=== PATIENT | male | born 1950 | race Caucasian/White ===

== ENCOUNTER → 2017-09-23 | Outpatient (CLI) | payer MEDICARE, SELFPAY | PROVIDERS: Family Provider Family Medicine; Visit Provider Internal Medicine | DX: I25.10 Atherosclerotic heart disease of native coronary artery without angina pectoris (principal); I10 Essential (primary) hypertension; I42.9 Cardiomyopathy, unspecified; E78.5 Hyperlipidemia, unspecified; Z95.5 Presence of coronary angioplasty implant and graft; G47.33 Obstructive sleep apnea (adult) (pediatric) | CPT/HCPCS: 93306 ==

== ENCOUNTER 2017-11-19 07:48 | Day surgery (SDC) | payer MEDICARE, SELFPAY ==
[2017-11-19] VITALS (15 sets, daily range): BP systolic 114–171; BP diastolic 55–104; PULSE 65–76; RESP 16–20; TEMP 36.7; O2SAT 89–98; BMI 36.1
--- NOTE | 2017-11-19 | IR_ITS ---
CARDIAC CATHETERIZATION DATE OF CATHETERIZATION:11/19/2017 1:29 PM PROCEDURES: 1. Right heart catheterization 2. Left heart catheterization 3. Left ventriculogram 4. Selective coronary angiogram INDICATION FOR TEST: 1. Abnormal Myoview 2. Known coronary artery disease 3. Congestive heart failure 4. Pulmonary hypertension Informed consent was obtained prior to the procedure. COMPLICATIONS: None ESTIMATED BLOOD LOSS: Less than 10 ml. TECHNIQUE: 1% lidocaine used to anesthetize the right anterior aspect of the right neck the right internal jugular vein was accessed via the Seldinger technique and a 7 [place] sheath was placed in the right internal jugular vein. A [place]-Padmini catheter was used to perform right heart catheterization. One percent lidocaine used to anesthetize the right anterior aspect of the wrist. The right radial artery was accessed via the Seldinger technique. A 6 [place] sheath was placed in the right radial artery. 2.5 mg of verapamil, 800 mcg of nitroglycerin and 5000 U Heparin were given through the arterial sheath. The trap catheter was also used to perform left heart catheterization and left ventriculography. At the end of the procedure the patient was transferred to the post-op holding area in stable condition for arterial sheath removal. ANGIOGRAPHIC RESULTS: 1. The left main artery normal 2. The left anterior descending artery has a stent in the proximal segment which is widely patent with mild 10% in-stent restenosis. The mid LAD has a 30-40% eccentric stenosis. The first diagonal artery has an ostial proximal 60-70% stenosis 3. The circumflex artery is a nondominant vessel and gives rise to a large ramus intermedius which has proximal 30 mid vessel 40% stenosis. The circumflex artery itself has 30 and 40% mid vessel stenoses 4. The right coronary artery is a large dominant vessel has proximal 30% stenoses with mid vessel long 40% stenosis and distal 40% stenosis all representing appears to be in-stent restenosis. Distally there are 30 and 40% stenoses in the PDA and PLVB 5. The REYES ventriculogram reveals moderate to severe left ventricular dilatation the inferior wall is severely hypokinetic with an estimated ejection fraction of 40-45% 6. The left ventricular end-diastolic pressure 15 mmHg 7. Right atrial pressure 10 mmHg 8. Pulmonary artery pressure is 35/18 mmHg 9. Pulmonary artery occlusion pressure is 15 10. Right atrial saturation 70% 11. Pulmonary saturation 69% IMPRESSION: 1. Coronary artery disease as described above 2. Moderate to severe left ventricular dilatation with large regional wall motion abnormality 3. Mild to moderately reduced LV function 4. Mild pulmonary hypertension PLAN: 1. Medical management 2. Risk factor modification 3. LDL less than 55 4. Cardiac rehabilitation 5. Avoidance of tobacco products
[2017-11-19 12:35] LABS: White Blood Count 9.4 K/mm3 (4.8-10.8)
[2017-11-19 12:36] LABS: Anion Gap 11.3 mEq/L (5-15); Basophils % 0.5 % (0.1-2.0); Blood Urea Nitrogen 13 mg/dL (7-18); Carbon Dioxide 31 mmol/L (21.0-32.0); Chloride 103 mmol/L (98-107); Creatinine Clearance Estimated 96 mL/min (0-300); Creatinine,Serum 1.16 mg/dL (0.70-1.30); Eosinophils % 2.7 % (0.1-12.0); Estimated Glomerular Filt Rate 63 ml/min (>60); GFR (African American) 76 ML/MIN (>60); Glucose 161 mg/dL (74-106); Hematocrit 44.7 % (42.0-52.0); Hemoglobin 15.4 g/dL (14.1-18.0); Mean Corpuscular HGB Conc 34.4 g/dL (31.8-35.4); Mean Corpuscular Hemoglobin 29.4 pg (27.0-31.2); Mean Corpuscular Volume 85.5 fl (80-94); Mean Platelet Volume 8.5 fl (7.4-10.4); Monocytes % 5.4 % (1.7-9.3); Neutrophils % 70.4 % (37.0-80.0); Platelet Count 227 K/mm3 (142-424); Potassium 3.3 mmoL/L (3.5-5.1); Red Blood Count 5.22 M/mm3 (4.60-6.20); Red Cell Distribution Width 14.3 % (11.5-17.5); Sodium 142 mmol/L (136-145)
[2017-11-19 12:37] LABS: Monocytes # 0.5 K/mm3 (0.1-1.0); Neutrophils # 6.6 K/mm3 (1.8-7.8)
[2017-11-19 12:38] LABS: Basophils # 0.1 K/mm3 (0-0.2); Eosinophils # 0.3 K/mm3 (0.0-0.4)
[2017-11-19 13:25] LABS: CATHL Arterial O2 SAT 69.5 % (90-100); CATHL Venous O2 SAT 71.8 % (75-80)
== END 2017-11-19 16:17 | disposition home or self-care (01) ==
LOC: CATHLAB 07:50
PROVIDERS: Family Provider Family Medicine; PCP Family Medicine; Visit Provider Internal Medicine
DX: I25.10 Atherosclerotic heart disease of native coronary artery without angina pectoris (principal); I50.9 Heart failure, unspecified; I11.9 Hypertensive heart disease without heart failure; I25.5 Ischemic cardiomyopathy; R53.82 Chronic fatigue, unspecified; R06.09 Other forms of dyspnea
CPT/HCPCS: 80048; 82810; 85025; 93460; 99152; A9502; C1725; C1769; C1894; J1644

== ENCOUNTER → 2017-12-08 12:59 | Outpatient (CLI) | payer MEDICARE, SELFPAY ==
--- NOTE | 2017-12-08 13:07 | NM_ITS ---
Cardiac MUGA scan: Indication for the test: Cardiomyopathy, shortness of breath, evaluate left ventricular systolic function. Procedure :Patient received intravenous 25.7 mCi of technetium 99 sodium pretchnitate, resting blood gas can was performed in the standard view. Results: Resting MIBI scan showed an ejection fraction of 39.8% with left ventricle global hypokinesis.
--- NOTE | 2017-12-08 13:54 | HMH.ITSHM ---
ROPINIROLE PRASUGREL POTASSIUM NITRO METFORMIN VITAMIN B 12 FUROSEMIDE BISOPROLOL ASA ALLOPURINOL ALBUTEROL
== END ==
PROVIDERS: Family Provider Family Medicine; PCP Family Medicine; Visit Provider Internal Medicine Cardiovascular Disease
DX: I25.10 Atherosclerotic heart disease of native coronary artery without angina pectoris (principal); I42.0 Dilated cardiomyopathy; G47.33 Obstructive sleep apnea (adult) (pediatric); E11.9 Type 2 diabetes mellitus without complications; E78.5 Hyperlipidemia, unspecified
CPT/HCPCS: 78473; A9512; A9560

== ENCOUNTER → 2017-12-11 12:23 | Outpatient (CLI) | payer MEDICARE, SELFPAY ==
[2017-12-11 13:07] LABS: Anion Gap 10.3 mEq/L (5-15); Blood Urea Nitrogen 12 mg/dL (7-18); Carbon Dioxide 27 mmol/L (21.0-32.0); Chloride 103 mmol/L (98-107); Creatinine,Serum 1.13 mg/dL (0.70-1.30); Estimated Glomerular Filt Rate 65 ml/min (>60); GFR (African American) 79 ML/MIN (>60); Glucose 156 mg/dL (74-106); Magnesium 1.5 mg/dL (1.4-2.2); Potassium 4.3 mmoL/L (3.5-5.1); Sodium 136 mmol/L (136-145)
== END ==
PROVIDERS: Physician Assistant; Visit Provider Internal Medicine
DX: Z51.81 Encounter for therapeutic drug level monitoring (principal); Z79.899 Other long term (current) drug therapy; R25.2 Cramp and spasm; I25.10 Atherosclerotic heart disease of native coronary artery without angina pectoris
CPT/HCPCS: 36415; 80048; 83735

== ENCOUNTER → 2018-01-01 08:13 | Outpatient (CLI) | payer MEDICARE, SELFPAY ==
[2018-01-01 08:56] LABS: Anion Gap 13.8 mEq/L (5-15); Blood Urea Nitrogen 16 mg/dL (7-18); Carbon Dioxide 26 mmol/L (21.0-32.0); Chloride 103 mmol/L (98-107); Estimated Glomerular Filt Rate 75 ml/min (>60); GFR (African American) 90 ML/MIN (>60); Glucose 249 mg/dL (74-106); Magnesium 1.6 mg/dL (1.4-2.2); Potassium 4.8 mmoL/L (3.5-5.1); Sodium 138 mmol/L (136-145)
== END ==
PROVIDERS: Physician Assistant; Visit Provider Internal Medicine
DX: I25.10 Atherosclerotic heart disease of native coronary artery without angina pectoris (principal); I11.9 Hypertensive heart disease without heart failure; Z95.5 Presence of coronary angioplasty implant and graft; E78.5 Hyperlipidemia, unspecified; I42.9 Cardiomyopathy, unspecified
CPT/HCPCS: 36415; 80048; 83735; 83880

== ENCOUNTER 2018-02-20 17:31 | Observation (INO) ==
--- NOTE | 2018-02-20 18:11 | Emergency Department Note ---
ED Disposition Clinical Impression: Acute febrile illness, Stented coronary artery Disposition: Admitted as Observation Condition on Discharge: Good - Critical Care Critical Care Time: No Attestation: On 02/20/18, the high probability of a clinically significant, sudden or life threatening deterioration of the following system(s) required my full and direct attention, intervention and personal management. The time I documented below is in addition to time spent performing reported procedures but includes the following listed in this critical care notation. Medical Decision Making - Medical Records Medical records reviewed: Yes: I reviewed the patient's medical records. - Manjit Inquiry Pt receiving controlled substance: No Vital Signs: 02/20/18 17:46 02/20/18 19:20 Temperature 101.1 F H 98.4 F Temperature Source Oral Oral Pulse Rate [Left Radial] 117 H 93 H Respiratory Rate 20 14 Blood Pressure [Right Arm] 139/84 108/64 Blood Pressure Mean [Right Arm] 102 78 Blood Pressure Source [Right Arm] Automatic Cuff Blood Pressure Position [Right Arm] Sitting 02 Sat by Pulse Oximetry 93 L 94 L Oxygen Delivery Method Room Air - Lab Data Lab results reviewed: Yes: I reviewed the patient's lab results. Lab Results 02/20/18 18:30: Lactic Acid 1.7 02/20/18 18:30: WBC 11.6 H, RBC 5.07, Hgb 14.1, Hct 42.7, MCV 84.3, MCH 27.9, MCHC 33.1, RDW 13.9, Plt Count 263, MPV 7.3 L, Neut % (Auto) 82.2 H, Lymph % ( Auto) 10.4, [place] % (Auto) 5.5, Eos % (Auto) 1.5, Baso % (Auto) 0.5, Neut # (Auto ) 9.5 H, Lymph # (Auto) 1.2, [place] # (Auto) 0.6, Eos # (Auto) 0.2, Baso # (Auto) 0.1 02/20/18 18:30: Sodium 136, Potassium 3.4 L, Chloride 102, Carbon Dioxide 24, Anion Gap 13.4, BUN 9, Creatinine 1.06, Estimated Creat Clear 110, Estimated GFR 70, Est GFR ( Amer) 85, Glucose 147 H, Calcium 9.4, Total Bilirubin 0.6, AST 15, ALT 24, Alkaline Phosphatase 70, Troponin I < 0.02, Total Protein 7.2, Albumin 3.6, Globulin 3.6 H, Albumin/Globulin Ratio 1.0 L 02/20/18 18:34: POC Glucose 134 H 02/20/18 18:43: Urine Color Yellow, Urine Appearance Clear, Urine pH 5.5, Ur Specific [place] 1.020, Urine Protein Negative, Urine Glucose (UA) Negative, Urine Ketones Negative, Urine Blood Negative, Urine Nitrate Negative, Urine Bilirubin Negative, Urine Urobilinogen 0.2, Ur Leukocyte Esterase Negative, Urine WBC 3-5 02/20/18 19:15: Stool Occult Blood Negative Result diagrams: 02/20/18 18:30 02/20/18 18:30 Orders (Tests/Meds): ED MEDICATIONS Generic Name Dose Route Start Last Admin Trade Name Freq PRN Reason Stop Dose Admin Levofloxacin/Dextrose 750 mg in 150 mls @ 100 mls/hr 02/20/18 19:45 Levofloxacin 750mg/150ml Premix IV 03/06/18 19:44 Q24H FLORENCIO Protocol Discontinued Medications Generic Name Dose Route Start Last Admin Trade Name Freq PRN Reason Stop Dose Admin Acetaminophen 650 mg 02/20/18 18:08 02/20/18 18:12 Acetaminophen 325mg Tab PO 02/20/18 18:09 650 mg ONCE ONE Administration Sodium Chloride 1,000 mls @ 999 mls/hr 02/20/18 18:30 02/20/18 18:20 Sod Chlor 0.9% 1000ml Bag IV 02/20/18 19:30 999 mls/hr .Q1H1M FLORENCIO Administration ORDERS Category Date Time Status Chest XR 2 view (NOT portable) [XR chest 2V] Stat Exams 02/20/18 18:14 Taken Blood Culture Stat Micro 02/20/18 18:30 Received - Radiology Data #1 Image(s): Chest Image Reviewed: Yes I reviewed the patient's radiology image Preliminary Findings: Normal/NAD - ECG Data Tracing #1 I reviewed this ECG and interpreted as documented below: Normal Sinus Rhythm: Yes Ischemic changes: non-specific ST-T wave changes (old mi ) - Physician Consults Physician Consulted: salomon Reason -: Admission Fever HPI - General Chief Complaint: Weakness Stated Complaint: weakness,pain in left side Time Seen by Provider: 02/20/18 17:55 Mode of Arrival: Wheelchair Source of Information: Patient, Spouse, Medical Record Limitations: No Limitations Description of Symptoms (Recalled from ER Triage Doc. by RN): Pt states for the last week he has been feeling weak. Due to the weakness he is having incontience. States last night he was having left jaw pain into his neck. He took at nitro and states this relieved his pain in the jaw and neck - History of Present Illness HPI Narrative: pt with fever and assoc weakness with no cough but does report urinary incont - urge type - has a fever and also reports episode of chest pain relieved by nitro last night MD complaint: fever, weakness Onset (ago): day(s) Treatments prior to arrival fever: ibuprofen - Related Data Home Medications Medication Instructions Recorded Confirmed albuterol sulfate HFA 90 1 puff INHALATION DAILY 30 Days 11/02/17 02/20/18 mcg/actuation aerosol inhaler metformin 850 mg tablet 850 mg PO DAILY 90 Days 11/02/17 02/20/18 prasugrel 10 mg tablet 10 mg PO DAILY 30 Days 11/02/17 02/20/18 aspirin 81 mg tablet,delayed 81 mg PO ONCE 11/11/17 02/20/18 release nitroglycerin 0.4 mg sublingual 0.4 mg SUBLINGUAL Q5M PRN 11/11/17 02/20/18 tablet mecobalamin (vitamin B12) 1,000 1,000 mcg SUBLINGUAL QHS 11/12/17 02/20/18 mcg disintegrating tablet,sublingual allopurinol 300 mg tablet 300 mg PO DAILY tab 12/11/17 02/20/18 furosemide 40 mg tablet 40 mg PO .MWF tab 01/01/18 02/20/18 losartan 100 mg tablet 100 mg PO DAILY 90 Days 02/09/18 02/20/18 Magnesium Oxide [Magnesium] 400 mg PO BID 02/20/18 02/20/18 Potassium Chloride [Micro-K 10mEq 10 meq PO ONCE 02/20/18 02/20/18 cap] Spironolactone [Spironolactone 50 mg PO .mwf 02/20/18 02/20/18 25mg Tab] Allergies Allergy/AdvReac Type Severity Reaction Status Date / Time No Known Allergies Allergy Verified 02/20/18 18:05 [facility] History I have reviewed the patient's past medical history: Yes Medical History: Reports:: Cancer, Coronary Artery Disease, Diabetes Mellitus Type 2, Gastroesophageal Reflux Disease(GERD), Hypertension, Myocardial Infarction Denies:: Diabetes Mellitus Type 1, Internal Pacemaker, Seizures Other Medical History: Reports: Arthritis Comment: Non hodgkins lymphoma Other Surgeries: Yes: Angioplasty, CABG (8 stents in the Heart), Cardiac Catheterization, Coronary Stent, Sinus Surgery. No: Pacemaker Amputation: No Fractures: No Comment: Removal of [place] - 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 Smoking Status: Former smoker Tobacco Type: cigarettes Smoking End Date: 1999 Alcohol Intake: never Alcohol Intake Frequency:: other Substance Use Type: denies use Occupational Status: retired Housing: house Household Members: spouse - Psychiatric History Expresses thoughts of harming self/others: None Suicide Plan Description: No Plan Family Hx:: Heart Attack, Cancer, Hypertension ROS Obtained: Yes All systems reviewed & no additional complaints - Constitutional Constitutional: Reports fever(s), Reports weakness - Eyes Eyes: Denies change in vision - ENT Ears, Nose, Mouth, and Throat: Denies sore throat - Cardiovascular Cardiovascular: Reports chest pain, Reports radiating jaw, neck or arm pain - Respiratory Respiratory: No cough - Gastrointestinal Gastrointestingal: Denies: abdominal pain - Genitourinary Male Genitourinary: Denies hematuria, Reports urinary incontinence - Musculoskeletal Musculoskeletal: Denies joint pain, Denies joint swelling - Integumentary/Breasts Skin/Breast: Denies rash - Neurologic Neurologic: Denies seizure-like activity Physical Exam - General General appearance: in no apparent distress - Head Head exam: normocephalic - Eye Eye exam: Present: PERRL, EOMI. Absent: scleral icterus - ENT ENT exam: Present: mucous membranes dry - Neck Neck exam: Present: trachea midline - Respiratory Respiratory exam: Present: other (bs bilat dec ). Absent: respiratory distress - Cardiovascular Cardiovascular exam: Present: regular rate, systolic murmur - Abdominal Exam Abdominal exam: Present: soft. Absent: tenderness - Rectal Exam Rectal exam: Present: normal rectal tone, heme (-) stool, prostate tenderness - Extremities Exam Extremities exam: Present: pedal edema - Back Exam Back exam: Present: normal inspection. Absent: CVA tenderness (R), CVA tenderness (L) - Neurological Exam Neurological exam: Present: alert, oriented X3, CN II-XII intact - Psychiatric Psychiatric exam: Present: normal affect - Skin Skin exam: Absent: rash
[2018-02-20 18:46] LABS: Basophils # 0.1 K/mm3 (0-0.2); Basophils % 0.5 % (0.1-2.0); Eosinophils # 0.2 K/mm3 (0.0-0.4); Eosinophils % 1.5 % (0.1-12.0); Hematocrit 42.7 % (42.0-52.0); Hemoglobin 14.1 g/dL (14.1-18.0); Lymphocytes # 1.2 K/mm3 (0.7-4.5); Lymphocytes % 10.4 K/mm3 (10-50); Mean Corpuscular HGB Conc 33.1 g/dL (31.8-35.4); Mean Corpuscular Hemoglobin 27.9 pg (27.0-31.2); Mean Corpuscular Volume 84.3 fl (80-94); Mean Platelet Volume 7.3 fl (7.4-10.4); Monocytes # 0.6 K/mm3 (0.1-1.0); Monocytes % 5.5 % (1.7-9.3); Neutrophils # 9.5 K/mm3 (1.8-7.8); Neutrophils % 82.2 % (37.0-80.0); Platelet Count 263 K/mm3 (142-424); Red Blood Count 5.07 M/mm3 (4.60-6.20); Red Cell Distribution Width 13.9 % (11.5-17.5); White Blood Count 11.6 K/mm3 (4.8-10.8)
[2018-02-20 18:47] LABS: Microscopic, Urine URINE MICROSCOPIC (MICROSCOPIC)
[2018-02-20 18:53] LABS: Appearance,Urine CLEAR (Clear); Bilirubin,Urine Negative (Negative); Blood, Urine Negative (Negative); Color,Urine YELLOW (Yellow); Glucose,Urine (UA) Negative (Negative); Ketones,Urine Negative (Negative); Leukocyte Esterase,Urine Negative (Negative); PH,Urine 5.5 (5.0-8.5); Protein,Urine Negative (Negative); Urobilinogen,Urine 0.2 EU/dl (0.2)
[2018-02-20 19:01] LABS: Alanine Aminotransferase 24 U/L (12-78); Albumin Level 3.6 gm/dL (3.4-5.0); Alkaline Phosphatase 70 U/L (46-116); Anion Gap 13.4 mEq/L (5-15); Aspartate Amino Transferase 15 U/L (15-37); Bilirubin,Total 0.6 mg/dL (0.2-1.0); Blood Urea Nitrogen 9 mg/dL (7-18); Calcium 9.4 mg/dL (8.5-10.1); Carbon Dioxide 24 mmol/L (21.0-32.0); Chloride 102 mmol/L (98-107); Globulin 3.6 gm/dl (1.3-3.2); Glucose 147 mg/dL (74-106); Potassium 3.4 mmoL/L (3.5-5.1); Sodium 136 mmol/L (136-145); Total Protein,Serum 7.2 gm/dL (6.4-8.2)
[2018-02-21 02:38] LABS: Basophils % 0.4 % (0.1-2.0); Eosinophils # 0.2 K/mm3 (0.0-0.4); Eosinophils % 2.1 % (0.1-12.0); Hematocrit 40.9 % (42.0-52.0); Hemoglobin 13.6 g/dL (14.1-18.0); Lymphocytes # 1.1 K/mm3 (0.7-4.5); Lymphocytes % 14.2 K/mm3 (10-50); Mean Corpuscular HGB Conc 33.4 g/dL (31.8-35.4); Mean Corpuscular Hemoglobin 28.3 pg (27.0-31.2); Mean Corpuscular Volume 84.8 fl (80-94); Mean Platelet Volume 7.3 fl (7.4-10.4); Monocytes # 0.6 K/mm3 (0.1-1.0); Monocytes % 7.6 % (1.7-9.3); Neutrophils # 5.6 K/mm3 (1.8-7.8); Neutrophils % 75.8 % (37.0-80.0); Platelet Count 225 K/mm3 (142-424); Red Blood Count 4.82 M/mm3 (4.60-6.20); White Blood Count 7.4 K/mm3 (4.8-10.8)
[2018-02-21 02:51] LABS: Anion Gap 14.5 mEq/L (5-15); Potassium 3.5 mmoL/L (3.5-5.1)
[2018-02-21 07:29] VITALS: BP 154/76
--- NOTE | 2018-02-21 08:32 | Pharmacy Consult Notes ---
[facility] VTE Monitoring - Patient Demographics Admission date: 02/20/18 Report Date: 02/21/18 Time: 08:32 Allergies/Adverse Reactions: Patient Allergies No Known Allergies Allergy (Verified 02/20/18 18:05) Height: 1.73 m Weight: 108.465 kg Patient Problems: Current Active Problems Acute febrile illness (Acute) Stented coronary artery (Chronic) - VTE Risk Labs: VTE Related Lab Results Hgb 13.6 g/dL (14.1-18.0) L 02/21/18 02:10 Hct 40.9 % (42.0-52.0) L 02/21/18 02:10 Plt Count 225 K/mm3 (142-424) 02/21/18 02:10 BUN 10 mg/dL (7-18) 02/21/18 02:10 Creatinine 0.98 mg/dL (0.70-1.30) 02/21/18 02:10 Estimated Creat Clear 111 mL/min (0-300) 02/21/18 02:10 Was VTE Risk Assessment Performed: Yes VTE Score: 10 VTE Risk Level: Moderate Risk - Prophylaxis VTE Prophylaxis Ordered?: Yes Types of VTE Prophylaxis: TEDS Knee High Location of Applied Device: Bilateral Lower Extremeties
--- NOTE | 2018-02-21 09:09 | H&P/Discharge Summary ---
General - General Admission date:: 02/20/18 Discharge date: 02/21/18 *Admission Date: 02/20/18 *Chief complaint: Fever and confusion *History of present illness: 67 year old male patient of [facility] presented to [facility] ER yesterday with a 3 or 4 day history of subjective low grade fever, weak urinary stream and some confusion with fatigue. He had no sick contacts or recent travel. His had noted he had been sleeping more and took several naps the day prior to admission. [facility] History I have reviewed the patient's past medical history: Yes Medical History: Reports:: Cancer (lung and neck), Congestive Heart Failure, Coronary Artery Disease, Diabetes Mellitus Type 2, Gastroesophageal Reflux Disease(GERD), Hypertension, Myocardial Infarction Denies:: Diabetes Mellitus Type 1, Internal Pacemaker, MRSA, Seizures Other Medical History: Reports: Arthritis, Chemotherapy (cancer of neck and lung ), Sinus Problems Other Surgeries: Yes: Angioplasty, CABG (8 stents in the Heart), Cancer Surgery , Cardiac Catheterization, Coronary Stent, Sinus Surgery. No: Pacemaker Amputation: No Fractures: No - *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 Educational Level: Attended High School Smoking Status: Former smoker Tobacco Type: cigarettes Smoking End Date: 1999 Alcohol Intake: never Alcohol Intake Frequency:: other Substance Use Type: denies use Occupational Status: employed, retired Housing: house Household Members: spouse - Psychiatric History Expresses thoughts of harming self/others: None Suicide Plan Description: No Plan *Family Hx:: Heart Attack, Cancer, Hypertension Review of Systems - Constitutional Reports chills, Reports fatigue, Reports fever(s), Denies anorexia - Eyes Denies change in vision - ENT Denies change in voice - *Cardiovascular Denies chest pain - *Respiratory Denies cough - *Gastrointestinal Denies abdominal pain - *Genitourinary Reports difficulty urinating - *Musculoskeletal Denies joint pain - Integumentary/Breasts Denies rash - *Neurologic Reports weakness, Denies seizure-like activity - Psychiatric Reports confusion (past few days) - Hematologic/Lymphatic Denies easy bleeding, Denies easy bruising Exam Vital signs and Labs for Last 24 Hours: Temp Pulse Resp BP Pulse Ox 98.5 F 85 18 154/76 95 02/21/18 07:28 02/21/18 07:28 02/21/18 07:28 02/21/18 07:28 02/21/18 07:38 Laboratory Results - last 24 hr 02/20/18 18:30: Lactic Acid 1.7 02/20/18 18:30: WBC 11.6 H, RBC 5.07, Hgb 14.1, Hct 42.7, MCV 84.3, MCH 27.9, MCHC 33.1, RDW 13.9, Plt Count 263, MPV 7.3 L, Neut % (Auto) 82.2 H, Lymph % ( Auto) 10.4, [place] % (Auto) 5.5, Eos % (Auto) 1.5, Baso % (Auto) 0.5, Neut # (Auto ) 9.5 H, Lymph # (Auto) 1.2, [place] # (Auto) 0.6, Eos # (Auto) 0.2, Baso # (Auto) 0.1 02/20/18 18:30: Sodium 136, Potassium 3.4 L, Chloride 102, Carbon Dioxide 24, Anion Gap 13.4, BUN 9, Creatinine 1.06, Estimated Creat Clear 110, Estimated GFR 70, Est GFR ( Amer) 85, Glucose 147 H, Calcium 9.4, Total Bilirubin 0.6, AST 15, ALT 24, Alkaline Phosphatase 70, Troponin I < 0.02, Total Protein 7.2, Albumin 3.6, Globulin 3.6 H, Albumin/Globulin Ratio 1.0 L 02/20/18 18:34: POC Glucose 134 H 02/20/18 18:43: Urine Color Yellow, Urine Appearance Clear, Urine pH 5.5, Ur Specific [place] 1.020, Urine Protein Negative, Urine Glucose (UA) Negative, Urine Ketones Negative, Urine Blood Negative, Urine Nitrate Negative, Urine Bilirubin Negative, Urine Urobilinogen 0.2, Ur Leukocyte Esterase Negative, Urine WBC 3-5 02/20/18 19:15: Stool Occult Blood Negative 02/20/18 20:30: Troponin I < 0.02 02/20/18 20:30: POC Glucose 104 02/20/18 23:20: Troponin I < 0.02 02/21/18 02:10: Troponin I < 0.02 02/21/18 02:10: WBC 7.4 D, RBC 4.82, Hgb 13.6 L, Hct 40.9 L, MCV 84.8, MCH 28.3 , MCHC 33.4, RDW 14.0, Plt Count 225, MPV 7.3 L, Neut % (Auto) 75.8, Lymph % ( Auto) 14.2, [place] % (Auto) 7.6, Eos % (Auto) 2.1, Baso % (Auto) 0.4, Neut # (Auto ) 5.6, Lymph # (Auto) 1.1, [place] # (Auto) 0.6, Eos # (Auto) 0.2, Baso # (Auto) 0.0 02/21/18 02:10: Sodium 140, Potassium 3.5, Chloride 105, Carbon Dioxide 24, Anion Gap 14.5, BUN 10, Creatinine 0.98, Estimated Creat Clear 111, Estimated GFR 77, Est GFR ( Amer) 93, Glucose 174 H, Magnesium 1.7 02/21/18 06:26: POC Glucose 125 H I & O for Last 24 hours: Intake & Output 02/18/18 02/19/18 02/20/18 02/21/18 11:59 11:59 11:59 11:59 Intake Total 360 / 360 Balance 360 / 360 Weight 239 lb 2 oz - Constitutional no acute distress (conversant, laughs) - *Routine HEENT Exam ENT: Present: mucous membranes moist - *Routine Neck Exam Present: supple, full ROM - *Routine Respiratory Exam Present: CTA bilaterally - *Routine Cardiovascular Exam Present: RRR - *Routine Abdominal Exam Present: soft, normoactive bowel sounds. Absent: tenderness - *Routine Rectal Exam Patient deferred: prostate exam (deferred today, but done in ER, prostate noted to be tender) - *Routine Extremities Exam Absent: cyanosis, clubbing, edema - *Routine Skin Exam Absent: rash - *Routine Neurological Exam Present: alert, oriented X3. Absent: sensory deficit, motor deficit Hospital Course Hospital Course: Patient was admitted to [facility] due to an acute febrile illness with the working diagnosis of prostatitis. He was given IV Levaquin. Patient improved with the first dose of medication. He was thinking clearly and did not feel as tired. His WBC normalized and his fever resolved. Plans will be made to discharge today and continue outpatient treatment with Levaquin by mouth, with close office follow up. Results Labs on day of discharge: Labs from last 24 hours 02/21/18 02/21/18 02/21/18 06:26 02:10 02:10 WBC 7.4 D RBC 4.82 Hgb 13.6 L Hct 40.9 L MCV 84.8 MCH 28.3 MCHC 33.4 RDW 14.0 Plt Count 225 MPV 7.3 L Neut % (Auto) 75.8 Lymph % (Auto) 14.2 [place] % (Auto) 7.6 Eos % (Auto) 2.1 Baso % (Auto) 0.4 Neut # (Auto) 5.6 Lymph # (Auto) 1.1 [place] # (Auto) 0.6 Eos # (Auto) 0.2 Baso # (Auto) 0.0 Sodium 140 Potassium 3.5 Chloride 105 Carbon Dioxide 24 Anion Gap 14.5 BUN 10 Creatinine 0.98 Estimated Creat Clear 111 Estimated GFR 77 Est GFR ( Amer) 93 Glucose 174 H POC Glucose 125 H Lactic Acid Calcium Magnesium 1.7 Total Bilirubin AST ALT Alkaline Phosphatase Troponin I Total Protein Albumin Globulin Albumin/Globulin Ratio Urine Color Urine Appearance Urine pH Ur Specific [place] Urine Protein Urine Glucose (UA) Urine Ketones Urine Blood Urine Nitrate Urine Bilirubin Urine Urobilinogen Ur Leukocyte Esterase Urine WBC Stool Occult Blood 02/21/18 02/20/18 02/20/18 02:10 23:20 20:30 WBC RBC Hgb Hct MCV MCH MCHC RDW Plt Count MPV Neut % (Auto) Lymph % (Auto) [place] % (Auto) Eos % (Auto) Baso % (Auto) Neut # (Auto) Lymph # (Auto) [place] # (Auto) Eos # (Auto) Baso # (Auto) Sodium Potassium Chloride Carbon Dioxide Anion Gap BUN Creatinine Estimated Creat Clear Estimated GFR Est GFR ( Amer) Glucose POC Glucose 104 Lactic Acid Calcium Magnesium Total Bilirubin AST ALT Alkaline Phosphatase Troponin I < 0.02 < 0.02 Total Protein Albumin Globulin Albumin/Globulin Ratio Urine Color Urine Appearance Urine pH Ur Specific [place] Urine Protein Urine Glucose (UA) Urine Ketones Urine Blood Urine Nitrate Urine Bilirubin Urine Urobilinogen Ur Leukocyte Esterase Urine WBC Stool Occult Blood DS: Diagnosis - Discharge Diagnosis (1) Prostatitis Status: Acute (2) Hypokalemia Status: Acute (3) Acute febrile illness Status: Acute Discharge Medications Discharge Medications: Home Medications Medication Instructions Recorded Confirmed Type albuterol sulfate HFA 90 1 puff INHALATION DAILY 30 Days 11/02/17 02/20/18 History mcg/actuation aerosol inhaler metformin 850 mg tablet 850 mg PO DAILY 90 Days 11/02/17 02/20/18 History prasugrel 10 mg tablet 10 mg PO DAILY 30 Days 11/02/17 02/20/18 History aspirin 81 mg tablet,delayed 81 mg PO DAILY 11/11/17 02/21/18 History release nitroglycerin 0.4 mg sublingual 0.4 mg SUBLINGUAL Q5M PRN 11/11/17 02/20/18 History tablet mecobalamin (vitamin B12) 1,000 1,000 mcg SUBLINGUAL HS 11/12/17 02/21/18 History mcg disintegrating tablet,sublingual allopurinol 300 mg tablet 300 mg PO DAILY tab 12/11/17 02/20/18 History furosemide 40 mg tablet 40 mg PO MOWEFR tab 01/01/18 02/21/18 History losartan 100 mg tablet 100 mg PO DAILY 90 Days 02/09/18 02/20/18 History Magnesium Oxide [Magnesium] 400 mg PO BID 02/20/18 02/20/18 History Potassium Chloride [Micro-K 10mEq 10 meq PO DAILY 02/20/18 02/21/18 History cap] Spironolactone [Spironolactone 25 mg PO DAILY 02/20/18 02/21/18 History 25mg Tab] Disposition Disposition: Home, Self-Care
== END 2018-02-21 09:56 | disposition home or self-care (01) ==
LOC: 2ND 17:31 → ER 17:31 → 2ND 20:08
PROVIDERS: ADMIT Internal Medicine Adolescent Medicine; ATTEND Family Medicine

== ENCOUNTER → 2018-07-26 13:48 | Outpatient (CLI) | payer MEDICARE, SELFPAY ==
--- NOTE | 2018-07-26 13:55 | CA_ITS ---
PROCEDURE: 2-D M-mode and color Doppler study INDICATIONS FOR THE TEST: Chest pain COPD Heart Murmur Tobacco Smoking Palpitations Fatigue Syncope Edema Hypertension+Diabetes Mellitus+ Rheumatic Fever SOB ALLEN Obesity+Hyperlipidemia+ Family History HD Additional History CAD, CM, STENTS PATIENT INFORMATION HEIGHT: 68 WEIGHT:244 GENDER: Male B/P:154/76 2-D/M-MODE INTERPRETATION: 2-D MEASUREMENTS OBSERVED VALUES IN CMS Right Ventricular Dimension (RVDd) 2.8 Interventricular Septum (Thickness)(IVsd) 1.6 Left Ventricular Internal Dimensions(LVIDd) 5.5 Left Ventricular Posterior Wall (Thickness)(LVPWd) 1.0 Aortic Root 3.2 Aortic Cusp Separation 2.0 Left Atrial Dimensions (LAD) 3.6 2D 1. Technically poor study because of the patient's factor and poor acoustic windows, endocardial surfaces are very poorly visualized. 2. The left atrium appears to be mildly enlarged, left ventricle is mildly dilated, there is moderately reduced left ventricular systolic function, visually estimated ejection fraction approximately 35-40%, left ventricle is globally hypokinetic. 3. The right atrium and right ventricle are relatively normal size and function. 4. The aortic valve is minimally thickened and fibrosed. 5. The mitral and tricuspid valve leaflets are minimally thickened. 6. The pulmonic valve is poorly visualized. 7. No significant pericardial effusion noted. DOPPLER INTERROGATION: Doppler interrogation of the aortic, mitral and tricuspid valvular presence of mild mitral and tricuspid regurgitation, tricuspid regurgitation jet velocity is inadequate for calculation of the right ventricular systolic pressure, grade 1 diastolic dysfunction seen with tissue Doppler evidence of raised left atrial pressure CONCLUSION: 1. Technically very difficult study because of the patient's factor and poor acoustic windows, repeat study with Definity contrast is recommended. 2. Mildly enlarged left atrium, mildly dilated left ventricle, reduced left ventricular systolic function, visually estimated ejection fraction 35-40%, left ventricle is globally hypokinetic. Grade 1 diastolic dysfunction seen with tissue Doppler evidence of raised left atrial pressure. 3. Mild mitral and tricuspid regurgitation 4. No significant pericardial effusion noted.
== END ==
PROVIDERS: Family Provider Family Medicine; PCP Family Medicine; Visit Provider Family Medicine
DX: I25.5 Ischemic cardiomyopathy (principal)
CPT/HCPCS: 93306

== ENCOUNTER → 2018-08-17 07:50 | Outpatient (CLI) | payer MEDICARE, SELFPAY ==
--- NOTE | 2018-08-17 07:54 | CA_ITS ---
PROCEDURE: 2-D M-mode and color Doppler study INDICATIONS FOR THE TEST: Chest pain COPD Heart Murmur Tobacco Smoking Palpitations Fatigue Syncope Edema Hypertension+Diabetes Mellitus+ Rheumatic Fever SOB ALLEN Obesity+Hyperlipidemia+ Family History HD Additional History CAD,CM, STENTS DEFINITY STUDY PATIENT INFORMATION HEIGHT: 68 WEIGHT:244 GENDER: Male B/P:154/76 2-D/M-MODE INTERPRETATION: 2-D MEASUREMENTS OBSERVED VALUES IN CMS Right Ventricular Dimension (RVDd) Interventricular Septum (Thickness)(IVsd) Left Ventricular Internal Dimensions(LVIDd) Left Ventricular Posterior Wall (Thickness)(LVPWd) Aortic Root Aortic Cusp Separation Left Atrial Dimensions (LAD) 2D 1. The left atrium is mildly enlarged, left ventricle is normal size, definitely contrast was utilized to delineate endocardial surfaces, visually estimated ejection fraction of 25-30%, there is marked hypokinesis involving the inferior, inferobasal, posterobasal and intraventricular septum. 2. The right atrium and right ventricle are normal size and contractility. 3. The valvular structures are not well visualized this study. DOPPLER INTERROGATION: CONCLUSION: 1. Mildly enlarged left atrium, normal left ventricular size, visually estimated ejection fraction 25-30% with multiple segmental wall motion abnormality described above. There is no left ventricular thrombus seen. 2. No significant pericardial effusion noted.
== END ==
PROVIDERS: PCP Family Medicine; Visit Provider Family Medicine
DX: I50.22 Chronic systolic (congestive) heart failure; I25.10 Atherosclerotic heart disease of native coronary artery without angina pectoris
CPT/HCPCS: 93308; Q9957

== ENCOUNTER → 2018-08-20 15:02 | Outpatient (CLI) | payer MEDICARE, SELFPAY ==
[2018-08-20 15:36] LABS: Basophils # 0.1 K/mm3 (0-0.2); Basophils % 0.8 % (0.1-2.0); Eosinophils # 0.2 K/mm3 (0.0-0.4); Eosinophils % 2.8 % (0.1-12.0); Hematocrit 48.8 % (42.0-52.0); Hemoglobin 15.6 g/dL (14.1-18.0); Lymphocytes # 2.2 K/mm3 (0.7-4.5); Lymphocytes % 29.3 % (10-50); Mean Corpuscular Hemoglobin 27.2 pg (27.0-31.2); Mean Platelet Volume 7.4 fl (7.4-10.4); Monocytes # 0.5 K/mm3 (0.1-1.0); Monocytes % 6.1 % (1.7-9.3); Neutrophils # 4.6 K/mm3 (1.8-7.8); Neutrophils % 61.1 % (37.0-80.0); Platelet Count 226 K/mm3 (142-424); Red Blood Count 5.74 M/mm3 (4.60-6.20); Red Cell Distribution Width 14.4 % (11.5-17.5); White Blood Count 7.5 K/mm3 (4.8-10.8)
[2018-08-20 17:19] LABS: Anion Gap 15.2 mEq/L (5-15); Blood Urea Nitrogen 12 mg/dL (7-18); Calcium 9.4 mg/dL (8.5-10.1); Carbon Dioxide 27 mmol/L (21.0-32.0); Chloride 105 mmol/L (98-107); Creatinine,Serum 1.01 mg/dL (0.70-1.30); Estimated Glomerular Filt Rate 74 ml/min (>60); GFR (African American) 89 ML/MIN (>60); Glucose 95 mg/dL (74-106); Potassium 4.2 mmoL/L (3.5-5.1); Sodium 143 mmol/L (136-145)
== END ==
PROVIDERS: Visit Provider Internal Medicine
DX: Z79.891 Long term (current) use of opiate analgesic (principal)
CPT/HCPCS: 36415; 80048; 85025

== ENCOUNTER → 2018-09-20 10:41 | Outpatient (CLI) | payer MEDICARE, SELFPAY ==
--- NOTE | 2018-09-20 10:42 | XR_ITS ---
XR chest 2V HISTORY: Pacemaker placement one month ago. Tingling and chest ITS.REASON: buzzing in chest ORDERING PHYSICIAN: Maddie Avendano PATIENT AGE: 68 years Technique: PA and lateral chest COMPARISON: AP portable chest 08/23/1980 FINDINGS: Pacer device overlies the left chest. The right atrial and ventricular leads intact and stable. Additional third lead is identified and appear stable. But Requires clinical correlation The heart is normal in size. The hilar regions upper normal on left but I believe stable. Since March CXR. Right chest unchanged. Mediastinum unchanged. Mild marginal osteophytes and hyperostosis throughout T-spine stable. No acute findings T-spine. IMPRESSION No acute findings in chest. No significant new findings or change since prior chest film evident. Pacemaker device again noted as above
== END ==
PROVIDERS: PCP Family Medicine; Visit Provider Nurse Practitioner Family
DX: I11.9 Hypertensive heart disease without heart failure; E78.2 Mixed hyperlipidemia; G47.33 Obstructive sleep apnea (adult) (pediatric); I25.10 Atherosclerotic heart disease of native coronary artery without angina pectoris; I25.5 Ischemic cardiomyopathy; I50.9 Heart failure, unspecified; J43.9 Emphysema, unspecified; R53.82 Chronic fatigue, unspecified; Z95.5 Presence of coronary angioplasty implant and graft
CPT/HCPCS: 71046

== ENCOUNTER → 2018-10-11 10:10 | Outpatient (CLI) | payer MEDICARE, SELFPAY ==
[2018-10-11 11:20] LABS: Alanine Aminotransferase 38 U/L (12-78); Albumin Level 3.6 gm/dL (3.4-5.0); Alkaline Phosphatase 97 U/L (46-116); Anion Gap 15.7 mEq/L (5-15); Aspartate Amino Transferase 24 U/L (15-37); Bilirubin,Direct 0.1 mg/dL (0.0-0.2); Bilirubin,Indirect 0.2 mg/dL (0.0-0.9); Bilirubin,Total 0.3 mg/dL (0.2-1.0); Blood Urea Nitrogen 17 mg/dL (7-18); Calcium 9.1 mg/dL (8.5-10.1); Carbon Dioxide 25 mmol/L (21.0-32.0); Chloride 105 mmol/L (98-107); Chol/HDL Ratio 4.8 (1-3.5); Cholesterol 191 mg/dL (140-200); Creatinine,Serum 1.08 mg/dL (0.70-1.30); Estimated Glomerular Filt Rate 68 ml/min (>60); GFR (African American) 83 ML/MIN (>60); Glucose 167 mg/dL (74-106); HDL Cholesterol 40 mg/dL (27-67); LDL Cholesterol 106 mg/dL (0-130); Potassium 4.7 mmoL/L (3.5-5.1); Sodium 141 mmol/L (136-145); Total Protein,Serum 6.8 gm/dL (6.4-8.2); Triglycerides 227 mg/dL (30-200); VLDL Cholesterol 45 mg/dL (0-40)
== END ==
PROVIDERS: Visit Provider Nurse Practitioner Family
DX: E78.2 Mixed hyperlipidemia (principal); I50.9 Heart failure, unspecified; I25.10 Atherosclerotic heart disease of native coronary artery without angina pectoris
CPT/HCPCS: 36415; 80048; 80061; 80076

== ENCOUNTER → 2018-12-10 16:51 | Outpatient (CLI) | payer MEDICARE, SELFPAY ==
--- NOTE | 2018-12-10 17:26 | XR_ITS ---
XR abdomen min 2V HISTORY: ITS.REASON: LUQ PAIN ORDERING PHYSICIAN: Roberto Sweeney MD PATIENT AGE: 68 years COMPARISON: None FINDINGS: Upright and supine views of the abdomen show nonspecific nonobstructive bowel gas pattern. There are few air-fluid levels within the colon. There is a 5 mm calcific density along the left aspect of L3 and L4 vertebral body. This is between to marginal osteophytes and could be related to part of that osteophyte complex or could be related to a mid ureteral stone. Biventricular pacemaker is present. Prostate calcifications are noted on the left. There is mild sclerosis of the SI joints inferiorly on both sides. IMPRESSION: Possible left mid ureteral stone versus paravertebral calcification from adjacent osteophytes otherwise negative
== END ==
PROVIDERS: PCP Family Medicine; Visit Provider Family Medicine
DX: R10.12 Left upper quadrant pain (principal)
CPT/HCPCS: 74019

== ENCOUNTER → 2018-12-16 14:17 | Outpatient (CLI) | payer MEDICARE, SELFPAY ==
--- NOTE | 2018-12-16 14:35 | CT_ITS ---
CT abdomen pelvis wo con CLINICAL INDICATION: Left upper quadrant pain ITS.REASON: LEFT UPPER QUAD PAIN ORDERING PHYSICIAN: Roberto Sweeney MD PATIENT AGE: 68 years COMPARISON: None TECHNIQUE: Axial images obtained with sagittal and coronal reformats. All CT scans at the facility use one or more dose reduction, viz: automated exposure control, ma/kV adjustment per patient size (including exams where dose is matched to indication, i.e. head), or iterative reconstruction technique. PROCEDURE: Oral Contrast: None IV Contrast: None . FINDINGS: There is a noncalcified 9 mm nodule in the left lower lobe. Artifact is present from cardiac pacemaker. There has been a prior CABG. There is diffuse fatty liver. The spleen, adrenal glands, pancreas, gallbladder, and kidneys have an unremarkable unenhanced CT appearance. No intestinal obstruction or free air. No evidence of appendicitis. There are a few colonic diverticula but no evidence of diverticulitis. There is mild dilatation of the mid abdominal aorta at 2.7 cm. No evidence of retroperitoneal hemorrhage. No pelvic mass or abnormal fluid collection is evident. There is a small left inguinal hernia. No acute bony findings. IMPRESSION: 1. No acute abdominal or pelvic findings. 2. Mild dilatation of the infrarenal abdominal aorta at 2.7 cm. 3. Indeterminate noncalcified 9 mm nodule in the left lower lobe. Dedicated CT chest with contrast suggested for further evaluation
== END ==
PROVIDERS: PCP Family Medicine; Visit Provider Family Medicine
DX: R10.12 Left upper quadrant pain (principal)
CPT/HCPCS: 74176

== ENCOUNTER → 2018-12-30 13:23 | Outpatient (CLI) | payer MEDICARE, SELFPAY ==
--- NOTE | 2018-12-30 13:58 | CT_ITS ---
CT chest w con HISTORY: ITS.REASON: PULMONARY NODULES ORDERING PHYSICIAN: Roberto Sweeney MD PATIENT AGE: 68 years COMPARISON: 12/06/2016, 12/16/2018 TECHNIQUE: Axial images obtained following the administration of 75 mL of Optiray 350 . Sagittal, and coronal reformatted images are also generated and reviewed. All CT scans at the facility use one or more dose reduction, viz: automated exposure control, ma/kV adjustment per patient size (including targeted exams where dose is matched to indication, i.e. head), or iterative reconstruction technique. FINDINGS: No mediastinal or hilar mass or adenopathy is evident. Coronary artery calcifications are present and there is artifact from cardiac pacemaker wires. There are centrilobular emphysematous changes. There is a 10 mm noncalcified nodule in the left lower lobe unchanged from 12/06/2016. No new nodules are evident. No effusions or infiltrates. Degenerative changes are present in the thoracic spine with ankylosis of the thoracic spine. IMPRESSION: No change 1 cm left lower lobe nodule. Recommend yearly follow-up
== END ==
PROVIDERS: PCP Family Medicine; Visit Provider Family Medicine
DX: R91.1 Solitary pulmonary nodule (principal)
CPT/HCPCS: 71260; Q9967

== ENCOUNTER → 2019-01-31 13:00 | Outpatient (CLI) | payer MEDICARE, SELFPAY ==
--- NOTE | 2019-01-31 13:02 | CA_ITS ---
PROCEDURE: 2-D M-mode and color Doppler study INDICATIONS FOR THE TEST: Chest pain+ COPD Heart Murmur Tobacco Smokingex Palpitations Fatigue Syncope Edema Hypertension+Diabetes Mellitus Rheumatic Fever SOB+ALLEN Obesity+Hyperlipidemia+ Family History HD Additional History CAD,AICD,CM,CHF,MARIE,STENTS DEFINITY USED PATIENT INFORMATION HEIGHT:69 WEIGHT:244 GENDER: Male B/P:154/76 2-D/M-MODE INTERPRETATION: 2-D MEASUREMENTS OBSERVED VALUES IN CMS Right Ventricular Dimension (RVDd) 3.1 Interventricular Septum (Thickness)(IVsd) 0.4 Left Ventricular Internal Dimensions(LVIDd) 7.2 Left Ventricular Posterior Wall (Thickness)(LVPWd) 1.0 Aortic Root 2.7 Aortic Cusp Separation 1.9 Left Atrial Dimensions (LAD) 3.2 2D 1. Technically difficult study because of the patient's factor and poor acoustic windows, Definity contrast was utilized to delineate endocardial surfaces. 2. Left atrium is mildly enlarged, left ventricle is mildly dilated, visually estimated ejection fraction of 40%, there is moderate hypokinesis of the inferior and posterobasal wall. 3. The right atrium and right ventricle are mildly enlarged with normal contractility. There is an ICD lead seen in the right ventricle. 4. The aortic valve is thickened and calcified leaflet continue to display mobility. 5. The mitral and tricuspid valve leaflets are minimally thickened and 6. The pulmonic valve is poorly visualized. 7. No significant pericardial effusion noted. DOPPLER INTERROGATION: Doppler interrogation of the aortic, mitral and tricuspid valvular presence of mild mitral and tricuspid regurgitation, tricuspid regurgitation jet velocity is inadequate for calculation of the right ventricular systolic pressure, grade 1 diastolic dysfunction seen with tissue Doppler evidence of raised left atrial pressure. CONCLUSION: 1. Technically difficult study because of the patient's factors and poor acoustic windows 2. Mildly dilated left ventricle, visually estimated ejection fraction approximately 40% with segmental wall motion abnormality described above, Definity contrast was utilized to delineate endocardial surfaces. There is no left ventricular thrombus seen. 3. Mildly enlarged right ventricle with normal contractility. 4. Thickened and calcified aortic valve without aortic stenosis aortic insufficiency 5. Mild mitral and tricuspid regurgitation 6. No significant pericardial effusion noted.
== END ==
PROVIDERS: PCP Family Medicine; Visit Provider Internal Medicine
DX: E78.2 Mixed hyperlipidemia (principal); G47.33 Obstructive sleep apnea (adult) (pediatric); I25.10 Atherosclerotic heart disease of native coronary artery without angina pectoris; I25.5 Ischemic cardiomyopathy; I50.9 Heart failure, unspecified; J43.9 Emphysema, unspecified; R06.02 Shortness of breath; R07.89 Other chest pain; R53.82 Chronic fatigue, unspecified; Z95.5 Presence of coronary angioplasty implant and graft; Z95.810 Presence of automatic (implantable) cardiac defibrillator
CPT/HCPCS: 93306

== ENCOUNTER 2019-01-31 13:50 | Outpatient (RCR) | payer MEDICARE, SELFPAY | END 2019-04-15 13:15 | disposition home or self-care (01) | LOC: PT 13:50 | PROVIDERS: Visit Provider Physician Assistant | DX: Z95.5 Presence of coronary angioplasty implant and graft (principal) | CPT/HCPCS: 93798 ==

== ENCOUNTER → 2019-03-01 09:41 | Outpatient (CLI) | payer MEDICARE, SELFPAY ==
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
== END ==
PROVIDERS: PCP Family Medicine; Visit Provider Internal Medicine
DX: R06.00 Dyspnea, unspecified (principal); R07.9 Chest pain, unspecified; V89.2XXA Person injured in unspecified motor-vehicle accident, traffic, initial encounter
CPT/HCPCS: 71046

== ENCOUNTER → 2019-05-24 09:54 | Outpatient (POV) | payer MEDICARE, SELFPAY | PROVIDERS: Visit Provider Internal Medicine | DX: Z00.00 Encounter for general adult medical examination without abnormal findings (principal) ==

== ENCOUNTER → 2019-08-30 13:46 | Outpatient (CLI) | payer MEDICARE, SELFPAY ==
--- NOTE | 2019-08-30 13:49 | CT_ITS ---
PROCEDURE: CT LUMBAR SPINE WO CON CLINICAL HISTORY: ACUTE LT LOW BACK PAIN, DDD, LUMBAR FCET ARTHROPATHY Low back pain with left-sided sciatica, degenerative disc disease COMPARISON: [id number] CT abdomen pelvis wo con from 12/16/2018 TECHNIQUE: Axial images obtained with sagittal and coronal reformats. All CT scans at the facility use one or more dose reduction, viz: automated exposure control, ma/kV adjustment per patient size (including targeted exams where dose is matched to indication, i.e. head), or iterative reconstruction technique. FINDINGS: There is normal alignment. There is multilevel degenerative disc disease with endplate hypertrophic change. No acute fracture or dislocation. No lytic or blastic change T11-T12: Degenerate disc disease. T12-L1: Degenerate disc disease with small central/right paracentral disc osteophyte complex. L1-L2: Degenerate disc disease with prominent anterior osteophytes L2-L3: Degenerate disc disease with Schmorl's node at the inferior endplate of L2 with prominent anterior osteophytes. Facet ligamentum hypertrophy with bilateral lateral recess and foraminal narrowing. Vacuum disc is present at this level. L3-L4: Mild bulging disc with facet ligamentum hypertrophy with mild bilateral foraminal narrowing L4-5: Degenerate disc disease with bulging disc slightly eccentric to the left with lateral recess and bilateral foraminal narrowing. There is mild anterolisthesis of L4 of 2 mm. Facet arthritic changes are present at this level. There is borderline canal stenosis at L4-5 L5-S1 mild bulging disc with facet arthritic change and mild bilateral foraminal narrowing. IMPRESSION: Multilevel lumbar spondylosis with degenerative disc disease, bulging disc, lateral recess and foraminal narrowing with facet arthritic change. Please see above for detail. Dictated by: Emiliano Caceres MD 08/30/2019 21:12 Electronically signed by Emiliano Caceres MD in [place] 08/30/2019 21:12
== END ==
PROVIDERS: Visit Provider Family Medicine
DX: M54.42 Lumbago with sciatica, left side (principal); M51.36 Other intervertebral disc degeneration, lumbar region; M47.816 Spondylosis without myelopathy or radiculopathy, lumbar region
CPT/HCPCS: 72131

== ENCOUNTER → 2019-09-12 11:23 | Outpatient (POV) | payer MEDICARE, SELFPAY ==
[2019-09-12 11:39] VITALS: BP 166/87; PULSE 57; RESP 18; O2SAT 98; BMI 35.1
--- NOTE | 2019-09-13 08:54 | [facility].PMCON ---
Assessment and Plan (1) Degenerative disc disease Current visit: Yes Status: Chronic Qualifiers: Spinal region: lumbar Qualified Code(s): M51.36 - Other intervertebral disc degeneration, lumbar region Category: Medical (2) Lumbar radiculopathy Current visit: Yes Status: Chronic Category: Medical Code(s): M54.16 - Radiculopathy, lumbar region - Assessment and plan all Dx Assessment and Plan for all problems:: Patient is on Effient I discussed with Dr. Clarke will [facility] if the patient could be off of this prior to the injection and got approval. Patient has to be off of the medication for 8 days. I will schedule him for an L4-L5 lumbar epidural steroid injection. I will follow-up with him after this reassess his symptoms at that time is been instructed to call the office if he has any issues prior to the next appointment. Dr. Park has reviewed this note and agrees with this plan of care. This note was dictated using voice recognition software and may contain errors or omissions HPI - Data of Consult Consult date: 09/12/19 Requesting Physician: Betty Smith APRN Primary Care Provider: Roberto Sweeney MD - Consult Narrative Reason for consult: Back pain, left leg pain History of present illness: Mr. Guadalupe is a 69 year old male who presents today for consultation in regards to his low back and left leg pain rates his pain a 6 out of 10. Patient states the pain started 3 weeks ago when he was unloading his truck he has an MRI showing degenerative changes along with disc bulge. Patient was started on Flexeril, gabapentin and [place] by his primary care physician. Patient and I discussed epidural injections. I do believe it would be beneficial for him. Patient has tried and failed oral steroids, gabapentin, Flexeril. Patient has numbness and tingling down his left leg into his left foot. Patient needing to utilize a cane at this time for walking which is abnormal for him. CC: Betty Smith APRN [facility] History I have reviewed the patient's past medical history: Yes Medical History: Reports:: Cancer, Congestive Heart Failure, Coronary Artery Disease, Diabetes Mellitus Type 1, Gastroesophageal Reflux Disease(GERD), Hypertension, Internal Pacemaker, Myocardial Infarction, Ulcer Denies:: Diabetes Mellitus Type 2, MRSA, Seizures *Have you ever received a pneumonia vaccine?: Yes *Have you received a flu vaccine this season?: Yes Other Medical History: Reports: Arthritis, Chemotherapy, Sinus Problems. Denies: Blood Transfusion Reaction Other Surgeries: Yes: Angioplasty, CABG (8 stents in the Heart), Cancer Surgery, Cardiac Catheterization, Coronary Stent, Pacemaker, Sinus Surgery Amputation: No Fractures: No - *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 Smoking Status: Never smoker Tobacco Type: cigarettes # Packs/Day (cigarettes): 3 #Yrs smoked (if former smoker): 35 Alcohol Intake: never Alcohol Intake Frequency:: other Substance Use Type: denies use *Occupational Status:: other Housing: house Household Members: spouse *Travel in the last 8 weeks: None Family Hx:: Heart Attack, Cancer, Hypertension Review of Systems - Review of Systems ROS General: no recent weight change, no fever, no sleep disturbances Respiratory: no cough, no shortness of air, no recurring pulmonary infections Cardiovascular/Peripheral Vascular: No chest pain, No palpitations, no edema, no shortness of breath. Gastrointestinal: no new onset incontinence, normal bowel movements reported Genitourinary: no new onset incontinence Musculoskeletal: Back pain, left leg pain Psychiatric: normal mood/ affect Neurological: [denies new onset weakness in extremities], [denies new onset balance issues] Meds Home Medications Medication Instructions Recorded Confirmed Type albuterol sulfate HFA 90 1 puff INHALATION DAILY 30 Days 11/02/17 03/15/19 History mcg/actuation aerosol inhaler metformin 850 mg tablet 850 mg PO
--- NOTE | 2019-09-13 08:57 | P.CONS_ITS ---
Assessment and Plan (1) Degenerative disc disease Current visit: Yes Status: Chronic Qualifiers: Spinal region: lumbar Qualified Code(s): M51.36 - Other intervertebral disc degeneration, lumbar region Category: Medical (2) Lumbar radiculopathy Current visit: Yes Status: Chronic Category: Medical Code(s): M54.16 - Radiculopathy, lumbar region - Assessment and plan all Dx Assessment and Plan for all problems:: Patient is on Effient I discussed with Dr. Clarke will [facility] if the patient could be off of this prior to the injection and got approval. Patient has to be off of the medication for 8 days. I will schedule him for an L4-L5 lumbar epidural steroid injection. I will follow-up with him after this reassess his symptoms at that time is been instructed to call the office if he has any issues prior to the next appointment. Dr. Park has reviewed this note and agrees with this plan of care. This note was dictated using voice recognition software and may contain errors or omissions HPI - Data of Consult Consult date: 09/12/19 Requesting Physician: Betty Smith APRN Primary Care Provider: Roberto Sweeney MD - Consult Narrative Reason for consult: Back pain, left leg pain History of present illness: Mr. Guadalupe is a 69 year old male who presents today for consultation in regards to his low back and left leg pain rates his pain a 6 out of 10. Patient states the pain started 3 weeks ago when he was unloading his truck he has an MRI showing degenerative changes along with disc bulge. Patient was started on Flexeril, gabapentin and [place] by his primary care physician. Patient and I discussed epidural injections. I do believe it would be beneficial for him. Patient has tried and failed oral steroids, gabapentin, Flexeril. Patient has numbness and tingling down his left leg into his left foot. Patient needing to utilize a cane at this time for walking which is abnormal for him. CC: Betty Smith APRN [facility] History I have reviewed the patient's past medical history: Yes Medical History: Reports:: Cancer, Congestive Heart Failure, Coronary Artery Disease, Diabetes Mellitus Type 1, Gastroesophageal Reflux Disease(GERD), Hypertension, Internal Pacemaker, Myocardial Infarction, Ulcer Denies:: Diabetes Mellitus Type 2, MRSA, Seizures *Have you ever received a pneumonia vaccine?: Yes *Have you received a flu vaccine this season?: Yes Other Medical History: Reports: Arthritis, Chemotherapy, Sinus Problems. Denies: Blood Transfusion Reaction Other Surgeries: Yes: Angioplasty, CABG (8 stents in the Heart), Cancer Surgery, Cardiac Catheterization, Coronary Stent, Pacemaker, Sinus Surgery Amputation: No Fractures: No - *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 Smoking Status: Never smoker Tobacco Type: cigarettes # Packs/Day (cigarettes): 3 #Yrs smoked (if former smoker): 35 Alcohol Intake: never Alcohol Intake Frequency:: other Substance Use Type: denies use *Occupational Status:: other Housing: house Household Members: spouse *Travel in the last 8 weeks: None Family Hx:: Heart Attack, Cancer, Hypertension Review of Systems - Review of Systems ROS General: no recent weight change, no fever, no sleep disturbances Respiratory: no cough, no shortness of air, no recurring pulmonary infections Cardiovascular/Peripheral Vascular: No chest pain, No palpitations, no edema, no shortness of breath. Gastrointestinal: no new onset incontinence, normal bowel movements reported Genitourinary: no new onset incontinence Musculoskeletal: Back pain
== END ==
PROVIDERS: PCP Family Medicine; Visit Provider Clinical Nurse Specialist Family Health
DX: M51.16 Intervertebral disc disorders with radiculopathy, lumbar region (principal)
CPT/HCPCS: 99202

== ENCOUNTER → 2019-10-24 11:02 | Outpatient (CLI) | payer MEDICARE, SELFPAY ==
[2019-10-24 11:59] LABS: Basophils % 0.6 % (0.1-2.0); Eosinophils # 0.2 K/mm3 (0.0-0.4); Eosinophils % 2.4 % (0.1-12.0); Hemoglobin 16.4 g/dL (14.1-18.0); Lymphocytes # 1.7 K/mm3 (0.7-4.5); Lymphocytes % 23.2 % (10-50); Mean Corpuscular HGB Conc 32.2 g/dL (31.8-35.4); Mean Corpuscular Hemoglobin 29.4 pg (27.0-31.2); Mean Corpuscular Volume 91.4 fl (80-94); Mean Platelet Volume 8.2 fl (7.4-10.4); Monocytes # 0.4 K/mm3 (0.1-1.0); Monocytes % 4.8 % (1.7-9.3); Neutrophils # 4.9 K/mm3 (1.8-7.8); Neutrophils % 68.9 % (37.0-80.0); Platelet Count 201 K/mm3 (142-424); Red Blood Count 5.58 M/mm3 (4.60-6.20); Red Cell Distribution Width 14.3 % (11.5-17.5); White Blood Count 7.2 K/mm3 (4.8-10.8)
[2019-10-24 12:26] LABS: Anion Gap 12.2 mEq/L (5-15); Blood Urea Nitrogen 10 mg/dL (7-18); Carbon Dioxide 27 mmol/L (21.0-32.0); Chloride 104 mmol/L (98-107); Creatinine,Serum 1.15 mg/dL (0.70-1.30); Estimated Glomerular Filt Rate 63 ml/min (>60); GFR (African American) 77 ML/MIN (>60); Glucose 161 mg/dL (74-106); Potassium 4.2 mmoL/L (3.5-5.1); Sodium 139 mmol/L (136-145)
== END ==
PROVIDERS: Visit Provider Internal Medicine
DX: Z95.5 Presence of coronary angioplasty implant and graft (principal); Z51.81 Encounter for therapeutic drug level monitoring; Z79.01 Long term (current) use of anticoagulants
CPT/HCPCS: 36415; 80048; 85025

== ENCOUNTER 2019-11-01 09:11 | Outpatient (RCR) | payer MEDICARE, SELFPAY | END 2020-01-04 10:10 | disposition home or self-care (01) | LOC: PT 09:11 | PROVIDERS: Visit Provider Internal Medicine | DX: Z95.5 Presence of coronary angioplasty implant and graft (principal) ==

== ENCOUNTER → 2020-02-24 13:53 | Outpatient (CLI) | payer MEDICARE, SELFPAY ==
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
--- NOTE | 2020-02-24 15:04 | CT_ITS ---
PROCEDURE: CT CHEST W CON CLINCAL INDICATION: dyspnea Shortness of air, follow-up pulmonary nodules COMPARISON: CHESTW CT chest w con from 12/30/2018 TECHNIQUE: IV Contrast: 75ml Optiray 350 Axial images obtained with sagittal and coronal reformats. All CT scans at the facility use one or more dose reduction, viz: automated exposure control, ma/kV adjustment per patient size (including targeted exams where dose is matched to indication, i.e. head), or iterative reconstruction technique. FINDINGS: HEART AND MEDIASTINAL STRUCTURES: There is heterogeneous density along the lower pole of the left lobe of the thyroid gland suspicious for a thyroid nodule at 2 cm. Ultrasound may provide further evaluation. There are a few small mediastinal lymph nodes. There is a right paratracheal lymph node at 1.4 by 0.7 cm. Small right hilar lymph node is also present at 1 point 6 by 1 cm. These are slightly larger compared to the previous exam. Artifact is present from cardiac pacemaker. LUNGS AND PLEURAL SPACES: Centrilobular emphysema with mild coarsening of the interstitial markings. No lobar consolidation or collapse. There is some patchy ground-glass density in the lingula nonspecific. Previously noted 10 mm nodule in the left lower lobe is unchanged. 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 ADDITIONAL FINDINGS: No other significant abnormalities. IMPRESSION: Overall no change with no acute finding compared to 12/30/2018. Stable left lower lobe nodule with centrilobular emphysema. Mildly prominent mediastinal and right hilar lymph nodes nonspecific. Dictated by: Emiliano Caceres MD 02/25/2020 07:39 Electronically signed by Emiliano Caceres MD in [place] 02/25/2020 07:39
[2020-02-24 15:37] LABS: Blood Urea Nitrogen 11 mg/dl (9-20); Estimated Glomerular Filt Rate 84 ml/min (>60); GFR (African American) 102 ML/MIN (>60)
== END ==
PROVIDERS: PCP Family Medicine; Visit Provider Urology
DX: E11.9 Type 2 diabetes mellitus without complications (principal); E78.2 Mixed hyperlipidemia; G47.33 Obstructive sleep apnea (adult) (pediatric); I11.0 Hypertensive heart disease with heart failure; I20.9 Angina pectoris, unspecified; I25.5 Ischemic cardiomyopathy; I27.20 Pulmonary hypertension, unspecified; I50.22 Chronic systolic (congestive) heart failure; J43.9 Emphysema, unspecified; R06.09 Other forms of dyspnea; R53.82 Chronic fatigue, unspecified; Z95.5 Presence of coronary angioplasty implant and graft; Z95.810 Presence of automatic (implantable) cardiac defibrillator
CPT/HCPCS: 71260; 82565; 84520; 93306; Q9957; Q9967

== ENCOUNTER 2020-02-24 14:17 | Emergency (ER) | payer MEDICARE, SELFPAY ==
[2020-02-24 14:23] VITALS: BP 136/91; PULSE 79; RESP 18; TEMP 36.8; O2SAT 98; BMI 36.9
--- NOTE | 2020-02-24 14:29 | XR_ITS ---
PROCEDURE: XR SHOULDER LT MIN 2V CLINICAL INDICATION: FALL Posttraumatic pain COMPARISON: No exams were available for comparison FINDINGS: Osteoarthritic changes are present at the glenohumeral joint and acromioclavicular joint. Well-circumscribed calcific density is present along the superior aspect of the AC joint could be due to an old injury. No acute fracture or dislocation. Cardiac pacemaker device is present from left subclavian approach. IMPRESSION: Osteoarthritic changes, no acute finding Dictated by: Emiliano Caceres MD 02/24/2020 15:18 Electronically signed by Emiliano Caceres MD in [place] 02/24/2020 15:18
--- NOTE | 2020-02-24 14:29 | XR_ITS ---
PROCEDURE: XR KNEE LT 3V CLINICAL INDICATION: FALL Posttraumatic pain COMPARISON: No exams were available for comparison FINDINGS: No fracture or dislocation. No lytic or blastic change. There is normal mineralization. The joint spaces are well-preserved. No significant degenerative/arthritic changes. No erosive changes evident. Other findings:There are faint opacities along the lower thigh anteriorly and distally projecting overlying the soft tissues and could be due to artifact calcification within the soft tissues. IMPRESSION: No acute bony finding Faint soft tissue calcifications nonspecific Dictated by: Emiliano Caceres MD 02/24/2020 15:17 Electronically signed by Emiliano Caceres MD in [place] 02/24/2020 15:17
--- NOTE | 2020-02-24 14:45 | HMH.EDFALL ---
ED Disposition Clinical Impression: Clavicle fracture Disposition: Home, Self-Care Condition on Discharge: Good Instructions: How to Prevent Falls Referrals: Roberto Sweeney MD [Primary Care Provider] - - Critical Care Critical Care Time: No Attestation: On 02/24/20, the high probability of a clinically significant, sudden or life threatening deterioration of the following system(s) required my full and direct attention, intervention and personal management. The time I documented below is in addition to time spent performing reported procedures but includes the following listed in this critical care notation. Medical Decision Making - Medical Records Medical records reviewed: Yes: I reviewed the patient's medical records. - Manjit Inquiry Pt receiving controlled substance: No Vital Signs: 02/24/20 14:23 Temperature 98.3 F Temperature Source Oral Pulse Rate [Right Radial] 79 Respiratory Rate 18 Blood Pressure [Right Arm] 136/91 H Blood Pressure Mean [Right Arm] 106 Blood Pressure Source [Right Arm] Automatic Cuff Blood Pressure Position [Right Arm] Sitting 02 Sat by Pulse Oximetry 98 Oxygen Delivery Method Room Air - Lab Data Lab results reviewed: Yes: I reviewed the patient's lab results. Orders (Tests/Meds): ORDERS Category Date Time Status XR knee LT 3V Stat Exams 02/24/20 14:29 Taken XR shoulder LT min 2V Stat Exams 02/24/20 14:29 Taken - Radiology Data #1 Image(s): Shoulder Preliminary Findings: Abnormal (Patient has a small fracture at the distal end of his clavicle almost at the AC joint.) Fall HPI - General Chief Complaint: Fall Stated Complaint: ao fall in parking lot Time Seen by Provider: 02/24/20 14:30 Mode of Arrival: Ambulatory Source of Information: Patient Limitations: No Limitations Description of Symptoms (Recalled from ER Triage Doc. by RN): PT STATES THAT HE FELL WHILE COMING INTO THE HOSPITAL FOR AN APPT WITH ECHO. PT WAS TRANSPORTED VIA W/C TO ED BY [facility]. PT C/O LT SHOULDER PAIN. PT HAS ABRASION TO LT FOREARM AND LT KNEE. - History of Present Illness HPI Narrative: 61-year-old male presents the ED complaining of left shoulder pain and left knee pain secondary to a fall prior to arrival here in the ED. Apparently he was walking into the emergency room entrance to get an outpatient tests completed and he tripped over the curb and landed on his left shoulder and left knee. He states the pain is 4 out of 10 classifies it as sharp. He states alleviating factors include rest and exacerbating factors include movement patient has no other symptoms or no other issues or no other trauma. - Related Data Home Medications Medication Instructions Recorded Confirmed albuterol sulfate 90 mcg/actuation 1 puff INHALATION DAILY 30 Days 11/02/17 12/05/19 aerosol inhaler metformin 850 mg tablet 850 mg PO DAILY 90 Days 11/02/17 12/05/19 allopurinol 300 mg tablet 300 mg PO DAILY tab 12/11/17 12/05/19 colchicine 0.6 mg tablet 0.6 mg PO DAILY 30 Days #30 tab 08/03/18 12/05/19 diclofenac sodium 75 mg 75 mg PO ONCE PRN tab 10/12/19 12/05/19 tablet,delayed release gabapentin 300 mg capsule 600 mg PO BID cap 10/12/19 12/05/19 hydrocodone 5 mg-acetaminophen 300 1 tab PO QHS PRN 10/12/19 12/05/19 mg tablet aspirin 81 mg tablet,delayed 81 mg PO DAILY 10/24/19 12/05/19 release Previous Rx's Medication Instructions Recorded nitroglycerin 0.4 mg sublingual 0.4 mg SUBLINGUAL Q5M PRN #25 tab 09/22/19 tablet prasugrel 10 mg tablet 10 mg PO DAILY #30 tab 10/24/19 furosemide 20 mg tablet 20 mg PO Q OTHER DAY #15 tab 12/05/19 sacubitril 97 mg-valsartan 103 mg 1 tab PO BID #180 tab 12/05/19 tablet carvedilol 25 mg tablet 25 mg PO BID #180 tab 12/16/19 azithromycin 500 mg tablet See Rx Instructions PO .COMPLEX #3 01/08/20 tab Allergies Allergy/AdvReac Type Severity Reaction Status Date / Time [id number] Reductase AdvReac Mild
[2020-02-24 14:57] VITALS: BP 136/91; PULSE 79; RESP 18; TEMP 36.8; O2SAT 98
== END 2020-02-24 15:03 | disposition home or self-care (01) ==
PROVIDERS: Emergency Provider Family Medicine; PCP Family Medicine
DX: S42.035A Nondisplaced fracture of lateral end of left clavicle, initial encounter for closed fracture (principal); W01.0XXA Fall on same level from slipping, tripping and stumbling without subsequent striking against object, initial encounter; Y92.89 Other specified places as the place of occurrence of the external cause; S80.212A Abrasion, left knee, initial encounter; S50.812A Abrasion of left forearm, initial encounter; I25.10 Atherosclerotic heart disease of native coronary artery without angina pectoris; I10 Essential (primary) hypertension; E78.5 Hyperlipidemia, unspecified; Z95.0 Presence of cardiac pacemaker; I25.2 Old myocardial infarction; Z95.1 Presence of aortocoronary bypass graft; K21.9 Gastro-esophageal reflux disease without esophagitis; Z88.8 Allergy status to other drugs, medicaments and biological substances; Z87.891 Personal history of nicotine dependence; Z79.899 Other long term (current) drug therapy
CPT/HCPCS: 71260; 73030; 73562; 82565; 84520; 93306; 99282; Q9957; Q9967

== ENCOUNTER → 2020-03-08 13:41 | Outpatient (CLI) | payer MEDICARE, SELFPAY ==
--- NOTE | 2020-03-08 13:41 | US_ITS ---
PROCEDURE: US THYROID CLINICAL INDICATION: thyroid nodule Thyroid nodule noted on recent CT scan. History of throat cancer COMPARISON: CT CHEST W CON from 02/24/2020 FINDINGS: Right lobe: 4.4 x 1.8 x 2 cm. 5 mm cyst mid polar region. Ill-defined 2 x 1 cm isoechoic nodule mid polar region which is a T rads level 3 nodule less than 2.5 cm, recommend six-month follow-up Left lobe: 4.3 x 2.3 x 1.9 cm. There is an 8 mm isoechoic nodule in the mid polar region, 4 mm hyperechoic nodule lower pole, 9 mm slightly hypoechoic nodule lower pole, 9 mm isoechoic nodule lower pole Isthmus: Unremarkable Additional findings: IMPRESSION: Bilateral thyroid nodules the largest on the right representing AT rads level 3 nodule less than 2.5 cm. Recommend six-month follow-up Dictated by: Emiliano Caceres MD 03/08/2020 23:08 Electronically signed by Emiliano Caceres MD in [place] 03/08/2020 23:08
== END ==
PROVIDERS: PCP Family Medicine; Visit Provider Urology
DX: E04.1 Nontoxic single thyroid nodule (principal)
CPT/HCPCS: 76536

== ENCOUNTER → 2020-04-16 10:22 | Outpatient (CLI) | payer MEDICARE, SELFPAY ==
[2020-04-16 11:30] LABS: Chloride 108 mmol/L (98-107); Sodium 141 mmol/L (136-145)
[2020-04-16 11:33] LABS: Blood Urea Nitrogen 9 mg/dl (9-20); Calcium 9.5 mg/dl (8.4-10.2); Carbon Dioxide 24 mmol/L (22.0-30.0); Estimated Glomerular Filt Rate 74 ml/min (>60); GFR (African American) 90 ML/MIN (>60); Glucose 176 mg/dl (74-100)
[2020-04-16 11:39] LABS: NT Pro Brain Natriuretic Pep. 305 pg/mL (0-125)
== END ==
PROVIDERS: Visit Provider Physician Assistant
DX: E04.1 Nontoxic single thyroid nodule (principal); E11.9 Type 2 diabetes mellitus without complications; E78.5 Hyperlipidemia, unspecified; G47.33 Obstructive sleep apnea (adult) (pediatric); I11.9 Hypertensive heart disease without heart failure; I25.10 Atherosclerotic heart disease of native coronary artery without angina pectoris; I27.20 Pulmonary hypertension, unspecified; I42.9 Cardiomyopathy, unspecified; I50.22 Chronic systolic (congestive) heart failure; J44.9 Chronic obstructive pulmonary disease, unspecified; R06.00 Dyspnea, unspecified; R53.83 Other fatigue; Z95.5 Presence of coronary angioplasty implant and graft; Z95.810 Presence of automatic (implantable) cardiac defibrillator
CPT/HCPCS: 36415; 80048; 83880

== ENCOUNTER 2020-05-29 21:39 | Observation (INO) | payer MEDICARE, SELFPAY ==
[2020-05-29 21:39] VITALS: BP 144/66; PULSE 90; RESP 22; TEMP 36.9; O2SAT 92; BMI 35.4
--- NOTE | 2020-05-29 21:55 | XR_ITS ---
PROCEDURE: XR CHEST PORTABLE CLINICAL HISTORY: weakness Chest pain and weakness COMPARISON: CR CXR2V XR chest 2V from 02/20/2018 CR CXR1VP XR chest portable from 08/23/2018 DX CXR2V XR chest 2V from 09/20/[address] CHEST W CON from 02/24/2020 FINDINGS: Cardiac pacemaker device is present from left subclavian approach. Biventricular pacemaker with atrial lead is present. There is mild cardiomegaly. Increased density is present in the left lower lobe consistent with atelectasis and/or infiltrate. Upper lobes are clear. There are degenerative changes in the left AC joint with periarticular calcification IMPRESSION: Left lower lobe atelectasis or infiltrate. Dictated by: Emiliano Caceres MD 05/30/2020 05:48 Emiliano Caceres MD in [place] 05/30/2020 05:48
[2020-05-29 21:59] VITALS: BP 158/81; PULSE 88; RESP 18; O2SAT 91
[2020-05-29 22:06] LABS: Basophils # 0.1 K/mm3 (0-0.2); Basophils % 0.3 % (0.1-2.0); Eosinophils # 0.2 K/mm3 (0.0-0.4); Hematocrit 50.3 % (42.0-52.0); Hemoglobin 16.8 g/dL (14.1-18.0); Lymphocytes # 1.3 K/mm3 (0.7-4.5); Lymphocytes % 7.4 % (10-50); Mean Corpuscular HGB Conc 33.5 g/dL (31.8-35.4); Mean Corpuscular Hemoglobin 29.9 pg (27.0-31.2); Mean Corpuscular Volume 89.3 fl (80-94); Mean Platelet Volume 7.5 fl (7.4-10.4); Monocytes # 0.7 K/mm3 (0.1-1.0); Monocytes % 3.7 % (1.7-9.3); Neutrophils # 15.6 K/mm3 (1.8-7.8); Neutrophils % 87.6 % (37.0-80.0); Platelet Count 138 K/mm3 (142-424); Red Blood Count 5.63 M/mm3 (4.60-6.20); Red Cell Distribution Width 14.8 % (11.5-17.5); White Blood Count 17.8 K/mm3 (4.8-10.8)
[2020-05-29 22:08] LABS: Chloride 102 mmol/L (98-107); Potassium 3.9 mmoL/L (3.5-5.1); Sodium 138 mmol/L (136-145)
[2020-05-29 22:09] LABS: MANUAL DIFFERENTIAL MANUAL DIFFERENTIAL (MANUAL DIFF)
[2020-05-29 22:11] LABS: Alanine Aminotransferase 28 U/L (12-78); Albumin Level 4.1 g/dl (3.5-5.0); Albumin/Globulin Ratio 1.3 (1.1-1.8); Alkaline Phosphatase 80 U/L (38-126); Anion Gap 13.9 mEq/L (5-15); Aspartate Amino Transferase 25 U/L (17-59); Bilirubin,Total 0.6 mg/dl (0.2-1.3); Blood Urea Nitrogen 12 mg/dl (9-20); Carbon Dioxide 26 mmol/L (22.0-30.0); Creatinine Clearance Estimated 109 mL/min (50-200); Estimated Glomerular Filt Rate 74 ml/min (>60); GFR (African American) 90 ML/MIN (>60); Globulin 3.1 g/dL (1.3-3.2); Total Protein,Serum 7.2 g/dl (6.3-8.2)
[2020-05-29 22:12] LABS: Calcium 9.4 mg/dl (8.4-10.2); Glucose 198 mg/dl (74-100)
--- NOTE | 2020-05-29 22:13 | ECG_ITS ---
APPROVED REPORT Exam: Resting ECG HR:90 bpm ECG Measurements Heart Rate 90 AXES TN 144 P 64 QRSd 162 QRS 10 QT 398 T 204 QTc 486 <Conclusion> Demand pacemaker, PVC'S Abnormal ECG Electronically signed by : David Chavez, 05/30/2020 08:59:11
[2020-05-29 22:16] LABS: Lactic Acid 1.6 mmol/L (0.7-2.1)
[2020-05-29 22:20] LABS: ABG Base Excess -2.7 mmol/L (-2.4-2.3); ABG HCO3 21.4 mmhg (22.0-26.0); ABG Oxygen Saturation 98 % (90-100); ABG PCO2 32.3 mmhg (35.0-45.0); ABG PH 7.44 mmol/L (7.35-7.45); ABG PO2 109.7 mmhg (80-100); ABG TCO2 22.4 mmhg (23-27)
[2020-05-29 22:21] LABS: Allen's Test Y; Source R/R
[2020-05-29 22:27] LABS: Microscopic, Urine URINE MICROSCOPIC (MICROSCOPIC)
[2020-05-29 22:29] VITALS: BP 158/83; PULSE 92; RESP 18; O2SAT 91
[2020-05-29 22:29] LABS: Appearance,Urine CLEAR (Clear); Bilirubin,Urine Negative (Negative); Blood, Urine Negative (Negative); Color,Urine YELLOW (Yellow); Glucose,Urine (UA) Negative (Negative); Ketones,Urine Negative (Negative); Leukocyte Esterase,Urine TRACE (Negative); Nitrate,Urine Negative (Negative); PH,Urine 6.5 (5.0-8.5); Protein,Urine Negative (Negative); Urobilinogen,Urine 0.2 EU/dl (0.2)
[2020-05-29 22:37] LABS: Lymphocytes % 12 % (10-50); Monocytes % 2 % (2-9); Neutrophils % 86 % (42-76); Total Cells Counted 100
[2020-05-29 22:38] LABS: Platelet Estimate Normal; RBC Morphology Normal
[2020-05-29 22:40] LABS: Bacteria,Urine Trace /lpf; RBC,Urine Occasional #/hpf (0-3)
[2020-05-29 22:53] LABS: Troponin I < 0.01 ng/ml (0.00-0.034)
[2020-05-29 22:56] VITALS: BP 134/72; PULSE 91; RESP 18; O2SAT 91
--- NOTE | 2020-05-29 23:26 | HMH.EDWEAK ---
ED Disposition Clinical Impression: SIRS (systemic inflammatory response syndrome), AICD (automatic cardioverter/defibrillator) present UTI (urinary tract infection) Qualifiers: Urinary tract infection type: site unspecified Hematuria presence: without hematuria Qualified Code(s): N39.0 - Urinary tract infection, site not specified Disposition: Admitted as Observation Condition on Discharge: Good Referrals: Roberto Sweeney MD [Primary Care Provider] - - Critical Care Critical Care Time: No Attestation: On 05/29/20, the high probability of a clinically significant, sudden or life threatening deterioration of the following system(s) required my full and direct attention, intervention and personal management. The time I documented below is in addition to time spent performing reported procedures but includes the following listed in this critical care notation. Medical Decision Making - Medical Records Medical records reviewed: Yes: I reviewed the patient's medical records. - Manjit Inquiry Pt receiving controlled substance: No Vital Signs: 05/29/20 21:39 05/29/20 21:59 05/29/20 22:29 Temperature 98.4 F Temperature Source Oral Pulse Rate [Left Radial] 90 88 92 H Respiratory Rate 22 18 18 Blood Pressure [Right Arm] 144/66 H 158/81 H 158/83 H Blood Pressure Mean [Right Arm] 92 106 108 Blood Pressure Source [Right Arm] Automatic Cuff Blood Pressure Position [Right Arm] Sitting 02 Sat by Pulse Oximetry 92 L 91 L 91 L Oxygen Delivery Method Room Air Room Air Room Air 05/29/20 22:56 05/29/20 23:32 05/29/20 23:50 Temperature Temperature Source Pulse Rate [Left Radial] 91 H 87 85 Respiratory Rate 18 20 18 Blood Pressure [Right Arm] 134/72 93/70 L 144/79 H Blood Pressure Mean [Right Arm] 92 77 100 Blood Pressure Source [Right Arm] Blood Pressure Position [Right Arm] 02 Sat by Pulse Oximetry 91 L 91 L 91 L Oxygen Delivery Method Room Air Room Air Room Air - Lab Data Lab results reviewed: Yes: I reviewed the patient's lab results. Lab Results 05/29/20 21:54: WBC 17.8 H, RBC 5.63, Hgb 16.8, Hct 50.3, MCV 89.3, MCH 29.9, MCHC 33.5, RDW 14.8, Plt Count 138 L, MPV 7.5, Neut % (Auto) 87.6 H, Lymph % (Auto) 7.4 L, [place] % (Auto) 3.7, Eos % (Auto) 1.0, Baso % (Auto) 0.3, Neut # (Auto) 15.6 H, Lymph # (Auto) 1.3, [place] # (Auto) 0.7, Eos # (Auto) 0.2, Baso # (Auto) 0.1, Total Counted 100, Neutrophils % (Manual) 86 H, Lymphocytes % (Manual) 12, Monocytes % (Manual) 2, Platelet Estimate Normal, RBC Morphology Normal 05/29/20 21:54: Sodium 138, Potassium 3.9, Chloride 102, Carbon Dioxide 26, Anion Gap 13.9, BUN 12, Creatinine 1.00, Estimated Creat Clear 109, Estimated GFR 74, Est GFR ( Amer) 90, Glucose 198 H, Calcium 9.4, Total Bilirubin 0.6, AST 25, ALT 28, Alkaline Phosphatase 80, Troponin I < 0.01, Total Protein 7.2, Albumin 4.1, Globulin 3.1, Albumin/Globulin Ratio 1.3 05/29/20 21:54: Lactate 1.6 05/29/20 22:19: Specimen Source R/r, O2 % 10l aerosol tx, ABG pH 7.44, ABG pCO2 32.3 L, ABG pO2 109.7 H, ABG HCO3 21.4 L, ABG Total CO2 22.4 L, ABG O2 Saturation 98, ABG Base Excess -2.7 L, Emiliano Test Y 05/29/20 22:23: Urine Color Yellow, Urine Appearance Clear, Urine pH 6.5, Ur Specific [place] 1.010, Urine Protein Negative, Urine Glucose (UA) Negative, Urine Ketones Negative, Urine Blood Negative, Urine Nitrate Negative, Urine Bilirubin Negative, Urine Urobilinogen 0.2, Ur Leukocyte Esterase Trace, Urine RBC Occasional, Urine WBC 10-20, Urine Bacteria Trace Result diagrams: 05/29/20 21:54 05/29/20 21:54 Orders (Tests/Meds): ED MEDICATIONS Generic Name Dose Route Start Last Admin Trade Name Freq PRN Reason Stop Dose Admin Ceftriaxone Sodium 1 gm/ 50 mls @ 100 mls/hr 05/29/20 23:45 05/29/20 23:39 Sodium Chloride IV 06/12/20 23:44 100 mls/hr Q24H FLORENCIO Administration Protocol Discontinued Medications Generic Name Dose Route Start Last Admin Trade Name Freq PRN Reason Stop Dos
--- NOTE | 2020-05-29 23:29 | PC.NURSE ---
Dr. Deysi ward
[2020-05-29 23:32] VITALS: BP 93/70; PULSE 87; RESP 20; O2SAT 91
--- NOTE | 2020-05-29 23:45 | PC.NURSE ---
Dr. Deysi ward
[2020-05-29 23:50] VITALS: BP 144/79; PULSE 85; RESP 18; O2SAT 91
[2020-05-30] VITALS (10 sets, daily range): BP systolic 100–155; BP diastolic 52–82; PULSE 64–102; RESP 16–22; TEMP 36.6–37; O2SAT 90–98; BMI 36.2; BMI 36.1
[2020-05-30 00:39] LABS: NT Pro Brain Natriuretic Pep. 294 pg/mL (0-125)
[2020-05-30 00:41] LABS: Coronavirus 19 IgG Antibody Negative (Negative); Coronavirus 19 IgM Antibody Negative (Negative)
[2020-05-30 00:46] LABS: Free Thyroxine Index 2.5 ug/dL (5.93-13.13); T4 (Thyroxine) 7.9 ug/dl (5.53-11.0); Triiodothryronine (T3) Uptake 32 % (23.5-40.5)
[2020-05-30 01:00] LABS: Thyroid Stimulating Hormone 0.78 uIU/mL (0.465-4.68)
--- NOTE | 2020-05-30 01:11 | PC.NURSE ---
PT ARRIVED TO THE FLOOR VIA W/C WITH STAFF FROM ED AT 0110
--- NOTE | 2020-05-30 04:00 | PC.NURSE ---
Pt A&OX4 lungs CTA. Pt c/o VILLAFANA upon arriving to floor medicated per MAR. Pt denies any SOA. pt voided per urinal. family member @ bedside. VSS will continue to monitor
[2020-05-30 05:38] LABS: POC Glucose,Bedside 257 (70-110)
[2020-05-30 06:40] LABS: Basophils % 0.2 % (0.1-2.0); Eosinophils % 0.2 % (0.1-12.0); Hematocrit 50.9 % (42.0-52.0); Hemoglobin 16.7 g/dL (14.1-18.0); Lymphocytes # 0.9 K/mm3 (0.7-4.5); Lymphocytes % 4.4 % (10-50); Mean Corpuscular HGB Conc 32.9 g/dL (31.8-35.4); Mean Corpuscular Hemoglobin 30.1 pg (27.0-31.2); Mean Corpuscular Volume 91.6 fl (80-94); Mean Platelet Volume 8.4 fl (7.4-10.4); Monocytes # 0.3 K/mm3 (0.1-1.0); Monocytes % 1.7 % (1.7-9.3); Neutrophils # 18.3 K/mm3 (1.8-7.8); Neutrophils % 93.4 % (37.0-80.0); Platelet Count 144 K/mm3 (142-424); Red Blood Count 5.55 M/mm3 (4.60-6.20); Red Cell Distribution Width 14.6 % (11.5-17.5); White Blood Count 19.6 K/mm3 (4.8-10.8)
[2020-05-30 06:51] LABS: Chloride 103 mmol/L (98-107); MANUAL DIFFERENTIAL MANUAL DIFFERENTIAL (MANUAL DIFF); Sodium 138 mmol/L (136-145)
[2020-05-30 06:52] LABS: Potassium 4.1 mmoL/L (3.5-5.1)
[2020-05-30 06:55] LABS: Anion Gap 13.1 mEq/L (5-15); Blood Urea Nitrogen 14 mg/dl (9-20); Calcium 9.6 mg/dl (8.4-10.2); Carbon Dioxide 26 mmol/L (22.0-30.0); Creatinine Clearance Estimated 108 mL/min (50-200); Estimated Glomerular Filt Rate 84 ml/min (>60); GFR (African American) 102 ML/MIN (>60); Glucose 313 mg/dl (74-100); Magnesium 1.8 mg/dl (1.6-2.3)
--- NOTE | 2020-05-30 07:20 | HMH.PHAVTE ---
[facility] Pharmacy VTE Monitoring - Patient Demographics Admission date: 05/29/20 Report Date: 05/30/20 Time: 07:20 Allergies/Adverse Reactions: Patient Allergies Jpzpggx-Ket-Fcd Reductase Inhibitor Adverse Reaction (Mild, Verified 05/30/20 01:55) Height: 1.73 m Weight: 108.21 kg Patient Problems: Current Active Problems SIRS (systemic inflammatory response syndrome) (Acute) UTI (urinary tract infection) (Acute) AICD (automatic cardioverter/defibrillator) present (Chronic) - VTE Risk Labs: VTE Related Lab Results Hgb 16.7 g/dL (14.1-18.0) 05/30/20 06:12 Hct 50.9 % (42.0-52.0) 05/30/20 06:12 Plt Count 144 K/mm3 (142-424) 05/30/20 06:12 BUN 14 mg/dl (9-20) 05/30/20 06:12 Creatinine 0.90 mg/dl (0.66-1.25) 05/30/20 06:12 Estimated Creat Clear 108 mL/min (50-200) 05/30/20 06:12 VTE Score: 8 VTE Risk Level: Moderate Risk - Prophylaxis VTE Prophylaxis Ordered?: Yes Types of VTE Prophylaxis: TEDS Knee High Location of Applied Device: Bilateral Lower Extremeties
[2020-05-30 07:58] LABS: Lymphocytes % 6 % (10-50); Neutrophils % 94 % (42-76); Platelet Estimate Normal; RBC Morphology Normal; Total Cells Counted 100
--- NOTE | 2020-05-30 08:00 | CA_ITS ---
APPROVED REPORT EXAM: Comprehensive 2D, Doppler, and color-flow Echocardiogram Supervisor Mending: Yudith Ramirez RT(R) Ht: 5 ft 9 in Wt: 240lbs BSA: 2.23 BP: 153/83 mmHg Indications: COPD, HTN, hyperlipidemia, CAD, AICD, CM, MARIE, stents, GERD Echo Enhancing Agent Indication: Endocardial border delineation Agent(s) / Amount(s) Used: Definity 2 cc 2D Dimensions LVOT 1.95 cm (M/F) 1.5-2.5 M-Mode Dimensions RVDd 2.54 cm (0.9-2.6) LVDd 4.63 cm (3.5-5.7) LVDs 3.98 cm (3.5-5.7) IVSd 1.25 cm (0.6-1.1) PWd 1.02 cm (0.6-1.1) EF (Teich) 30.00% FS 14.00% EDV (Teich) 98.80 mL ESV (Teich) 69.20 mL LV Diastology E/A Ratio 0.72 Mitral Valve MV A Velocity 96.00 (40-130 cm/s) Left Ventricle Technically difficult study because of the patient factors and poor acoustic windows, Definity contrast was utilized to delineate the endocardial surfaces. Left atrium is mildly enlarged, left ventricle is normal size, mild concentric left ventricular hypertrophy, visually estimated ejection fraction 50%, there is abnormal septal motion. There is no left ventricular thrombus seen. Doppler evidence of impaired LV relaxation seen. There is no tissue Doppler performed. Right Ventricle Right atrium and right ventricle are mildly enlarged with normal contractility, there is an AICD lead seen in right ventricle. Aortic Valve Aortic valve is thickened and calcified, leaflet continue to display good mobility, there is no aortic stenosis or significant aortic insufficiency. Mitral Valve Mitral valve leaflets are minimally thickened, there is no mitral stenosis, there is mild mitral regurgitation. Tricuspid Valve Tricuspid valve is grossly normal, there is mild tricuspid regurgitation, tricuspid regurgitation jet velocity is inadequate for calculation of the right ventricular systolic pressure. Pulmonic Valve Pulmonic valve is poorly visualized. Great Vessels Aortic root is normal size. Pericardium No significant pericardial effusion noted. Conclusion 1. Technically difficult study because of the patient factors and poor acoustic windows. Definity contrast was utilized to delineate the endocardial surfaces. 2. Mild biatrial enlargement, normal left ventricular size, mild concentric left ventricular hypertrophy, visually estimated ejection fraction 50%, there is abnormal septal motion, Doppler evidence of impaired LV relaxation seen, there is no tissue Doppler performed. 3. Thickened and calcified aortic valve without aortic stenosis or aortic insufficiency. 4. Mildly enlarged right ventricle with normal contractility 5. Mild mitral and tricuspid regurgitation. 6. No significant pericardial effusion noted. Electronically signed by : Terrance Amaral, 05/31/2020 09:50:24
--- NOTE | 2020-05-30 08:37 | HMH.HP ---
*Admission Date: 05/29/20 *Chief complaint: weakness *History of present illness: Mr. Guadalupe is a 69-year-old male with a history of coronary artery disease, congestive heart failure, COPD, hypertension, previous LA with several stents placed. He is also had lymphoma. He presented to [facility] emergency room after inability to walk and feeling very weak. 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 His made him come indoors. Later on he had difficulty eating and walking. He finally agreed to come to the emergency room. His states he could barely walk and from the car. In the emergency room he was found to have a urinary tract infection. White blood cell count was 17,800 blood chemistries were satisfactory. COVID test was negative.He was started on Rocephin, given 125 mg of Solu-Medrol, and DuoNeb treatment was also provided. He was then admitted for further evaluation and treatment. This a.m. he is feeling better. Was able to eat some breakfast. He has been able to walk to the bathroom without difficulty. He would like to go home. Laboratory data this morning with a CBC Showing increase in his white blood cell to 19,600 which possibly could be related to receiving Solu-Medrol.. Electrolytes and renal function are normal. [facility] History Medical History: Reports:: Cancer, Congestive Heart Failure, Chronic Obstructive Pulmonary Disease (COPD), Coronary Artery Disease, Diabetes Mellitus Type 2, Gastroesophageal Reflux Disease(GERD), Hyperlipidemia, Hypertension, Internal Pacemaker, Myocardial Infarction, Ulcer Denies:: Diabetes Mellitus Type 1, MRSA, Seizures *Have you ever received a pneumonia vaccine?: No *Have you received a flu vaccine this season?: No Other Medical History: Reports: Arthritis, Chemotherapy (Non-Hogkins Lymphoma), Sinus Problems, Thyroid Disease. Denies: Blood Transfusion Reaction Other Surgeries: Yes: Angioplasty, CABG (8 stents in the Heart), Cancer Surgery, Cardiac Catheterization, Coronary Stent, Pacemaker, Sinus Surgery Amputation: No Fractures: No - *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 Last grade of school completed: High school graduate Smoking Status: Former smoker Tobacco Type: cigarettes # Packs/Day (cigarettes): 3 #Yrs smoked (if former smoker): 35 Smoking End Date: 10/05/1999 Alcohol Intake: former Alcohol Intake Frequency:: other Substance Use Type: denies use *Occupational Status:: retired Housing: house Household Members: spouse *Travel in the last 8 weeks: None Family Hx:: Coronary Artery Disease, Heart Attack, Hypertension Review of Systems - Constitutional Reports headache(s), Reports weakness, Denies fever(s) - Eyes Reports blurry vision, Reports change in vision - ENT Denies ear pain, Denies sore throat - *Cardiovascular Denies chest pain, Denies shortness of breath, Denies irregular heart rhythm, Denies fast heart rate - *Respiratory Denies chest congestion, Denies cough, Denies shortness of breath - *Gastrointestinal Denies abdominal pain, Denies bright, red blood in stools, Denies black, tarry stools, Denies nausea, Denies vomiting - *Genitourinary Reports urinary frequency (And voids in small amounts), Denies blood in urine - *Musculoskeletal Reports abnormal walking, Reports muscle weakness - *Neurologic Reports dizziness, Reports dizziness, Reports weakness, Denies abnormal speech, Denies confusion, Denies localized weakness, Denies headache(s), Denies seizure-like activity Meds Home Medications Medication Instructions Recorded Confirmed Type albuterol sulfate 90 mcg/actuation 1 puff INHALATION DAILY 30 Days 11/02/17 05/29/20 History aerosol inhaler colchicine 0.6 mg tablet 0.6 mg PO DAILY 30 Days #30 tab 08/03/18 05/30/20 History gabapentin 300 mg capsule 600 mg PO BID cap 10/12/19 05/29/20 History aspirin 81 mg tablet,delayed 81 mg PO DAILY 10/24/19 05/30/20 History release prasugrel 10 mg tablet 10 mg PO DAILY #30 tab 10/24/19
--- NOTE | 2020-05-30 09:11 | HMH.CNCARD ---
History of Present Illness Consult date: 05/30/20 Requesting physician: Roberto Sweeney Consult reason: shortness of breath Chief complaint: weakness, SOB Additional Medical History:: 1. CAD 2. htn 3. hld 4. chf 5. COPD 6. DM 7. Lymphoma 8. AICD placement 9. hx of TN Echo from 07/2018 shows: 1. Technically very difficult study because of the patient's factor and poor acoustic windows, repeat study with Definity contrast is recommended. 2. Mildly enlarged left atrium, mildly dilated left ventricle, reduced left ventricular systolic function, visually estimated ejection fraction 35-40%, left ventricle is globally hypokinetic. Grade 1 diastolic dysfunction seen with tissue Doppler evidence of raised left atrial pressure. 3. Mild mitral and tricuspid regurgitation 4. No significant pericardial effusion noted. Echo from 01/2019 shows: 1. Technically difficult study because of the patient's factors and poor acoustic windows 2. Mildly dilated left ventricle, visually estimated ejection fraction approximately 40% with segmental wall motion abnormality described above, Definity contrast was utilized to delineate endocardial surfaces. There is no left ventricular thrombus seen. 3. Mildly enlarged right ventricle with normal contractility. 4. Thickened and calcified aortic valve without aortic stenosis aortic insufficiency 5. Mild mitral and tricuspid regurgitation 6. No significant pericardial effusion noted. Echo from 02/2020 shows: 1. Technically difficult study because of the patient factors and poor acoustic windows, Definity contrast was placed to delineate the endocardial surfaces. 2. Mildly enlarged left atrium, dilated left ventricle, severe reduced left ventricular systolic function, visually estimated ejection fraction approximately 30%, left ventricle is globally hypokinetic, there is no left ventricular thrombus seen. Grade 1 diastolic dysfunction seen without tissue Doppler evidence of raise left atrial pressure. 3. Thickened and calcified aortic valve without Doppler evidence of aortic stenosis or aortic insufficiency. 4. Mild mitral and tricuspid regurgitation. 5. No significant pericardial effusion noted. C from 10/2019 shows: Severe three-vessel coronary artery disease as described above which was the etiology for patient's polymorphic ventricular tachycardia Successful stenting of severely diseased proximal LAD reducing the severe stenosis to 0% Successful stenting of severely diseased proximal to mid vessel nondominant circumflex artery reducing the severe disease to 0% Successful stenting of a chronically occluded dominant right coronary artery reconstructing the vessel from the proximal to mid to distal segment reducing the stenoses to less than 10% throughout Left ventricular dysfunction Mild to moderate pulmonary hypertension PLAN 1. Dual antiplatelet therapy indefinitely 2. Standard therapy for ischemic heart disease 3. Standard therapy for systolic congestive heart failure 4. Cardiac rehabilitation 5. Avoidance of tobacco products History of present illness: This is a 69-year-old gentleman who was admitted to the hospital with complaints of weakness, fatigue and inability to walk. He states that he had been out trimming trees in the heat and he got very weak and his made him come inside. Following this he had difficulty eating and walking and his encouraged him to come into the emergency department. Once he finally agreed he could barely walk to the car. Once he was in the emergency department he was found to have a urinary tract infection with an elevated white blood cell count. He did get some steroids in the emergency department and his white blood cell count did elevate a little more today. He denies any chest pain or pressure. He states he is always short of breath but he does not think his shortness of breath was worse than normal. His states that she does think he was
--- NOTE | 2020-05-30 10:43 | HMH.PHAINT ---
HOME MEDICATION RECONCILIATION COMPLETED USING LIST FROM CARDIOLOGY OFFICE, [facility] OFFICE AND [facility] IN [place].
[2020-05-30 10:45] LABS: Hemoglobin A1C 6.9 % (4.0-6.0)
--- NOTE | 2020-05-30 15:31 | PC.NURSE ---
PT UP TO CHAIR A THIS TIME, HAS BEEN SHOWERED TODAY WITH LINEN CHANGE, PT AMBULATES PER STANDBY ASSIST TO RR FOR ELIMINATION, HAS TOLERATED RA WELL WITH O2 SATS >95% AND NO C/O SOA OR DIZZINESS, PT HAS REQUESTED TO WEAR A BRIEF B/C HE SAYS SOMETIMES HE CANNOT MAKE IT TO THE RESTROOM IN TIME, PT EDUCATED ON IMPORTANCE OF CALLING OUT AND NOT TO AYALA TO THE BATHROOM TO PREVENT INJURY, #20 TO THE LAC WITH NS INFUSING @50ML/HR, INTACT PATENT AND PINK, VSS NO COMPLAINTS AT THIS TIME WILL CONTINUE TO MONITOR.
--- NOTE | 2020-05-30 19:12 | PC.NURSE ---
report given to rad
[2020-05-30 19:30] LABS: POC Glucose,Bedside 273 (70-110)
[2020-05-30 19:30] LABS: POC Glucose,Bedside 220 (70-110)
[2020-05-30 22:28] LABS: POC Glucose,Bedside 270 (70-110)
--- NOTE | 2020-05-31 02:57 | PC.NURSE ---
Pt alert and oriented x4. Pt rested well this shift with eyes closed and no complaints. No acute changes noted from previous shift. Pt ambulates independently in room to and from bathroom, denies weakness in legs. Tolerates ra well with no c/o soa. RR noted even and unlabored. No edema noted. Refused teds. Cap refill < 3 seconds. PERRLA noted bilaterally. Bilateral hand application programmer analyst noted equal in strength. VSS. Remains safe. Call light within reach. Will continue to monitor.
[2020-05-31 04:00] VITALS: BP 105/53; PULSE 62; RESP 17; TEMP 36.6; O2SAT 93
[2020-05-31 05:00] VITALS: BMI 36.1
[2020-05-31 05:28] LABS: POC Glucose,Bedside 148 (70-110)
[2020-05-31 06:23] LABS: Basophils % 0.1 % (0.1-2.0); Eosinophils # 0.1 K/mm3 (0.0-0.4); Eosinophils % 0.3 % (0.1-12.0); Hematocrit 47.4 % (42.0-52.0); Hemoglobin 15.2 g/dL (14.1-18.0); Lymphocytes % 7.5 % (10-50); Mean Corpuscular Hemoglobin 29.2 pg (27.0-31.2); Mean Corpuscular Volume 91.1 fl (80-94); Mean Platelet Volume 8.4 fl (7.4-10.4); Monocytes % 3.7 % (1.7-9.3); Neutrophils # 23.8 K/mm3 (1.8-7.8); Neutrophils % 88.4 % (37.0-80.0); Platelet Count 150 K/mm3 (142-424); Red Cell Distribution Width 14.7 % (11.5-17.5)
[2020-05-31 06:31] LABS: Anion Gap 12.1 mEq/L (5-15); Blood Urea Nitrogen 18 mg/dl (9-20); Calcium 9.2 mg/dl (8.4-10.2); Carbon Dioxide 28 mmol/L (22.0-30.0); Chloride 103 mmol/L (98-107); Creatinine Clearance Estimated 108 mL/min (50-200); Estimated Glomerular Filt Rate 96 ml/min (>60); GFR (African American) 116 ML/MIN (>60); Glucose 155 mg/dl (74-100); Potassium 4.1 mmoL/L (3.5-5.1); Sodium 139 mmol/L (136-145)
[2020-05-31 06:40] LABS: MANUAL DIFFERENTIAL MANUAL DIFFERENTIAL (MANUAL DIFF)
[2020-05-31 07:23] VITALS: BP 144/69; PULSE 60; RESP 16; TEMP 36.4; O2SAT 94
[2020-05-31 08:07] LABS: Lymphocytes % 10 % (10-50); Monocytes % 3 % (2-9); Neutrophils % 87 % (42-76); Platelet Estimate Normal; RBC Morphology Normal; Total Cells Counted 100
--- NOTE | 2020-05-31 08:44 | HMH.ACPN2 ---
Internal Medicine - PN: Subj *Date: 05/31/20 *Time: 08:44 Interval history: Patient said he is feeling well this morning and he wants to go home. He denies any pain and states he slept well and ate a good breakfast. Exam Vital signs and Labs for Last 24 Hours: Temp Pulse Resp BP Pulse Ox 97.6 F 60 16 144/69 H 94 L 05/31/20 07:23 05/31/20 07:23 05/31/20 07:23 05/31/20 07:23 05/31/20 07:23 Laboratory Results - last 24 hr 05/29/20 22:23: Urine Color Yellow, Urine Appearance Clear, Urine pH 6.5, Ur Specific [place] 1.010, Urine Protein Negative, Urine Glucose (UA) Negative, Urine Ketones Negative, Urine Blood Negative, Urine Nitrate Negative, Urine Bilirubin Negative, Urine Urobilinogen 0.2, Ur Leukocyte Esterase Trace, Urine RBC Occasional, Urine WBC 10-20, Urine Bacteria Trace 05/30/20 06:12: Hemoglobin A1c 6.9 H 05/30/20 11:07: POC Glucose 273 H 05/30/20 17:08: POC Glucose 220 H 05/30/20 21:30: POC Glucose 270 H 05/31/20 05:17: POC Glucose 148 H 05/31/20 06:03: WBC 27.0 H* D, RBC 5.20, Hgb 15.2, Hct 47.4, MCV 91.1, MCH 29.2, MCHC 32.0, RDW 14.7, Plt Count 150, MPV 8.4, Neut % (Auto) 88.4 H, Lymph % (Auto) 7.5 L, Green % (Auto) 3.7, Eos % (Auto) 0.3, Baso % (Auto) 0.1, Neut # (Auto) 23.8 H, Lymph # (Auto) 2.0, Green # (Auto) 1.0, Eos # (Auto) 0.1, Baso # (Auto) 0.0, Total Counted 100, Neutrophils % (Manual) 87 H, Lymphocytes % (Manual) 10, Monocytes % (Manual) 3, Platelet Estimate Normal, RBC Morphology Normal 05/31/20 06:03: Sodium 139, Potassium 4.1, Chloride 103, Carbon Dioxide 28, Anion Gap 12.1, BUN 18 D, Creatinine 0.80, Estimated Creat Clear 108, Estimated GFR 96, Est GFR ( Amer) 116, Glucose 155 H D, Calcium 9.2 I & O for Last 24 hours: Intake & Output 05/28/20 05/29/20 05/30/20 05/31/20 11:59 11:59 11:59 11:59 Intake Total 390 / 390 1835 / 1835 Output Total 150 / 150 1325 / 1325 Balance 240 / 240 510 / 510 Weight 238 lb 9 oz 238 lb Microbiology Reports for the Last 24 Hours: Microbiology 05/29/20 22:23 Urine,Clean Catch Urine Culture - Preliminary Gram Negative Rods - Constitutional no acute distress - *Routine Respiratory Exam Present: CTA bilaterally - *Routine Cardiovascular Exam Present: RRR - *Routine Abdominal Exam Present: soft, normoactive bowel sounds. Absent: tenderness - *Routine Extremities Exam Absent: cyanosis, clubbing, edema - *Routine Skin Exam Present: warm. Absent: rash - *Routine Neurological Exam Present: alert, oriented X3 Assessment and Plan (1) UTI (urinary tract infection) Current visit: Yes Status: Acute Qualifiers: Urinary tract infection type: site unspecified Hematuria presence: without hematuria Qualified Code(s): N39.0 - Urinary tract infection, site not specified Category: Medical Code(s): N39.0 - Urinary tract infection, site not specified (2) Coronary artery disease Current visit: Yes Status: Chronic Category: Medical Code(s): I25.10 - Atherosclerotic heart disease of [place] coronary artery without angina pectoris (3) SIRS (systemic inflammatory response syndrome) Current visit: Yes Status: Acute Category: Medical Code(s): R65.10 - Systemic inflammatory response syndrome (SIRS) of non-infectious origin without acute organ dysfunction (4) AICD (automatic cardioverter/defibrillator) present Current visit: Yes Status: Chronic Category: Surgical Code(s): Z95.810 - Presence of automatic (implantable) cardiac defibrillator (5) Chronic obstructive lung disease Current visit: No Status: Chronic Qualifiers: COPD type: emphysema Emphysema type: unspecified Qualified Code(s): J43.9 - Emphysema, unspecified Category: Medical Code(s): J44.9 - Chronic obstructive pulmonary disease, unspecified (6) Chronic systolic CHF (congestive heart failure) Current visit: No Status: Chronic Category: Medical Code(s): I50.22 - Chronic systolic
--- NOTE | 2020-05-31 09:16 | PC.NURSE ---
rounded with Dr. Sweeney and Roberto Olmedo.
--- NOTE | 2020-05-31 09:40 | PC.NURSE ---
received call from lab that pt has a STAT CBC order but that she armando a routine CBC this morning around 6am. She is asking if she needs to redraw it. I called Dr. Sweeney's office and spoke to Keren, who states that Dr. Sweeney is off today. Dr. Jo and Debbie are in the office today. Asked Keren to relay message to them and call me back with orders.
--- NOTE | 2020-05-31 10:58 | HMH.PNCARD ---
Subjective Date: 05/31/20 Time: 10:58 Principal diagnosis: Weakness Interval history: 69-year-old white male in bed in no acute distress. Denies any chest pain, pressure or tightness. Patient has been diagnosed with a UTI and is on antibiotic therapy. Echocardiogram results show preserved ejection fraction with wall motion abnormality related to AICD. No significant valvular heart disease. AICD interrogation yesterday without significant changes from his baseline. Exam Vital signs and Labs for Last 24 Hours: Temp Pulse Resp BP Pulse Ox 97.6 F 60 16 144/69 H 94 L 05/31/20 07:23 05/31/20 07:23 05/31/20 07:23 05/31/20 07:23 05/31/20 07:23 Laboratory Results - last 24 hr 05/29/20 22:23: Urine Color Yellow, Urine Appearance Clear, Urine pH 6.5, Ur Specific [place] 1.010, Urine Protein Negative, Urine Glucose (UA) Negative, Urine Ketones Negative, Urine Blood Negative, Urine Nitrate Negative, Urine Bilirubin Negative, Urine Urobilinogen 0.2, Ur Leukocyte Esterase Trace, Urine RBC Occasional, Urine WBC 10-20, Urine Bacteria Trace 05/30/20 11:07: POC Glucose 273 H 05/30/20 17:08: POC Glucose 220 H 05/30/20 21:30: POC Glucose 270 H 05/31/20 05:17: POC Glucose 148 H 05/31/20 06:03: WBC 27.0 H* D, RBC 5.20, Hgb 15.2, Hct 47.4, MCV 91.1, MCH 29.2, MCHC 32.0, RDW 14.7, Plt Count 150, MPV 8.4, Neut % (Auto) 88.4 H, Lymph % (Auto) 7.5 L, [place] % (Auto) 3.7, Eos % (Auto) 0.3, Baso % (Auto) 0.1, Neut # (Auto) 23.8 H, Lymph # (Auto) 2.0, [place] # (Auto) 1.0, Eos # (Auto) 0.1, Baso # (Auto) 0.0, Total Counted 100, Neutrophils % (Manual) 87 H, Lymphocytes % (Manual) 10, Monocytes % (Manual) 3, Platelet Estimate Normal, RBC Morphology Normal 05/31/20 06:03: Sodium 139, Potassium 4.1, Chloride 103, Carbon Dioxide 28, Anion Gap 12.1, BUN 18 D, Creatinine 0.80, Estimated Creat Clear 108, Estimated GFR 96, Est GFR ( Amer) 116, Glucose 155 H D, Calcium 9.2 I & O for Last 24 hours: Intake & Output 05/28/20 05/29/20 05/30/20 05/31/20 11:59 11:59 11:59 11:59 Intake Total 390 / 390 1835 / 1835 Output Total 150 / 150 1325 / 1325 Balance 240 / 240 510 / 510 Weight 238 lb 9 oz 238 lb Microbiology Reports for the Last 24 Hours: Microbiology 05/29/20 22:23 Urine,Clean Catch Urine Culture - Preliminary Gram Negative Rods - *Routine HEENT Exam Head: Present: normocephalic Eye: Present: EOMI, PERRL ENT: Present: mucous membranes moist - *Routine Respiratory Exam Present: CTA bilaterally - *Routine Cardiovascular Exam Present: RRR - *Routine Extremities Exam Absent: cyanosis, clubbing, edema - *Routine Neurological Exam Present: alert, oriented X3 Progress Note: A&P (1) UTI (urinary tract infection) Status: Acute Current Visit: Yes (2) Coronary artery disease Status: Chronic Current Visit: Yes (3) SIRS (systemic inflammatory response syndrome) Status: Acute Current Visit: Yes (4) AICD (automatic cardioverter/defibrillator) present Status: Chronic Current Visit: Yes (5) Chronic obstructive lung disease Status: Chronic Current Visit: No (6) Chronic systolic CHF (congestive heart failure) Status: Chronic Current Visit: No (7) Dyspnea Status: Chronic Current Visit: No (8) Fatigue Status: Chronic Current Visit: No (9) Hyperlipidemia Status: Chronic Current Visit: No (10) Hypertensive heart disease Status: Chronic Current Visit: No (11) Stented coronary artery Status: Chronic Current Visit: No Assessment and Plan for All Diagnoses:: 1. Cardiac status stable for discharge from cardiology standpoint. Continue aspirin and Prasugrel therapy for CAD. Continue Coreg and Entresto for history of cardiomyopathy that has improved on medical therapy. AICD interrogation without significant abnormalities. Follow-up in our office as previously scheduled. 2. UTI, on antibiotics per Dr. Sweeney. 3. History of lymphoma w
--- NOTE | 2020-05-31 11:12 | PC.NURSE ---
received call from Debbie CARTER stating that Dr. Jo wants a CBC with a manual diff before he discharges pt home. Verbalized understanding. Called lab ([facility]) and updated her. She reports that she will draw manual diff from CBC drawn @ 0600.
[2020-05-31 11:46] LABS: POC Glucose,Bedside 177 (70-110)
--- NOTE | 2020-05-31 14:25 | PC.NURSE ---
Pt is upset that he has not been discharged home. I explained to him that Dr. Jo has not put discharge orders in yet but that he will. He explains that Dr. Sweeney told him this morning @ 9am that he would go home this morning. is upset as well. Pt demanded for me to discontinue his IV fluids and take IV out. Explained to him that IV can be taken out but will need to be reinserted if needed. He verbalized understanding and is still adamant that IV come out. I discontinued IV per his request.
--- NOTE | 2020-05-31 15:26 | HMH.PHAINT ---
DISCHARGE COUNSELING-DISCUSSED DISCHARGE MEDICATIONS WITH PATIENT.
--- NOTE | 2020-06-01 15:40 | HMH.DCSUM ---
General - General Admission date:: 05/30/20 Discharge date: 05/31/20 HPI HPI: Mr. Guadalupe is a 69-year-old male with a history of coronary artery disease, congestive heart failure, COPD, hypertension, previous CO with several stents placed. He is also had lymphoma. He presented to [facility] emergency room after inability to walk and feeling very weak. 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 His made him come indoors. Later on he had difficulty eating and walking. He finally agreed to come to the emergency room. His states he could barely walk and from the car. In the emergency room he was found to have a urinary tract infection. White blood cell count was 17,800, blood chemistries were satisfactory. COVID test was negative. He was started on Rocephin, given 125 mg of Solu-Medrol, and DuoNeb treatment was also provided. He was then admitted for further evaluation and treatment. This a.m. he is feeling better. Was able to eat some breakfast. He has been able to walk to the bathroom without difficulty. He would like to go home. Laboratory data this morning with a CBC Showing increase in his white blood cell to 19,600 which possibly could be related to receiving Solu-Medrol.. Electrolytes and renal function are normal. Hospital Course Hospital Course: The patient's chest x-ray showed left lower lobe atelectasis versus infiltrate. He had no pulmonary symptoms. He was felt to have a urinary tract infection and was started on Rocephin pending his cultures. He was also continued on IV fluids. Cardiology was consulted. His BNP was slightly elevated, but this was around baseline for him. He stated he had not been taking his diuretics daily due to working outside and then making him too dehydrated. He felt like he had gotten overheated the previous day. Cardiology ordered an echo and interrogated his AICD. It showed no evidence of atrial fib. His echo showed an EF of 50%. By 05/31/2020, he felt well and wanted to go home. He denied any pain, was sleeping well, and was tolerating a diet. His urine culture was positive for Morganella morganii and it was sensitive to Rocephin. His blood cultures showed no growth. His white blood cell count did elevate raising concerns regarding his history of non-Hodgkin's lymphoma. He was stable to be discharged on Omnicef. He will follow-up with Dr. Sweeney in 1 day and may need an oncology referral to Dr. Galarza at . Objective Vital signs: Temp Pulse Resp BP Pulse Ox 97.6 F 60 16 144/69 H 94 L 05/31/20 07:23 05/31/20 07:23 05/31/20 07:23 05/31/20 07:23 05/31/20 07:23 Narrative: - Constitutional no acute distress - *Routine HEENT Exam Head: Present: normocephalic, atraumatic Eye: Present: PERRL. Absent: conjunctival icterus, scleral injection ENT: Present: mucous membranes moist, oropharynx clear - *Routine Neck Exam Present: supple. Absent: carotid bruit, lymphadenopathy, thyromegaly - *Routine Respiratory Exam Present: other Comments: Few bibasilar crackles - *Routine Cardiovascular Exam Present: RRR - *Routine Abdominal Exam Present: soft, normoactive bowel sounds, obese. Absent: tenderness - *Routine Extremities Exam Absent: edema, calf tenderness - *Routine Neurological Exam Present: alert, oriented X3 Results Labs on day of discharge: Preliminary micro results at discharge 05/29/20 21:54 Blood Culture - Preliminary Blood NO GROWTH AFTER 48 HOURS 05/29/20 21:54 Blood Culture - Preliminary Blood NO GROWTH AFTER 48 HOURS DS: Diagnosis - Discharge Diagnosis (1) UTI (urinary tract infection) Status: Acute (2) Coronary artery disease Status: Chronic (3) SIRS (systemic inflammatory response syndrome) Status: Acute (4) AICD (automatic cardioverter/defibrillator) present Status: Chronic (5) Chronic obstructive lung disease Status: Chronic
== END 2020-05-31 15:30 | disposition home or self-care (01) ==
LOC: ER 23:37 → 2ND 05-30 01:03
PROVIDERS: Admitting Provider Family Medicine; Emergency Provider Emergency Medicine; PCP Family Medicine; Visit Provider Family Medicine
DX: N39.0 Urinary tract infection, site not specified (principal); I11.0 Hypertensive heart disease with heart failure; I50.22 Chronic systolic (congestive) heart failure; J44.9 Chronic obstructive pulmonary disease, unspecified; I25.2 Old myocardial infarction; Z95.810 Presence of automatic (implantable) cardiac defibrillator; Z95.5 Presence of coronary angioplasty implant and graft; Z79.84 Long term (current) use of oral hypoglycemic drugs; E11.9 Type 2 diabetes mellitus without complications; Z79.52 Long term (current) use of systemic steroids; Z79.899 Other long term (current) drug therapy; I25.10 Atherosclerotic heart disease of native coronary artery without angina pectoris; B96.4 Proteus (mirabilis) (morganii) as the cause of diseases classified elsewhere
CPT/HCPCS: 36415; 71045; 80048; 80053; 81001; 82803; 82962; 83036; 83605; 83735; 83880; 84436; 84443; 84479; 84484; 85007; 85025; 86328; 87040; 87086; 87088; 87186; 93005; 93306; 96365; 96375; 99285; G0378; Q9957

== ENCOUNTER → 2020-06-01 14:12 | Outpatient (CLI) | payer MEDICARE, SELFPAY ==
--- NOTE | 2020-06-01 14:17 | US_ITS ---
PROCEDURE: US URINARY BLADDER CLINICAL INDICATION: HEMATURIA COMPARISON: CT ABDPELWO CT abdomen pelvis wo con from 12/16/[address] chest w con from 12/30/[address] CHEST W CON from 02/24/2020 FINDINGS: Images are obtained of the urinary bladder before and after urinating. The full bladder images show a calculated volume of 169 mL. There is mild thickening of the urinary bladder wall. Postvoid images show a bladder volume of 33 mL. There is some debris along the lower aspect of the urinary bladder. IMPRESSION: Low urinary bladder volume with mild thickening of the urinary bladder wall. There is also mild amount of postvoid residual urine at 33 mL. Small amount of debris is present in the urinary bladder which could be due to inflammation or infection. Dictated by: Emiliano Caceres MD 06/01/2020 15:12 Emiliano Caceres MD in [facility] 06/01/2020 15:12
== END ==
PROVIDERS: PCP Family Medicine; Visit Provider Family Medicine
DX: N30.00 Acute cystitis without hematuria (principal)
CPT/HCPCS: 76857

== ENCOUNTER → 2020-07-23 12:09 | Outpatient (CLI) | payer MEDICARE, SELFPAY ==
--- NOTE | 2020-07-23 12:17 | XR_ITS ---
PROCEDURE: XR FOOT RT MIN 3V CLINICAL INDICATION: EXOSTOSIS OF RT FOOT COMPARISON: CR FTL3 FOOT-LT-3 VIEWS from 06/23/2015 FINDINGS: No fracture or dislocation. No lytic or blastic change. There is normal mineralization. There is narrowing and mild sclerosis of the MP joint great toe with minor osteophytic spurring at the medial head of the 1st metatarsal and minor spurring at the base of the proximal phalanx lateral side. There is a small exostosis at the base of the distal phalanx of the great toe medial side similar in appearance to the distal phalanx great toe left foot 06/23/2015 there is a moderate spur of the calcaneus at the insertion of Achilles tendon . Other findings:None. IMPRESSION: Mild osteoarthritic change MP joint great toe, no acute pathology noted Dictated by: Dr. Gustavo Toribio MD 07/23/2020 14:17 Dr. Gustavo Toribio MD in [facility] 07/23/2020 14:17
== END ==
PROVIDERS: PCP Family Medicine; Visit Provider Family Medicine
DX: M89.8X7 Other specified disorders of bone, ankle and foot (principal)
CPT/HCPCS: 73630

== ENCOUNTER → 2020-09-07 08:53 | Outpatient (CLI) | payer MEDICARE, SELFPAY ==
--- NOTE | 2020-09-07 08:53 | CT_ITS ---
PROCEDURE: CT CHEST W CON CLINCAL INDICATION: MEDIASTINAL LYMPHADENOPATHY F/U COMPARISON: CT CT CHEST W CON from 02/24/2020 TECHNIQUE: IV Contrast: 75ml Isovue 370 Axial images obtained with sagittal and coronal reformats. All CT scans at the facility use one or more dose reduction, viz: automated exposure control, ma/kV adjustment per patient size (including targeted exams where dose is matched to indication, i.e. head), or iterative reconstruction technique. FINDINGS: HEART AND MEDIASTINAL STRUCTURES: The lower pole of the thyroid on the left is obscured by overlying artifact. A nodule was noted in this region on previous CT scan. The small mediastinal lymph nodes are once again identified and not significantly changed. Coronary artery stent with cardiac pacemaker device is present. Normal heart size. No hilar mass. LUNGS AND PLEURAL SPACES: Centrilobular emphysema. There is a calcified granuloma in the left lower lobe. There are some mild atelectatic changes in the left lower lobe. Previously noted 10 mm nodule in the left lower lobe is stable. Image 53 series 3 BONY STRUCTURES: DISH of the thoracic spine. UPPER ABDOMEN: Unremarkable. ADDITIONAL FINDINGS: No other significant abnormalities. IMPRESSION: Stable CT appearance of the chest. No change in the 10 mm left lower lobe nodule. Dictated by: Emiliano Caceres MD 09/09/2020 10:12 Emiliano Caceres MD in [facility] 09/09/2020 10:12
[2020-09-07 09:35] LABS: Blood Urea Nitrogen 14 mg/dl (9-20); Estimated Glomerular Filt Rate 84 ml/min (>60); GFR (African American) 101 ML/MIN (>60)
--- NOTE | 2020-09-07 11:11 | PC.NURSE ---
Complete PFT with 6 minute walk test completed without complications. Albuterol 0.083% given via hand held nebulizer, per written protocol, Pt tolerated tx well.
== END ==
PROVIDERS: PCP Family Medicine; Visit Provider Internal Medicine Pulmonary Disease
DX: J43.9 Emphysema, unspecified (principal); R59.0 Localized enlarged lymph nodes; R91.1 Solitary pulmonary nodule; Z87.891 Personal history of nicotine dependence
CPT/HCPCS: 36415; 71260; 82565; 84520; 94060; 94618; 94726; 94729; Q9967

== ENCOUNTER 2020-10-31 00:28 | Emergency (ER) | payer MEDICARE, SELFPAY ==
[2020-10-31 00:29] VITALS: BP 130/85; PULSE 76; RESP 18; TEMP 36.8; O2SAT 95; BMI 36.8
[2020-10-31 00:59] VITALS: BP 130/85; PULSE 73; O2SAT 94
[2020-10-31 01:29] VITALS: BP 135/84; PULSE 69; O2SAT 94
[2020-10-31 01:29] LABS: POC Glucose,Bedside 196 (70-110)
[2020-10-31 01:30] VITALS: BP 140/86; PULSE 72; O2SAT 95
[2020-10-31 01:39] LABS: Basophils # 0.1 K/mm3 (0-0.2); Eosinophils # 0.3 K/mm3 (0.0-0.4); Eosinophils % 2.6 % (0.1-12.0); Hematocrit 54.9 % (42.0-52.0); Hemoglobin 17.9 g/dL (14.1-18.0); Lymphocytes # 2.4 K/mm3 (0.7-4.5); Lymphocytes % 24.2 % (10-50); Mean Corpuscular HGB Conc 32.5 g/dL (31.8-35.4); Mean Corpuscular Hemoglobin 28.3 pg (27.0-31.2); Mean Corpuscular Volume 87.1 fl (80-94); Mean Platelet Volume 7.7 fl (7.4-10.4); Monocytes # 0.6 K/mm3 (0.1-1.0); Monocytes % 5.7 % (1.7-9.3); Neutrophils # 6.6 K/mm3 (1.8-7.8); Neutrophils % 66.5 % (37.0-80.0); Platelet Count 171 K/mm3 (142-424); Red Cell Distribution Width 14.2 % (11.5-17.5); White Blood Count 9.9 K/mm3 (4.8-10.8)
[2020-10-31 01:40] LABS: Chloride 101 mmol/L (98-107); Sodium 139 mmol/L (136-145)
[2020-10-31 01:41] LABS: Potassium 3.8 mmoL/L (3.5-5.1)
[2020-10-31 01:43] LABS: Blood Urea Nitrogen 14 mg/dl (9-20); Creatinine Clearance Estimated 108 mL/min (50-200); Estimated Glomerular Filt Rate 74 ml/min (>60); GFR (African American) 90 ML/MIN (>60)
[2020-10-31 01:44] LABS: Anion Gap 14.8 mEq/L (5-15); Calcium 10.4 mg/dl (8.4-10.2); Carbon Dioxide 27 mmol/L (22.0-30.0); Glucose 221 mg/dl (74-100)
[2020-10-31 02:00] VITALS: BP 137/82; PULSE 70; O2SAT 94
[2020-10-31 02:17] VITALS: BP 135/81; PULSE 71; RESP 16; TEMP 36.7; O2SAT 98
[2020-10-31 02:27] LABS: Hemoglobin A1C 7.7 % (4.0-6.0)
== END 2020-10-31 02:17 | disposition left against medical advice (07) ==
PROVIDERS: Emergency Provider Emergency Medicine; PCP Family Medicine
DX: Z53.21 Procedure and treatment not carried out due to patient leaving prior to being seen by health care provider (principal); R73.9 Hyperglycemia, unspecified
CPT/HCPCS: 80048; 82962; 83036; 85025; 96365; 99211

== ENCOUNTER → 2021-04-17 09:24 | Outpatient (CLI) | payer MEDICARE, SELFPAY ==
--- NOTE | 2021-04-17 09:27 | XR_ITS ---
PROCEDURE: XR CHEST 2V CLINICAL HISTORY: aicd pain Pacemaker pain, chest pain COMPARISON: CR CXR1VP XR chest portable from 08/23/2018 DX CXR2V XR chest 2V from 09/20/2018 CR XR CHEST PORTABLE from 05/29/[address] CHEST W CON from 09/07/2020 FINDINGS: Normal heart size. There is a biventricular pacemaker present from left subclavian approach. Right atrial lead is also noted. The power pack is slightly more inferior along the chest wall compared to the previous exam but does not appear twisted. The electrodes appear intact. The lungs are clear without infiltrates, suspicious nodules, or pleural effusions. Degenerative changes thoracic spine IMPRESSION: No acute finding. Biventricular pacemaker is present with good lead position. The power pack appears slightly more inferior along the chest wall Dictated by: Emiliano Caceres MD 04/17/2021 09:51 Emiliano Caceres MD in [facility] 04/17/2021 09:51
== END ==
PROVIDERS: PCP Family Medicine; Visit Provider Nurse Practitioner Family
DX: Z95.810 Presence of automatic (implantable) cardiac defibrillator (principal); R07.9 Chest pain, unspecified
CPT/HCPCS: 71046

== ENCOUNTER 2021-04-22 14:32 | Emergency (ER) | payer MEDICARE, SELFPAY ==
[2021-04-22 15:00] VITALS: BP 155/75; PULSE 75; RESP 21; TEMP 36.8; O2SAT 94; BMI 37.9
--- NOTE | 2021-04-22 15:41 | HMH.EDUTC ---
[facility] [place] Disposition Clinical Impression: Sinusitis Qualifiers: Sinusitis location: unspecified location Chronicity: unspecified Qualified Code(s): J32.9 - Chronic sinusitis, unspecified Disposition: Home, Self-Care Condition on Discharge: Good Instructions: Sinusitis, Acute Bronchitis, DI for Sinusitis Additional Instructions: ? Start antibiotic today. Be sure to complete entire prescription even if feeling better ? Monitor temp. Tylenol every 4 hours as needed and / or ibuprofen every 6 hours as needed ( As long as your primary care physician has told you that it ok to take both. For fever/aches/pains ER if no less than 101 despite Tylenol or Motrin ? Humidifier/vaporizer or hot steamy shower ? Inhaler every 4-6 hours as needed like we discussed. If unsure how to use it, ask pharmacist to demonstrate how. Should help open airways and improve cough, wheezing, and shortness of breath ? Mucinex during the day for your cough and cough suppressant only at night. Be sure to drink lots of water. Insurance may not cover a prescriptions for mucinex. Might be cheaper to get 400mg tablets and take 2 tablet in the morning, mid-day and evening with lots of water. *Promethazine DM cough syrup will cause drowsiness. Use only at night. No driving, operating machinery or caring for small children after taking it *Tessalon Perles will not cause drowsiness but use at bedtime to help stop cough so that you may get some rest. *Start steroid today. Helps with inflammation therefore, cough and wheezing. Follow directions on the package. Reviewed side effects. Patient reports taking them before. Follow up IMMEDIATELY for new or worsening of symptoms OR no noticeable improvement over the next 48-72 hours. 911 immediately for any life threatening symptoms such as chest pain or difficulty breathing Prescriptions: Albuterol Sulfate [Proventil-HFA 90mcg/puff Inh] 1 - 2 puffs IH Q6HP PRN #1 inh PRN Reason: Shortness Of Breath Transmission Status: Received by [facility] Doxycycline Monohydrate [Doxycycline Titus 100mg Tab] 100 mg PO Q12 7 Days #14 tab Transmission Status: Received by [facility] Benzonatate [Tessalon Perle 100mg Cap*] 100 mg PO TID PRN #15 cap PRN Reason: Cough Transmission Status: Received by [facility] Referrals: Roberto Sweeney MD [Primary Care Provider] - As needed Time of Disposition: 18:38 Medical Decision Making - Manjit Inquiry Pt receiving controlled substance: No Manjit was queried for this patient: No Vital Signs: 04/22/21 15:00 04/22/21 16:04 Temperature 98.2 F 98.2 F Temperature Source Oral Pulse Rate 75 Pulse Rate [Right Brachial] 75 Respiratory Rate 21 21 Blood Pressure 155/75 H Blood Pressure [Right Arm] 155/75 H Blood Pressure Mean [Right Arm] 101 Blood Pressure Source [Right Arm] Automatic Cuff Blood Pressure Position [Right Arm] Sitting 02 Sat by Pulse Oximetry 94 L Oxygen Delivery Method Room Air Orders (Tests/Meds): ED MEDICATIONS Discontinued Medications Generic Name Dose Route Start Last Admin Trade Name Freq PRN Reason Stop Dose Admin Ceftriaxone Sodium 1 gm 04/22/21 15:48 04/22/21 16:03 Ceftriaxone 1gm Vial IM 04/22/21 15:49 1 gm ONCE ONE Administration Protocol Lidocaine HCl 0 ml 04/22/21 15:48 04/22/21 16:03 Lidocaine 1% 5ml Pf Vial IM 04/22/21 15:49 2.1 ml ONCE ONE Administration Methylprednisolone Sodium Succinate 125 mg 04/22/21 15:48 04/22/21 16:03 Methylprednisolone Sod Succ 125mg Vial IM 04/22/21 15:49 125 mg ONCE ONE Administration Medical Decision Narrative: Discussed CXR and patient declined at this time States that he feels like it is more in his sinuses moving into his chest [facility] [place] HPI - General Stated complaint: cough, congestion Time Seen by Provider: 04/22/21 15:41 Mode of Arrival: Ambulatory Source of Information: Patient Limitations: No Limitations Description of Sym
[2021-04-22 16:04] VITALS: BP 155/75; PULSE 75; RESP 21; TEMP 36.8; O2SAT 94
== END 2021-04-22 16:15 | disposition home or self-care (01) ==
PROVIDERS: Emergency Provider Nurse Practitioner; PCP Family Medicine
DX: J32.9 Chronic sinusitis, unspecified (principal); J44.9 Chronic obstructive pulmonary disease, unspecified; I25.10 Atherosclerotic heart disease of native coronary artery without angina pectoris; E11.9 Type 2 diabetes mellitus without complications; I25.2 Old myocardial infarction; K21.9 Gastro-esophageal reflux disease without esophagitis; E78.5 Hyperlipidemia, unspecified; I10 Essential (primary) hypertension; Z87.891 Personal history of nicotine dependence; Z79.899 Other long term (current) drug therapy
CPT/HCPCS: G0463; 96372; 99202

== ENCOUNTER → 2021-12-06 11:46 | Outpatient (CLI) | payer MEDICARE, SELFPAY ==
--- NOTE | 2021-12-06 | CA_ITS ---
APPROVED REPORT Exam: Pharmacologic Technologist: Lizett Sood, Ht: 5 ft 7 in Wt: 244 lbs BSA: 2.20 m2 HR: 60 bpm BP: 174/81 mmHg Medical History Medical History: HTN Medications: Aspirin,,,,, Carvedilol,,,,, Albuterol,,,,, Prasugrel,,,,, EnTRESTO,,,,, StIOLto,,,,, MyBETRIQ,,,,, Cardiac Risk Factors: HTN, FHX of CAD Stress Test Details Test: LEXISCAN HR Resting HR: 60 bpm Max Heart Rate (APMHR): 150.287858 bpm Max HR Achieved: 70 bpm Target HR (85% APMHR): 127.349137 bpm % of APMHR: 46.67 Recovery HR: 60 bpm BP Resting BP: 174/81 mmHg Max BP: 174/81 mmHg Recovery BP: 154.0/85.0 mmHg ECG Clinical Exercise duration: 04:02 min Highest Stage Achieved: Stress ECG Conclusion During lexiscan pt experinced SOA, resolved in recovery. No CP noted. PVCs noted. <1.5mm ST segment changes. Electronically signed by : Terrance Amaral MD 12/06/2021 15:23:50
--- NOTE | 2021-12-06 11:46 | NM_ITS ---
APPROVED REPORT Exam: Nuclear Stress Test Indication: Chest pain, SOB, Fatigue, CAD, Hx of CO, HTN, Family history Patient Location: Outpatient Stress Tech: Lizett YI Tech:Reshma Rodriguez, ARRT, RT (R)(N) Ht: 5 ft 8 in Wt: 223 lbs HR: 60 bpm BP: 174/81 mmHg BSA: 2.14 m2 BMI: 33.9 History: Chest pain, SOB, Fatigue, CAD, Hx of CO, HTN, Family history Procedure: Patient received a 0.4 mg of intravenous Lexiscan, resting heart rate 60 bpm, resting blood pressure 174/81 mmHg, with Lexiscan maximum heart rate achived was 70 bpm which is Less than 85 % of the maximum predicted heart rate and blood pressure was 174/81 mmHg. With Lexiscan, patient denied any complaint of chest pain. Electrocardiogram Resting electrocardiogram showed electronically paced rhythm, with Lexiscan there is less than 1.[address] segment depression noted from the baseline EKG. The EKG portion of the Lexiscan is nondiagnostic. Cardiac Stress and Resting SPECT Images: Cardiac Stress and Resting SPECT images were obtained using technetium 99m Myoview 29.5 mCi stress and 10.25 mCi at rest. Gated SPECT for analysis of segmental wall motion and calculation of the ejection fraction also done. Cardiac stress and resting SPECT may show large area of fixed defect involving the inferior wall, whether this is due to myocardial scarring or soft tissue attenuation is difficult to ascertain from the study. Computer derived ejection fraction is 34% with left ventricle appears to be globally hypokinetic. Conclusion: 1. The EKG portion of the Lexiscan is nondiagnostic. 2. A fixed defect seen in the inferior wall as described above, no reversible ischemia seen, compared right ejection fraction 34% with left ventricle globally hypokinetic. 3. Abnormal Lexiscan Myoview study. Electronically signed by : Terrance Amaral MD 12/06/2021 15:31:18
--- NOTE | 2021-12-06 11:57 | CA_ITS ---
APPROVED REPORT EXAM: Comprehensive 2D, Doppler, and color-flow Echocardiogram Sql Server Consultant: Yudith Ramirez RT(R) Ht: 5 ft 8 in Wt: 223lbs BSA: 2.14 BP: 124/66 mmHg Indications: CP, COPD, ex smoker, HTN, DM, ALLEN, hyperlipidemia, CM, AICD, CHF, GERD Echo Enhancing Agent Indication: Endocardial border delineation Agent(s) / Amount(s) Used: Definity 2 cc 2D Dimensions Aortic Root 2.19 cm M: 3.1 - 3.7 M-Mode Dimensions RVDd 1.97 cm (0.9-2.6) LA Diam 2.86 cm (1.9-4.0) LVDd 6.60 cm (3.5-5.7) Ao Diam 2.97 cm (2.0-3.7) LVDs 5.38 cm (3.5-5.7) IVSd 0.87 cm (0.6-1.1) PWd 0.68 cm (0.6-1.1) EF (Teich) 37.30% FS 18.50% EDV (Teich) 223.60 mL ESV (Teich) 140.10 mL LV Diastology E Decel Time 183.00 (160-240 msec) E/A Ratio 0.7 MED E' 7.00 (< 7 cm/sec) E'/MED E' Ratio 10.49 (>14) LAT E' 8.40 (<10 cm/sec) E/LAT E' Ratio 8.74 (>14) Mitral Valve MV E Max Jaden. 73.00 (40-130 cm/s) MV A Velocity 101.00 (40-130 cm/s) E/A Ratio 0.72 MV Decel. Time 183.00 (160-240 ms) MV PHT 54.00 ms Tricuspid Valve TR P. Velocity 224.00 cm/s RAP Estimate 15.00 mmHg RVSP 35.10 mmHg Left Ventricle Left atrium is mildly enlarged, left ventricle is mildly dilated, severe reduced left ventricular systolic function, visually estimated ejection fraction 25%, left ventricle is globally hypokinetic, grade 1 diastolic dysfunction seen without tissue Doppler evidence of raise left atrial pressure, Definity contrast was utilized to delineate the endocardial surfaces, there is no left ventricular thrombus seen. Right Ventricle Right atrium and right ventricle are normal size and contractility, there is an AICD lead seen in right ventricle. Aortic Valve Aortic valve is thickened and calcified without aortic stenosis or aortic insufficiency. Mitral Valve Mitral valve is minimally thickened, there is mild mitral regurgitation. Tricuspid Valve Tricuspid valve grossly normal, there is mild tricuspid regurgitation, tricuspid regurgitation jet velocity is inadequate for calculation of the right ventricular systolic pressure. Pulmonic Valve Pulmonic valve is poorly visualized. Great Vessels Aortic root is normal size. Inferior vena cava is poorly visualized. Pericardium No significant pericardial effusion noted. Conclusion 1. Mildly enlarged left atrium, dilated left ventricle, severe reduced left ventricular systolic function, visually estimated ejection fraction 25% left ventricle globally hypokinetic, grade 1 diastolic dysfunction seen, there is no left ventricular thrombus seen, Definity contrast was utilized to delineate the endocardial surfaces. 2. Thickened and calcified aortic valve without aortic stenosis or aortic insufficiency. 3. Mild mitral and tricuspid regurgitation. 4. No significant pericardial effusion noted. 5. Inferior vena cava is poorly visualized. Electronically signed by : Terrance Amaral MD 12/06/2021 15:15:48
--- NOTE | 2021-12-06 14:30 | HMH.ITSHM ---
Current Home Medications as stated by this patient Jigar Guadalupe or pharmacy sales representative. []INHALER SACUBITRIL PRASUGREL MIRABEGRON CARVEDILOL ASA ALBUTEROL
== END ==
PROVIDERS: PCP Family Medicine; Visit Provider Nurse Practitioner Family
DX: R06.00 Dyspnea, unspecified; R06.09 Other forms of dyspnea; I11.0 Hypertensive heart disease with heart failure; I20.9 Angina pectoris, unspecified; I25.5 Ischemic cardiomyopathy; I50.22 Chronic systolic (congestive) heart failure; E78.2 Mixed hyperlipidemia; G47.33 Obstructive sleep apnea (adult) (pediatric); J44.9 Chronic obstructive pulmonary disease, unspecified; Z95.5 Presence of coronary angioplasty implant and graft
CPT/HCPCS: 78452; 93017; 93306; A9502; J2785; Q9957

== ENCOUNTER → 2021-12-19 13:42 | Outpatient (CLI) | payer MEDICARE, SELFPAY ==
[2021-12-25 10:40] LABS: Basophils # 0.1 K/mm3 (0-0.2); Basophils % 1.4 % (0.1-2.0); Eosinophils # 0.2 K/mm3 (0.0-0.4); Hematocrit 51.1 % (42.0-52.0); Hemoglobin 16.7 g/dL (14.1-18.0); Lymphocytes # 1.4 K/mm3 (0.7-4.5); Lymphocytes % 22.7 % (10-50); Mean Corpuscular HGB Conc 32.6 g/dL (31.8-35.4); Mean Corpuscular Hemoglobin 29.4 pg (27.0-31.2); Mean Corpuscular Volume 90.4 fl (80-94); Mean Platelet Volume 8.4 fl (7.4-10.4); Monocytes # 0.4 K/mm3 (0.1-1.0); Monocytes % 6.1 % (1.7-9.3); Neutrophils # 4.2 K/mm3 (1.8-7.8); Neutrophils % 66.8 % (37.0-80.0); Platelet Count 193 K/mm3 (142-424); Red Blood Count 5.66 M/mm3 (4.60-6.20); Red Cell Distribution Width 14.4 % (11.5-17.5); White Blood Count 6.3 K/mm3 (4.8-10.8)
[2021-12-25 11:02] LABS: Chloride 108 mmol/L (98-107); Potassium 4.5 mmoL/L (3.5-5.1); Sodium 141 mmol/L (136-145)
[2021-12-25 11:04] LABS: Blood Urea Nitrogen 15 mg/dl (9-20); Estimated Glomerular Filt Rate 83 ml/min (>60); GFR (African American) 101 ML/MIN (>60)
[2021-12-25 11:05] LABS: Anion Gap 10.5 mEq/L (5-15); Calcium 8.7 mg/dl (8.4-10.2); Carbon Dioxide 27 mmol/L (22.0-30.0); Glucose 179 mg/dl (74-100)
== END ==
PROVIDERS: Visit Provider Physician Assistant
DX: E78.5 Hyperlipidemia, unspecified (principal); G47.33 Obstructive sleep apnea (adult) (pediatric); I20.9 Angina pectoris, unspecified; I42.9 Cardiomyopathy, unspecified; I50.9 Heart failure, unspecified; J44.9 Chronic obstructive pulmonary disease, unspecified; R06.00 Dyspnea, unspecified; Z95.5 Presence of coronary angioplasty implant and graft; Z01.812 Encounter for preprocedural laboratory examination; Z11.52 Encounter for screening for COVID-19; I11.0 Hypertensive heart disease with heart failure
CPT/HCPCS: 36415; 80048; 85025; C9803; U0003; U0005

== ENCOUNTER → 2021-12-25 09:56 | Outpatient (CLI) | payer MEDICARE, SELFPAY | PROVIDERS: Visit Provider Physician Assistant | DX: Z01.812 Encounter for preprocedural laboratory examination (principal); Z11.52 Encounter for screening for COVID-19 ==

== ENCOUNTER 2021-12-27 07:49 | Day surgery (SDC) | payer MEDICARE, SELFPAY ==
[2021-12-27] VITALS (12 sets, daily range): BP systolic 116–155; BP diastolic 59–90; PULSE 60–67; RESP 13–20; TEMP 36.1; O2SAT 90–100; BMI 37.9
--- NOTE | 2021-12-27 | IR_ITS ---
APPROVED REPORT Patient Location: Outpatient Engineer Specialist: BAILEY Batres RT (R) PROCEDURES Left heart catheterization Left ventriculogram Selective coronary angiogram INDICATION Known coronary artery disease, Abnormal Myoview Informed consent was obtained prior to the procedure. COMPLICATIONS None Estimated Blood Loss: Less than 10 ML TECHNIQUE One percent lidocaine used to anesthetize the right anterior aspect of the wrist. The right radial artery was accessed via the Seldinger technique. A 6 Latvian sheath was placed in the right radial artery. 2.5 mg of verapamil, 800 mcg of nitroglycerin, 1mg Lidocaine and 5000 U Heparin were given through the arterial sheath. The papa catheter was also used to perform left heart catheterization, left ventriculogram and selective coronary angiogram. At the end of the procedure the sheath was removed good hemostasis was achieved using Traclet band, patient was transferred to the postop holding area in stable condition. ANGIOGRAPHIC RESULTS The left main artery Has mild 10 to 20% distal concentric stenoses The left anterior descending artery Has a stent in the proximal segment which is widely patent free of in-stent restenosis with excellent proximal distal transitioning. The circumflex artery Is nondominant and has a stent in the proximal segment which is widely patent free of in-stent restenosis with excellent proximal distal transitioning. A large ramus intermedius originates off the left main artery and has mid vessel 30 to 40% stenosis The right coronary artery Is a dominant vessel and has stents in the proximal mid and distal segment with diffuse concentric 30 to 40% in-stent restenosis all of which is nonflow limiting The REYES ventriculogram reveals Dilated with ejection fraction of 25% The left ventricular end-diastolic pressure Severely elevated at 30 mmHg IMPRESSION Patent coronary arteries Dilated ventricle Elevated LVEDP consistent with systolic decompensation PLAN 1. Treatment of systolic decompensation with higher doses of diuretics and afterload reducing meds 2. Medical management for coronary disease Electronically signed by : Juan Carlos Her MD 12/27/2021 09:44:02
== END 2021-12-27 12:33 | disposition home or self-care (01) ==
LOC: CATHLAB 07:51
PROVIDERS: PCP Family Medicine; Visit Provider Internal Medicine
DX: R94.39 Abnormal result of other cardiovascular function study (principal); I25.118 Atherosclerotic heart disease of native coronary artery with other forms of angina pectoris; Z95.5 Presence of coronary angioplasty implant and graft; I25.5 Ischemic cardiomyopathy; I50.22 Chronic systolic (congestive) heart failure; I11.0 Hypertensive heart disease with heart failure; Z79.899 Other long term (current) drug therapy; J44.9 Chronic obstructive pulmonary disease, unspecified; E11.9 Type 2 diabetes mellitus without complications; Z87.891 Personal history of nicotine dependence
CPT/HCPCS: 93458; 99152; C1725; C1760; C1769; J1644; Q9967

== ENCOUNTER 2022-09-14 15:39 | Emergency (ER) | payer MEDICARE, SELFPAY ==
[2022-09-14 16:05] VITALS: BP 125/66; PULSE 66; RESP 22; TEMP 36.8; O2SAT 96; BMI 31.5
--- NOTE | 2022-09-14 16:11 | XR_ITS ---
PROCEDURE INFORMATION: Exam: XR Chest Exam date and time: 09/14/2022 4:12 PM Age: 72 years old Clinical indication: Cough; Additional info: Congestion TECHNIQUE: Imaging protocol: Radiologic exam of the chest. Views: 2 views. COMPARISON: CR XR CHEST 2V 04/17/2021 9:28 AM FINDINGS: Tubes, catheters and devices: A pulse generator device is present, and its leads are in appropriate position. Lungs: No evidence of pneumonia or interstitial edema. Pleural spaces: Unremarkable. No pleural effusion. No pneumothorax. Heart/Mediastinum: Unremarkable. No cardiomegaly. Bones/joints: Unremarkable. IMPRESSION: No evidence of pneumonia or interstitial edema.
--- NOTE | 2022-09-14 16:38 | EXP.UTC ---
Discharge Plan Disposition Patient Disposition: Home, Self-Care Condition: Good Prescriptions Prescriptions: New amoxicillin [amoxicillin] 500 mg tablet 500 mg PO BID 10 Days Qty: 20 0RF No Action Jardiance 10 mg tablet 10 mg PO DAILY Qty: 30 2RF oseltamivir 75 mg capsule 75 mg PO BID 5 Days Qty: 10 0RF benzonatate 200 mg capsule 200 mg PO TID PRN (Reason: cough) Qty: 30 0RF aspirin [Adult Low Dose Aspirin] 81 mg tablet,delayed release (DR/EC) 81 mg PO DAILY carvedilol 25 mg tablet See Rx Instructions .ROUTE .COMPLEX Qty: 180 3RF Dose Instruction: TAKE ONE TABLET BY MOUTH TWICE DAILY GIVE WITH EITHER A MEAL OR A SNACK Rx Instructions: TAKE ONE TABLET BY MOUTH TWICE DAILY GIVE WITH EITHER A MEAL OR A SNACK Entresto 97-103 mg tablet 1 tab PO BID Qty: 180 3RF prasugrel 10 mg tablet 10 mg PO DAILY Qty: 90 3RF Referrals Follow up/Referrals: Roberto Sweeney MD [Primary Care Provider] - See instructions Activity Restrictions/Add. Instructions Additional Instructions/Restrictions: Start antibiotic as soon as possible and be sure to take as ordered for full length of time even though he should start feeling better in 24-48 hours. Tylenol or Motrin as needed for pain or fever Encourage fluids, water, Gatorade, Powerade, Pedialyte if /toddler/child Warm compresses often helps when placed over ear Return immediately for new or worsening symptoms no noticeable improvement in 48-72 hours and in 10-14 days to ensure the ears are return to baseline. Follow-up with primary care monitor glucose close Clinical Impressions Clinical Impression: Otitis media, Wheezing Instructions Patient Instructions: Middle Ear Infection Discharge ED Provider: Jaya ([facility])Marilyn [facility] HPI General Stated complaint: cough Mode of Arrival: Ambulatory Source of Information: Patient and Spouse Limitations: No Limitations Time Seen by Provider: 09/14/22 16:38 Description of Symptoms (Recalled from Triage Doc. by RN): PATIENT REPORTS HE WAS DIAGNOSED WITH FLU ON THURSDAY AND WAS GIVEN TAMIFLU AND COUGH MEDS. HE REPORTS HIS COUGH IS PRODUCTIVE AND IS KEEPING HIM UP AT NIGHT. HE ALSO STATES HIS CHEST FEELS TIGHT AND HE IS WORRIED ABOUT PNEUMONIA HEENT Symptoms (Recalled from RN notes): No Resp Symptoms (Recalled from RN notes): Yes Skin Symptoms (Recalled from RN notes): No MS Symptoms (Recalled from RN notes): No Functional Status (Recalled from RN notes): WNL History of Present Illness Provider Complaint: 72 YR OLD MALE PRESENTS FOR COUGH IS PRODUCTIVE AND IS KEEPING HIM UP AT NIGHT. HE ALSO STATES HIS CHEST FEELS TIGHT AND HE IS WORRIED ABOUT PNEUMONIA, WAS DX THURSDAY WITH FLU IS TAKING TAMIFLU AND COUGH MEDS Related Data Home Medications Medication Instructions Recorded Confirmed aspirin 81 mg tablet,delayed 81 mg PO DAILY heart health 10/24/19 09/09/22 release (Adult Low Dose Aspirin) Previous Rx's Medication Instructions Recorded carvedilol 25 mg tablet See Rx Instructions .Route 11/28/21 .COMPLEX #180 tabs sacubitril 97 mg-valsartan 103 mg 1 tab PO BID #180 tabs 12/25/21 tablet (Entresto) prasugrel 10 mg tablet 10 mg PO DAILY #90 tabs 07/21/22 empagliflozin 10 mg tablet 10 mg PO DAILY #30 tabs 07/28/22 (Jardiance) benzonatate 200 mg capsule 200 mg PO TID PRN cough #30 caps 09/09/22 oseltamivir 75 mg capsule 75 mg PO BID 5 days #10 caps 09/09/22 amoxicillin 500 mg tablet 500 mg PO BID 10 days #20 tabs 09/14/22 Allergies Allergy/AdvReac Type Severity Reaction Status Date / Time dapagliflozin [From [facility]] Allergy Verified 09/14/22 16:21 Jcosfwn-BVJ-ByN Reductase AdvReac Mild Verified 09/09/22 13:48 Inhibitor [Rbdmpnl-Aep-Bho Reductase Inhibitor] Worker's Comp Is this a Worker's Comp case?: No [facility] Disclaimer: The information contained in this section may have been updated after the patient was seen, as this information ca
[2022-09-14 17:37] VITALS: BP 125/66; PULSE 66; RESP 22; TEMP 36.8; O2SAT 96
== END 2022-09-14 17:50 | disposition home or self-care (01) ==
PROVIDERS: Emergency Provider Nurse Practitioner Family; PCP Family Medicine
DX: J02.9 Acute pharyngitis, unspecified (principal); R07.89 Other chest pain; R53.82 Chronic fatigue, unspecified; R05.9 Cough, unspecified; R09.81 Nasal congestion; E78.5 Hyperlipidemia, unspecified; I25.10 Atherosclerotic heart disease of native coronary artery without angina pectoris; E11.9 Type 2 diabetes mellitus without complications; E04.1 Nontoxic single thyroid nodule; Z79.51 Long term (current) use of inhaled steroids; J44.9 Chronic obstructive pulmonary disease, unspecified; Z79.82 Long term (current) use of aspirin; Z79.899 Other long term (current) drug therapy; Z88.8 Allergy status to other drugs, medicaments and biological substances; Z95.5 Presence of coronary angioplasty implant and graft; Z87.891 Personal history of nicotine dependence
CPT/HCPCS: 71046; 96372; 99213; G0463

== ENCOUNTER → 2022-09-18 16:20 | Outpatient (CLI) | payer MEDICARE, SELFPAY ==
--- NOTE | 2022-09-18 16:42 | XR_ITS ---
FINAL REPORT CLINICAL HISTORY: cough, RLL pneumonia, Flu A COMPARISON: 09/14/2022 FINDINGS: 2 views of the chest were obtained . The heart is normal in size. A left-sided AICD is in place. The mediastinum is within normal limits. The lungs are clear. There is no pneumothorax. Osseous structures are unremarkable. IMPRESSION: No acute cardiopulmonary process. Reviewed, Interpreted and Dictated by Yamil Bob III, MD Transcribed by Radha Hightower Authenticated and [facility]
[2022-09-18 18:42] LABS: Basophils # 0.1 K/mm3 (0-0.2); Basophils % 1.1 % (0.1-2.0); Eosinophils # 0.2 K/mm3 (0.0-0.4); Hematocrit 52.8 % (42.0-52.0); Hemoglobin 17.4 g/dL (14.1-18.0); Lymphocytes # 1.9 K/mm3 (0.7-4.5); Lymphocytes % 15.8 % (10-50); Mean Corpuscular Hemoglobin 29.4 pg (27.0-31.2); Mean Corpuscular Volume 89.3 fl (80-94); Mean Platelet Volume 8.3 fl (7.4-10.4); Monocytes # 0.5 K/mm3 (0.1-1.0); Monocytes % 4.4 % (1.7-9.3); Neutrophils % 76.8 % (37.0-80.0); Platelet Count 234 K/mm3 (142-424); Red Blood Count 5.91 M/mm3 (4.60-6.20); Red Cell Distribution Width 13.7 % (11.5-17.5); White Blood Count 11.7 K/mm3 (4.8-10.8)
== END ==
PROVIDERS: PCP Nurse Practitioner; Visit Provider Nurse Practitioner
DX: J18.9 Pneumonia, unspecified organism (principal); R05.9 Cough, unspecified
CPT/HCPCS: 71046; 85025

== ENCOUNTER 2022-10-31 14:11 | Emergency (ER) | payer MEDICARE, SELFPAY ==
[2022-10-31 14:15] VITALS: BP 113/68; PULSE 70; RESP 18; O2SAT 94; BMI 34.4
--- NOTE | 2022-10-31 14:29 | HMH.EDCP ---
Discharge Plan Disposition Patient Disposition: Home, Self-Care Condition: Fair Prescriptions Prescriptions: No Action Jardiance 10 mg tablet 10 mg PO DAILY Qty: 30 2RF aspirin [Adult Low Dose Aspirin] 81 mg tablet,delayed release (DR/EC) 81 mg PO DAILY carvedilol 25 mg tablet See Rx Instructions .ROUTE .COMPLEX Qty: 180 3RF Dose Instruction: TAKE ONE TABLET BY MOUTH TWICE DAILY GIVE WITH EITHER A MEAL OR A SNACK Rx Instructions: TAKE ONE TABLET BY MOUTH TWICE DAILY GIVE WITH EITHER A MEAL OR A SNACK albuterol sulfate 2.5 mg /3 mL (0.083 %) solution for nebulization 2.5 mg inhalation Q6H Qty: 360 0RF benzonatate 200 mg capsule 200 mg PO TID PRN (Reason: cough) Qty: 30 0RF (DME) nebulizers Misc See Rx Instructions .MEDSUPPLY Qty: 1 0RF Rx Instructions: As directed dextromethorphan-guaifenesin 60-1,200 mg tablet extended release 12 hr 1 tab PO Q12H Qty: 60 0RF levofloxacin 500 mg tablet 500 mg PO Q24H Qty: 10 0RF (DME) nebulizer accessories Kit See Rx Instructions .MEDSUPPLY Qty: 1 0RF Rx Instructions: As directed Breztri Aerosphere 160-9-4.8 mcg/actuation HFA aerosol inhaler 2 inh inhalation BID Qty: 5.9 0RF Rx Instructions: sample provided Entresto 97-103 mg tablet 1 tab PO BID Qty: 180 3RF prasugrel 10 mg tablet 10 mg PO DAILY Qty: 90 3RF Referrals Follow up/Referrals: Roberto Sweeney MD [Primary Care Provider] - 3 days (Chest pain for 3 to 4 days. Undetectable troponin. Chronic hypoxia.) Activity Restrictions/Add. Instructions Additional Instructions/Restrictions: Please return to the emergency department immediately if you worsen in any way. Your blood test today did not show any evidence of heart attack. Your pacemaker is working properly. You do have low oxygen. I recommend that you obtain home oxygen. Follow-up with your primary care doctor in about 3 to 4 days if you do not improve. Continue taking all medications as prescribed. Clinical Impressions Clinical Impression: Chest pain in adult Instructions Patient Instructions: DI for Atypical Chest Pain Discharge ED Provider: Keyla,Durga Chest Pain HPI General Chief Complaint: Chest Pain Stated Complaint: chest pain Time Seen by Provider: 10/31/22 14:29 Mode of Arrival: Ambulatory Source of Information: Patient and Spouse Limitations: No Limitations Description of Symptoms (Recalled from ER Triage Doc. by RN): c/o center chest pain that goes into the left chest for a while, has been really bad the last 3 days and continues to get worse. Denies any radiation of pain, nausea or other symptoms. PT states he has some soa that is associated with chest tightness. History of Present Illness HPI narrative: The patient presents to the emergency department complaining of central chest pain without radiation that has been ongoing for 4 days. The patient describes it as almost constant. It does not radiate. It is not associated with nausea or vomiting or diarrhea. It does not feel like prior heart attacks. The patient does have an implanted defibrillator/pacemaker. MD complaint: chest pain Onset (ago): day(s) (4) COLBY Score for Non-Stemi Age of Patient: 70-79 years old Heart Rate: 50-69 bpm Systolic Blood Pressure: 100-119 mmHg Serum Creatinine: 0.80-1.19 mg/dl CHF Killip Class: I-No CHF Other Risk Factors: None Non-Stemi Risk Score: 128 Risk Stratification: 109-140 = Intermediate Ri Related Data Home Medications Medication Instructions Recorded Confirmed aspirin 81 mg tablet,delayed 81 mg PO DAILY heart health 10/24/19 09/22/22 release (Adult Low Dose Aspirin) Previous Rx's Medication Instructions Recorded carvedilol 25 mg tablet See Rx Instructions .Route 11/28/21 .COMPLEX #180 tabs sacubitril 97 mg-valsartan 103 mg 1 tab PO BID #180 tabs 12/25/21 tablet (Entresto) prasugrel 10 mg tablet 10 mg PO DAILY #90 tabs 07/21/22
--- NOTE | 2022-10-31 14:31 | XR_ITS ---
FINAL REPORT CLINICAL HISTORY: CP COMPARISON: 09/18/2022 FINDINGS: PORTABLE CHEST A left-sided pacemaker is again noted. The heart is normal in size. The mediastinum is unremarkable. The lungs are clear. There is no pneumothorax. IMPRESSION: No acute process. Reviewed, Interpreted and Dictated by Roberto Shaw MD Transcribed by Carin Raygoza Authenticated and [facility]
--- NOTE | 2022-10-31 14:31 | ECG_ITS ---
APPROVED REPORT Exam: Resting ECG HR:67 bpm ECG Measurements Heart Rate 67 AXES WA 144 P 33 QRSd 152 QRS 85 QT 415 T 239 QTc 430 Conclusion ELECTRONIC VENTRICULAR PACEMAKER ABNORMAL RHYTHM ECG UNCONFIRMED REPORT Electronically signed by : Elpidio Silvestre MD 10/31/2022 15:43:00
--- NOTE | 2022-10-31 14:34 | PC.NURSE ---
2L NC placed per Attending verbal order
[2022-10-31 14:37] LABS: Basophils # 0.1 K/mm3 (0-0.2); Basophils % 1.1 % (0.1-2.0); Eosinophils # 0.2 K/mm3 (0.0-0.4); Hematocrit 52.2 % (42.0-52.0); Hemoglobin 17.4 g/dL (14.1-18.0); Lymphocytes # 1.2 K/mm3 (0.7-4.5); Lymphocytes % 12.9 % (10-50); Mean Corpuscular HGB Conc 33.3 g/dL (31.8-35.4); Mean Corpuscular Hemoglobin 29.1 pg (27.0-31.2); Mean Corpuscular Volume 87.4 fl (80-94); Mean Platelet Volume 8.1 fl (7.4-10.4); Monocytes # 0.4 K/mm3 (0.1-1.0); Monocytes % 4.3 % (1.7-9.3); Neutrophils # 7.5 K/mm3 (1.8-7.8); Neutrophils % 79.6 % (37.0-80.0); Platelet Count 225 K/mm3 (142-424); Red Blood Count 5.97 M/mm3 (4.60-6.20); Red Cell Distribution Width 14.5 % (11.5-17.5); White Blood Count 9.4 K/mm3 (4.8-10.8)
[2022-10-31 14:38] LABS: Chloride 106 mmol/L (98-107); Potassium 3.9 mmoL/L (3.5-5.1); Sodium 144 mmol/L (136-145)
[2022-10-31 14:41] LABS: Blood Urea Nitrogen 14 mg/dl (9-20); Creatinine Clearance Estimated 87 mL/min (50-200); Estimated Glomerular Filt Rate 66 ml/min (>60); GFR (African American) 80 ML/MIN (>60)
[2022-10-31 14:42] LABS: Anion Gap 10.9 mEq/L (5-15); Carbon Dioxide 31 mmol/L (22.0-30.0); Glucose 174 mg/dl (74-100)
[2022-10-31 14:44] LABS: Activated Partial Thrombo Time 26.7 seconds (22.8-30.6); Prothrombin Time 11.8 seconds (10.1-12.5)
[2022-10-31 14:46] VITALS: PULSE 64; RESP 19; O2SAT 94
[2022-10-31 14:51] LABS: NT Pro Brain Natriuretic Pep. 351 pg/mL (0-125)
[2022-10-31 14:57] LABS: Troponin I < 0.01 ng/ml (0.00-0.034)
[2022-10-31 15:00] VITALS: BP 119/66; PULSE 68; RESP 13; O2SAT 94
[2022-10-31 15:25] VITALS: PULSE 73
[2022-10-31 15:30] VITALS: BP 133/68; PULSE 64; RESP 18; O2SAT 96
--- NOTE | 2022-10-31 15:41 | PC.NURSE ---
PAIN NO BETTER WITH GI COCKTAIL
[2022-10-31 15:49] VITALS: BP 133/68; PULSE 71; RESP 19; TEMP 36.8; O2SAT 93
== END 2022-10-31 15:50 | disposition home or self-care (01) ==
PROVIDERS: Emergency Provider Emergency Medicine; PCP Family Medicine
DX: R07.89 Other chest pain (principal); J44.9 Chronic obstructive pulmonary disease, unspecified; E78.5 Hyperlipidemia, unspecified; I11.9 Hypertensive heart disease without heart failure; Z86.79 Personal history of other diseases of the circulatory system
CPT/HCPCS: 71045; 80048; 83880; 84484; 85025; 85610; 85730; 93005; 99285

== ENCOUNTER → 2023-01-05 23:22 | Outpatient (CLI) | payer MEDICARE, SELFPAY ==
[2023-01-05 18:47] LABS: Basophils % 0.5 % (0.1-2.0); Eosinophils # 0.1 K/mm3 (0.0-0.4); Eosinophils % 1.2 % (0.1-12.0); Hematocrit 51.7 % (42.0-52.0); Hemoglobin 16.1 g/dL (14.1-18.0); Lymphocytes # 1.3 K/mm3 (0.7-4.5); Lymphocytes % 13.9 % (10-50); Mean Corpuscular Hemoglobin 28.2 pg (27.0-31.2); Mean Corpuscular Volume 90.7 fl (80-94); Mean Platelet Volume 7.6 fl (7.4-10.4); Monocytes # 0.5 K/mm3 (0.1-1.0); Monocytes % 5.1 % (1.7-9.3); Neutrophils # 7.2 K/mm3 (1.8-7.8); Neutrophils % 79.4 % (37.0-80.0); Platelet Count 212 K/mm3 (142-424); Red Cell Distribution Width 14.4 % (11.5-17.5)
[2023-01-05 19:06] LABS: Hemoglobin A1C 6.4 % (4.0-6.0)
[2023-01-05 19:18] LABS: Chloride 104 mmol/L (98-107); Potassium 3.8 mmoL/L (3.5-5.1); Sodium 140 mmol/L (136-145)
[2023-01-05 19:20] LABS: Alanine Aminotransferase 22 U/L (12-78); Aspartate Amino Transferase 21 U/L (17-59); Blood Urea Nitrogen 12 mg/dl (9-20); Estimated Glomerular Filt Rate 83 ml/min (>60); GFR (African American) 101 ML/MIN (>60)
[2023-01-05 19:21] LABS: Albumin Level 4.1 g/dl (3.5-5.0); Albumin/Globulin Ratio 1.6 (1.1-1.8); Alkaline Phosphatase 82 U/L (38-126); Anion Gap 14.8 mEq/L (5-15); Bilirubin,Total 0.8 mg/dl (0.2-1.3); Carbon Dioxide 25 mmol/L (22.0-30.0); Globulin 2.6 g/dL (1.3-3.2); Glucose 154 mg/dl (74-100); Total Protein,Serum 6.7 g/dl (6.3-8.2)
[2023-01-05 20:22] LABS: Thyroid Stimulating Hormone 1.02 uIU/mL (0.465-4.68)
[2023-01-05 21:53] LABS: Uric Acid 6.6 mg/dl (3.5-8.5)
== END ==
PROVIDERS: PCP Nurse Practitioner; Visit Provider Nurse Practitioner
DX: E11.40 Type 2 diabetes mellitus with diabetic neuropathy, unspecified (principal); E78.5 Hyperlipidemia, unspecified; M10.9 Gout, unspecified; I50.22 Chronic systolic (congestive) heart failure; I25.10 Atherosclerotic heart disease of native coronary artery without angina pectoris
CPT/HCPCS: 80053; 83036; 84443; 84550; 85025

== ENCOUNTER → 2023-01-27 23:08 | Outpatient (CLI) | payer MEDICARE, SELFPAY ==
[2023-01-27 18:17] LABS: Adenovirus,PCR Not Detected (NotDetected); Bordetella Pertussis Not Detected (NotDetected); Chlamydophila Pneumoniae, PCR Not Detected (NotDetected); Coronavirus 19, PCR Not Detected (NotDetected); Coronavirus 229E Not Detected (NotDetected); Coronavirus NL63 Not Detected (NotDetected); Coronavirus OC43 Not Detected (NotDetected); Coronovirus HKU1,PCR Not Detected (NotDetected); Human Metapneumovirus Not Detected (NotDetected); Influenza A, PCR Not Detected (NotDetected); Influenza AH1, 2009 Not Detected (NotDetected); Influenza AH1, PCR Not Detected (NotDetected); Influenza AH3,PCR Not Detected (NotDetected); Influenza B, PCR Not Detected (NotDetected); Mycoplasma Pneumoniae, PCR Not Detected (NotDetected); Parainfluenza 1, PCR Not Detected (NotDetected); Parainfluenza 2, PCR Not Detected (NotDetected); Parainfluenza 3, PCR Not Detected (NotDetected); Parainfluenza 4, PCR Not Detected (NotDetected); Respiratory Syncytial Virus Not Detected (NotDetected); Rhinovirus/Enterovirus Not Detected (NotDetected)
[2023-01-27 18:35] LABS: Basophils # 0.1 K/mm3 (0-0.2); Basophils % 0.6 % (0.1-2.0); Eosinophils # 0.2 K/mm3 (0.0-0.4); Eosinophils % 2.7 % (0.1-12.0); Hematocrit 51.1 % (42.0-52.0); Hemoglobin 16.3 g/dL (14.1-18.0); Lymphocytes # 1.5 K/mm3 (0.7-4.5); Lymphocytes % 18.8 % (10-50); Mean Corpuscular HGB Conc 31.9 g/dL (31.8-35.4); Mean Corpuscular Hemoglobin 29.1 pg (27.0-31.2); Mean Corpuscular Volume 91.2 fl (80-94); Mean Platelet Volume 8.7 fl (7.4-10.4); Monocytes # 0.5 K/mm3 (0.1-1.0); Monocytes % 5.8 % (1.7-9.3); Neutrophils # 5.7 K/mm3 (1.8-7.8); Platelet Count 223 K/mm3 (142-424); Red Cell Distribution Width 14.4 % (11.5-17.5); White Blood Count 7.9 K/mm3 (4.8-10.8)
== END ==
PROVIDERS: PCP Nurse Practitioner; Visit Provider Nurse Practitioner
DX: J06.9 Acute upper respiratory infection, unspecified (principal); R05.9 Cough, unspecified
CPT/HCPCS: 85025; 87581; 87632; 87798; C9803; U0003; U0005

== ENCOUNTER → 2023-01-28 10:26 | Outpatient (CLI) | payer MEDICARE, SELFPAY ==
--- NOTE | 2023-01-28 10:34 | XR_ITS ---
FINAL REPORT CLINICAL HISTORY: pneumonia, bibasilar rales COMPARISON: 10/31/2022 FINDINGS: Two views of the chest were obtained. A left subclavian ICD is present. The heart size and pulmonary vascularity are within normal limits. The mediastinum is normal. Mild right lung base opacity is favored to represent atelectasis. There is no pneumothorax. Moderate degenerative changes are seen in the thoracic spine. IMPRESSION: Mild right lung base opacity, favor atelectasis. Reviewed, Interpreted and Dictated by Yamil Bob III, MD Transcribed by Shauna Gagnon Authenticated and [facility]
== END ==
PROVIDERS: PCP Family Medicine; Visit Provider Nurse Practitioner
DX: J18.9 Pneumonia, unspecified organism (principal); R09.89 Other specified symptoms and signs involving the circulatory and respiratory systems
CPT/HCPCS: 71046

== ENCOUNTER 2023-02-06 18:24 | Observation (INO) | payer MEDICARE, SELFPAY ==
[2023-02-06] VITALS (8 sets, daily range): BP systolic 105–143; BP diastolic 63–83; PULSE 64–77; RESP 16–26; TEMP 36.7; O2SAT 90–94; BMI 33.3; BMI 33.2
--- NOTE | 2023-02-06 18:24 | ECG_ITS ---
APPROVED REPORT Exam: Resting ECG HR:77 bpm ECG Measurements Heart Rate 77 AXES ND 156 P 57 QRSd 141 QRS -7 QT 390 T 219 QTc 422 Conclusion ELECTRONIC VENTRICULAR PACEMAKER ABNORMAL RHYTHM ECG UNCONFIRMED REPORT Electronically signed by : Elpidio Silvestre MD 02/07/2023 15:52:20
--- NOTE | 2023-02-06 18:31 | XR_ITS ---
PROCEDURE INFORMATION: Exam: XR Chest Exam date and time: 02/06/2023 6:50 PM Age: 72 years old Clinical indication: Pain; Chest pressure; Additional info: Chest pain TECHNIQUE: Imaging protocol: Radiologic exam of the chest. Views: 1 view. COMPARISON: CR XR CHEST 2V 01/28/2023 10:36 AM FINDINGS: Tubes, catheters and devices: Dual lead left-sided cardiac pacemaker. Lungs: In the lung bases there is atelectasis/pneumonia. Pleural spaces: Unremarkable. No pleural effusion. No pneumothorax. Heart/Mediastinum: Unremarkable. No cardiomegaly. Bones/joints: Unremarkable. IMPRESSION: In the lung bases there is atelectasis versus pneumonia. Correlate clinically
--- NOTE | 2023-02-06 18:33 | HMH.EDGENADL ---
Discharge Plan Disposition Patient Disposition: Admitted As Inpatient Condition: Fair Prescriptions Prescriptions: No Action allopurinol 100 mg tablet 100 mg PO DAILY Qty: 90 1RF prasugrel 10 mg tablet 10 mg PO DAILY Qty: 30 2RF Myrbetriq 25 mg tablet extended release 24 hr 25 mg PO DAILY Qty: 30 2RF albuterol sulfate 2.5 mg /3 mL (0.083 %) solution for nebulization 2.5 mg inhalation Q6H Qty: 360 0RF colchicine 0.6 mg tablet 0.6 mg PO BID Qty: 60 2RF carvedilol 25 mg tablet See Rx Instructions .ROUTE .COMPLEX Qty: 180 1RF Dose Instruction: TAKE ONE TABLET BY MOUTH TWICE DAILY *TAKE WITH EITHER A MEAL OR A SNACK Rx Instructions: TAKE ONE TABLET BY MOUTH TWICE DAILY *TAKE WITH EITHER A MEAL OR A SNACK Entresto 97-103 mg tablet See Rx Instructions .ROUTE .COMPLEX Qty: 180 3RF Dose Instruction: Take 1 tablet by mouth 2 times daily. Rx Instructions: Take 1 tablet by mouth 2 times daily. Referrals Follow up/Referrals: Roberto Sweeney MD [Primary Care Provider] - See instructions Clinical Impressions Clinical Impression: Chest pain in adult Discharge ED Provider: Grant Jimenez General Adult HPI General Chief complaint: Chest Pain Stated complaint: chest pain Time Seen by Provider: 02/06/23 18:31 History of Present Illness HPI narrative: Patient presents complaining of chest and epigastric pain that again an approximate 1 hour prior to ED presentation. He notes nausea and vomiting. He ate some chili earlier in the day. He does have a known history of coronary artery disease and has undergone previous coronary artery stenting. He describes the pain as moderate to severe and without exacerbating or alleviating factors. Related Data Previous Rx's Medication Instructions Recorded albuterol sulfate 2.5 mg/3 mL 2.5 mg (3 mL) inhalation Q6H #360 09/18/22 (0.083 %) solution for nebulization mL allopurinol 100 mg tablet 100 mg PO DAILY #90 tabs 11/26/22 carvedilol 25 mg tablet See Rx Instructions .Route 12/04/22 .COMPLEX #180 tabs colchicine 0.6 mg tablet 0.6 mg PO BID #60 tabs 01/05/23 sacubitril 97 mg-valsartan 103 mg See Rx Instructions .Route 01/07/23 tablet (Entresto) .COMPLEX #180 tabs mirabegron 25 mg tablet,extended 25 mg PO DAILY #30 tabs 02/03/23 release 24 hr (Myrbetriq) prasugrel 10 mg tablet 10 mg PO DAILY #30 tabs 02/03/23 Allergies Allergy/AdvReac Type Severity Reaction Status Date / Time dapagliflozin [From [facility]] Allergy Verified 02/03/23 11:15 Tkjditn-UHD-CxN Reductase AdvReac Mild Verified 02/03/23 11:15 Inhibitor [Uybqjpx-Oif-Zql Reductase Inhibitor] [facility] Disclaimer: The information contained in this section may have been updated after the patient was seen, as this information can be updated by other users. Medical History Chronic obstructive lung disease Coronary arteriosclerosis Fatigue Hyperlipidemia Hypertensive heart disease Hyperuricemia Influenza A LV dysfunction Obstructive sleep apnea syndrome Thyroid nodule Urinary incontinence Surgical History Stented coronary artery 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 Smoking Status: Never smoker second hand exposure: No alcohol intake: never counseling provided: none substance use type: denies use current occupational status: retired Travel in the last 8 weeks: Inside the [place] household members: spouse housing: house current occupational exposures/hazards: Yes caffeine: Yes ROS Obtained: Yes All systems reviewed & no additional complaints except as documented Physical Exam General General appearance: alert and in no apparent distress Head Head exam: atraumatic, normocephalic and normal inspection Eye Eye exam: Present normal appearance, PERRL and EOMI ENT ENT exam:
[2023-02-06 18:39] LABS: Basophils # 0.2 K/mm3 (0-0.2); Basophils % 0.9 % (0.1-2.0); Eosinophils # 0.4 K/mm3 (0.0-0.4); Eosinophils % 2.1 % (0.1-12.0); Hemoglobin 17.7 g/dL (14.1-18.0); Lymphocytes # 2.7 K/mm3 (0.7-4.5); Lymphocytes % 15.7 % (10-50); Mean Corpuscular HGB Conc 32.8 g/dL (31.8-35.4); Mean Corpuscular Hemoglobin 29.3 pg (27.0-31.2); Mean Corpuscular Volume 89.4 fl (80-94); Mean Platelet Volume 8.9 fl (7.4-10.4); Monocytes % 6.1 % (1.7-9.3); Neutrophils # 12.7 K/mm3 (1.8-7.8); Neutrophils % 75.2 % (37.0-80.0); Platelet Count 199 K/mm3 (142-424); Red Blood Count 6.04 M/mm3 (4.60-6.20); Red Cell Distribution Width 14.7 % (11.5-17.5); White Blood Count 16.9 K/mm3 (4.8-10.8)
[2023-02-06 18:41] LABS: MANUAL DIFFERENTIAL MANUAL DIFFERENTIAL (MANUAL DIFF)
[2023-02-06 18:45] LABS: Chloride 99 mmol/L (98-107); Potassium 4.1 mmoL/L (3.5-5.1); Sodium 140 mmol/L (136-145)
[2023-02-06 18:48] LABS: Alanine Aminotransferase 28 U/L (12-78); Albumin/Globulin Ratio 1.3 (1.1-1.8); Alkaline Phosphatase 71 U/L (38-126); Anion Gap 16.1 mEq/L (5-15); Aspartate Amino Transferase 35 U/L (17-59); Bilirubin,Total 0.8 mg/dl (0.2-1.3); Blood Urea Nitrogen 23 mg/dl (9-20); Calcium 9.3 mg/dl (8.4-10.2); Carbon Dioxide 29 mmol/L (22.0-30.0); Creatinine Clearance Estimated 87 mL/min (50-200); Estimated Glomerular Filt Rate 66 ml/min (>60); GFR (African American) 80 ML/MIN (>60); Glucose 114 mg/dl (74-100); Lipase 177 U/L (23-300)
[2023-02-06 19:01] LABS: Troponin I < 0.01 ng/ml (0.00-0.034)
[2023-02-06 19:02] LABS: Eosinophils % 1 % (0-3); Lymphocytes % 18 % (10-50); Monocytes % 2 % (2-9); Neutrophils % 77 % (42-76); Platelet Estimate Normal; RBC Morphology Normal; Total Cells Counted 100
--- NOTE | 2023-02-06 19:08 | CT_ITS ---
PROCEDURE INFORMATION: Exam: CTA Chest With Contrast Exam date and time: 02/06/2023 7:34 PM Age: 72 years old Clinical indication: Pain; Chest pressure; Additional info: Chest pain TECHNIQUE: Imaging protocol: Computed tomographic angiography of the chest with contrast. 3D rendering (Not supervised by radiologist): MIP and/or 3D reconstructed images were created by the technologist. Radiation optimization: All CT scans at this facility use at least one of these dose optimization techniques: automated exposure control; mA and/or kV adjustment per patient size (includes targeted exams where dose is matched to clinical indication); or iterative reconstruction. Contrast material: ISOVUE 370; Contrast volume: 70 ml; Contrast route: INTRAVENOUS (IV); REPORTING DATA: Count of CT and Cardiac NM exams in prior 12 months: This patient has received 0 known CTs and 0 known cardiac nuclear medicine studies in the 12 months prior to the current study. COMPARISON: [facility] CTA-CHEST 12/06/2016 2:21 AM FINDINGS: Pulmonary arteries: Normal. No pulmonary emboli. Aorta: Unremarkable. No aortic aneurysm. No aortic dissection. Lungs: Mild atelectasis in the left lung base. No consolidation. Stable 5 mm nodule in the left lower lobe unchanged since 2016. Pleural spaces: Unremarkable. No pneumothorax. No pleural effusion. Heart: Unremarkable. No cardiomegaly. No pericardial effusion. Lymph nodes: Unremarkable. No enlarged lymph nodes. Bones/joints: Multilevel anterior bridging osteophyte formation. No acute fracture. Soft tissues: Unremarkable. IMPRESSION: No acute findings.
--- NOTE | 2023-02-06 19:08 | CT_ITS ---
PROCEDURE INFORMATION: Exam: CT Abdomen And Pelvis With Contrast Exam date and time: 02/06/2023 7:34 PM Age: 72 years old Clinical indication: Abdominal pain TECHNIQUE: Imaging protocol: Computed tomography of the abdomen and pelvis with contrast. Radiation optimization: All CT scans at this facility use at least one of these dose optimization techniques: automated exposure control; mA and/or kV adjustment per patient size (includes targeted exams where dose is matched to clinical indication); or iterative reconstruction. Contrast material: ISOVUE; Contrast volume: 70 ml; Contrast route: IV; REPORTING DATA: Count of CT and Cardiac NM exams in prior 12 months: This patient has received 0 known CTs and 0 known cardiac nuclear medicine studies in the 12 months prior to the current study. COMPARISON: CT CHEST W CON 09/07/2020 10:04 AM FINDINGS: Liver: Normal. No mass. Gallbladder and bile ducts: Normal. No calcified stones. No ductal dilation. Pancreas: Normal. No ductal dilation. Spleen: Normal. No splenomegaly. Adrenal glands: Normal. No mass. Kidneys and ureters: Normal. No hydronephrosis. Stomach and bowel: Unremarkable. No obstruction. No mucosal thickening. Appendix: No evidence of appendicitis. Intraperitoneal space: Unremarkable. No free air. No significant fluid collection. Vasculature: Unremarkable. No abdominal aortic aneurysm. Lymph nodes: Unremarkable. No enlarged lymph nodes. Urinary bladder: Unremarkable as visualized. Reproductive: Unremarkable as visualized. Bones/joints: Unremarkable. No acute fracture. Soft tissues: Unremarkable. IMPRESSION: No acute findings.
--- NOTE | 2023-02-06 20:29 | PC.NURSE ---
Dr. Sweeney paged at this time
--- NOTE | 2023-02-06 20:31 | PC.NURSE ---
SREEDHAR Reardon speaking with Dr. Sweeney
[2023-02-06 20:38] LABS: Coronavirus 19, PCR Not Detected (NotDetected); Influenza A, PCR Not Detected (NotDetected); Influenza B, PCR Not Detected (NotDetected)
--- NOTE | 2023-02-06 21:18 | PC.NURSE ---
PT ARRIVED TO FLOOR AT THIS TIME
[2023-02-06 22:24] LABS: Troponin I < 0.01 ng/ml (0.00-0.034)
[2023-02-07] VITALS (7 sets, daily range): BP systolic 122–143; BP diastolic 68–80; PULSE 60–80; RESP 16–18; TEMP 36.6–37; O2SAT 90–96; BMI 33.2
[2023-02-07 01:27] LABS: Troponin I < 0.01 ng/ml (0.00-0.034)
--- NOTE | 2023-02-07 06:09 | PC.NURSE ---
PATIENT RECEIVED SHOWER REQUESTED. DENIES CHEST PAIN. DEMONSTRATES PACED RHYTHM ON TELE . HAS RESTED WELL SINCE ADMISSION. NAD. REMAINS NPO ORDERED. VITAL SIGNS STABLE/AFEBRILE.
--- NOTE | 2023-02-07 11:39 | EXP.HPDC ---
General Admission date:: 02/06/23 *Admission Date: 02/06/23 *Chief complaint: Chest pain *History of present illness: This 72-year-old white male has known coronary artery disease with multiple stents placed. He presented to the emergency room last evening with complaints of severe epigastric pain. He had nausea with vomiting. He had eaten chili for supper. He was evaluated in the emergency room and found to have negative troponin and a stable EKG. With his history it was felt prudent to admit him for observation and serial troponins. He has recently been treated for respiratory infection. He has had some cough and congestion. His chest x-ray on admission showed atelectasis versus pneumonia at the bases. His CTA showed mild atelectasis at the left lung base. His white blood cell count was 16,700 on admission. A stat CBC showed showed persistant elevation at 14.2. A gram of Ceftriaxone was ordered IV to be given prior to discharge. He will have follow-up this week in [place] Disclaimer: The information contained in this section may have been updated after the patient was seen, as this information can be updated by other users. Medical History (Updated 02/07/23 @ 11:52 by Roberto Sweeney MD) Chronic obstructive lung disease Coronary arteriosclerosis Fatigue GERD (gastroesophageal reflux disease) Hyperlipidemia Hypertensive heart disease Hyperuricemia Influenza A LV dysfunction Obstructive sleep apnea syndrome Thyroid nodule Urinary incontinence Surgical History Stented coronary artery 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 Smoking Status: Never smoker second hand exposure: No alcohol intake: never counseling provided: none substance use type: denies use current occupational status: retired Travel in the last 8 weeks: Inside the [place] household members: spouse housing: house current occupational exposures/hazards: Yes caffeine: Yes Review of Systems Review of Systems Review of systems:: pertinent systems reviewed and negative unless documented below Constitutional Constitutional: Reports difficulty sleeping Eyes Eyes: Denies change in vision ENT Ears, Nose, Mouth, and Throat: Reports system reviewed and no additional complaints, except as documented and Denies dysphagia *Cardiovascular Cardiovascular: Reports chest pain at rest, Denies chest pain with activity, Denies dyspnea, Denies leg edema, Denies palpitations and Denies paroxysmal nocturnal dyspnea *Respiratory Respiratory: Denies dyspnea *Gastrointestinal Gastrointestinal: Reports abdominal pain (Epigastric on this occasion), Denies change in bowel habits, Denies change in stool character, Denies constipation, Denies cramping, Reports dyspepsia and Denies dysphagia *Genitourinary Genitourinary: Reports system reviewed and no additional complaints, except as documented *Musculoskeletal Musculoskeletal: Reports system reviewed and no additional complaints, except as documented Integumentary/Breasts Skin/Breast: Reports system reviewed and no additional complaints, except as documented *Neurologic Neurologic: Reports system reviewed and no additional complaints, except as documented and Denies localized weakness Psychiatric Psychiatric: Reports abnormal sleep pattern and Reports anxiety (Related to family issues especially with his elderly sister) Endocrine Endocrine: Reports system reviewed and no additional complaints, except as documented and Denies palpitations Hematologic/Lymphatic Hematologic/Lymphatic: Reports system reviewed and no additional complaints, except as documented Allergic/Immunologic Allergic/Immunologic: Reports system reviewed and no additional complaints, except as documented Exam Data for Last 24 hours Vital signs and Labs for Last 24 Hours: Temp Pulse Resp BP Pulse Ox 98.1 F 80 18 137/68 94 L 02/07/23
[2023-02-07 12:34] LABS: Basophils # 0.1 K/mm3 (0-0.2); Basophils % 0.4 % (0.1-2.0); Eosinophils # 0.4 K/mm3 (0.0-0.4); Eosinophils % 2.4 % (0.1-12.0); Hematocrit 52.6 % (42.0-52.0); Lymphocytes # 1.6 K/mm3 (0.7-4.5); Lymphocytes % 11.1 % (10-50); Mean Corpuscular HGB Conc 32.4 g/dL (31.8-35.4); Mean Corpuscular Hemoglobin 28.8 pg (27.0-31.2); Mean Corpuscular Volume 88.9 fl (80-94); Monocytes # 0.7 K/mm3 (0.1-1.0); Monocytes % 4.9 % (1.7-9.3); Neutrophils # 11.5 K/mm3 (1.8-7.8); Neutrophils % 81.1 % (37.0-80.0); Platelet Count 179 K/mm3 (142-424); Red Blood Count 5.92 M/mm3 (4.60-6.20); Red Cell Distribution Width 14.7 % (11.5-17.5); White Blood Count 14.2 K/mm3 (4.8-10.8)
--- NOTE | 2023-02-09 13:57 | CARE MANAGER ---
Contacted patient to follow up on hospital discharge. He is still tired, but is feeling better. He did picker tender helper his medication. They deny any questions or concerns. LASHONDA España
== END 2023-02-07 15:10 | disposition home or self-care (01) ==
LOC: ER 20:43 → 2ND 20:57
PROVIDERS: Admitting Provider Family Medicine; Emergency Provider Emergency Medicine; PCP Family Medicine; Visit Provider Family Medicine
DX: R07.9 Chest pain, unspecified (principal); I25.10 Atherosclerotic heart disease of native coronary artery without angina pectoris; Z95.5 Presence of coronary angioplasty implant and graft; K21.9 Gastro-esophageal reflux disease without esophagitis; I11.9 Hypertensive heart disease without heart failure; J44.9 Chronic obstructive pulmonary disease, unspecified; E78.5 Hyperlipidemia, unspecified; Z79.01 Long term (current) use of anticoagulants; I42.9 Cardiomyopathy, unspecified; R32 Unspecified urinary incontinence; Z79.899 Other long term (current) drug therapy; Z20.822 Contact with and (suspected) exposure to COVID-19
CPT/HCPCS: G0378; 36415; 71045; 71275; 74177; 80053; 83690; 84484; 85007; 85025; 93005; 99291; C9803; J0696; J2405; Q9967; U0003; U0005

== ENCOUNTER → 2023-02-11 13:30 | Outpatient (CLI) | payer MEDICARE, SELFPAY ==
[2023-02-11 17:58] LABS: Microscopic, Urine URINE MICROSCOPIC (MICROSCOPIC)
[2023-02-11 18:12] LABS: Basophils # 0.1 K/mm3 (0-0.2); Basophils % 0.4 % (0.1-2.0); Eosinophils # 0.4 K/mm3 (0.0-0.4); Eosinophils % 2.9 % (0.1-12.0); Hematocrit 50.8 % (42.0-52.0); Hemoglobin 16.2 g/dL (14.1-18.0); Lymphocytes # 1.6 K/mm3 (0.7-4.5); Lymphocytes % 11.3 % (10-50); Mean Corpuscular Hemoglobin 28.9 pg (27.0-31.2); Mean Corpuscular Volume 90.6 fl (80-94); Mean Platelet Volume 8.7 fl (7.4-10.4); Monocytes # 0.8 K/mm3 (0.1-1.0); Monocytes % 5.5 % (1.7-9.3); Neutrophils # 11.2 K/mm3 (1.8-7.8); Neutrophils % 79.9 % (37.0-80.0); Platelet Count 182 K/mm3 (142-424); Red Blood Count 5.61 M/mm3 (4.60-6.20); Red Cell Distribution Width 14.6 % (11.5-17.5)
[2023-02-11 19:01] LABS: Appearance,Urine CLOUDY (Clear); Blood, Urine Negative (Negative); Color,Urine ORANGE (Yellow); Glucose,Urine (UA) Negative (Negative); Ketones,Urine Negative (Negative); Leukocyte Esterase,Urine Negative (Negative); Nitrate,Urine POSITIVE (Negative); Protein,Urine 2+ (Negative); Specific Gravity, Urine >= 1.030 (1.005-1.030)
[2023-02-11 19:04] LABS: Bilirubin,Urine 1+ (Negative)
[2023-02-11 19:27] LABS: Bacteria,Urine 4+ /lpf; RBC,Urine Occasional #/hpf (0-3); Squamous Epithelial Cell,Urine Occasional #/hpf (0-5); WBC,Urine Occasional #/hpf (0-3)
== END ==
PROVIDERS: PCP Nurse Practitioner; Visit Provider Nurse Practitioner
DX: R32 Unspecified urinary incontinence (principal); J18.9 Pneumonia, unspecified organism; R05.9 Cough, unspecified
CPT/HCPCS: 81001; 85025; 87086

== ENCOUNTER → 2023-03-17 23:17 | Outpatient (CLI) | payer MEDICARE, SELFPAY ==
[2023-03-17 18:00] LABS: Basophils % 0.4 % (0.1-2.0); Eosinophils # 0.2 K/mm3 (0.0-0.4); Eosinophils % 2.3 % (0.1-12.0); Hematocrit 48.1 % (42.0-52.0); Hemoglobin 15.5 g/dL (14.1-18.0); Lymphocytes # 1.4 K/mm3 (0.7-4.5); Lymphocytes % 15.4 % (10-50); Mean Corpuscular HGB Conc 32.3 g/dL (31.8-35.4); Mean Corpuscular Hemoglobin 28.6 pg (27.0-31.2); Mean Corpuscular Volume 88.5 fl (80-94); Mean Platelet Volume 8.6 fl (7.4-10.4); Monocytes # 0.5 K/mm3 (0.1-1.0); Monocytes % 5.4 % (1.7-9.3); Neutrophils # 7.1 K/mm3 (1.8-7.8); Neutrophils % 76.5 % (37.0-80.0); Platelet Count 202 K/mm3 (142-424); Red Blood Count 5.43 M/mm3 (4.60-6.20); Red Cell Distribution Width 14.9 % (11.5-17.5); White Blood Count 9.3 K/mm3 (4.8-10.8)
[2023-03-17 18:10] LABS: Alanine Aminotransferase 22 U/L (12-78); Albumin Level 3.7 g/dl (3.5-5.0); Albumin/Globulin Ratio 1.4 (1.1-1.8); Alkaline Phosphatase 79 U/L (38-126); Anion Gap 13.8 mEq/L (5-15); Aspartate Amino Transferase 25 U/L (17-59); Bilirubin,Total 0.8 mg/dl (0.2-1.3); Blood Urea Nitrogen 10 mg/dl (9-20); Calcium 8.8 mg/dl (8.4-10.2); Carbon Dioxide 26 mmol/L (22.0-30.0); Chloride 104 mmol/L (98-107); Estimated Glomerular Filt Rate 95 ml/min (>60); GFR (African American) 115 ML/MIN (>60); Globulin 2.7 g/dL (1.3-3.2); Glucose 116 mg/dl (74-100); Potassium 3.8 mmoL/L (3.5-5.1); Sodium 140 mmol/L (136-145); Total Protein,Serum 6.4 g/dl (6.3-8.2); Uric Acid 6.8 mg/dl (3.5-8.5)
== END ==
PROVIDERS: PCP Nurse Practitioner; Visit Provider Nurse Practitioner
DX: E79.0 Hyperuricemia without signs of inflammatory arthritis and tophaceous disease (principal); M79.671 Pain in right foot
CPT/HCPCS: 80053; 84550; 85025

== ENCOUNTER 2023-06-07 16:16 | Emergency (ER) | payer MEDICARE, SELFPAY ==
--- NOTE | 2023-06-07 16:20 | EXP.UTC ---
Discharge Plan Disposition Patient Disposition: Home, Self-Care Condition: Good Prescriptions Prescriptions: No Action ipratropium bromide 0.02 % solution 2.5 ml inhalation QID Qty: 150 2RF moxifloxacin 400 mg tablet 400 mg PO DAILY 7 Days Qty: 7 0RF colchicine (gout) 0.6 mg tablet 0.6 mg PO BID Qty: 60 1RF prednisone 20 mg tablet 20 mg PO .COMPLEX Qty: 15 0RF Rx Instructions: 20 mg orally BID x 5 days then daily x 5 days allopurinol 300 mg tablet 300 mg PO DAILY Qty: 30 2RF nitroglycerin [Nitrostat] 0.4 mg tablet, sublingual 0.4 mg sublingual Q5M PRN (Reason: chest pain) Qty: 20 0RF Rx Instructions: do not exceed 3 doses per episode Myrbetriq 25 mg tablet extended release 24 hr 25 mg PO DAILY carvedilol 25 mg tablet 25 mg PO BID Rx Instructions: TAKE WITH EITHER A MEAL OR A SNACK prasugrel 10 mg tablet 10 mg PO DAILY Entresto 97-103 mg tablet 1 tab PO DAILY albuterol sulfate 2.5 mg /3 mL (0.083 %) solution for nebulization 2.5 mg inhalation Q6H Patient Comments: INHALE THE CONTENTS OF 1 VIAL IN NEBULIZER EVERY 6 HOURS. pantoprazole 40 mg tablet,delayed release (DR/EC) 40 mg PO DAILY Qty: 30 3RF Referrals Follow up/Referrals: Patel PATEL MD [Primary Care Provider] - See instructions Clinical Impressions Clinical Impression: Gout attack Qualifiers: Gout site: ankle Gout etiology: unspecified cause Laterality: right Qualified Code(s): M10.9 - Gout, unspecified Instructions Patient Instructions: DI for Gout Discharge ED Provider: Lela Schuster [facility] General Stated complaint: poss gout, cannot walk Time Seen by Provider: 06/07/23 16:41 History of Present Illness Provider Complaint: Right ankle pain started acutely last night. Cannot touch ankle or bear weight this am. History of gout Takes allopurinol, colchicine regularly Onset (ago): day(s) (1) Location: right and lower extremity Radiation: non-radiation Relieving factors: none Exacerbating factors: none Associated symptoms: denies other symptoms Treatments prior to arrival: none Related Data Home Medications Medication Instructions Recorded Confirmed carvedilol 25 mg tablet 25 mg PO BID High blood pressure 02/06/23 03/17/23 mirabegron 25 mg tablet,extended 25 mg PO DAILY Overactive Bladder 02/06/23 03/17/23 release 24 hr (Myrbetriq) prasugrel 10 mg tablet 10 mg PO DAILY Blood thinner 02/06/23 03/17/23 sacubitril 97 mg-valsartan 103 mg 1 tab PO DAILY Heart failure 02/06/23 03/17/23 tablet (Entresto) albuterol sulfate 2.5 mg/3 mL 2.5 mg inhalation Q6H Breathing 02/07/23 03/17/23 (0.083 %) solution for nebulization problems Previous Rx's Medication Instructions Recorded pantoprazole 40 mg tablet,delayed 40 mg PO DAILY #30 tabs 02/07/23 release ipratropium bromide 0.02 % 2.5 ml inhalation QID #150 mL 02/11/23 solution for inhalation moxifloxacin 400 mg tablet 400 mg PO DAILY 7 days #7 tabs 02/11/23 nitroglycerin 0.4 mg sublingual 0.4 mg sublingual Q5M PRN chest 02/17/23 tablet (Nitrostat) pain #20 tabs allopurinol 300 mg tablet 300 mg PO DAILY #30 tabs 03/17/23 colchicine (gout) 0.6 mg tablet 0.6 mg PO BID GOUT #60 tabs 03/17/23 prednisone 20 mg tablet 20 mg PO .COMPLEX #15 tabs 03/17/23 Allergies Allergy/AdvReac Type Severity Reaction Status Date / Time dapagliflozin [From [facility]] Allergy Verified 03/17/23 13:16 Tpxvzir-KPK-TfW Reductase AdvReac Mild Verified 03/17/23 13:16 Inhibitor [Qllieol-Sbu-Jev Reductase Inhibitor] [facility] Disclaimer: The information contained in this section may have been updated after the patient was seen, as this information can be updated by other users. Medical History Acute febrile illness Angina, class III CHF NYHA class III Chronic obstructive lung disease Clavicle fracture Coronary arterioscle
[2023-06-07 16:30] VITALS: BP 143/89; PULSE 72; RESP 20; TEMP 36.7; O2SAT 94; BMI 35.5
[2023-06-07 16:56] VITALS: BP 143/89; PULSE 72; RESP 20; TEMP 36.7; O2SAT 94
== END 2023-06-07 17:07 | disposition home or self-care (01) ==
PROVIDERS: Emergency Provider Physician Assistant; PCP Family Medicine
DX: M10.071 Idiopathic gout, right ankle and foot (principal); I25.10 Atherosclerotic heart disease of native coronary artery without angina pectoris; I11.0 Hypertensive heart disease with heart failure; I50.22 Chronic systolic (congestive) heart failure; G47.33 Obstructive sleep apnea (adult) (pediatric); J44.9 Chronic obstructive pulmonary disease, unspecified; E78.5 Hyperlipidemia, unspecified; K21.9 Gastro-esophageal reflux disease without esophagitis
CPT/HCPCS: 96372; 99212; 99214; G0463; J1040

== ENCOUNTER 2023-08-02 13:58 | Emergency (ER) | payer MEDICARE, SELFPAY ==
[2023-08-02 14:15] VITALS: BP 140/76; PULSE 68; RESP 19; TEMP 36.6; O2SAT 97; BMI 38.9
--- NOTE | 2023-08-02 14:53 | EXP.UTC ---
Discharge Plan Disposition Patient Disposition: Home, Self-Care Condition: Good Prescriptions Prescriptions: New prednisone [prednisone] 20 mg tablet 20 mg PO BID 5 Days Qty: 10 0RF No Action allopurinol 300 mg tablet 300 mg PO DAILY Qty: 30 2RF Myrbetriq 25 mg tablet extended release 24 hr 25 mg PO DAILY prasugrel 10 mg tablet 10 mg PO DAILY Entresto 97-103 mg tablet 1 tab PO DAILY Referrals Follow up/Referrals: Roberto Sweeney MD [Primary Care Provider] - See instructions Activity Restrictions/Add. Instructions Additional Instructions/Restrictions: Start oral steriods tomorrow You have had two gout attacks in the last month Follow up with your Family Doctor to discuss prophylactic gout medications Return if needed Straight to ER if any life threatening symptoms Clinical Impressions Clinical Impression: Gout attack Instructions Patient Instructions: Gout (Alternative Therapy), Gout, DI for Gout Discharge ED Provider: Enid Aguilar [facility] HPI General Stated complaint: right foot pain, no accident Mode of Arrival: Ambulatory Source of Information: Patient Limitations: No Limitations Time Seen by Provider: 08/02/23 14:53 Description of Symptoms (Recalled from Triage Doc. by RN): PATIENT REPORTS POSSIBLE GOUT FLARE-UP TO RIGHT FOOT SINCE THIS MORNING HEENT Symptoms (Recalled from RN notes): No Resp Symptoms (Recalled from RN notes): No Skin Symptoms (Recalled from RN notes): No MS Symptoms (Recalled from RN notes): Yes Functional Status (Recalled from RN notes): WNL History of Present Illness Provider Complaint: Patient states that he gets gout attacks at times and this morning he got up and he was having pain in his ankle/side of foot States that it hurts for him to walk on it or touch it like it does when he has a gout flare States that last time he came in and got two shots and it was better before he got home so he came back to get it again denies injury Related Data Home Medications Medication Instructions Recorded Confirmed mirabegron 25 mg tablet,extended 25 mg PO DAILY Overactive Bladder 02/06/23 08/02/23 release 24 hr (Myrbetriq) prasugrel 10 mg tablet 10 mg PO DAILY Blood thinner 02/06/23 08/02/23 sacubitril 97 mg-valsartan 103 mg 1 tab PO DAILY Heart failure 02/06/23 08/02/23 tablet (Entresto) Previous Rx's Medication Instructions Recorded allopurinol 300 mg tablet 300 mg PO DAILY #30 tabs 03/17/23 prednisone 20 mg tablet 20 mg PO BID 5 days #10 tabs 08/02/23 Allergies Allergy/AdvReac Type Severity Reaction Status Date / Time dapagliflozin [From [facility]] Allergy Verified 03/17/23 13:16 Abchkeh-NNV-RcQ Reductase AdvReac Mild Verified 03/17/23 13:16 Inhibitor [Egyleph-Bjv-Uyc Reductase Inhibitor] Worker's Comp Is this a Worker's Comp case?: No [facility] Disclaimer: The information contained in this section may have been updated after the patient was seen, as this information can be updated by other users. Medical History Acute febrile illness Angina, class III CHF NYHA class III Chronic obstructive lung disease Clavicle fracture Coronary arteriosclerosis Ear ache Fatigue GERD (gastroesophageal reflux disease) Hallux rigidus of right foot Hyperlipidemia Hypertensive heart disease Hyperuricemia Hypokalemia Influenza A Rx Tamiflu 75mg bid for 5 days. Also Rx 75mg daily for 7 days for his Gregoria. Laceration of finger of left hand with damage to nail LV dysfunction Nail dystrophy Obstructive sleep apnea syndrome Orthopnea Otitis media Pain due to onychomycosis of toenails of both feet Patient left without being seen Prostatitis Pulmonary hypertension Sinusitis SIRS (systemic inflammatory response syndrome) Thyroid nodule Urinary incontinence UTI (urinary tract infection) Ventricular tachycardia Surgical History (Reviewed 03/17/23 @ 13:17 by
[2023-08-02 15:18] VITALS: BP 140/76; PULSE 68; RESP 19; TEMP 36.6; O2SAT 97
== END 2023-08-02 15:20 | disposition home or self-care (01) ==
PROVIDERS: Emergency Provider Nurse Practitioner; PCP Family Medicine
DX: M10.071 Idiopathic gout, right ankle and foot (principal); I25.10 Atherosclerotic heart disease of native coronary artery without angina pectoris; I11.9 Hypertensive heart disease without heart failure; E78.5 Hyperlipidemia, unspecified; Z95.5 Presence of coronary angioplasty implant and graft
CPT/HCPCS: 96372; 99212; 99214; G0463; J1040

== ENCOUNTER → 2023-09-25 08:42 | Outpatient (CLI) | payer MEDICARE, SELFPAY ==
[2023-09-25 18:15] LABS: Basophils # 0.1 K/mm3 (0-0.2); Basophils % 0.8 % (0.1-2.0); Eosinophils # 0.2 K/mm3 (0.0-0.4); Eosinophils % 2.6 % (0.1-12.0); Hematocrit 50.6 % (42.0-52.0); Hemoglobin 16.5 g/dL (14.1-18.0); Lymphocytes # 1.8 K/mm3 (0.7-4.5); Lymphocytes % 19.9 % (10-50); Mean Corpuscular HGB Conc 32.6 g/dL (31.8-35.4); Mean Corpuscular Hemoglobin 29.4 pg (27.0-31.2); Mean Corpuscular Volume 90.3 fl (80-94); Mean Platelet Volume 8.3 fl (7.4-10.4); Monocytes # 0.4 K/mm3 (0.1-1.0); Neutrophils # 6.4 K/mm3 (1.8-7.8); Neutrophils % 71.8 % (37.0-80.0); Platelet Count 186 K/mm3 (142-424); Red Cell Distribution Width 14.6 % (11.5-17.5); White Blood Count 8.9 K/mm3 (4.8-10.8)
[2023-09-25 18:55] LABS: Blood Urea Nitrogen 11 mg/dl (9-20); Calcium 8.9 mg/dl (8.4-10.2); Carbon Dioxide 28 mmol/L (22.0-30.0); Chloride 104 mmol/L (98-107); Estimated Glomerular Filt Rate 95 ml/min (>60); GFR (African American) 115 ML/MIN (>60); Glucose 176 mg/dl (74-100); Potassium 3.7 mmoL/L (3.5-5.1)
[2023-09-25 19:02] LABS: NT Pro Brain Natriuretic Pep. 218 pg/mL (0-125)
[2023-09-25 19:24] LABS: Thyroid Stimulating Hormone 1.33 uIU/mL (0.465-4.68)
[2023-09-25 19:43] LABS: Vitamin B12 196 pg/mL (239-931)
[2023-09-25 20:35] LABS: Anion Gap 7.7 mEq/L (5-15); Sodium 136 mmol/L (136-145)
== END ==
LOC: LAB.DROPOF 09-26 08:43
PROVIDERS: PCP Family Medicine; Visit Provider Family Medicine
DX: R53.82 Chronic fatigue, unspecified (principal); R53.83 Other fatigue; E55.9 Vitamin D deficiency, unspecified; R23.3 Spontaneous ecchymoses; I11.0 Hypertensive heart disease with heart failure; I50.22 Chronic systolic (congestive) heart failure
CPT/HCPCS: 80048; 82306; 82607; 83880; 84443; 85025

== ENCOUNTER 2023-10-06 11:10 | Emergency (ER) | payer MEDICARE, SELFPAY ==
[2023-10-06 11:25] VITALS: BP 138/88; PULSE 71; RESP 18; TEMP 36.8; O2SAT 98; BMI 32.1
--- NOTE | 2023-10-06 11:35 | ED_ITS ---
Discharge Plan Disposition Patient Disposition: Home, Self-Care Condition: Good Prescriptions Prescriptions: New methylprednisolone [Medrol (Pete)] 4 mg tablets,dose pack See Rx Instructions .Route .COMPLEX 6 Days Qty: 21 0RF Rx Instructions: taper pack; No Action allopurinol 300 mg tablet 300 mg PO DAILY Qty: 30 2RF tamsulosin 0.4 mg capsule 0.4 mg PO DAILY Patient Comments: TAKE 1 CAPSULE BY MOUTH ONCE DAILY. carvedilol 25 mg tablet 50 mg PO BID Qty: 120 5RF Entresto 97-103 mg tablet 1 tab PO DAILY prasugrel 10 mg tablet 10 mg PO DAILY Referrals Follow up/Referrals: Roberto Sweeney MD [Primary Care Provider] - See instructions Activity Restrictions/Add. Instructions Additional Instructions/Restrictions: Start oral steriods tomorrow Follow up with your Family Doctor if no improvement or any woresning of symptoms Return if needed Straight to ER if any life threatening symptoms Clinical Impressions Clinical Impression: Gout attack Instructions Patient Instructions: [place], DI for Gout Discharge ED Provider: Enid Aguilar [facility] General Stated complaint: left and right leg pain Mode of Arrival: Ambulatory Source of Information: Patient Limitations: No Limitations Time Seen by Provider: 10/06/23 11:35 Description of Symptoms (Recalled from Triage Doc. by RN): PATIENT C/O POSSIBLE GOUT ATTACK IN BILATERAL FEET X 2 DAYS HEENT Symptoms (Recalled from RN notes): No Resp Symptoms (Recalled from RN notes): No Skin Symptoms (Recalled from RN notes): No MS Symptoms (Recalled from RN notes): Yes Functional Status (Recalled from RN notes): WNL History of Present Illness Provider Complaint: Patient states that he has been having achy like pain in bilateral ankles worse on the left States he has a hx of gout and feels like it did when he had a gout attack so he came in to get some shots and steriod pack that he usually gets to help with this Related Data Home Medications Medication Instructions Recorded Confirmed sacubitril 97 mg-valsartan 103 mg 1 tab PO DAILY Heart failure 02/06/23 10/06/23 tablet (Entresto) prasugrel 10 mg tablet 10 mg PO DAILY 10/06/23 10/06/23 tamsulosin 0.4 mg capsule 0.4 mg PO DAILY 01/02/24 01/02/24 Previous Rx's Medication Instructions Recorded allopurinol 300 mg tablet 300 mg PO DAILY #30 tabs 03/17/23 carvedilol 25 mg tablet 50 mg PO BID #120 tabs 10/06/23 methylprednisolone 4 mg tablets in See Rx Instructions .Route 10/06/23 a dose pack (Medrol (Pete)) .COMPLEX 6 days #21 tabs Allergies Allergy/AdvReac Type Severity Reaction Status Date / Time dapagliflozin [From [facility]] Allergy Verified 10/06/23 10:23 Twhyqnz-JHM-CwM Reductase AdvReac Mild Verified 10/06/23 10:23 Inhibitor [Jmxenfk-Yka-Nqe Reductase Inhibitor] Worker's Comp Is this a Worker's Comp case?: No [facility] Disclaimer: The information contained in this section may have been updated after the patient was seen, as this information can be updated by other users. Medical History Acute febrile illness Angina, class III CHF NYHA class III Chronic obstructive lung disease Clavicle fracture Coronary arteriosclerosis Ear ache Fatigue GERD (gastroesophageal reflux disease) Hallux rigidus of right foot Hyperlipidemia Hypertensive heart disease Hyperuricemia Hypokalemia Influenza A Rx Tamiflu 75mg bid for 5 days. Also Rx 75mg daily for 7 days for his Gregoria. Laceration of finger of left hand with damage to nail LV dysfunction Nail dystrophy Obstructive sleep apnea syndrome Orthopnea Otitis media Pain due to onychomycosis of toenails of both feet Patient left without being seen Prostatitis Pulmonary hypertension Sinusitis SIRS (systemic inflammatory response syndrome) Thyroid nodule Urinary incontinence UTI (urinary tract infection) Ventricular tachycardia Surgical History Stented coronary artery 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 Smoking Status: Never smoker second hand exposure: No alcohol intake: never counseling provided: none substance use type: denies use current occupational status: retired Travel in the last 8 weeks: [place] the [place] household members: spouse housing: house current occupational exposures/hazards: Yes caffeine: Yes ROS Obtained: Yes All systems reviewed & no additional complaints except as documented and Yes Systems reviewed as appropriate & no additional complaints except as documented Constitutional Constitutional: Reports system reviewed and no additional complaints, except as documented and Reports as per HPI ENT Ears, Nose, Mouth, and Throat: Reports system reviewed and no additional complaints, except as documented and Reports as per HPI Cardiovascular Cardiovascular: Reports system reviewed and no additional complaints, except as documented and Reports as per HPI Respiratory Respiratory: Reports system reviewed and no additional complaints, except as documented and Reports as per HPI Gastrointestinal Gastrointestingal: Reports system reviewed and no additional complaints, except as documented and as per HPI Musculoskeletal Musculoskeletal: Reports system reviewed and no additional complaints, except as documented, Reports as per HPI and Reports other (pain with mild swelling in both ankles like he gets with gout attack) Integumentary/Breasts Skin/Breast: Reports system reviewed and no additional complaints, except as documented and Reports as per HPI Physical Exam General General appearance: alert and in no apparent distress ENT ENT exam: Present mucous membranes moist Respiratory Respiratory exam: Present normal lung sounds bilaterally; Absent respiratory distress or wheezes Cardiovascular Cardiovascular exam: Present regular rate, normal rhythm and normal heart sounds Expanded Lower Extremity Exam bilateral: Ankle exam: Present tenderness and swelling (mild with mild redness) Neurological Exam Neurological exam: Present alert, oriented X3 and normal gait Medical Decision Making Manjit Inquiry Pt receiving controlled substance: No Manjit was queried for this patient: No Vital Signs: 10/06/23 11:25 Temperature 98.3 F Temperature Source Oral Pulse Rate [Right Brachial] 71 Respiratory Rate 18 Blood Pressure [Right Arm] 138/88 Blood Pressure Mean [Right Arm] 104 Blood Pressure Source [Right Arm] Automatic Cuff Blood Pressure Position [Right Arm] Sitting 02 Sat by Pulse Oximetry 98 Oxygen Delivery Method Room Air Medical Decision Narrative: Discussed Uric acid lab test and patient declined states that he just wants the shots Toradol and steriod that he usually gets it helps it usually before he gets home Chart states that patient is a diabetic however patient denies that he is a diabetic and has taken steriods in the past without complications
[2023-10-06] MEDS: methylPREDNISolone ACETATE 80MG/ML VIAL 80 MG IM (11:59)
[2023-10-06] MEDS: KETOROLAC 60MG/2ML VIAL 60 MG IM (11:59)
[2023-10-06 12:07] VITALS: BP 138/88; PULSE 71; RESP 18; TEMP 36.8; O2SAT 98
== END 2023-10-06 12:19 | disposition home or self-care (01) ==
PROVIDERS: Emergency Provider Nurse Practitioner; PCP Family Medicine
DX: M10.071 Idiopathic gout, right ankle and foot (principal); M10.072 Idiopathic gout, left ankle and foot; K21.9 Gastro-esophageal reflux disease without esophagitis; E78.5 Hyperlipidemia, unspecified; I27.20 Pulmonary hypertension, unspecified; I25.119 Atherosclerotic heart disease of native coronary artery with unspecified angina pectoris; I11.0 Hypertensive heart disease with heart failure; I50.9 Heart failure, unspecified; Z95.5 Presence of coronary angioplasty implant and graft; Z95.810 Presence of automatic (implantable) cardiac defibrillator
CPT/HCPCS: 96372; 99212; 99214; G0463; J1040

== ENCOUNTER 2023-11-16 17:18 | Emergency (ER) | payer MEDICARE, SELFPAY ==
[2023-11-16 18:25] VITALS: BP 130/75; PULSE 81; RESP 20; TEMP 36.8; O2SAT 98; BMI 33.4
--- NOTE | 2023-11-16 18:53 | ED_ITS ---
Discharge Plan Disposition Patient Disposition: Home, Self-Care Condition: Good Prescriptions Prescriptions: New methylprednisolone [Medrol (Pete)] 4 mg tablets,dose pack See Rx Instructions .Route .COMPLEX 6 Days Qty: 21 0RF Rx Instructions: taper pack; No Action spironolactone 25 mg tablet PO Patient Comments: TAKE 1 TABLET BY MOUTH ONCE DAILY furosemide 40 mg tablet 40 mg PO .prn Qty: 30 2RF metoprolol succinate 50 mg tablet extended release 24 hr 50 mg PO DAILY Qty: 30 3RF allopurinol 300 mg tablet 300 mg PO DAILY Qty: 30 2RF tamsulosin 0.4 mg capsule 0.4 mg PO DAILY Patient Comments: TAKE 1 CAPSULE BY MOUTH ONCE DAILY. Entresto 97-103 mg tablet 1 tab PO DAILY prasugrel 10 mg tablet 10 mg PO DAILY methylprednisolone [Medrol (Pete)] 4 mg tablets,dose pack See Rx Instructions .Route .COMPLEX 6 Days Qty: 21 0RF Rx Instructions: taper pack; Referrals Follow up/Referrals: Roberto Sweeney MD [Primary Care Provider] - See instructions Activity Restrictions/Add. Instructions Additional Instructions/Restrictions: Start oral steriods tomorrow Make sure to follow up with your Family Doctor as discussed Return if needed Straight to ER if any life threatening symptoms Clinical Impressions Clinical Impression: Gout attack Instructions Patient Instructions: Hayden, DI for Gout Discharge ED Provider: Enid Aguilar [facility] General Stated complaint: poss gout flare-up Mode of Arrival: Ambulatory Source of Information: Patient Limitations: No Limitations Time Seen by Provider: 11/16/23 18:57 Description of Symptoms (Recalled from Triage Doc. by RN): PATIENT C/O PAIN TO BILATERAL FEET SINCE YESTERDAY. PATIENT REPORTS A HISTORY OF GOUT HEENT Symptoms (Recalled from RN notes): No Resp Symptoms (Recalled from RN notes): No Skin Symptoms (Recalled from RN notes): No MS Symptoms (Recalled from RN notes): Yes Functional Status (Recalled from RN notes): WNL History of Present Illness Provider Complaint: Patient states that he has an extensive hx of gout States that when he has a flare he usually comes in and gets a couple shots and gets a steriod pack to start the next day and it helps States that he has been having pain starting again in his left ankle and feels like it may be trying to start in his right also so he came in Related Data Home Medications Medication Instructions Recorded Confirmed sacubitril 97 mg-valsartan 103 mg 1 tab PO DAILY Heart failure 02/06/23 10/20/23 tablet (Entresto) prasugrel 10 mg tablet 10 mg PO DAILY 10/06/23 10/20/23 tamsulosin 0.4 mg capsule 0.4 mg PO DAILY 10/06/23 10/20/23 spironolactone 25 mg tablet mg PO 10/20/23 10/20/23 Previous Rx's Medication Instructions Recorded allopurinol 300 mg tablet 300 mg PO DAILY #30 tabs 03/17/23 methylprednisolone 4 mg tablets in See Rx Instructions .Route 10/06/23 a dose pack (Medrol (Pete)) .COMPLEX 6 days #21 tabs furosemide 40 mg tablet 40 mg PO .prn #30 tabs 10/20/23 metoprolol succinate 50 mg 50 mg PO DAILY #30 tabs 10/20/23 tablet,extended release 24 hr methylprednisolone 4 mg tablets in See Rx Instructions .Route 11/16/23 a dose pack (Medrol (Pete)) .COMPLEX 6 days #21 tabs Allergies Allergy/AdvReac Type Severity Reaction Status Date / Time dapagliflozin [From [facility]] Allergy Verified 10/20/23 14:47 Lxmwgge-CIU-AfT Reductase AdvReac Mild Verified 10/20/23 14:47 Inhibitor [Xmdfilh-Sdx-Mey Reductase Inhibitor] Worker's Comp Is this a Worker's Comp case?: No [facility] Disclaimer: The information contained in this section may have been updated after the patient was seen, as this information can be updated by other users. Medical History Acute febrile illness Angina, class III CHF NYHA class III Chronic obstructive lung disease Clavicle fracture Coronary arteriosclerosis Ear ache Fatigue GERD (gastroesophageal reflux disease) Hallux rigidus of right foot Hyperlipidemia Hypertensive heart disease Hyperuricemia Hypokalemia Influenza A Rx Tamiflu 75mg bid for 5 days. Also Rx 75mg daily for 7 days for his Gregoria. Laceration of finger of left hand with damage to nail LV dysfunction Nail dystrophy Obstructive sleep apnea syndrome Orthopnea Otitis media Pain due to onychomycosis of toenails of both feet Patient left without being seen Prostatitis Pulmonary hypertension Sinusitis SIRS (systemic inflammatory response syndrome) Thyroid nodule Urinary incontinence UTI (urinary tract infection) Ventricular tachycardia Surgical History Stented coronary artery 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 Smoking Status: Never smoker second hand exposure: No alcohol intake: never counseling provided: none substance use type: denies use current occupational status: retired Travel in the last 8 weeks: Inside the [place] household members: spouse housing: house current occupational exposures/hazards: Yes caffeine: Yes ROS Obtained: Yes All systems reviewed & no additional complaints except as documented and Yes Systems reviewed as appropriate & no additional complaints except as documented Constitutional Constitutional: Reports system reviewed and no additional complaints, except as documented, Reports as per HPI, Denies body ache, Denies chills and Denies fever(s) ENT Ears, Nose, Mouth, and Throat: Reports system reviewed and no additional complaints, except as documented and Reports as per HPI Cardiovascular Cardiovascular: Reports system reviewed and no additional complaints, except as documented and Reports as per HPI Respiratory Respiratory: Reports system reviewed and no additional complaints, except as documented and Reports as per HPI Gastrointestinal Gastrointestingal: Reports system reviewed and no additional complaints, except as documented and as per HPI Musculoskeletal Musculoskeletal: Reports system reviewed and no additional complaints, except as documented, Reports as per HPI and Reports other Comments: Pain in his left ankle that is now starting in the right with hx of gout Physical Exam General General appearance: alert and in no apparent distress ENT ENT exam: Present mucous membranes moist Respiratory Respiratory exam: Present normal lung sounds bilaterally; Absent respiratory distress or wheezes Cardiovascular Cardiovascular exam: Present regular rate, normal rhythm and normal heart sounds Expanded Lower Extremity Exam bilateral: Ankle exam: Present tenderness (bilateral) and swelling (mild in left); Absent ecchymosis, dislocation or erythema Foot/toe exam: Present normal inspection Gait: observed and limited by pain Neurological Exam Neurological exam: Present alert, oriented X3 and normal gait Medical Decision Making Manjit Inquiry Pt receiving controlled substance: No Manjit was queried for this patient: No Vital Signs: 11/16/23 18:25 Temperature 98.3 F Temperature Source Oral Pulse Rate [Right Brachial] 81 Respiratory Rate 20 Blood Pressure [Right Arm] 130/75 Blood Pressure Mean [Right Arm] 93 Blood Pressure Source [Right Arm] Automatic Cuff Blood Pressure Position [Right Arm] Sitting 02 Sat by Pulse Oximetry 98 Oxygen Delivery Method Room Air Medical Decision Narrative: Discussed Uric acid lab work and patient declined Patient again educated that he needed to follow up with his PCP for maintance treatment Patient has diabetes noted in Dx and pateint declined states that he is not a diabetic
[2023-11-16] MEDS: METHYLPREDNISOLONE SOD SUCC 125MG VIAL 125 MG IM (19:05)
[2023-11-16] MEDS: KETOROLAC 30MG/ML VIAL 15 MG IM (19:05)
[2023-11-16 19:17] VITALS: BP 130/75; PULSE 81; RESP 20; TEMP 36.8; O2SAT 98
== END 2023-11-16 19:19 | disposition home or self-care (01) ==
PROVIDERS: Emergency Provider Nurse Practitioner; PCP Family Medicine
DX: M10.072 Idiopathic gout, left ankle and foot (principal); M10.071 Idiopathic gout, right ankle and foot; K21.9 Gastro-esophageal reflux disease without esophagitis; I11.9 Hypertensive heart disease without heart failure; I25.119 Atherosclerotic heart disease of native coronary artery with unspecified angina pectoris; E78.5 Hyperlipidemia, unspecified; Z95.5 Presence of coronary angioplasty implant and graft
CPT/HCPCS: 96372; 99212; 99214; G0463

== ENCOUNTER 2023-11-24 08:43 | Day surgery (SDC) | payer MEDICARE, SELFPAY ==
[2023-11-24] VITALS (7 sets, daily range): BP systolic 117–149; BP diastolic 62–93; PULSE 61–104; RESP 18; TEMP 37; O2SAT 94–96; BMI 33.0
--- NOTE | 2023-11-24 07:09 | IR_ITS ---
APPROVED REPORT Patient Location: Outpatient [facility] Automatic: BAILEY Funes RT (R) PROCEDURES 1. Pocket Revision 2. Removal of old Pacemaker 3. Implant of Permanent Pacemaker INDICATION End of battery life. Informed consent was obtained prior to the procedure. COMPLICATIONS None Estimated Blood Loss: Less than 10 ML TECHNIQUE 1% lidocaine with epinephrine used to anesthetize the left anterior aspect of the chest. Scalpel was used to make the initial cutaneous incision and then used to dissect down to the existing pacemaker generator. The generator was removed from the existing pocket. Digital manipulation was required along with intermittent usage of scalpel in order to revise the pocket. The leads were removed from the old generator. The new generator was screwed to the existing leads and secured into place. Electronic interrogation proved acceptable thresholds and voltage within the lead. Antibiotics were used to flush the pocket and the pacemaker was secured using 3-0 silk into the newly revised pocket. Monocryl was used to close the subcutaneous tissue and then misael were placed on the cutaneous area in order to approximate the incision. Patient was transferred to the postop holding area in stable condition. INTERROGATION Generator Model number: [id number] Generator Serial number: [id number] Atrial lead Impedence: 930 ohms Threshold: 1.75v@1.0ms Right Ventricular lead R-wave: 11.4mv Impedence: 660 ohms Threshold: 0.5v@0.5ms Pacing Parameters: Mode: DDDR Base/Max Track:60 ppm / 130 ppm No diaphragmatic stimulation at 10 volts. IMPRESSION 1. Successful Pocket Revision 2. Successful Removal of old Pacemaker 3. Successful Implant of Permanent Pacemaker PLAN 1. Postop wound care. Electronically signed by : Juan Carlos Her MD 11/25/2023 10:25:43
[2023-11-24 09:35] LABS: Basophils # 0.1 K/mm3 (0-0.2); Basophils % 0.8 % (0.1-2.0); Eosinophils # 0.2 K/mm3 (0.0-0.4); Eosinophils % 1.5 % (0.1-12.0); Hematocrit 55.1 % (42.0-52.0); Hemoglobin 17.9 g/dL (14.1-18.0); Lymphocytes # 2.7 K/mm3 (0.7-4.5); Mean Corpuscular HGB Conc 32.4 g/dL (31.8-35.4); Mean Corpuscular Hemoglobin 29.2 pg (27.0-31.2); Mean Platelet Volume 7.8 fl (7.4-10.4); Monocytes # 0.8 K/mm3 (0.1-1.0); Monocytes % 5.5 % (1.7-9.3); Neutrophils # 11.1 K/mm3 (1.8-7.8); Neutrophils % 74.2 % (37.0-80.0); Platelet Count 200 K/mm3 (142-424); Red Blood Count 6.12 M/mm3 (4.60-6.20); Red Cell Distribution Width 14.5 % (11.5-17.5); White Blood Count 14.9 K/mm3 (4.8-10.8)
[2023-11-24 09:38] LABS: Chloride 103 mmol/L (98-107); Sodium 141 mmol/L (136-145)
[2023-11-24 09:41] LABS: Blood Urea Nitrogen 22 mg/dl (9-20); Calcium 9.3 mg/dl (8.4-10.2); Carbon Dioxide 36 mmol/L (22.0-30.0); Creatinine Clearance Estimated 99 mL/min (50-200); Estimated Glomerular Filt Rate 83 ml/min (>60); GFR (African American) 100 ML/MIN (>60); Glucose 125 mg/dl (74-100)
--- NOTE | 2023-11-24 10:11 | EXP.ANES.CKL ---
[facility] Disclaimer: The information contained in this section may have been updated after the patient was seen, as this information can be updated by other users. Medical History Acute febrile illness Angina, class III CHF NYHA class III Chronic obstructive lung disease Clavicle fracture Coronary arteriosclerosis Ear ache Fatigue GERD (gastroesophageal reflux disease) Hallux rigidus of right foot HFrEF (heart failure with reduced ejection fraction) Hyperlipidemia Hypertensive heart disease Hyperuricemia Hypokalemia Influenza A Laceration of finger of left hand with damage to nail LV dysfunction Nail dystrophy Obstructive sleep apnea syndrome Orthopnea Otitis media Pain due to onychomycosis of toenails of both feet Patient left without being seen Prostatitis Pulmonary hypertension Sinusitis SIRS (systemic inflammatory response syndrome) Thyroid nodule Urinary incontinence UTI (urinary tract infection) Ventricular tachycardia Surgical History Stented coronary artery 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 Smoking Status: Never smoker second hand exposure: No alcohol intake: never counseling provided: none substance use type: denies use current occupational status: retired Travel in the last 8 weeks: [place] the [place] household members: spouse housing: house current occupational exposures/hazards: Yes caffeine: Yes [facility] Anesthesia Checklist Patient Identification Patient Identification: Arm Band Structural Data Admitted From: Home Planned Operative Procedure/s: Pacemaker Generator Change Consent for Planned Operative Procedure(s) Verified: Yes Verified Documents: Surgical Consent and History and Physical NPO Status Verified Time NPO: 00:00 Additional verifications Anesthesia Reactions: No Hx Blood Transfusions: No Blood Transfusion Reaction: No Airway Assessment Mallampati Score:: Class II C-Spine Mobility Assessed: Yes TMJ Mobility Assessed: Yes Dentition: Edentulous Neurological Assessment Level of Consciousness: Awake and Alert Anesthesia Plan Anesthesia Risk discussed: Yes Anesthesia Plan: Verified ASA Class: IV Anesthesia Type: MAC
[2023-11-24] MEDS: CEFAZOLIN SODIUM 1 GM in 0.9 % SODIUM CHLORIDE 50 ML IV (12:05)
[2023-11-24] MEDS: 0.9 % SODIUM CHLORIDE 1000ML 1,000 ML 25 ML IV (12:08)
[2023-11-24] MEDS: CEFAZOLIN 1GM VIAL 1 GM TP (12:08)
[2023-11-24] MEDS: LIDOCAINE 1% W/EPI 1:100,000 20ML VIAL 20 ML SQ (12:15)
== END 2023-11-24 14:26 | disposition home or self-care (01) ==
PROVIDERS: PCP Psychiatry & Neurology Sleep Medicine; Visit Provider Internal Medicine
DX: Z45.010 Encounter for checking and testing of cardiac pacemaker pulse generator [battery] (principal); Z79.899 Other long term (current) drug therapy; I50.22 Chronic systolic (congestive) heart failure; I11.0 Hypertensive heart disease with heart failure; I25.118 Atherosclerotic heart disease of native coronary artery with other forms of angina pectoris; Z95.5 Presence of coronary angioplasty implant and graft; R53.82 Chronic fatigue, unspecified; I25.5 Ischemic cardiomyopathy; I27.20 Pulmonary hypertension, unspecified
CPT/HCPCS: 33263; 80048; 85025; 99152; 99153; C1882

== ENCOUNTER 2023-12-03 14:22 | Emergency (ER) | payer MEDICARE, SELFPAY ==
[2023-12-03 15:00] VITALS: BP 129/82; PULSE 64; RESP 20; TEMP 36.5; O2SAT 97; BMI 33.7
--- NOTE | 2023-12-03 15:08 | EXP.UTC ---
Discharge Plan Disposition Patient Disposition: Home, Self-Care Condition: Good Prescriptions Prescriptions: New methylprednisolone 4 mg Tablets,Dose Pack 4 mg PO DIRECTED 6 Days Qty: 21 0RF Rx Instructions: Take 1 pack as directed for 6 days No Action spironolactone 25 mg tablet PO Patient Comments: TAKE 1 TABLET BY MOUTH ONCE DAILY furosemide 40 mg tablet 40 mg PO .prn Qty: 30 2RF metoprolol succinate 50 mg tablet extended release 24 hr 50 mg PO DAILY Qty: 30 3RF allopurinol 300 mg tablet 300 mg PO DAILY Qty: 30 2RF tamsulosin 0.4 mg capsule 0.4 mg PO DAILY Patient Comments: TAKE 1 CAPSULE BY MOUTH ONCE DAILY. Jardiance 10 mg tablet 0RF oxycodone-acetaminophen [Percocet] 5-325 mg tablet 1 tab PO Q4-6H PRN (Reason: pain) Qty: 30 0RF Rx Instructions: 1-2 tabs q4-6h PRN pain Entresto 97-103 mg tablet 1 tab PO DAILY prasugrel 10 mg tablet 10 mg PO DAILY Referrals Follow up/Referrals: Roberto Sweeney MD [Primary Care Provider] - See instructions Activity Restrictions/Add. Instructions Additional Instructions/Restrictions: Rest the extremity, Elevate the extremity as tolerated while you are resting. Don't start the oral steroids (medol dose pack) until tomorrow since you had the shots here today. Resume your regular medications Follow up with your regular doctor. GO TO THE ER FOR ANY WORSENING SYMPTOMS Clinical Impressions Clinical Impression: Gout attack Instructions Patient Instructions: Gout, DI for Gout, Methylprednisolone Injection, Ketorolac Injection Discharge ED Provider: Dick Diehl [facility] General Stated complaint: gout flare up Time Seen by Provider: 12/03/23 15:08 History of Present Illness Provider Complaint: He states that for the past 2 days he has had worsening left ankle pain. He states that he has a history of gout and this feels like his normal gout flare up symptoms. He denies any injury. He states that his gout symptoms usually hit him in his left ankle and foot. He denies any fever/chills/malaise and he denies any other symptoms. Related Data Home Medications Medication Instructions Recorded Confirmed sacubitril 97 mg-valsartan 103 mg 1 tab PO DAILY Heart failure 02/06/23 12/02/23 tablet (Entresto) prasugrel 10 mg tablet 10 mg PO DAILY 10/06/23 12/02/23 tamsulosin 0.4 mg capsule 0.4 mg PO DAILY 10/06/23 12/02/23 spironolactone 25 mg tablet mg PO 10/20/23 12/02/23 Previous Rx's Medication Instructions Recorded allopurinol 300 mg tablet 300 mg PO DAILY #30 tabs 03/17/23 furosemide 40 mg tablet 40 mg PO .prn #30 tabs 10/20/23 metoprolol succinate 50 mg 50 mg PO DAILY #30 tabs 10/20/23 tablet,extended release 24 hr oxycodone-acetaminophen 5 mg-325 1 tab PO Q4-6H PRN pain #30 tabs 11/24/23 mg tablet (Percocet) methylprednisolone 4 mg tablets in 4 mg PO DIRECTED 6 days #21 tabs 12/03/23 a dose pack Allergies Allergy/AdvReac Type Severity Reaction Status Date / Time dapagliflozin [From [facility]] Allergy Verified 12/03/23 15:25 Bhmqvvu-PHD-JmS Reductase AdvReac Mild Verified 12/03/23 15:25 Inhibitor [Lrqpmhk-Xuu-Zoj Reductase Inhibitor] [facility] Disclaimer: The information contained in this section may have been updated after the patient was seen, as this information can be updated by other users. Medical History Acute febrile illness Angina, class III CHF NYHA class III Chronic obstructive lung disease Clavicle fracture Coronary arteriosclerosis Ear ache Fatigue GERD (gastroesophageal reflux disease) Hallux rigidus of right foot HFrEF (heart failure with reduced ejection fraction) Hyperlipidemia Hypertensive heart disease Hyperuricemia Hypokalemia Influenza A Rx Tamiflu 75mg bid for 5 days. Also Rx 75mg daily for 7 days for his Gregoria. Laceration of finger of left hand with damage to nail LV dysfunction Nail dystrophy Obstructive sleep apnea syndrome Orthopnea Otitis media Pain due to onychomycosis of toenails of both feet Patient left without being seen Prostatitis Pulmonary hypertension Sinusitis SIRS (systemic inflammatory response syndrome) Thyroid nodule Urinary incontinence UTI (urinary tract infection) Ventricular tachycardia Surgical History Stented coronary artery 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 Smoking Status: Never smoker second hand exposure: No alcohol intake: never counseling provided: none substance use type: denies use current occupational status: retired Travel in the last 8 weeks: [place] the [place] household members: spouse housing: house current occupational exposures/hazards: Yes caffeine: Yes ROS Obtained: Yes All systems reviewed & no additional complaints except as documented Constitutional Constitutional: Denies chills and Denies fever(s) Eyes Eyes: Denies eye discharge ENT Ears, Nose, Mouth, and Throat: Denies dizziness, Denies otalgia and Denies sore throat Cardiovascular Cardiovascular: Denies chest pain Respiratory Respiratory: Denies shortness of breath, Denies chest congestion, Denies cough, Denies stridor and Denies wheezing Gastrointestinal Gastrointestingal: Denies nausea or vomiting Musculoskeletal Musculoskeletal: Reports as per HPI Integumentary/Breasts Skin/Breast: Denies redness, Denies rash and Denies wounds Neurologic Neurologic: Denies dizziness and Denies paresthesias Allergic/Immunologic Allergic/Immunologic: Denies wheezing Physical Exam General General appearance: alert and in no apparent distress Head Head exam: atraumatic, normocephalic and normal inspection Eye Eye exam: Present normal appearance, PERRL and EOMI ENT ENT exam: Present normal exam, normal oropharynx, mucous membranes moist, TM's normal bilaterally and normal external ear exam Neck Neck exam: Present normal inspection, full ROM and trachea midline; Absent meningismus or lymphadenopathy Chest Chest inspection: Present normal inspection and symmetric chest wall rise; Absent tenderness Respiratory Respiratory exam: Present normal lung sounds bilaterally; Absent respiratory distress Cardiovascular Cardiovascular exam: Present regular rate and normal rhythm; Absent JVD Abdominal Exam Abdominal exam: Present soft and normal bowel sounds; Absent distention, tenderness or guarding Extremities Exam Extremities exam: Present normal capillary refill; Absent calf tenderness Expanded Lower Extremity Exam Left: Hip/Pelvis exam: Present normal inspection and full ROM; Absent tenderness Upper leg exam: Present normal inspection and full ROM; Absent tenderness Knee exam: Present normal inspection, full ROM and knee extension intact; Absent tenderness Lower leg exam: Present normal inspection, full ROM and Achilles tendon intact; Absent tenderness or Homans' sign Ankle exam: Present tenderness; Absent full ROM, swelling, abrasion, laceration, ecchymosis, deformity, crepitus, tenderness over talofibular lig or anterior draw sign Foot/toe exam: Present full ROM and tenderness; Absent swelling, abrasion, laceration, ecchymosis, deformity, crepitus, dislocation, erythema, amputation, puncture wound, foreign body, calcaneal tenderness, tenderness at base of 5th metatarsal, nail avulsion or subungual hematoma Neurovascular/Tendon exam: Present normal capillary refill and normal fine/light touch; Absent pulse deficit, motor deficit, sensory deficit, tendon deficit or extremity cold to touch Gait: observed and limited by pain Back Exam Back exam: Present normal inspection; Absent tenderness Neurological Exam Neurological exam: Present alert and oriented X3 Psychiatric Psychiatric exam: Present normal affect and normal mood Skin Skin exam: Present warm, dry, intact and normal color Lymphatic Lymphatic Findings: no adenopathy Medical Decision Making Medical Records Medical records reviewed: No I reviewed the patient's medical records. Manjit Inquiry Pt receiving controlled substance: No Medical Decision Narrative: He refused any x-rays and any lab work.
[2023-12-03] MEDS: KETOROLAC 60MG/2ML VIAL 60 MG IM (15:30)
[2023-12-03] MEDS: METHYLPREDNISOLONE SOD SUCC 125MG VIAL 125 MG IM (15:31)
[2023-12-03 16:14] VITALS: BP 129/82; PULSE 64; RESP 20; TEMP 36.5; O2SAT 97
== END 2023-12-03 16:14 | disposition home or self-care (01) ==
PROVIDERS: Emergency Provider Nurse Practitioner Family; PCP Family Medicine
DX: M10.072 Idiopathic gout, left ankle and foot (principal); K21.9 Gastro-esophageal reflux disease without esophagitis; I11.9 Hypertensive heart disease without heart failure; E78.5 Hyperlipidemia, unspecified; I20.9 Angina pectoris, unspecified; M25.572 Pain in left ankle and joints of left foot
CPT/HCPCS: 90471; 96372; 99212; 99214; G0463

== ENCOUNTER 2023-12-08 11:11 | Emergency (ER) | payer MEDICARE, SELFPAY ==
[2023-12-08 11:30] VITALS: BP 162/87; PULSE 66; RESP 18; TEMP 37.1; O2SAT 95; BMI 33.7
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
[2023-12-08] MEDS: KETOROLAC 60MG/2ML VIAL 30 MG IM (12:09)
[2023-12-08 12:29] VITALS: BP 162/87; PULSE 66; RESP 18; TEMP 37.1; O2SAT 95
== END 2023-12-08 12:29 | disposition home or self-care (01) ==
PROVIDERS: Emergency Provider Nurse Practitioner Family; PCP Family Medicine
DX: M25.512 Pain in left shoulder (principal); M67.912 Unspecified disorder of synovium and tendon, left shoulder; I11.0 Hypertensive heart disease with heart failure; I50.22 Chronic systolic (congestive) heart failure; K21.9 Gastro-esophageal reflux disease without esophagitis; I25.119 Atherosclerotic heart disease of native coronary artery with unspecified angina pectoris; E11.40 Type 2 diabetes mellitus with diabetic neuropathy, unspecified; E78.5 Hyperlipidemia, unspecified; Z95.810 Presence of automatic (implantable) cardiac defibrillator; Z95.5 Presence of coronary angioplasty implant and graft
CPT/HCPCS: 96372; 99212; 99214; G0463

== ENCOUNTER 2023-12-09 12:10 | Emergency (ER) | payer MEDICARE, SELFPAY ==
--- NOTE | 2023-12-09 | ECG_ITS ---
APPROVED REPORT Exam: Resting ECG HR:69 bpm ECG Measurements Heart Rate 69 AXES QRSd 184 QRS 98 QT 413 T -77 QTc 433 Conclusion ELECTRONIC VENTRICULAR PACEMAKER ABNORMAL RHYTHM ECG UNCONFIRMED REPORT Electronically signed by : Dick Yoon, 12/09/2023 15:07:29
[2023-12-09 12:22] VITALS: BP 138/78; PULSE 63; RESP 20; TEMP 36.4; O2SAT 98; BMI 32.8
--- NOTE | 2023-12-09 12:28 | XR_ITS ---
FINAL REPORT CLINICAL HISTORY: shoulder pain FINDINGS: Left shoulder Three views were obtained. There is no acute fracture or dislocation. There is moderate to severe AC joint degenerative change. No soft tissue abnormality is identified. IMPRESSION: Degenerative changes as above. Reviewed, Interpreted and Dictated by Yamil Bob III, MD Transcribed by Cristiane Fernandez Authenticated and [facility]
--- NOTE | 2023-12-09 12:29 | XR_ITS ---
FINAL REPORT CLINICAL HISTORY: dyspnea COMPARISON: 02/06/2023 FINDINGS: SINGLE-VIEW CHEST The heart size is normal. The mediastinum is normal. Left subclavian ICD is present. There are bibasilar opacities, favor atelectasis. There is no pneumothorax. IMPRESSION: Bibasilar atelectasis. Reviewed, Interpreted and Dictated by Yamil Bob III, MD Transcribed by Cristiane Fernandez Authenticated and [facility]
[2023-12-09 12:30] VITALS: BP 133/100; PULSE 70; O2SAT 92
[2023-12-09 12:36] LABS: Basophils # 0.2 K/mm3 (0-0.2); Basophils % 1.4 % (0.1-2.0); Eosinophils # 0.3 K/mm3 (0.0-0.4); Eosinophils % 2.6 % (0.1-12.0); Hematocrit 55.3 % (42.0-52.0); Hemoglobin 17.8 g/dL (14.1-18.0); Lymphocytes # 2.4 K/mm3 (0.7-4.5); Lymphocytes % 20.2 % (10-50); Mean Corpuscular HGB Conc 32.2 g/dL (31.8-35.4); Mean Corpuscular Hemoglobin 29.8 pg (27.0-31.2); Mean Corpuscular Volume 92.7 fl (80-94); Mean Platelet Volume 8.5 fl (7.4-10.4); Monocytes # 0.7 K/mm3 (0.1-1.0); Monocytes % 5.6 % (1.7-9.3); Neutrophils # 8.4 K/mm3 (1.8-7.8); Neutrophils % 70.3 % (37.0-80.0); Platelet Count 195 K/mm3 (142-424); Red Blood Count 5.97 M/mm3 (4.60-6.20); Red Cell Distribution Width 14.6 % (11.5-17.5)
--- NOTE | 2023-12-09 12:36 | ED_ITS ---
Discharge Plan Disposition Patient Disposition: Home, Self-Care Prescriptions Prescriptions: No Action spironolactone 25 mg tablet 25 mg PO DAILY Patient Comments: TAKE 1 TABLET BY MOUTH ONCE DAILY furosemide 40 mg tablet 40 mg PO .prn Qty: 30 2RF metoprolol succinate 50 mg tablet extended release 24 hr 50 mg PO DAILY Qty: 30 3RF allopurinol 300 mg tablet 300 mg PO DAILY Qty: 30 2RF tamsulosin 0.4 mg capsule 0.4 mg PO DAILY Patient Comments: TAKE 1 CAPSULE BY MOUTH ONCE DAILY. Jardiance 10 mg tablet 10 mg PO DAILY 0RF oxycodone-acetaminophen [Percocet] 5-325 mg tablet 1 tab PO Q4-6H PRN (Reason: pain) Qty: 30 0RF Rx Instructions: 1-2 tabs q4-6h PRN pain Entresto 97-103 mg tablet 1 tab PO DAILY carvedilol 25 mg tablet See Rx Instructions .ROUTE .COMPLEX Patient Comments: TAKE 2 TABLETS BY MOUTH TWICE A DAY Rx Instructions: TAKE 2 TABLETS BY MOUTH TWICE A DAY methylprednisolone 4 mg tablets,dose pack See Rx Instructions .ROUTE .COMPLEX Patient Comments: TAKE 6 TABLETS ON DAY 1,THEN 5 TABS ON DAY 2,THEN 4 TABS ON DAY 3, 3 TABS ON DAY 4,THEN 2 TABS ON DAY 5 AND 1 TAB ON DAY 6. *TAKE WITH FOOD* Rx Instructions: TAKE 6 TABLETS ON DAY 1,THEN 5 TABS ON DAY 2,THEN 4 TABS ON DAY 3, 3 TABS ON DAY 4,THEN 2 TABS ON DAY 5 AND 1 TAB ON DAY 6. *TAKE WITH FOOD* prasugrel 10 mg tablet 10 mg PO DAILY Referrals Follow up/Referrals: Roberto Sweeney MD [Primary Care Provider] - See instructions Activity Restrictions/Add. Instructions Additional Instructions/Restrictions: There is no evidence of an acute cardiopulmonary emergency or infectious or inflammatory process in association with recent surgery on your left shoulder. Please rest use ice take Tylenol and your muscle relaxer as discussed. You may also follow-up with your production broacher and your primary care doctor as needed. Clinical Impressions Clinical Impression: Post-op pain, Left shoulder pain, Arthritis of shoulder region, left, degenerative Discharge ED Provider: Jorge A Yoon [facility] General Chief Complaint: Chest Pain Stated Complaint: chest pain Time Seen by Provider: 12/09/23 12:19 Mode of Arrival: Ambulatory Source of Information: Patient and Spouse Limitations: No Limitations Description of Symptoms (Recalled from ER Triage Doc. by RN): pt c/o L chest pain that radiates to his L shoulder and side of his neck. pt reports dizziness, pain 8/10 that aches in nature, and SOA. pt states the pain and SOA are worse on exertion. pt states he had his defibrillator replaced sometime last wk. pts reports after the procedure the pt went home and resumed his normal activity rather than taking it easy as instructed. History of Present Illness HPI narrative: Patient is a 73-year-old male presents today with left upper lateral chest and shoulder pain that been ongoing since he had his defibrillator replaced 1 week ago. 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 No swelling redness fevers chills around the site of operation or in the shoulder itself. Does have significant pain with any range of motion. No injuries superimposed upon the recent operative procedure. Related Data Home Medications Medication Instructions Recorded Confirmed sacubitril 97 mg-valsartan 103 mg 1 tab PO DAILY Heart failure 02/06/23 12/08/23 tablet (Entresto) prasugrel 10 mg tablet 10 mg PO DAILY 10/06/23 12/08/23 tamsulosin 0.4 mg capsule 0.4 mg PO DAILY 10/06/23 12/08/23 spironolactone 25 mg tablet 25 mg PO DAILY 10/20/23 12/08/23 carvedilol 25 mg tablet See Rx Instructions .Route .COMPLEX 12/08/23 12/08/23 methylprednisolone 4 mg tablets in See Rx Instructions .Route .COMPLEX 12/08/23 12/08/23 a dose pack Previous Rx's Medication Instructions Recorded allopurinol 300 mg tablet 300 mg PO DAILY #30 tabs 03/17/23 furosemide 40 mg tablet 40 mg PO .prn #30 tabs 10/20/23 metoprolol succinate 50 mg 50 mg PO DAILY #30 tabs 10/20/23 tablet,extended release 24 hr oxycodone-acetaminophen 5 mg-325 1 tab PO Q4-6H PRN pain #30 tabs 11/24/23 mg tablet (Percocet) Allergies Allergy/AdvReac Type Severity Reaction Status Date / Time dapagliflozin [From [facility]] Allergy Verified 12/09/23 12:31 Gimodae-PHW-CfE Reductase AdvReac Mild Verified 12/09/23 12:31 Inhibitor [Baitbdr-Ucm-Xig Reductase Inhibitor] PFSH COUNT INCLUDES THE [facility] Disclaimer: The information contained in this section may have been updated after the patient was seen, as this information can be updated by other users. Medical History Acute febrile illness Angina, class III CHF NYHA class III Chronic obstructive lung disease Clavicle fracture Coronary arteriosclerosis Ear ache Fatigue GERD (gastroesophageal reflux disease) Hallux rigidus of right foot HFrEF (heart failure with reduced ejection fraction) Hyperlipidemia Hypertensive heart disease Hyperuricemia Hypokalemia Influenza A Rx Tamiflu 75mg bid for 5 days. Also Rx 75mg daily for 7 days for his Gregoria. Laceration of finger of left hand with damage to nail LV dysfunction Nail dystrophy Obstructive sleep apnea syndrome Orthopnea Otitis media Pain due to onychomycosis of toenails of both feet Patient left without being seen Prostatitis Pulmonary hypertension Sinusitis SIRS (systemic inflammatory response syndrome) Thyroid nodule Urinary incontinence UTI (urinary tract infection) Ventricular tachycardia Surgical History Stented coronary artery 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 Smoking Status: Never smoker second hand exposure: No alcohol intake: never counseling provided: none substance use type: denies use current occupational status: retired Travel in the last 8 weeks: Inside the [place] household members: spouse housing: house current occupational exposures/hazards: Yes caffeine: Yes ROS Obtained: Yes All systems reviewed & no additional complaints except as documented Physical Exam General General appearance: alert Chest Chest inspection: Present other (Left anterior lateral chest wall no erythema swelling or bulge around the defibrillator pouch) Respiratory Respiratory exam: Present normal lung sounds bilaterally Cardiovascular Cardiovascular exam: Present regular rate and normal rhythm Extremities Exam Extremities exam: Present other (Patient does have full range of motion but limited secondary to pain no swelling or erythema or warmth around the left shoulder normal neurovascular exam distal to the left shoulder) Neurological Exam Neurological exam: Present alert and oriented X3 HEART Score HEART Score HEART Score assessment performed?: Yes History (anamnesis): Slightly suspicious ECG: Non-specific disturbance Age: >65 years Risk factors: Atherosclerosis history Troponin: </= normal limit HEART Score: 5 Critical Care Critical Care Time Critical Care Time: No Medical Decision Making Manjit Inquiry Pt receiving controlled substance: No Vital Signs Vital Signs: 12/09/23 12:22 12/09/23 12:30 12/09/23 13:07 Temperature 97.6 F Temperature Source Oral Pulse Rate 70 59 L Pulse Rate [Left] 63 Respiratory Rate 20 Blood Pressure 133/100 H 132/87 Blood Pressure [Right Arm] 138/78 Blood Pressure Mean [Right Arm] 98 Blood Pressure Source [Right Arm] Automatic Cuff 02 Sat by Pulse Oximetry 98 92 L 94 L Oxygen Delivery Method Room Air Room Air 12/09/23 13:31 Temperature Temperature Source Pulse Rate 64 Pulse Rate [Left] Respiratory Rate Blood Pressure 134/107 H Blood Pressure [Right Arm] Blood Pressure Mean [Right Arm] Blood Pressure Source [Right Arm] 02 Sat by Pulse Oximetry 91 L Oxygen Delivery Method Room Air Lab Data Lab results reviewed: Yes I reviewed the patient's lab results. Labs: Lab Results 12/09/23 12:14: WBC 12.0 H, RBC 5.97, Hgb 17.8, Hct 55.3 H, MCV 92.7, MCH 29.8, MCHC 32.2, RDW 14.6, Plt Count 195, MPV 8.5, Neut % (Auto) 70.3, Lymph % (Auto) 20.2, [place] % (Auto) 5.6, Eos % (Auto) 2.6, Baso % (Auto) 1.4, Neut # (Auto) 8.4 H, Lymph # (Auto) 2.4, [place] # (Auto) 0.7, Eos # (Auto) 0.3, Baso # (Auto) 0.2, ESR 1, Sodium 141, Potassium 3.7, Chloride 104, Carbon Dioxide 28, Anion Gap 12.7, BUN 23 H, Creatinine 0.90, Estimated Creat Clear 95, Estimated GFR 83, Est GFR ( Amer) 100, Glucose 154 H, Calcium 9.8, Total Bilirubin 0.5, AST 32, ALT 35, Alkaline Phosphatase 73, Total Creatine Kinase 24 L, Troponin I < 0.01, C-Reactive Protein 1.2, Total Protein 7.1, Albumin 4.1, Globulin 3.0, Albumin/Globulin Ratio 1.4 12/09/23 12:14 12/09/23 12:14 Response Orders (Tests/Meds): ED MEDICATIONS Discontinued Medications Generic Name Dose Route Start Last Admin Trade Name Kiran PRN Reason Stop Dose Admin Acetaminophen 1,000 mg 12/09/23 13:19 12/09/23 13:26 Acetaminophen 1,000mg/100ml Vial IV 12/09/23 13:20 1,000 mg ONCE ONE Administration Morphine Sulfate 4 mg 12/09/23 12:28 12/09/23 13:03 Morphine 4mg/Ml Syringe IV 12/09/23 12:29 4 mg ONCE ONE Administration Ondansetron HCl 4 mg 12/09/23 12:28 12/09/23 13:03 Ondansetron 4mg/2ml Vial IV 12/09/23 12:29 4 mg ONCE ONE Administration ORDERS Category Date Time Status CXR --portable [XR chest portable] Stat Exams 12/09/23 12:29 Completed Shoulder XR left minimum 2 views [XR shoulder LT min 2V Exams 12/09/23 12:28 Completed ] Stat CBC w/Auto Diff [Complete Blood Count Auto Diff] Stat Lab 12/09/23 12:14 Completed CK [Creatine Kinase] Stat Lab 12/09/23 12:14 Completed CMP [Comprehensive Metabolic Panel] Stat Lab 12/09/23 12:14 Completed CRP [C-Reactive Protein] Stat Lab 12/09/23 12:14 Completed ESR [Erythrocyte Sedimentation Rate] Stat Lab 12/09/23 12:14 Completed Trop I [Troponin I] Stat Lab 12/09/23 12:14 Completed Troponin I Q3H Lab 12/09/23 15:30 Ordered Troponin I Q3H Lab 12/09/23 18:30 Ordered MDM Narrative Medical Decision Narrative: Patient is a 73-year-old male with above history. Does have some chest component to this but it has been ongoing since his recent surgical procedure will get a single troponin to rule out any type of myocardial involvement. EKG was performed which I first interpreted shows a ventricular rate of 69 there is electronic ventricular pacemaker cannot rule out definitive ischemia but negative Sgarbossa's criteria. Regarding the pain is most likely postoperative is no evidence of any superficial inflammatory changes or evidence of infection. Will get inflammatory markers basic blood work chest x-ray and shoulder x-ray to further evaluate for any other pathology such as pneumothorax or bony pathology. He will be treated with incremental pain medication while in the emergency department and if his workup is negative he will be advised to follow- up with his production broacher. Labs unremarkable specifically inflammatory markers troponin etc. X-rays performed which I personally interpreted which show no acute cardiopulmonary emergency and no fracture or dislocation left shoulder there are degenerative changes noted. Overall no evidence of infectious or inflammatory process or ACS etc. Patient reassured has been advised to rest this to put ice on the area take Tylenol as needed to avoid NSAIDs in the setting of his anticoagulation and antiplatelet agents and to return with any worsening symptoms also to follow-up with his primary care doctor and his production broacher if he has ongoing or worsening symptoms. At this point no evidence of a septic joint or other cardiopulmonary/orthopedic emergency
[2023-12-09 12:42] LABS: Creatine Kinase 24 U/L (55-170)
[2023-12-09 12:47] LABS: C-Reactive Protein 1.2 mg/L (0-4)
--- NOTE | 2023-12-09 12:52 | PC.NURSE ---
xray at bs
[2023-12-09 12:57] LABS: Troponin I < 0.01 ng/ml (0.00-0.034)
--- NOTE | 2023-12-09 12:58 | PC.NURSE ---
ROUNDED ON PT NO NEEDS AT THIS TIME,CALL LIGHT IN REACH
[2023-12-09 13:02] LABS: Erythrocyte Sedimentation Rate 1 mm/hr (0-20)
[2023-12-09] MEDS: MORPHINE 4MG/ML SYRINGE 4 MG IV (13:03)
[2023-12-09] MEDS: ONDANSETRON 4MG/2ML VIAL 4 MG IV (13:03)
[2023-12-09 13:07] VITALS: BP 132/87; PULSE 59; O2SAT 94
[2023-12-09 13:18] LABS: Alanine Aminotransferase 35 U/L (12-78); Albumin Level 4.1 g/dl (3.5-5.0); Albumin/Globulin Ratio 1.4 (1.1-1.8); Alkaline Phosphatase 73 U/L (38-126); Anion Gap 12.7 mEq/L (5-15); Aspartate Amino Transferase 32 U/L (17-59); Bilirubin,Total 0.5 mg/dl (0.2-1.3); Blood Urea Nitrogen 23 mg/dl (9-20); Calcium 9.8 mg/dl (8.4-10.2); Carbon Dioxide 28 mmol/L (22.0-30.0); Chloride 104 mmol/L (98-107); Creatinine Clearance Estimated 95 mL/min (50-200); Estimated Glomerular Filt Rate 83 ml/min (>60); GFR (African American) 100 ML/MIN (>60); Glucose 154 mg/dl (74-100); Potassium 3.7 mmoL/L (3.5-5.1); Sodium 141 mmol/L (136-145); Total Protein,Serum 7.1 g/dl (6.3-8.2)
[2023-12-09] MEDS: ACETAMINOPHEN 1,000MG/100ML VIAL 1000 MG IV (13:26)
[2023-12-09 13:31] VITALS: BP 134/107; PULSE 64; O2SAT 91
[2023-12-09 14:26] VITALS: BP 121/94; PULSE 70; RESP 20; TEMP 36.6
--- NOTE | 2023-12-21 22:56 | PC.NURSE ---
Chart accessed for ortho paperwork
== END 2023-12-09 14:36 | disposition home or self-care (01) ==
PROVIDERS: Emergency Provider Student in an Organized Health Care Education/Training Program; PCP Family Medicine
DX: M19.012 Primary osteoarthritis, left shoulder (principal); M25.512 Pain in left shoulder; G89.18 Other acute postprocedural pain; I11.0 Hypertensive heart disease with heart failure; I50.22 Chronic systolic (congestive) heart failure; I25.119 Atherosclerotic heart disease of native coronary artery with unspecified angina pectoris; K21.9 Gastro-esophageal reflux disease without esophagitis; I42.9 Cardiomyopathy, unspecified; E78.5 Hyperlipidemia, unspecified; Z95.810 Presence of automatic (implantable) cardiac defibrillator; Z95.5 Presence of coronary angioplasty implant and graft
CPT/HCPCS: 71045; 73030; 80053; 82550; 84484; 85025; 85651; 86140; 93005; 96374; 96375; 99285; J0131; J2405

== ENCOUNTER 2023-12-29 12:00 | Outpatient (CLI) | payer MEDICARE, SELFPAY ==
[2023-12-29 13:33] LABS: NT Pro Brain Natriuretic Pep. 579 pg/mL (0-125)
== END 2023-12-29 23:59 ==
LOC: LAB 12:01
PROVIDERS: PCP Family Medicine; Visit Provider Internal Medicine
DX: E78.2 Mixed hyperlipidemia (principal); R06.00 Dyspnea, unspecified; I25.118 Atherosclerotic heart disease of native coronary artery with other forms of angina pectoris; I25.5 Ischemic cardiomyopathy; I50.22 Chronic systolic (congestive) heart failure; R53.82 Chronic fatigue, unspecified; Z95.5 Presence of coronary angioplasty implant and graft; Z95.810 Presence of automatic (implantable) cardiac defibrillator
CPT/HCPCS: 36415; 83880

== ENCOUNTER 2024-01-07 15:09 | Outpatient (CLI) | payer MEDICARE, SELFPAY ==
--- NOTE | 2024-01-07 15:09 | CA_ITS ---
FINAL REPORT TECHNIQUE: Color Doppler, duplex Doppler and dye scale sonography of the bilateral neck arterial vasculature was performed. Velocities were measured in the carotid arteries. Stenosis evaluation based on the validated velocity criteria. CLINICAL HISTORY: dizziness, systolic HF,HTN,EX SMOKER FINDINGS: The peak systolic velocity of the right common carotid artery is 48 cm/s. The peak systolic velocity of the right internal carotid artery is 39 cm/s and end diastolic velocity 6 cm/s. The ICA/CCA ratio is 0.80. A small amount of plaque is present. The right external carotid artery is patent. The right vertebral artery is patent with antegrade flow. The peak systolic velocity of the left common carotid artery is 48 cm/s. The peak systolic velocity of the left internal carotid artery is 55 cm/s and end diastolic velocity 18 cm/s. The ICA/CCA ratio is 1.3. A small amount of plaque is present. The left external carotid artery is patent.The left vertebral artery is patent with antegrade flow. IMPRESSION: Less than 50% bilateral carotid stenoses. Bilateral patent vertebral arteries with antegrade flow. If indicated, CTA or MRA could further evaluate. Reviewed, Interpreted and Dictated by Yamil Bob III, MD Transcribed by Cristiane Fernandez Authenticated and [facility]
== END 2024-01-07 23:59 ==
LOC: RT 15:09
PROVIDERS: PCP Family Medicine; Visit Provider Internal Medicine
DX: R42 Dizziness and giddiness (principal); I25.118 Atherosclerotic heart disease of native coronary artery with other forms of angina pectoris; I50.22 Chronic systolic (congestive) heart failure; I25.5 Ischemic cardiomyopathy; R53.82 Chronic fatigue, unspecified; E78.2 Mixed hyperlipidemia; Z95.5 Presence of coronary angioplasty implant and graft; Z95.810 Presence of automatic (implantable) cardiac defibrillator
CPT/HCPCS: 93880

== ENCOUNTER 2024-02-07 17:44 | Emergency (ER) | payer MEDICARE, SELFPAY ==
[2024-02-07 17:55] VITALS: BP 139/68; PULSE 72; RESP 18; TEMP 36.8; O2SAT 94; BMI 33.3
--- NOTE | 2024-02-07 18:13 | EXP.UTC ---
Discharge Plan Disposition Patient Disposition: Home, Self-Care Condition: Good Prescriptions Prescriptions: No Action spironolactone 25 mg tablet 25 mg PO DAILY Patient Comments: TAKE 1 TABLET BY MOUTH ONCE DAILY furosemide 40 mg tablet 40 mg PO .prn Qty: 30 2RF hydrocodone-acetaminophen 5-325 mg tablet PO Patient Comments: TAKE 1 TABLET BY MOUTH EVERY 8 HOURS AND NEEDED. diclofenac sodium 75 mg tablet,delayed release (DR/EC) PO allopurinol 300 mg tablet 300 mg PO DAILY Qty: 30 2RF tamsulosin 0.4 mg capsule 0.4 mg PO DAILY Patient Comments: TAKE 1 CAPSULE BY MOUTH ONCE DAILY. Jardiance 10 mg tablet 10 mg PO DAILY 0RF oxycodone-acetaminophen [Percocet] 5-325 mg tablet 1 tab PO Q4-6H PRN (Reason: pain) Qty: 90 0RF Rx Instructions: 1-2 tabs q4-6h PRN pain metoprolol succinate 50 mg tablet extended release 24 hr 50 mg PO BID 90 Days Qty: 180 3RF Entresto 97-103 mg tablet 1 tab PO DAILY prasugrel 10 mg tablet 10 mg PO DAILY Referrals Follow up/Referrals: Tomi Sweeney MD [Primary Care Provider] - See instructions Clinical Impressions Clinical Impression: Gout Instructions Patient Instructions: DI for Gout Discharge ED Provider: Jaya ([facility])[place] [facility] [place] General Stated complaint: Goet in both feet Mode of Arrival: Ambulatory Source of Information: Patient Limitations: No Limitations Time Seen by Provider: 02/07/24 18:15 Description of Symptoms (Recalled from Triage Doc. by RN): Pt has gout in both feet. HEENT Symptoms (Recalled from RN notes): Yes Resp Symptoms (Recalled from RN notes): No Skin Symptoms (Recalled from RN notes): No MS Symptoms (Recalled from RN notes): No Functional Status (Recalled from RN notes): n/a History of Present Illness Provider Complaint: 73 yr old male presents for gout attack in both feet Related Data Home Medications Medication Instructions Recorded Confirmed sacubitril 97 mg-valsartan 103 mg 1 tab PO DAILY Heart failure 02/06/23 02/01/24 tablet (Entresto) prasugrel 10 mg tablet 10 mg PO DAILY 10/06/23 02/01/24 tamsulosin 0.4 mg capsule 0.4 mg PO DAILY 10/06/23 02/01/24 spironolactone 25 mg tablet 25 mg PO DAILY 10/20/23 02/01/24 diclofenac sodium 75 mg mg PO 12/29/23 02/01/24 tablet,delayed release hydrocodone 5 mg-acetaminophen 325 tab PO 01/18/24 02/01/24 mg tablet Previous Rx's Medication Instructions Recorded allopurinol 300 mg tablet 300 mg PO DAILY #30 tabs 03/17/23 furosemide 40 mg tablet 40 mg PO .prn #30 tabs 10/20/23 oxycodone-acetaminophen 5 mg-325 1 tab PO Q4-6H PRN pain #90 tabs 01/19/24 mg tablet (Percocet) metoprolol succinate 50 mg 50 mg PO BID 90 days #180 tabs 01/20/24 tablet,extended release 24 hr Allergies Allergy/AdvReac Type Severity Reaction Status Date / Time dapagliflozin [From [facility]] Allergy Verified 02/01/24 10:21 Toeeuyy-QCE-IzX Reductase AdvReac Mild Verified 02/01/24 10:21 Inhibitor [Ridkmuk-Esn-Swm Reductase Inhibitor] Worker's Comp Is this a Worker's Comp case?: No [facility] Disclaimer: The information contained in this section may have been updated after the patient was seen, as this information can be updated by other users. Medical History , [employer]) HFrEF (heart failure with reduced ejection fraction) Laceration of finger of left hand with damage to nail GERD (gastroesophageal reflux disease) Urinary incontinence Hyperuricemia Otitis media Influenza A Orthopnea Sinusitis Patient left without being seen Nail dystrophy Pain due to onychomycosis of toenails of both feet Hallux rigidus of right foot UTI (urinary tract infection) SIRS (systemic inflammatory response syndrome) Thyroid nodule Clavicle fracture Ear ache Ventricular tachycardia Pulmonary hypertension Angina, class III Hypokalemia Prostatitis Acute febrile illness CHF NYHA class III LV dysfunction Obstructive sleep apnea syndrome Chronic obstructive lung disease Fatigue Hyperlipidemia Hypertensive heart disease Coronary arteriosclerosis Surgical History , [employer]) Stented coronary artery 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 , [employer]) Smoking Status: Never smoker second hand exposure: No alcohol intake: never counseling provided: none substance use type: denies use current occupational status: retired Travel in the last 8 weeks: Inside the [place] household members: spouse housing: house current occupational exposures/hazards: Yes caffeine: Yes ROS Obtained: Yes All systems reviewed & no additional complaints except as documented Constitutional Constitutional: Reports system reviewed and no additional complaints, except as documented and Reports as per HPI Eyes Eyes: Reports system reviewed and no additional complaints, except as documented ENT Ears, Nose, Mouth, and Throat: Reports system reviewed and no additional complaints, except as documented Cardiovascular Cardiovascular: Reports system reviewed and no additional complaints, except as documented Respiratory Respiratory: Reports system reviewed and no additional complaints, except as documented Musculoskeletal Musculoskeletal: Reports system reviewed and no additional complaints, except as documented, Reports as per HPI, Reports arthralgias, Reports joint swelling and Reports limited range of motion Integumentary/Breasts Skin/Breast: Reports system reviewed and no additional complaints, except as documented Neurologic Neurologic: Reports system reviewed and no additional complaints, except as documented Endocrine Endocrine: Reports system reviewed and no additional complaints, except as documented Hematologic/Lymphatic Henatologic/Lymphatic: Reports system reviewed and no additional complaints, except as documented Physical Exam General General appearance: alert and in no apparent distress Head Head exam: atraumatic Eye Eye exam: Present normal appearance and PERRL ENT ENT exam: Present normal exam, normal oropharynx, mucous membranes moist and TM's normal bilaterally Respiratory Respiratory exam: Present normal lung sounds bilaterally Cardiovascular Cardiovascular exam: Present regular rate and normal rhythm Expanded Lower Extremity Exam mikel: Top foot image: 1. red, swelling 2. red, swelling 3. red,swollen 4. red,swollen Neurological Exam Neurological exam: Present alert and oriented X3 Medical Decision Making Medical Records Medical records reviewed: Yes I reviewed the patient's medical records. Manjit Inquiry Pt receiving controlled substance: No Manjit was queried for this patient: No Vital Signs: 02/07/24 17:55 Temperature 98.3 F Temperature Source Oral Pulse Rate [Right Radial] 72 Respiratory Rate 18 Blood Pressure [Right Arm] 139/68 Blood Pressure Mean [Right Arm] 91 Blood Pressure Source [Right Arm] Automatic Cuff Blood Pressure Position [Right Arm] Sitting 02 Sat by Pulse Oximetry 94 L Oxygen Delivery Method Room Air
[2024-02-07] MEDS: KETOROLAC 60MG/2ML VIAL 15 MG IM (18:27)
[2024-02-07] MEDS: DEXAMETHASONE 4MG/ML 1ML VIAL 4 MG IM (18:28)
[2024-02-07 18:56] VITALS: BP 139/68; PULSE 72; RESP 18; TEMP 36.8; O2SAT 95
== END 2024-02-07 18:56 | disposition home or self-care (01) ==
PROVIDERS: Emergency Provider Nurse Practitioner Family; PCP Psychiatry & Neurology Sleep Medicine
DX: M10.071 Idiopathic gout, right ankle and foot (principal); M10.072 Idiopathic gout, left ankle and foot
CPT/HCPCS: 96372; 99212; 99214; G0463

== ENCOUNTER 2024-02-14 12:42 | Emergency (ER) | payer MEDICARE, SELFPAY ==
[2024-02-14 13:30] VITALS: BP 122/70; PULSE 65; RESP 20; TEMP 36.7; O2SAT 95; BMI 32.8
--- NOTE | 2024-02-14 13:59 | ED_ITS ---
Discharge Plan Disposition Patient Disposition: Home, Self-Care Condition: Good Prescriptions Prescriptions: New colchicine [Colcrys] 0.6 mg tablet 0.6 mg PO DIRECTED Qty: 6 0RF Rx Instructions: Take 2 tablets (1.2mg) now wait one hour then take 1 tablet (0.6mg), may repeat regimen in 72 hours if still having symptoms No Action spironolactone 25 mg tablet 25 mg PO DAILY Patient Comments: TAKE 1 TABLET BY MOUTH ONCE DAILY furosemide 40 mg tablet 40 mg PO .prn Qty: 30 2RF hydrocodone-acetaminophen 5-325 mg tablet PO Patient Comments: TAKE 1 TABLET BY MOUTH EVERY 8 HOURS AND NEEDED. diclofenac sodium 75 mg tablet,delayed release (DR/EC) PO allopurinol 300 mg tablet 300 mg PO DAILY Qty: 30 2RF tamsulosin 0.4 mg capsule 0.4 mg PO DAILY Patient Comments: TAKE 1 CAPSULE BY MOUTH ONCE DAILY. Jardiance 10 mg tablet 10 mg PO DAILY 0RF oxycodone-acetaminophen [Percocet] 5-325 mg tablet 1 tab PO Q4-6H PRN (Reason: pain) Qty: 90 0RF Rx Instructions: 1-2 tabs q4-6h PRN pain metoprolol succinate 50 mg tablet extended release 24 hr 50 mg PO BID 90 Days Qty: 180 3RF Entresto 97-103 mg tablet 1 tab PO BID 90 Days Qty: 180 3RF prednisone 10 mg tablet 10 mg PO BID 3 Days Qty: 6 0RF Rx Instructions: see taper instructions prasugrel 10 mg tablet 10 mg PO DAILY Referrals Follow up/Referrals: Roberto Sweeney MD [Primary Care Provider] - See instructions Activity Restrictions/Add. Instructions Additional Instructions/Restrictions: Take medication as prescribed Follow up with your Family Doctor to discuss further treatment Straight to ER if any life threatening symptoms Clinical Impressions Clinical Impression: Gout attack Instructions Patient Instructions: DI for Gout, Colchicine Discharge ED Provider: Enid Aguilar [facility] General Stated complaint: gout in both feet Mode of Arrival: Ambulatory Source of Information: Patient and Spouse Limitations: No Limitations Time Seen by Provider: 02/14/24 14:12 Description of Symptoms (Recalled from Triage Doc. by RN): PATIENT C/O GOUT FLARE-UP TO BILATERAL FEET X 2 DAYS. PATIENT STATES PAIN IN LEFT FOOT IS WORSE HEENT Symptoms (Recalled from RN notes): No Resp Symptoms (Recalled from RN notes): No Skin Symptoms (Recalled from RN notes): No MS Symptoms (Recalled from RN notes): Yes Functional Status (Recalled from RN notes): WNL History of Present Illness Provider Complaint: Patient states that he has hx of gout States for the last couple of days he has been having a flare again States that he has been having pain and tenderness in both feet worse in left Related Data Home Medications Medication Instructions Recorded Confirmed prasugrel 10 mg tablet 10 mg PO DAILY 10/06/23 02/01/24 tamsulosin 0.4 mg capsule 0.4 mg PO DAILY 10/06/23 02/01/24 spironolactone 25 mg tablet 25 mg PO DAILY 10/20/23 02/01/24 diclofenac sodium 75 mg mg PO 12/29/23 02/01/24 tablet,delayed release hydrocodone 5 mg-acetaminophen 325 tab PO 01/18/24 02/01/24 mg tablet Previous Rx's Medication Instructions Recorded allopurinol 300 mg tablet 300 mg PO DAILY #30 tabs 03/17/23 furosemide 40 mg tablet 40 mg PO .prn #30 tabs 10/20/23 oxycodone-acetaminophen 5 mg-325 1 tab PO Q4-6H PRN pain #90 tabs 01/19/24 mg tablet (Percocet) metoprolol succinate 50 mg 50 mg PO BID 90 days #180 tabs 01/20/24 tablet,extended release 24 hr prednisone 10 mg tablet 10 mg PO BID 3 days #6 tabs 02/07/24 sacubitril 97 mg-valsartan 103 mg 1 tab PO BID Heart failure 90 days 02/08/24 tablet (Entresto) #180 tabs colchicine 0.6 mg tablet (Colcrys) 0.6 mg PO DIRECTED #6 tabs 02/14/24 Allergies Allergy/AdvReac Type Severity Reaction Status Date / Time dapagliflozin [From [facility]] Allergy Verified 02/01/24 10:21 Gvrgzra-ZWQ-AoY Reductase AdvReac Mild Verified 02/01/24 10:21 Inhibitor [Fhrnmdn-Cwz-Iuu Reductase Inhibitor] Worker's Comp Is this a Worker's Comp case?: No [facility] Disclaimer: The information contained in this section may have been updated after the patient was seen, as this information can be updated by other users. Medical History , [employer]) HFrEF (heart failure with reduced ejection fraction) Laceration of finger of left hand with damage to nail GERD (gastroesophageal reflux disease) Urinary incontinence Hyperuricemia Otitis media Influenza A Orthopnea Sinusitis Patient left without being seen Nail dystrophy Pain due to onychomycosis of toenails of both feet Hallux rigidus of right foot UTI (urinary tract infection) SIRS (systemic inflammatory response syndrome) Thyroid nodule Clavicle fracture Ear ache Ventricular tachycardia Pulmonary hypertension Angina, class III Hypokalemia Prostatitis Acute febrile illness CHF NYHA class III LV dysfunction Obstructive sleep apnea syndrome Chronic obstructive lung disease Fatigue Hyperlipidemia Hypertensive heart disease Coronary arteriosclerosis Surgical History , [employer]) Stented coronary artery 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 , 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 Status: Never smoker second hand exposure: No alcohol intake: never counseling provided: none substance use type: denies use current occupational status: retired Travel in the last 8 weeks: [place] the [place] household members: spouse housing: house current occupational exposures/hazards: Yes caffeine: Yes ROS Obtained: Yes All systems reviewed & no additional complaints except as documented and Yes Systems reviewed as appropriate & no additional complaints except as documented Constitutional Constitutional: Reports system reviewed and no additional complaints, except as documented and Reports as per HPI ENT Ears, Nose, Mouth, and Throat: Reports system reviewed and no additional complaints, except as documented and Reports as per HPI Cardiovascular Cardiovascular: Reports system reviewed and no additional complaints, except as documented and Reports as per HPI Respiratory Respiratory: Reports system reviewed and no additional complaints, except as documented and Reports as per HPI Gastrointestinal Gastrointestingal: Reports system reviewed and no additional complaints, except as documented and as per HPI Musculoskeletal Musculoskeletal: Reports system reviewed and no additional complaints, except as documented, Reports as per HPI and Reports other Comments: Pain and swelling in bilateral feet hx of gout Physical Exam General General appearance: alert and in no apparent distress ENT ENT exam: Present mucous membranes moist Respiratory Respiratory exam: Present normal lung sounds bilaterally; Absent respiratory distress or wheezes Cardiovascular Cardiovascular exam: Present regular rate, normal rhythm and normal heart sounds Expanded Lower Extremity Exam bilateral: Top foot image: 2 1. tenderness, mild redness and swelling 2. tenderness mild redness and swelling Neurological Exam Neurological exam: Present alert, oriented X3 and normal gait Medical Decision Making Manjit Inquiry Pt receiving controlled substance: No Manjit was queried for this patient: No Vital Signs: 02/14/24 13:30 Temperature 98.1 F Temperature Source Oral Pulse Rate [Left Brachial] 65 Respiratory Rate 20 Blood Pressure [Left Arm] 122/70 Blood Pressure Mean [Left Arm] 87 Blood Pressure Source [Left Arm] Automatic Cuff Blood Pressure Position [Left Arm] Sitting 02 Sat by Pulse Oximetry 95 Oxygen Delivery Method Room Air Medical Decision Narrative: Discussed Uric acid test to verify gout and patient declined, medication discussed with pharmacy
[2024-02-14 14:25] VITALS: BP 122/70; PULSE 65; RESP 20; TEMP 36.7; O2SAT 95
[2024-02-14] MEDS: METHYLPREDNISOLONE SOD SUCC 125MG VIAL 125 MG IM (14:25)
== END 2024-02-14 14:53 | disposition home or self-care (01) ==
PROVIDERS: Emergency Provider Nurse Practitioner; PCP Family Medicine
DX: M10.071 Idiopathic gout, right ankle and foot (principal); M10.072 Idiopathic gout, left ankle and foot; M79.671 Pain in right foot; M79.672 Pain in left foot
CPT/HCPCS: 96372; 99212; 99214; G0463

== ENCOUNTER 2024-02-16 12:36 | Outpatient (CLI) | payer MEDICARE, SELFPAY ==
[2024-02-16 19:40] LABS: Alanine Aminotransferase 36 U/L (12-78); Albumin Level 3.5 g/dl (3.5-5.0); Albumin/Globulin Ratio 1.2 (1.1-1.8); Alkaline Phosphatase 77 U/L (38-126); Anion Gap 9.9 mEq/L (5-15); Aspartate Amino Transferase 45 U/L (17-59); Bilirubin,Total 0.5 mg/dl (0.2-1.3); Blood Urea Nitrogen 17 mg/dl (9-20); Calcium 9.3 mg/dl (8.4-10.2); Carbon Dioxide 29 mmol/L (22.0-30.0); Chloride 105 mmol/L (98-107); Estimated Glomerular Filt Rate 83 ml/min (>60); GFR (African American) 100 ML/MIN (>60); Glucose 117 mg/dl (74-100); Potassium 3.9 mmoL/L (3.5-5.1); Sodium 140 mmol/L (136-145); Total Protein,Serum 6.5 g/dl (6.3-8.2); Uric Acid 5.8 mg/dl (3.5-8.5)
== END 2024-02-16 23:59 | disposition home or self-care (01) ==
LOC: LAB.DROPOF 02-17 09:57
PROVIDERS: PCP Family Medicine; Visit Provider Family Medicine
DX: M10.479 Other secondary gout, unspecified ankle and foot (principal)
CPT/HCPCS: 80053; 84550

== ENCOUNTER 2024-03-22 21:03 | Emergency (ER) | payer MEDICARE, SELFPAY ==
[2024-03-22 21:04] VITALS: BP 139/80; PULSE 100; RESP 17; TEMP 36.7; O2SAT 97; BMI 32.8
--- NOTE | 2024-03-22 21:17 | HMH.EDGENADL ---
Discharge Plan Disposition Patient Disposition: Home, Self-Care Prescriptions Prescriptions: New dexamethasone 2 mg tablet 10 mg PO ONCE Qty: 5 0RF Rx Instructions: Please take 48-72 hours after ED dose No Action furosemide 40 mg tablet 40 mg PO .prn Qty: 30 2RF allopurinol 300 mg tablet 300 mg PO DAILY Qty: 30 2RF Jardiance 10 mg tablet 10 mg PO DAILY 0RF prednisone 10 mg tablet 20 mg PO DAILY Qty: 40 1RF oxycodone-acetaminophen [Percocet] 5-325 mg tablet 1 tab PO TID PRN (Reason: pain) Qty: 60 0RF Rx Instructions: TID PRN pain metoprolol succinate 50 mg tablet extended release 24 hr 50 mg PO BID 90 Days Qty: 180 3RF Entresto 97-103 mg tablet 1 tab PO BID 90 Days Qty: 180 3RF colchicine [Colcrys] 0.6 mg tablet 0.6 mg PO DIRECTED Qty: 6 0RF Rx Instructions: Take 2 tablets (1.2mg) now wait one hour then take 1 tablet (0.6mg), may repeat regimen in 72 hours if still having symptoms Referrals Follow up/Referrals: Roberto Sweeney MD [Primary Care Provider] - See instructions Activity Restrictions/Add. Instructions Additional Instructions/Restrictions: You were treated today for a gouty arthritis attack in your left ankle. You were given a single dose of dexamethasone which is a long-acting steroid should last 72 hours. You were prescribed an additional 10 mg dose of dexamethasone that you can take in 72 hours if you are still symptomatic. Otherwise follow-up with primary care doctor return with any worsening symptoms or high fevers or other concerns. Clinical Impressions Clinical Impression: Gout attack Discharge ED Provider: Jorge A Yoon General Adult HPI General Chief complaint: PAIN Stated complaint: poss gout LT foot Time Seen by Provider: 03/22/24 21:05 Mode of Arrival: Wheelchair Source of Information: Patient and Spouse Limitations: No Limitations Description of Symptoms (Recalled from ER Triage Doc. by RN): Patient reports that he has had left ankle pain and swelling that started earlier this afternoon. Patient reports he has a long history of gout that is usually resolved after steroid treatment. History of Present Illness HPI narrative: Patient is a 73-year-old male presenting today with a gout attack. States he is sure this is gout as he had many times before. Has had a tissue/fluid diagnosis in the past. States he normally gets better with steroids. In the past he states he was given 2 shots but is only given 1 shot maladies. Seems that he was given Toradol in the past prior to being on antiplatelet agents. Pain is located left lateral aspect of left ankle. Related Data Previous Rx's Medication Instructions Recorded allopurinol 300 mg tablet 300 mg PO DAILY #30 tabs 03/17/23 furosemide 40 mg tablet 40 mg PO .prn #30 tabs 10/20/23 metoprolol succinate 50 mg 50 mg PO BID 90 days #180 tabs 01/20/24 tablet,extended release 24 hr sacubitril 97 mg-valsartan 103 mg 1 tab PO BID Heart failure 90 days 02/08/24 tablet (Entresto) #180 tabs colchicine 0.6 mg tablet (Colcrys) 0.6 mg PO DIRECTED #6 tabs 02/14/24 oxycodone-acetaminophen 5 mg-325 1 tab PO TID PRN pain #60 tabs 02/16/24 mg tablet (Percocet) prednisone 10 mg tablet 20 mg (2 x 10 mg) PO DAILY left 02/16/24 shoulder pain #40 tabs dexamethasone 2 mg tablet 10 mg (5 x 2 mg) PO ONCE #5 tabs 03/22/24 Allergies Allergy/AdvReac Type Severity Reaction Status Date / Time dapagliflozin [From [facility]] Allergy Verified 02/16/24 11:30 Lvjuszd-MUI-GtL Reductase AdvReac Mild Verified 02/16/24 11:30 Inhibitor [Cxligem-Udg-Azy Reductase Inhibitor] [facility] Disclaimer: The information contained in this section may have been updated after the patient was seen, as this information can be updated by other users. Medical History HFrEF (heart failure with reduced ejection fraction) Laceration of finger of left hand with damage to nail GERD (gastroesophageal reflux disease) Urinary incontinence Hyperuricemia Otitis media Influenza A Rx Tamiflu 75mg bid for 5 days. Also Rx 75mg daily for 7 days for his Gregoria. Orthopnea Sinusitis Patient left without being seen Nail dystrophy Pain due to onychomycosis of toenails of both feet Hallux rigidus of right foot UTI (urinary tract infection) SIRS (systemic inflammatory response syndrome) Thyroid nodule Clavicle fracture Ear ache Ventricular tachycardia Pulmonary hypertension Angina, class III Hypokalemia Prostatitis Acute febrile illness CHF NYHA class III LV dysfunction Obstructive sleep apnea syndrome Chronic obstructive lung disease Fatigue Hyperlipidemia Hypertensive heart disease Coronary arteriosclerosis Surgical History Stented coronary artery 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 Smoking Status: Former smoker tobacco type: cigarettes packs per day: 3 second hand exposure: No alcohol intake: never counseling provided: none substance use type: denies use current occupational status: retired Travel in the last 8 weeks: [place] the [place] household members: spouse housing: house current occupational exposures/hazards: Yes caffeine: Yes ROS Obtained: Yes All systems reviewed & no additional complaints except as documented Physical Exam General General appearance: alert and in no apparent distress Respiratory Respiratory exam: Present normal lung sounds bilaterally Cardiovascular Cardiovascular exam: Present regular rate Extremities Exam Extremities exam: Present other (Left ankle is swollen erythematous and tender over the lateral malleolus) Neurological Exam Neurological exam: Present alert and oriented X3 Medical Decision Making Manjit Inquiry Pt receiving controlled substance: No Vital Signs: 03/22/24 21:04 Temperature 98.0 F Temperature Source Oral Pulse Rate [Left Radial] 100 H Respiratory Rate 17 Blood Pressure [Right Arm] 139/80 Blood Pressure Mean [Right Arm] 99 Blood Pressure Source [Right Arm] Automatic Cuff Blood Pressure Position [Right Arm] Sitting 02 Sat by Pulse Oximetry 97 Oxygen Delivery Method Room Air Orders (Tests/Meds): ED MEDICATIONS Discontinued Medications Generic Name Dose Route Start Last Admin Trade Name Freq PRN Reason Stop Dose Admin Dexamethasone Sodium Phosphate 10 mg 03/22/24 21:11 Dexamethasone 4mg/Ml 1ml Vial IM 03/22/24 21:12 ONCE ONE Medical Decision Narrative: Well-appearing 73-year-old male presents today with left ankle pain swelling and erythema that he states is very consistent with gout attack she has had in the past. Nothing out of the ordinary such as fever chills or systemic signs or symptoms of infection. He is on antiplatelet agents will not give NSAIDs. He was given a shot of dexamethasone and also given another dose of dexamethasone to take in 72 hours if he is not improving. Return precautions emphasized he was discharged in stable condition. Critical Care Critical Care Time Critical Care Time: No
[2024-03-22] MEDS: DEXAMETHASONE 4MG/ML 1ML VIAL 10 MG IM (21:25)
[2024-03-22 21:31] VITALS: BP 139/80; PULSE 100; RESP 18; TEMP 36.7; O2SAT 97
== END 2024-03-22 21:33 | disposition home or self-care (01) ==
LOC: ER 21:20
PROVIDERS: Emergency Provider Student in an Organized Health Care Education/Training Program; PCP Family Medicine
DX: M10.072 Idiopathic gout, left ankle and foot (principal)
CPT/HCPCS: 96372; 99283; J1100

== ENCOUNTER 2024-04-19 11:02 | Outpatient (CLI) | payer MEDICARE, SELFPAY ==
[2024-04-19 18:11] LABS: Basophils # 0.1 K/mm3 (0-0.2); Basophils % 0.8 % (0.1-2.0); Eosinophils # 0.2 K/mm3 (0.0-0.4); Eosinophils % 2.3 % (0.1-12.0); Hematocrit 48.6 % (42.0-52.0); Hemoglobin 15.5 g/dL (14.1-18.0); Lymphocytes # 2.2 K/mm3 (0.7-4.5); Lymphocytes % 22.8 % (10-50); Mean Corpuscular HGB Conc 31.8 g/dL (31.8-35.4); Mean Corpuscular Hemoglobin 28.9 pg (27.0-31.2); Mean Corpuscular Volume 90.8 fl (80-94); Mean Platelet Volume 8.8 fl (7.4-10.4); Monocytes # 0.5 K/mm3 (0.1-1.0); Monocytes % 5.3 % (1.7-9.3); Neutrophils # 6.6 K/mm3 (1.8-7.8); Neutrophils % 68.7 % (37.0-80.0); Platelet Count 192 K/mm3 (142-424); Red Blood Count 5.36 M/mm3 (4.60-6.20); Red Cell Distribution Width 15.3 % (11.5-17.5); White Blood Count 9.6 K/mm3 (4.8-10.8)
[2024-04-19 18:34] LABS: Alanine Aminotransferase 23 U/L (12-78); Albumin Level 3.5 g/dl (3.5-5.0); Albumin/Globulin Ratio 1.3 (1.1-1.8); Alkaline Phosphatase 74 U/L (38-126); Anion Gap 9.6 mEq/L (5-15); Aspartate Amino Transferase 24 U/L (17-59); Bilirubin,Total 0.5 mg/dl (0.2-1.3); Blood Urea Nitrogen 11 mg/dl (9-20); Calcium 9.4 mg/dl (8.4-10.2); Carbon Dioxide 25 mmol/L (22.0-30.0); Chloride 112 mmol/L (98-107); Estimated Glomerular Filt Rate 83 ml/min (>60); GFR (African American) 100 ML/MIN (>60); Globulin 2.6 g/dL (1.3-3.2); Glucose 128 mg/dl (74-100); Potassium 3.6 mmoL/L (3.5-5.1); Sodium 143 mmol/L (136-145); Total Protein,Serum 6.1 g/dl (6.3-8.2)
== END 2024-04-19 23:59 | disposition home or self-care (01) ==
LOC: LAB.DROPOF 04-20 11:03
PROVIDERS: PCP Family Medicine; Visit Provider Family Medicine
DX: D72.825 Bandemia (principal); I11.0 Hypertensive heart disease with heart failure; I50.22 Chronic systolic (congestive) heart failure; Z87.891 Personal history of nicotine dependence
CPT/HCPCS: 80053; 85025

== ENCOUNTER 2024-05-05 16:46 | Emergency (ER) | payer MEDICARE, SELFPAY ==
[2024-05-05 16:47] VITALS: BP 125/67; PULSE 68; RESP 18; TEMP 36.6; O2SAT 94; BMI 31.9
--- NOTE | 2024-05-05 17:08 | EXP.UTC ---
Discharge Plan Disposition Patient Disposition: Home, Self-Care Condition: Good Prescriptions Prescriptions: New methylprednisolone 4 mg Tablets,Dose Pack 4 mg PO DIRECTED 6 Days Qty: 21 0RF Rx Instructions: Take 1 pack as directed for 6 days No Action furosemide 40 mg tablet 40 mg PO .prn Qty: 30 2RF quetiapine [Seroquel] 25 mg tablet 25 mg PO HS Qty: 30 2RF Jardiance 10 mg tablet 10 mg PO DAILY 0RF oxycodone-acetaminophen [Percocet] 5-325 mg tablet 1 tab PO TID PRN (Reason: pain) Qty: 60 0RF Rx Instructions: TID PRN pain metoprolol succinate 50 mg tablet extended release 24 hr 50 mg PO BID 90 Days Qty: 180 3RF Entresto 97-103 mg tablet 1 tab PO BID 90 Days Qty: 180 3RF allopurinol 300 mg tablet 300 mg PO DAILY Qty: 30 2RF colchicine [Colcrys] 0.6 mg tablet 0.6 mg PO DIRECTED Qty: 6 0RF Rx Instructions: Take 2 tablets (1.2mg) now wait one hour then take 1 tablet (0.6mg), may repeat regimen in 72 hours if still having symptoms Referrals Follow up/Referrals: Roberto Sweeney MD [Primary Care Provider] - See instructions Activity Restrictions/Add. Instructions Additional Instructions/Restrictions: Rest the extremities as much time as possible, Elevate the extremities as tolerated. Take the medication as directed. Don't start the oral steroids (medrol dose pack) until tomorrow since you had the shot here today. Follow up with your regular doctor. GO TO THE ER FOR ANY WORSENING SYMPTOMS Clinical Impressions Clinical Impression: Exacerbation of gout Instructions Patient Instructions: Ketorolac Injection, Dexamethasone Injection Print Language Print Language: Estonian Discharge ED Provider: Dick Diehl [facility] General Stated complaint: Feet red,painful Time Seen by Provider: 05/05/24 17:08 History of Present Illness Provider Complaint: He states that for the past 3 days he has had worsening right foot pain. He has a history of gout. He states that his current symptoms feel like an attack of his gout. Related Data Previous Rx's ?Medication ?Instructions ?Recorded furosemide 40 mg tablet 40 mg PO .prn #30 tabs 10/20/23 metoprolol succinate 50 mg 50 mg PO BID 90 days #180 tabs 01/20/24 tablet,extended release 24 hr sacubitril 97 mg-valsartan 103 mg 1 tab PO BID Heart failure 90 days 02/08/24 tablet (Entresto) #180 tabs colchicine 0.6 mg tablet (Colcrys) 0.6 mg PO DIRECTED #6 tabs 02/14/24 allopurinol 300 mg tablet 300 mg PO DAILY #30 tabs 04/18/24 oxycodone-acetaminophen 5 mg-325 1 tab PO TID PRN pain #60 tabs 04/19/24 mg tablet (Percocet) quetiapine 25 mg tablet (Seroquel) 25 mg PO HS #30 tabs 05/03/24 methylprednisolone 4 mg tablets in 4 mg PO DIRECTED 6 days #21 tabs 05/05/24 a dose pack Allergies Allergy/AdvReac Type Severity Reaction Status Date / Time dapagliflozin [From [facility]] Allergy Verified 05/03/24 10:20 [id number] Reductase AdvReac Mild Verified 05/03/24 10:20 Inhibitor [Xpfxbfp-Yed-Pby Reductase Inhibitor] [facility] Disclaimer: The information contained in this section may have been updated after the patient was seen, as this information can be updated by other users. Medical History (Updated 05/05/24 @ 17:49 by Dick Diehl APRN) Benign essential tremor Tremor of right hand Anxiety with depression HFrEF (heart failure with reduced ejection fraction) Laceration of finger of left hand with damage to nail GERD (gastroesophageal reflux disease) Urinary incontinence Hyperuricemia Otitis media Influenza A Orthopnea Sinusitis Patient left without being seen Nail dystrophy Pain due to onychomycosis of toenails of both feet Hallux rigidus of right foot UTI (urinary tract infection) SIRS (systemic inflammatory response syndrome) Thyroid nodule Clavicle fracture Ear ache Ventricular tachycardia Pulmonary hypertension Angina, class III Hypokalemia Prostatitis Acute febrile illness CHF NYHA class III LV dysfunction Obstructive sleep apnea syndrome Chronic obstructive lung disease Fatigue Hyperlipidemia Hypertensive heart disease Coronary arteriosclerosis Surgical History Stented coronary artery 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 Smoking Status: Former smoker tobacco type: cigarettes packs per day: 3 second hand exposure: No alcohol intake: never counseling provided: none substance use type: denies use current occupational status: retired Travel in the last 8 weeks: Inside the [place] household members: spouse housing: house current occupational exposures/hazards: Yes caffeine: Yes ROS Obtained: Yes All systems reviewed & no additional complaints except as documented Constitutional Constitutional: Denies chills and Denies fever(s) Eyes Eyes: Denies eye discharge ENT Ears, Nose, Mouth, and Throat: Denies dizziness, Denies otalgia and Denies sore throat Cardiovascular Cardiovascular: Denies chest pain Respiratory Respiratory: Denies shortness of breath, Denies chest congestion, Denies cough, Denies stridor and Denies wheezing Gastrointestinal Gastrointestingal: Denies nausea or vomiting Musculoskeletal Musculoskeletal: Reports as per HPI Integumentary/Breasts Skin/Breast: Denies redness, Denies rash and Denies wounds Neurologic Neurologic: Denies dizziness and Denies paresthesias Allergic/Immunologic Allergic/Immunologic: Denies wheezing Physical Exam General General appearance: alert and in no apparent distress Head Head exam: atraumatic, normocephalic and normal inspection Eye Eye exam: Present normal appearance, PERRL and EOMI ENT ENT exam: Present normal exam, normal oropharynx, mucous membranes moist, TM's normal bilaterally and normal external ear exam Neck Neck exam: Present normal inspection, full ROM and trachea midline; Absent meningismus or lymphadenopathy Chest Chest inspection: Present normal inspection and symmetric chest wall rise; Absent tenderness Respiratory Respiratory exam: Present normal lung sounds bilaterally; Absent respiratory distress Cardiovascular Cardiovascular exam: Present regular rate and normal rhythm; Absent JVD Abdominal Exam Abdominal exam: Present soft and normal bowel sounds; Absent distention, tenderness or guarding Extremities Exam Extremities exam: Present normal inspection, full ROM and normal capillary refill; Absent calf tenderness Back Exam Back exam: Present normal inspection; Absent tenderness Neurological Exam Neurological exam: Present alert and oriented X3 Psychiatric Psychiatric exam: Present normal affect and normal mood Skin Skin exam: Present warm, dry, intact and normal color Lymphatic Lymphatic Findings: no adenopathy Medical Decision Making Medical Records Medical records reviewed: No I reviewed the patient's medical records. Manjit Inquiry Pt receiving controlled substance: No
[2024-05-05] MEDS: KETOROLAC 60MG/2ML VIAL 60 MG IM (17:57)
[2024-05-05] MEDS: DEXAMETHASONE 4MG/ML 1ML VIAL 8 MG IM (17:57)
[2024-05-05 18:13] VITALS: BP 125/67; PULSE 68; RESP 18; TEMP 36.6; O2SAT 94
== END 2024-05-05 18:13 | disposition home or self-care (01) ==
PROVIDERS: Emergency Provider Nurse Practitioner Family; PCP Family Medicine
DX: M10.071 Idiopathic gout, right ankle and foot (principal)
CPT/HCPCS: 96372; 99212; 99214; G0463; J1100; J1885

== ENCOUNTER 2024-05-31 13:10 | Outpatient (CLI) | payer MEDICARE, SELFPAY ==
[2024-05-31 22:28] LABS: Alanine Aminotransferase 20 U/L (12-78); Albumin Level 3.6 g/dl (3.5-5.0); Albumin/Globulin Ratio 1.2 (1.1-1.8); Alkaline Phosphatase 71 U/L (38-126); Anion Gap 8.4 mEq/L (5-15); Aspartate Amino Transferase 23 U/L (17-59); Bilirubin,Total 0.7 mg/dl (0.2-1.3); Blood Urea Nitrogen 9 mg/dl (9-20); Calcium 9.7 mg/dl (8.4-10.2); Carbon Dioxide 27 mmol/L (22.0-30.0); Chloride 109 mmol/L (98-107); Estimated Glomerular Filt Rate 95 ml/min (>60); GFR (African American) 115 ML/MIN (>60); Globulin 3.1 g/dL (1.3-3.2); Glucose 149 mg/dl (74-100); Potassium 4.4 mmoL/L (3.5-5.1); Sodium 140 mmol/L (136-145); Total Protein,Serum 6.7 g/dl (6.3-8.2); Uric Acid 5.8 mg/dl (3.5-8.5)
[2024-05-31 22:53] LABS: Thyroid Stimulating Hormone 0.77 uIU/mL (0.465-4.68)
== END 2024-05-31 23:59 | disposition home or self-care (01) ==
LOC: LAB.DROPOF 06-01 13:52
PROVIDERS: PCP Family Medicine; Visit Provider Family Medicine
DX: I50.20 Unspecified systolic (congestive) heart failure (principal); M10.479 Other secondary gout, unspecified ankle and foot; R53.83 Other fatigue
CPT/HCPCS: 80053; 84443; 84550

== ENCOUNTER 2024-06-13 14:54 | Outpatient (CLI) | payer MEDICARE, SELFPAY ==
--- NOTE | 2024-06-13 14:57 | CA_ITS ---
APPROVED REPORT EXAM: Comprehensive 2D, Doppler, and color-flow Echocardiogram Build Manager: Susan Mack CRT Ht: 5 ft 8 in Wt: 222lbs BSA: 2.14 BP: 158/78 mmHg Indications: Congestive Heart Failure, Diabetes, Obesity, Dyspnea, Fatigue, CAD, Hyperlipidemia, Cardiomyopathy, Hypertension/HDD, AICD EF 25% ECHO 12/06/21 Echo Enhancing Agent Indication: Endocardial border delineation Agent(s) / Amount(s) Used: Definity 2 cc Comments: Definity given due to poor images 2D Dimensions LA Volume 33.00 mL LA Volume Index 15.10 mL/m2 (M/F) 16-34 M-Mode Dimensions LA Diam 2.76 cm (1.9-4.0) TAPSE 1.88 (<1.7) LV Diastology E Decel Time 170 (160-240 msec) E/A Ratio 0.49 MED A' 10.30 cm/s LAT A' 11.60 cm/s Aortic Valve AO Peak GR. 4.00 mmHg Mitral Valve MV E Max Jaden. 51.0 (40-130 cm/s) MV A Velocity 105.0 (40-130 cm/s) E/A Ratio 0.49 MV PHT 50.0 ms Tricuspid Valve TR P. Velocity 211.00 cm/s Left Ventricle The left ventricle is mildly dilated. Left ventricular systolic function is severely decreased. There is increased LV wall thickness. There is severe global hypokinesis present. The septum is asynchronous. Grade 1 diastolic dysfunction is present. No left ventricle thrombus noted on this study. LVEF is 20-25%. Right Ventricle The right ventricle is mildly dilated. The right ventricular systolic function is normal. There is a device lead present in the right ventricle. Atria Left atrium is mildly dilated. Right atrium is mildly dilated. There is no Doppler evidence of interatrial shunt. Aortic Valve The aortic valve is mildly thickened. There is no aortic valvular stenosis. Trace aortic regurgitation. Mitral Valve The mitral valve leaflets are mildly thickened. No evidence of mitral valve stenosis. Trace mitral regurgitation. Tricuspid Valve The tricuspid valve leaflets are thin and pliable. Trace tricuspid regurgitation. There is insufficient TR jet to estimate RVSP. Pulmonic Valve The pulmonary valve is normal in structure. Trace pulmonic regurgitation. Great Vessels The aortic root is normal in size. The ascending aorta is not well-visualized. IVC is normal in size and collapses >50% with inspiration. Pericardium There is no pericardial effusion. Other Information Study Quality: Technically Difficult Conclusion Technically difficult study due to poor acoustic windows. Mildly dilated LV with severely reduced LV systolic function (LVEF 20-25%). Mildly dilated RV with normal RV function. Mild biatrial dilation. No significant valvular stenosis or regurgitation. Compared to prior study from 12/06/2021, there are no significant changes. Electronically signed by : Kavita Oviedo MD 06/19/2024 20:57:01
[2024-06-13] MEDS: DEFINITY US ECHO CONTRAST 2ML INJ 2 MG IV (15:57)
== END 2024-06-13 23:59 | disposition home or self-care (01) ==
LOC: RT 14:54
PROVIDERS: PCP Family Medicine; Visit Provider Family Medicine
DX: I51.7 Cardiomegaly (principal); I25.5 Ischemic cardiomyopathy; I50.22 Chronic systolic (congestive) heart failure; Z95.810 Presence of automatic (implantable) cardiac defibrillator
CPT/HCPCS: 93306; Q9957

== ENCOUNTER 2024-07-27 13:26 | Outpatient (CLI) | payer MEDICARE, SELFPAY ==
[2024-07-27 18:33] LABS: Basophils # 0.1 K/mm3 (0-0.2); Basophils % 0.5 % (0.1-2.0); Eosinophils # 0.2 K/mm3 (0.0-0.4); Eosinophils % 1.5 % (0.1-12.0); Hematocrit 49.5 % (42.0-52.0); Hemoglobin 15.8 g/dL (14.1-18.0); Lymphocytes # 1.8 K/mm3 (0.7-4.5); Lymphocytes % 18.5 % (10-50); Mean Corpuscular HGB Conc 31.9 g/dL (31.8-35.4); Mean Corpuscular Hemoglobin 27.6 pg (27.0-31.2); Mean Corpuscular Volume 86.6 fl (80-94); Mean Platelet Volume 8.3 fl (7.4-10.4); Monocytes # 0.7 K/mm3 (0.1-1.0); Monocytes % 6.8 % (1.7-9.3); Neutrophils # 7.1 K/mm3 (1.8-7.8); Neutrophils % 72.6 % (37.0-80.0); Platelet Count 227 K/mm3 (142-424); Red Blood Count 5.72 M/mm3 (4.60-6.20); Red Cell Distribution Width 14.9 % (11.5-17.5); White Blood Count 9.8 K/mm3 (4.8-10.8)
[2024-07-27 18:45] LABS: Alanine Aminotransferase 17 U/L (12-78); Albumin Level 3.9 g/dl (3.5-5.0); Albumin/Globulin Ratio 1.4 (1.1-1.8); Alkaline Phosphatase 72 U/L (38-126); Anion Gap 10.1 mEq/L (5-15); Aspartate Amino Transferase 22 U/L (17-59); Bilirubin,Total 0.8 mg/dl (0.2-1.3); Blood Urea Nitrogen 9 mg/dl (9-20); Calcium 9.8 mg/dl (8.4-10.2); Carbon Dioxide 31 mmol/L (22.0-30.0); Chloride 104 mmol/L (98-107); Estimated Glomerular Filt Rate 83 ml/min (>60); GFR (African American) 100 ML/MIN (>60); Globulin 2.7 g/dL (1.3-3.2); Glucose 107 mg/dl (74-100); Potassium 4.1 mmoL/L (3.5-5.1); Sodium 141 mmol/L (136-145); Total Protein,Serum 6.6 g/dl (6.3-8.2); Uric Acid 5.2 mg/dl (3.5-8.5)
== END 2024-07-27 23:59 | disposition home or self-care (01) ==
LOC: LAB.DROPOF 07-28 13:26
PROVIDERS: PCP Nurse Practitioner; Visit Provider Nurse Practitioner
DX: E79.0 Hyperuricemia without signs of inflammatory arthritis and tophaceous disease (principal)
CPT/HCPCS: 80053; 84550; 85025

== ENCOUNTER 2024-09-23 15:05 | Emergency (ER) | payer MEDICARE, SELFPAY ==
[2024-09-23 15:20] VITALS: BP 140/80; PULSE 78; RESP 19; TEMP 36.9; O2SAT 98; BMI 30.1
--- NOTE | 2024-09-23 15:33 | ED_ITS ---
Discharge Plan Disposition Patient Disposition: Home, Self-Care Condition: Good Prescriptions Prescriptions: New colchicine [Colcrys] 0.6 mg tablet 0.6 mg PO DIRECTED Qty: 3 0RF Rx Instructions: take 2 tablets (1.2mg) now then wait one hour and take 1 tablet (0.6mg) methylprednisolone [Medrol (Pete)] 4 mg tablets,dose pack See Rx Instructions .Route .COMPLEX 6 Days Qty: 21 0RF Rx Instructions: taper pack; No Action metoprolol succinate 50 mg tablet extended release 24 hr 50 mg PO DAILY Patient Comments: TAKE 1 TABLET BY MOUTH TWICE DAILY. metoprolol succinate 100 mg tablet extended release 24 hr 100 mg PO DAILY Patient Comments: TAKE 1 TABLET BY MOUTH AT BEDTIME. allopurinol 300 mg tablet 300 mg PO DAILY Patient Comments: TAKE 1 TABLET BY MOUTH ONCE DAILY sertraline 50 mg tablet 50 mg PO DAILY Patient Comments: TAKE 1 TABLET BY MOUTH ONCE DAILY. valsartan 160 mg tablet 160 mg PO DAILY Patient Comments: TAKE 1 TABLET BY MOUTH ONCE DAILY. sacubitril-valsartan [Entresto] 97-103 mg tablet 1 tab PO DAILY Patient Comments: TAKE 1 TABLET BY MOUTH TWICE DAILY FOR HEART FAILURE. Referrals Follow up/Referrals: Roberto Sweeney MD [Primary Care Provider] - See instructions Activity Restrictions/Add. Instructions Additional Instructions/Restrictions: Start oral steriod tomorrow Take Colcrys as prescribed Follow up with your Family Doctor if no improvement Clinical Impressions Clinical Impression: Gout flare Instructions Patient Instructions: DI for Gout, Gout Print Language Print Language: Citizen Of [place] Discharge ED Provider: Enid Aguilar [facility] General Stated complaint: Red,swollen feet,painful Mode of Arrival: Ambulatory Source of Information: Patient Limitations: No Limitations Time Seen by Provider: 09/23/24 15:35 Description of Symptoms (Recalled from Triage Doc. by RN): PATIENT C/O GOUT FLARE-UP TO BILATERAL FEET AND ANKLES X 2 DAYS HEENT Symptoms (Recalled from RN notes): No Resp Symptoms (Recalled from RN notes): No Skin Symptoms (Recalled from RN notes): No MS Symptoms (Recalled from RN notes): Yes Functional Status (Recalled from RN notes): WNL History of Present Illness Provider Complaint: Patient states that he has a hx of gout and for the last couple of days he has been having a flare up of the gout States that he has been having pain in his feet around his big toes and now feels like it is starting to move to his ankles so he came in to get treated states he usually gets a steriod shot and then goes home Related Data Home Medications ?Medication ?Instructions ?Recorded ?Confirmed allopurinol 300 mg tablet 300 mg PO DAILY 09/23/24 09/23/24 metoprolol succinate 100 mg 100 mg PO DAILY 09/23/24 09/23/24 tablet,extended release 24 hr metoprolol succinate 50 mg 50 mg PO DAILY 09/23/24 09/23/24 tablet,extended release 24 hr sacubitril 97 mg-valsartan 103 mg 1 tab PO DAILY 09/23/24 09/23/24 tablet (Entresto) sertraline 50 mg tablet 50 mg PO DAILY 09/23/24 09/23/24 valsartan 160 mg tablet 160 mg PO DAILY 09/23/24 09/23/24 Previous Rx's ?Medication ?Instructions ?Recorded colchicine 0.6 mg tablet (Colcrys) 0.6 mg PO DIRECTED #3 tabs 09/23/24 methylprednisolone 4 mg tablets in See Rx Instructions .Route 09/23/24 a dose pack (Medrol (Pete)) .COMPLEX 6 days #21 tabs Allergies Allergy/AdvReac Type Severity Reaction Status Date / Time dapagliflozin (From [facility]) Allergy Verified 09/12/24 14:48 Owukwwp-ZNA-VmL Reductase AdvReac Mild Verified 09/12/24 14:48 Inhibitor (Xxvcyvg-Pii-Wec Reductase Inhibitor) Worker's Comp Is this a Worker's Comp case?: No [facility] Disclaimer: The information contained in this section may have been updated after the patient was seen, as this information can be updated by other users. Medical History Pacemaker Benign essential tremor Tremor of right hand Anxiety with depression HFrEF (heart failure with reduced ejection fraction) Laceration of finger of left hand with damage to nail GERD (gastroesophageal reflux disease) Urinary incontinence Hyperuricemia Otitis media Influenza A Rx Tamiflu 75mg bid for 5 days. Also Rx 75mg daily for 7 days for his Gregoria. Orthopnea Sinusitis Patient left without being seen Nail dystrophy Pain due to onychomycosis of toenails of both feet Hallux rigidus of right foot UTI (urinary tract infection) SIRS (systemic inflammatory response syndrome) Thyroid nodule Clavicle fracture Ear ache Ventricular tachycardia Pulmonary hypertension Angina, class III Hypokalemia Prostatitis Acute febrile illness CHF NYHA class III LV dysfunction Obstructive sleep apnea syndrome Chronic obstructive lung disease Fatigue Hyperlipidemia Hypertensive heart disease Coronary arteriosclerosis Surgical History Stented coronary artery 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 Smoking Status: Former smoker tobacco type: cigarettes packs per day: 3 second hand exposure: No alcohol intake: never counseling provided: none substance use type: denies use current occupational status: retired Travel in the last 8 weeks: [place] the [place] household members: spouse housing: house current occupational exposures/hazards: Yes caffeine: Yes Have you lived/traveled outside [place] in past 30 days?: No Contact w/someone who lives/traveled outside [place] past 30 days?: No Exposure to someone with infectious disease in past 14 days?: No Do you have a fever (greater than 100.4 F or 38 C)?: No Have you tested positive for COVID-19: No Exposed to someone with COVID-19 in past 14 days?: No Do you have a sore throat?: No Do you have a cough?: No Do you have any weakness?: No Do you have any diarrhea?: No Are you experiencing any unusual bleeding?: No Do you have any muscle aches/pain?: No Do you have any abdominal pain?: No Are you experiencing loss of taste or smell?: No ROS Obtained: Yes All systems reviewed & no additional complaints except as documented and Yes Systems reviewed as appropriate & no additional complaints except as documented Constitutional Constitutional: Reports system reviewed and no additional complaints, except as documented and Reports as per HPI ENT Ears, Nose, Mouth, and Throat: Reports system reviewed and no additional complaints, except as documented and Reports as per HPI Cardiovascular Cardiovascular: Reports system reviewed and no additional complaints, except as documented and Reports as per HPI Respiratory Respiratory: Reports system reviewed and no additional complaints, except as documented and Reports as per HPI Gastrointestinal Gastrointestingal: Reports system reviewed and no additional complaints, except as documented and as per HPI Musculoskeletal Musculoskeletal: Reports system reviewed and no additional complaints, except as documented and Reports as per HPI Comments: pain bilateral feet hx of gout Integumentary/Breasts Skin/Breast: Reports system reviewed and no additional complaints, except as documented and Reports as per HPI Physical Exam General General appearance: alert and in no apparent distress ENT ENT exam: Present mucous membranes moist Respiratory Respiratory exam: Present normal lung sounds bilaterally; Absent respiratory distress or wheezes Cardiovascular Cardiovascular exam: Present regular rate, normal rhythm and normal heart sounds Abdominal Exam Abdominal exam: Present soft and normal bowel sounds; Absent distention or tenderness Expanded Lower Extremity Exam bilateral: Ankle exam: Present tenderness (mild redness noted appears like gout flare) Neurological Exam Neurological exam: Present alert, oriented X3 and normal gait Medical Decision Making Medical Records Screening: Per USPSTF and CDC recommendations, given the prevalence of disease in our region, it is our hospital?s policy to screen for HIV and viral Hepatitis for all patients aged 18 and over and those with ongoing risk factors. Manjit Inquiry Pt receiving controlled substance: No Manjit was queried for this patient: No Vital Signs: 09/23/24 15:20 Temperature 98.4 F Temperature Source Oral Pulse Rate [Left Brachial] 78 Respiratory Rate 19 Blood Pressure [Left Arm] 140/80 Blood Pressure Mean [Left Arm] 100 Blood Pressure Source [Left Arm] Automatic Cuff Blood Pressure Position [Left Arm] Sitting 02 Sat by Pulse Oximetry 98 Oxygen Delivery Method Room Air Medical Decision Narrative: Discussed Uric acid lab draw patient declined just wants shots and medication States he has taken Steriods and Colcrys in the past without complications or reactions
[2024-09-23] MEDS: METHYLPREDNISOLONE SOD SUCC 125MG VIAL 125 MG IM (15:53)
[2024-09-23 16:05] VITALS: BP 140/80; PULSE 78; RESP 19; TEMP 36.9; O2SAT 98
== END 2024-09-23 16:08 | disposition home or self-care (01) ==
PROVIDERS: Emergency Provider Nurse Practitioner; PCP Family Medicine
DX: M10.9 Gout, unspecified (principal); M79.671 Pain in right foot; M79.672 Pain in left foot
CPT/HCPCS: 99212; G0381; J2919

== ENCOUNTER 2024-11-01 10:29 | Outpatient (CLI) | payer MEDICARE, SELFPAY ==
--- NOTE | 2024-11-01 10:33 | XR_ITS ---
FINAL REPORT CLINICAL HISTORY: fatigue, chest pain, dyspnea FINDINGS: CHEST 2 VIEWS PA AND LATERAL The heart is normal in size. The mediastinum is unremarkable. Left subclavian pacer is identified. The lungs are underinflated. There is no pneumothorax. IMPRESSION: No acute process. Reviewed, Interpreted and Dictated by Rhett Terrazas MD Transcribed by Cristiane Fernandez Authenticated and [facility]
[2024-11-01 11:00] LABS: Basophils # 0.1 K/mm3 (0-0.2); Basophils % 0.8 % (0.1-2.0); Eosinophils # 0.2 K/mm3 (0.0-0.4); Eosinophils % 2.7 % (0.1-12.0); Hematocrit 51.1 % (42.0-52.0); Hemoglobin 16.4 g/dL (14.1-18.0); Lymphocytes # 2.2 K/mm3 (0.7-4.5); Lymphocytes % 25.8 % (10-50); Mean Corpuscular HGB Conc 32.1 g/dL (31.8-35.4); Mean Corpuscular Hemoglobin 27.4 pg (27.0-31.2); Mean Corpuscular Volume 85.3 fl (80-94); Mean Platelet Volume 10.1 fl (7.4-10.4); Monocytes # 0.8 K/mm3 (0.1-1.0); Monocytes % 9.4 % (1.7-9.3); Neutrophils # 5.1 K/mm3 (1.8-7.8); Neutrophils % 60.8 % (37.0-80.0); Platelet Count 227 K/mm3 (142-424); Red Blood Count 5.99 M/mm3 (4.60-6.20); Red Cell Distribution Width 14.9 % (11.5-17.5); White Blood Count 8.4 K/mm3 (4.8-10.8)
[2024-11-01 11:18] LABS: Anion Gap 12.3 mEq/L (5-15); Blood Urea Nitrogen 14 mg/dl (9-20); Calcium 9.8 mg/dl (8.4-10.2); Carbon Dioxide 27 mmol/L (22.0-30.0); Chloride 106 mmol/L (98-107); Estimated Glomerular Filt Rate 95 ml/min (>60); GFR (African American) 115 ML/MIN (>60); Glucose 105 mg/dl (74-100); Potassium 4.3 mmoL/L (3.5-5.1); Sodium 141 mmol/L (136-145)
[2024-11-01 11:27] LABS: NT Pro Brain Natriuretic Pep. 1160 pg/mL (0-125)
== END 2024-11-01 23:59 | disposition home or self-care (01) ==
LOC: LAB 10:31
PROVIDERS: PCP Family Medicine; Visit Provider Physician Assistant
DX: F43.21 Adjustment disorder with depressed mood (principal); I25.118 Atherosclerotic heart disease of native coronary artery with other forms of angina pectoris; I50.22 Chronic systolic (congestive) heart failure; I11.0 Hypertensive heart disease with heart failure; Z95.5 Presence of coronary angioplasty implant and graft; I25.5 Ischemic cardiomyopathy; E78.2 Mixed hyperlipidemia; R53.82 Chronic fatigue, unspecified; Z95.810 Presence of automatic (implantable) cardiac defibrillator; I50.9 Heart failure, unspecified; K21.9 Gastro-esophageal reflux disease without esophagitis
CPT/HCPCS: 36415; 71046; 80048; 83880; 85025

== ENCOUNTER 2025-01-12 19:58 | Inpatient (IN) | payer MEDICARE, SELFPAY ==
[2025-01-12] VITALS (8 sets, daily range): BP systolic 124–154; BP diastolic 68–101; PULSE 63–103; RESP 15–22; TEMP 36.7–37; O2SAT 93–100; BMI 31.3; BMI 31.4
--- NOTE | 2025-01-12 19:58 | ECG_ITS ---
APPROVED REPORT Exam: Resting ECG HR:110 bpm ECG Measurements Heart Rate 110 AXES WA 152 P 56 QRSd 137 QRS 65 QT 333 T -80 QTc 398 Conclusion V-paced rhythm Electronically signed by : BRITTNEY FERMIN, 01/13/2025 19:49:10
--- NOTE | 2025-01-12 20:05 | XR_ITS ---
PROCEDURE INFORMATION: Exam: XR Chest Exam date and time: 01/12/2025 8:22 PM Age: 74 years old Clinical indication: Pain; Chest pressure; Additional info: Cp history of mi TECHNIQUE: Imaging protocol: Radiologic exam of the chest. Views: 1 view. COMPARISON: CR XR CHEST 2V 11/01/2024 10:34 AM FINDINGS: Tubes, catheters and devices: Stable 2 lead pacemaker. Lungs: Unremarkable. No consolidation. Pleural spaces: Unremarkable. No pleural effusion. No pneumothorax. Heart/Mediastinum: Unremarkable. No cardiomegaly. Bones/joints: Unremarkable. IMPRESSION: No acute findings.
[2025-01-12] MEDS: ASPIRIN 81MG CHEWABLE TABLET 324 MG PO (20:08)
[2025-01-12] MEDS: ONDANSETRON 4MG/2ML VIAL 4 MG IV (20:50)
[2025-01-12] MEDS: NITROGLYCERIN 1 GM OINTMENT TD (20:50)
[2025-01-12] MEDS: MORPHINE 4MG/ML SYRINGE 4 MG IV (20:50)
[2025-01-12 20:51] LABS: Lactate Venous 1.7 mmol/L (0.4-2.0); VBG Base Excess -0.3 mmol/L (-2.4-2.3); VBG HCO3 25.1 mmol/L (23-30); VBG Oxygen Saturation 51.4 % (50-70); VBG PCO2 45.1 mmol/L (35-51); VBG PH 7.36 mmol/L (7.31-7.41); VBG PO2 27.5 mmol/L (28-40); VBG Total CO2 26.5 mmol/L (23-27)
[2025-01-12 20:57] LABS: Basophils # 0.1 K/mm3 (0-0.2); Basophils % 0.4 % (0.1-2.0); Eosinophils # 0.2 K/mm3 (0.0-0.4); Eosinophils % 1.4 % (0.1-12.0); Hematocrit 49.6 % (42.0-52.0); Lymphocytes # 1.8 K/mm3 (0.7-4.5); Lymphocytes % 13.2 % (10-50); Mean Corpuscular HGB Conc 32.3 g/dL (31.8-35.4); Mean Corpuscular Hemoglobin 27.3 pg (27.0-31.2); Mean Corpuscular Volume 84.6 fl (80-94); Mean Platelet Volume 10.7 fl (7.4-10.4); Monocytes # 1.1 K/mm3 (0.1-1.0); Monocytes % 8.2 % (1.7-9.3); Neutrophils # 10.2 K/mm3 (1.8-7.8); Neutrophils % 76.5 % (37.0-80.0); Nucleated Red Blood Cells # 0 10^3/uL; Nucleated Red Blood Cells % 0 %; Platelet Count 224 K/mm3 (142-424); Red Blood Count 5.86 M/mm3 (4.60-6.20); Red Cell Distribution Width 14.6 % (11.5-17.5); Red Cell Distribution Width-SD 44.8 fL; White Blood Count 13.4 K/mm3 (4.8-10.8)
[2025-01-12 21:06] LABS: Activated Partial Thrombo Time 27.1 seconds (22.8-30.6); INR 0.99 (0.9-1.1); Prothrombin Time 11.1 seconds (10.1-12.5)
--- NOTE | 2025-01-12 21:27 | ED_ITS ---
Discharge Plan Disposition Patient Disposition: Admitted Condition: Fair Clinical Impressions Clinical Impression: Unstable angina, CHF exacerbation Discharge ED Provider: Grant Kimball HPI General Chief Complaint: Chest Pain Stated Complaint: Chest Pain Time Seen by Provider: 01/12/25 20:01 Mode of Arrival: Ambulatory Source of Information: Patient and Relative Description of Symptoms (Recalled from ER Triage Doc. by RN): Patient has chest pain that started this morning; describes it as MSCP with radiation to neck/jaw/arm that is worsening. Significant cardiac history (13 stents, pacer/defib). Sees Dr. Her History of Present Illness HPI narrative: Please note that above description of symptoms, in this electronic medical record under categorization of recalled from ER triage doctor by RN are reflective of an initial nursing assessment, however, is not reflective of my full history and physical exam that was personally taken and clarified. Consequentially, this preceding description of symptoms, which may include the patient's categorized chief complaint in the EMR, do not reflect my personal clinical impression, and the ultimate description of history of present illness and patient stated complaints should be deferred to this section of the note. Unless stated otherwise or congruent with this section of the note, additional signs, symptoms, or incongruence should be interpreted as inaccurate with my clinical impression. Related Data Home Medications ?Medication ?Instructions ?Recorded ?Confirmed allopurinol 300 mg tablet 300 mg PO DAILY 09/23/24 01/12/25 metoprolol succinate 100 mg 100 mg PO DAILY 09/23/24 01/12/25 tablet,extended release 24 hr spironolactone 25 mg tablet 25 mg PO . 01/12/25 01/12/25 (Aldactone) Previous Rx's ?Medication ?Instructions ?Recorded valsartan 160 mg tablet 160 mg PO DAILY #30 tabs 11/01/24 oxycodone-acetaminophen 5 mg-325 1 tab PO TID PRN chronic pain #90 12/26/24 mg tablet tabs Allergies Allergy/AdvReac Type Severity Reaction Status Date / Time No Known Allergies Allergy Verified 01/12/25 23:05 [facility] [place] Disclaimer: The information contained in this section may have been updated after the patient was seen, as this information can be updated by other users. Medical History Paresthesias Neoplasm of skin of face see procedure note. Wound care instructions given. Situational depression Pacemaker Benign essential tremor Tremor of right hand Anxiety with depression HFrEF (heart failure with reduced ejection fraction) Laceration of finger of left hand with damage to nail GERD (gastroesophageal reflux disease) Urinary incontinence Hyperuricemia Otitis media Influenza A Rx Tamiflu 75mg bid for 5 days. Also Rx 75mg daily for 7 days for his Gregoria. Orthopnea Sinusitis Patient left without being seen Nail dystrophy Pain due to onychomycosis of toenails of both feet Hallux rigidus of right foot UTI (urinary tract infection) SIRS (systemic inflammatory response syndrome) Thyroid nodule Clavicle fracture Ear ache Ventricular tachycardia Pulmonary hypertension Angina, class III Hypokalemia Prostatitis Acute febrile illness CHF NYHA class III LV dysfunction Obstructive sleep apnea syndrome Chronic obstructive lung disease Fatigue Hyperlipidemia Hypertensive heart disease Coronary arteriosclerosis Surgical History Stented coronary artery 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 (Updated 01/12/25 @ 22:59 by Lilli Zazueta RN) Smoking Status: Never smoker second hand exposure: No alcohol intake: never counseling provided: none substance use type: denies use current occupational status: retired Travel in the last 8 weeks: Inside the [place] household members: spouse housing: house current occupational exposures/hazards: Yes caffeine: Yes Have you lived/traveled outside [place] in past 30 days?: No Contact w/someone who lives/traveled outside [place] past 30 days?: No Exposure to someone with infectious disease in past 14 days?: No Do you have a fever (greater than 100.4 F or 38 C)?: No Have you tested positive for COVID-19: No Exposed to someone with COVID-19 in past 14 days?: No Do you have a sore throat?: No Do you have a cough?: No Do you have any weakness?: No Are you experiencing any nausea/vomitting?: No Do you have any diarrhea?: No Are you experiencing any unusual bleeding?: No Do you have any muscle aches/pain?: No Do you have any abdominal pain?: No Are you experiencing loss of taste or smell?: No Other Medical History Have you received the Flu Vaccine for this season: No Have you received the Pneumonia Vaccine: Yes ROS Obtained: Yes All systems reviewed & no additional complaints except as documented Physical Exam General General appearance: alert and in no apparent distress Neck Neck exam: Present trachea midline Chest Chest inspection: Present normal inspection and symmetric chest wall rise Respiratory Respiratory exam: Present normal lung sounds bilaterally; Absent respiratory distress, wheezes, stridor, accessory muscle use or prolonged expiratory phase Cardiovascular Cardiovascular exam: Present regular rate, normal rhythm and other (Pulses equal and symmetric in upper and lower extremities) Extremities Exam Extremities exam: Absent edema Neurological Exam Neurological exam: Present alert, oriented X3 and CN II-XII intact Skin Skin exam: Present warm and dry; Absent cyanosis, diaphoresis or pallor HEART Score HEART Score HEART Score assessment performed?: Yes History (anamnesis): Highly suspicious ECG: Non-specific disturbance Age: >65 years Risk factors: 3 or more risk factors Troponin: </= normal limit HEART Score: 7 Procedures Limited Ultrasound Indication:: Ultrasound-guided line placement Indication: -Difficult access, numerous unsuccessful pokes Identified structures: -Left upper extremity veins Location/access site: -Left upper extremity basilic vein Vessel patency: -Patent Direct visualization? -Yes Impression: Successful placement of 20-gauge IV catheter in left upper extremity basilic vein Images were not saved to permanent archive The study was technically adequate CPT Codes: Venipuncture: 72882-63 Age <3 yo: 34949-31 Age >3yo: 16225-02 Central line <5 yo: 31490-41 Central line >5 yo: 48780-43 This study was performed by me, and I personally interpreted all images/videos. Based on my clinical judgement, these images were adequate and did not necessitate further imaging Critical Care Critical Care Time Critical Care Time: Yes (cardiac) Attestation: On 01/12/25, the high probability of a clinically significant, sudden or life threatening deterioration of the following system(s) required my full and direct attention, intervention and personal management. The time I documented below is in addition to time spent performing reported procedures but includes the following listed in this critical care notation. Total Time Total Critical Care Time: 35 Medical Decision Making Medical Records Medical records reviewed: Yes I reviewed the patient's medical records. Manjit Inquiry Pt receiving controlled substance: No Manjit was queried for this patient: No Vital Signs Vital Signs: 01/12/25 19:59 01/12/25 20:04 01/12/25 20:15 Temperature 98.6 F Temperature Source Oral Pulse Rate 94 H 82 Pulse Rate [Right Radial] 94 H Respiratory Rate 16 20 Blood Pressure 144/85 H Blood Pressure [Right Arm] 154/86 H Blood Pressure Mean [Right Arm] 108 Blood Pressure Source Blood Pressure Source [Right Arm] Automatic Cuff Blood Pressure Position Blood Pressure Position [Right Arm] Supine 02 Sat by Pulse Oximetry 96 93 L Oxygen Delivery Method Room Air Oxygen Flow Rate (LPM) 01/12/25 20:30 01/12/25 21:00 01/12/25 21:30 Temperature Temperature Source Pulse Rate 94 H 103 H 95 H Pulse Rate [Right Radial] Respiratory Rate 22 15 20 Blood Pressure 142/89 H 142/90 H 129/83 Blood Pressure [Right Arm] Blood Pressure Mean [Right Arm] Blood Pressure Source Blood Pressure Source [Right Arm] Blood Pressure Position Blood Pressure Position [Right Arm] 02 Sat by Pulse Oximetry 93 L 94 L 96 Oxygen Delivery Method Oxygen Flow Rate (LPM) 01/12/25 22:17 Temperature 98.1 F Temperature Source Oral Pulse Rate 94 H Pulse Rate [Right Radial] Respiratory Rate 16 Blood Pressure 124/68 Blood Pressure [Right Arm] Blood Pressure Mean [Right Arm] Blood Pressure Source Automatic Cuff Blood Pressure Source [Right Arm] Blood Pressure Position Supine Blood Pressure Position [Right Arm] 02 Sat by Pulse Oximetry Oxygen Delivery Method Nasal Cannula Oxygen Flow Rate (LPM) 2 Lab Data Labs: Lab Results 01/12/25 20:06: VBG pH 7.36, VBG pCO2 45.1, VBG pO2 27.5 L, VBG HCO3 25.1, VBG Total CO2 26.5, VBG O2 Saturation 51.4, VBG Base Excess -0.3, VBG Lactic Acid 1.7 01/12/25 20:43: WBC 13.4 H, RBC 5.86, Hgb 16.0, Hct 49.6, MCV 84.6, MCH 27.3, MCHC 32.3, RDW 14.6, Plt Count 224, MPV 10.7 H, Neut % (Auto) 76.5, Lymph % (Auto) 13.2, [place] % (Auto) 8.2, Eos % (Auto) 1.4, Baso % (Auto) 0.4, Neut # (Auto) 10.2 H, Lymph # (Auto) 1.8, [place] # (Auto) 1.1 H, Eos # (Auto) 0.2, Baso # (Auto) 0.1, PT 11.1, INR 0.99, APTT 27.1, Sodium 138, Potassium 4.0, Chloride 103, Carbon Dioxide 26, Anion Gap 13.0, BUN 12, Creatinine 1.00, Estimated Creat Clear 87, Estimated GFR 73, Est GFR ( Amer) 89, Glucose 109 H, Calcium 9.4, Magnesium 1.8, Total Bilirubin 0.9, AST 24, ALT 21, Alkaline Phosphatase 84, Troponin I < 0.01, NT-Pro-B Natriuret Pep 1580 H, Total Protein 7.5, Albumin 4.1, Globulin 3.4 H, Albumin/Globulin Ratio 1.2 01/12/25 20:43 01/12/25 20:43 Response Orders (Tests/Meds): ED MEDICATIONS Generic Name Dose Route Start Last Admin Trade Name Freq PRN Reason Stop Dose Admin Acetaminophen 650 mg 01/12/25 22:24 Acetaminophen 325mg Tab PO 02/11/25 22:23 Q4HP PRN Fever or Mild Pain (1-3) Hydrocodone Bitart/Acetaminophen 1 tab 01/12/25 22:24 01/12/25 23:07 Hydrocodone/Apap 5/325 Mg Tablet PO 02/11/25 22:23 1 tab Q4HP PRN Administration Mild to Moderate Pain (1-6) Enoxaparin Sodium 40 mg 01/13/25 09:00 Enoxaparin 40mg/0.4ml Syringe SUBCUT 02/12/25 08:59 DAILY FLORENCIO Furosemide 40 mg 01/13/25 09:00 Furosemide 40mg/4ml Vial IV 02/12/25 08:59 DAILY FLORENCIO Insulin Human Lispro 0 unit 01/13/25 06:00 Humalog 100 Units/Ml 10ml Vial (Ssi) SUBCUT 02/12/25 05:59 ACHS FLORENCIO Protocol Morphine Sulfate 2 mg 01/12/25 22:24 Morphine 2mg/Ml Syringe IV 02/11/25 22:23 Q2HP PRN Severe Pain (7-10) Ondansetron HCl 4 mg 01/12/25 22:24 Ondansetron 4mg/2ml Vial IV 02/11/25 22:23 Q8HP PRN Nausea Sodium Chloride 10 ml 01/12/25 22:24 Sodium Chloride 0.9% 10ml Flush Syringe IV 02/11/25 22:23 NEEDED PRN Maintain IV Site Discontinued Medications Generic Name Dose Route Start Last Admin Trade Name Kiran PRN Reason Stop Dose Admin Aspirin 324 mg 01/12/25 20:04 01/12/25 20:08 Aspirin 81mg Chewable Tablet PO 01/12/25 20:05 324 mg ONCE ONE Administration Furosemide 40 mg 01/12/25 21:53 01/12/25 22:06 Furosemide 40mg/4ml Vial IV 01/12/25 21:54 40 mg ONCE ONE Administration Morphine Sulfate 4 mg 01/12/25 20:24 01/12/25 20:50 Morphine 4mg/Ml Syringe IV 01/12/25 20:25 4 mg ONCE ONE Administration Nitroglycerin 1 gm 01/12/25 20:24 01/12/25 20:50 Nitroglycerin 1 Gm Ointment TD 01/12/25 20:25 1 gm ONCE ONE Administration Ondansetron HCl 4 mg 01/12/25 20:24 01/12/25 20:50 Ondansetron 4mg/2ml Vial IV 01/12/25 20:25 4 mg ONCE ONE Administration ORDERS Category Date Time Status Cardiology Consult [Consult to Cardiology] [CONS] Cons 01/13/25 08:00 Active Routine POCUS Point of Care (ER Only) Stat Exams 01/12/25 20:25 Completed XR chest portable Stat Exams 01/12/25 20:05 Completed Basic Metabolic Panel [facility] Lab 01/13/25 06:00 Ordered Basic Metabolic Panel AML[facility] Lab 01/14/25 06:00 Ordered Basic Metabolic Panel AMLAB Lab 01/15/25 06:00 Ordered Basic Metabolic Panel AMLAB Lab 01/16/25 06:00 Ordered Basic Metabolic Panel AMLAB Lab 01/17/25 06:00 Ordered Complete Blood Count Auto Diff AMLAB Lab 01/13/25 06:00 Ordered Complete Blood Count Auto Diff AMLAB Lab 01/14/25 06:00 Ordered Complete Blood Count Auto Diff AMLAB Lab 01/15/25 06:00 Ordered Complete Blood Count Auto Diff AMLAB Lab 01/16/25 06:00 Ordered Complete Blood Count Auto Diff AMLAB Lab 01/17/25 06:00 Ordered Complete Blood Count Auto Diff Stat Lab 01/12/25 20:43 Completed Comprehensive Metabolic Panel Stat Lab 01/12/25 20:43 Completed Magnesium Stat Lab 01/12/25 20:43 Completed NT Pro Brain Natriuretic Pep. Stat Lab 01/12/25 20:43 Completed PT INR [Prothrombin Time INR] Stat Lab 01/12/25 20:43 Completed PTT [Activated Partial Thrombo Time] Stat Lab 01/12/25 20:43 Completed Troponin I Q3H Lab 01/12/25 23:15 Ordered Troponin I Q3H Lab 01/13/25 02:15 Ordered Troponin I Stat Lab 01/12/25 20:43 Completed Venous Blood Gas Stat RT 01/12/25 20:06 Completed MDM Narrative Medical Decision Narrative: 74-year-old male history of hypertension, hyperlipidemia, CAD, MO status post stenting x 13, cardiomyopathy and CHF with pacemaker defibrillator in place, paroxysmal A-fib not currently on anticoagulation presenting with chest pain. He states he went to bed last night, 01/11 completely normal. Woke up today, 01/12 with substernal chest pain that did not radiate, but made his neck feel like I have a toothache, but I do not have any teeth. States that he received a transmission from his pacemaker defibrillator saying that something needed adjusted, he has a follow-up with cardiology on 01/21. Patient states that his chest pain is currently 8 out of 10, does not radiate and associated with shortness of breath. No lower extremity edema. No syncope, neurologic deficits, nausea, vomiting or diaphoresis. Took 3 nitroglycerin, this did not seem to help. History was obtained via conversation with patient. On arrival, patient hemodynamically stable, alert, oriented x4, appropriate, GCS 15, moving all extremities spontaneously, pupils equal and reactive to light. Full physical exam performed and significant for well-appearing male no acute distress. Intermittently having flareups of pain, but at baseline speaking full sentences and appears very well. Lungs are clear, cardiac exam without murmurs gallops or rubs. No tenderness over pacemaker sites. No lower extremity edema. Pulses equal and symmetric in upper and lower extremities. Differential includes microvascular coronary artery disease, CHF, ACS, MO, coronary artery dissection, pneumothorax, PE, dissection, pericarditis, myocarditis, pneumothorax, aortic aneurysm, pneumonia, bronchitis, among others. Patient was given aspirin and nitroglycerin paste for symptomatic management and correction of underlying abnormalities. Patient continued after pain, Zofran and morphine were ordered. Patient placed on continuous cardiac monitoring and continuous pulse ox with initial blood pressure 154/86, heart rate 94, saturation 96% on room air. Independent interpretation of EKG shows ventricular pacemaker 110 bpm with QRS 137, QTc 398. No acute ischemic change, Sgarbossa negative. Normal axis. Workup independently interpreted and significant for mild leukocytosis. Coags normal. VBG nonactionable.. On independent interpretation of imaging, lungs appear clear. See radiology read for full review of final results. Heart score 7. Given BNP elevation, persistent pain on reevaluation, Lasix was given as patient continuing to have chest pain. I feel this is consistent with unstable angina. Because patient not having ischemic changes or abnormal troponin, could be due to BNP elevation and cardiac stretch. Hospital medicine was contacted and interactive discussion was had, patient to be admitted for cardiac workup. Security Installation Technician disclaimer Much of this encounter note is an electronic gelatin powder mixer spoken language to printed text. Electronic gelatin powder mixer of the spoken language may permit errors. Although I have reviewed the note, some errors may still exist.
[2025-01-12 21:33] LABS: Alanine Aminotransferase 21 U/L (12-78); Albumin Level 4.1 g/dl (3.5-5.0); Albumin/Globulin Ratio 1.2 (1.1-1.8); Alkaline Phosphatase 84 U/L (38-126); Aspartate Amino Transferase 24 U/L (17-59); Bilirubin,Total 0.9 mg/dl (0.2-1.3); Blood Urea Nitrogen 12 mg/dl (9-20); Calcium 9.4 mg/dl (8.4-10.2); Carbon Dioxide 26 mmol/L (22.0-30.0); Chloride 103 mmol/L (98-107); Creatinine Clearance Estimated 87 mL/min (50-200); Estimated Glomerular Filt Rate 73 ml/min (>60); GFR (African American) 89 ML/MIN (>60); Globulin 3.4 g/dL (1.3-3.2); Glucose 109 mg/dl (74-100); Magnesium 1.8 mg/dl (1.6-2.3); Sodium 138 mmol/L (136-145); Total Protein,Serum 7.5 g/dl (6.3-8.2)
[2025-01-12 21:43] LABS: NT Pro Brain Natriuretic Pep. 1580 pg/mL (0-125)
[2025-01-12 21:44] LABS: Troponin I < 0.01 ng/ml (0.00-0.034)
[2025-01-12] MEDS: FUROSEMIDE 40MG/4ML VIAL 40 MG IV (22:06)
--- NOTE | 2025-01-12 23:00 | CT_ITS ---
PROCEDURE INFORMATION: Exam: CTA Chest With Contrast Exam date and time: 01/12/2025 11:25 PM Age: 74 years old Clinical indication: Pain; Chest pressure; Additional info: Chest pain TECHNIQUE: Imaging protocol: Computed tomographic angiography of the chest with contrast. Exam focused on the arteries. 3D rendering (Not supervised by radiologist): MIP and/or 3D reconstructed images were created by the technologist. Radiation optimization: All CT scans at this facility use at least one of these dose optimization techniques: automated exposure control; mA and/or kV adjustment per patient size (includes targeted exams where dose is matched to clinical indication); or iterative reconstruction. Contrast material: ISOVUE; Contrast volume: 70 ml; Contrast route: INTRAVENOUS (IV); COMPARISON: CT ANGIO CHEST PE PROTOCOL 02/06/2023 7:34 PM FINDINGS: Pulmonary arteries: No pulmonary emboli. Aorta: Atherosclerotic calcification. No aortic aneurysm. No aortic dissection. Lungs: 1.1 x 1.2 cm left lower lobar nodule. Patchy air trapping. Bibasilar subsegmental atelectasis. Underlying emphysematous changes. Pleural spaces: Unremarkable. No pneumothorax. No pleural effusion. Heart: Unremarkable. No cardiomegaly. No pericardial effusion. Coronary arteries: Atherosclerotic calcification of coronary arteries. Lymph nodes: Unremarkable. No enlarged lymph nodes. Bones/joints: Unremarkable. No acute fracture. Soft tissues: Unremarkable. IMPRESSION: 1. No central or segmental pulmonary embolism, aortic aneurysm or dissection identified. 2. Air trapping. 3. Stable left lower lobar pulmonary nodule. COMMENTS: The presence of pulmonary emphysema on CT is an independent risk factor for lung cancer. In the absence of a history or active diagnosis of lung cancer, it is recommended that this patient with emphysema be evaluated for enrollment in a low dose CT lung cancer screening program.
--- NOTE | 2025-01-12 23:00 | P.HP_ITS ---
<Statement entered by Giorgio Trevino MD - 01/14/25 14:07> I personally examined the patient and agree with the plan of care as outlined by the PALM GATH[employer]ER. History of Present Illness *Admission Date: 01/12/25 *Reason for visit:: Chest pain *History of present illness: This is a 74-year-old male who has a past medical history significant for paresthesia, neoplasm of the face, pacemaker placement, benign essential tremor, anxiety, depression, systolic dysfunction congestive heart failure, GERD, gout, thyroid nodule, hypertension, angina, COPD, hyperlipidemia, and coronary artery stenosis who presents with a chief complaint of midsternal chest pain that has been radiating to his left jaw. Due to patient's symptoms, he presented to the emergency room for evaluation. While in emergency room, EKG obtained revealed a ventricular paced rhythm without any evidence of ischemic or infarct changes, patient's BNP was 1580, and patient's troponin was unresponsive. Due to ongoing chest pain, patient is being admitted for further management. During my evaluation of the patient, patient states his chest pain started early this morning. He states has been ongoing since this morning without any relief. He reports his chest pain being midsternal radiating to the left drawl and lower left chest rated 8 out of 10. He states that the pain to the jaw mimics a tooth 8. Patient did take 3 nitro that he had at the house and he was unrelieved with this chest pain. On further questioning, patient was informed by his pacemaker provider that he should have his AICD evaluated. He did schedule an appointment for this but since he was having chest pain, patient presented to the emergency room for evaluation. He also mentions that he has been unable to lay flat and sleeps in the recliner and this has been ongoing for 7- 8 months. He is currently denying any lightheadedness, dizziness, fever, chills, rigors, nausea, vomiting, lower extremity edema, or diarrhea. Additional pertinent vitals obtained include a blood glucose of 109, BNP of 1580, and white blood cell count of 13.4. Patient was also acutely hypoxic with room air saturations in the upper 80s requiring supplemental oxygen. [facility] Disclaimer: The information contained in this section may have been updated after the patient was seen, as this information can be updated by other users. Medical History Paresthesias Neoplasm of skin of face see procedure note. Wound care instructions given. Situational depression Pacemaker Benign essential tremor Tremor of right hand Anxiety with depression HFrEF (heart failure with reduced ejection fraction) Laceration of finger of left hand with damage to nail GERD (gastroesophageal reflux disease) Urinary incontinence Hyperuricemia Otitis media Influenza A Rx Tamiflu 75mg bid for 5 days. Also Rx 75mg daily for 7 days for his Millie whitman. Orthopnea Sinusitis Patient left without being seen Nail dystrophy Pain due to onychomycosis of toenails of both feet Hallux rigidus of right foot UTI (urinary tract infection) SIRS (systemic inflammatory response syndrome) Thyroid nodule Clavicle fracture Ear ache Ventricular tachycardia Pulmonary hypertension Angina, class III Hypokalemia Prostatitis Acute febrile illness CHF NYHA class III LV dysfunction Obstructive sleep apnea syndrome Chronic obstructive lung disease Fatigue Hyperlipidemia Hypertensive heart disease Coronary arteriosclerosis Surgical History Stented coronary artery 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 (Updated 01/12/25 @ 22:59 by Lilli Zazueta RN) Smoking Status: Never smoker second hand exposure: No alcohol intake: never counseling provided: none substance use type: denies use current occupational status: retired Travel in the last 8 weeks: Inside the [place] household members: spouse housing: house current occupational exposures/hazards: Yes caffeine: Yes Have you lived/traveled outside [place] in past 30 days?: No Contact w/someone who lives/traveled outside [place] past 30 days?: No Exposure to someone with infectious disease in past 14 days?: No Do you have a fever (greater than 100.4 F or 38 C)?: No Have you tested positive for COVID-19: No Exposed to someone with COVID-19 in past 14 days?: No Do you have a sore throat?: No Do you have a cough?: No Do you have any weakness?: No Are you experiencing any nausea/vomitting?: No Do you have any diarrhea?: No Are you experiencing any unusual bleeding?: No Do you have any muscle aches/pain?: No Do you have any abdominal pain?: No Are you experiencing loss of taste or smell?: No Other Medical History Have you received the Flu Vaccine for this season: No Have you received the Pneumonia Vaccine: No Review of Systems Review of Systems Review of systems:: pertinent systems reviewed and negative unless documented below Constitutional Constitutional: Reports system reviewed and no additional complaints, except as documented Eyes Eyes: Reports system reviewed and no additional complaints, except as documented ENT Ears, Nose, Mouth, and Throat: Reports system reviewed and no additional complaints, except as documented *Cardiovascular Cardiovascular: Reports chest pain, Reports chest pain at rest, Reports dyspnea and Reports orthopnea *Respiratory Respiratory: Reports dyspnea *Gastrointestinal Gastrointestinal: Reports system reviewed and no additional complaints, except as documented *Genitourinary Genitourinary: Reports system reviewed and no additional complaints, except as documented *Musculoskeletal Musculoskeletal: Reports system reviewed and no additional complaints, except as documented Integumentary/Breasts Skin/Breast: Reports system reviewed and no additional complaints, except as documented *Neurologic Neurologic: Reports system reviewed and no additional complaints, except as documented Psychiatric Psychiatric: Reports system reviewed and no additional complaints, except as documented Endocrine Endocrine: Reports system reviewed and no additional complaints, except as documented Hematologic/Lymphatic Hematologic/Lymphatic: Reports system reviewed and no additional complaints, except as documented Allergic/Immunologic Allergic/Immunologic: Reports system reviewed and no additional complaints, except as documented Meds Home Medications and Allergies Home Medications ?Medication ?Instructions ?Recorded ?Confirmed ?Type allopurinol 300 mg tablet 300 mg PO DAILY 09/23/24 01/12/25 History metoprolol succinate 100 mg 100 mg PO DAILY 09/23/24 01/12/25 History tablet,extended release 24 hr valsartan 160 mg tablet 160 mg PO DAILY #30 tabs 11/01/24 01/12/25 Rx oxycodone-acetaminophen 5 mg-325 1 tab PO TID PRN chronic pain #90 12/26/24 01/12/25 Rx mg tablet tabs spironolactone 25 mg tablet 25 mg PO . 01/12/25 01/12/25 History (Aldactone) New Prescriptions to Start Prescriptions: Allergies Allergy/AdvReac Type Severity Reaction Status Date / Time No Known Allergies Allergy Verified 01/12/25 23:05 Exam Data for Last 24 hours Vital signs and Labs for Last 24 Hours: Temp Pulse Resp BP Pulse Ox O2 Del Method O2 Flow Rate 98.6 F 63 18 147/101 H 100 Nasal Cannula 3 01/12/25 22:44 01/12/25 22:44 01/12/25 22:44 01/12/25 22:44 01/12/25 22:44 01/12/25 22:44 01/12/25 22:44 Laboratory Results - last 24 hr 01/12/25 20:06: VBG pH 7.36, VBG pCO2 45.1, VBG pO2 27.5 L, VBG HCO3 25.1, VBG Total CO2 26.5, VBG O2 Saturation 51.4, VBG Base Excess -0.3, VBG Lactic Acid 1.7 01/12/25 20:43: WBC 13.4 H, RBC 5.86, Hgb 16.0, Hct 49.6, MCV 84.6, MCH 27.3, MCHC 32.3, RDW 14.6, Plt Count 224, MPV 10.7 H, Neut % (Auto) 76.5, Lymph % (Auto) 13.2, [place] % (Auto) 8.2, Eos % (Auto) 1.4, Baso % (Auto) 0.4, Neut # (Auto) 10.2 H, Lymph # (Auto) 1.8, [place] # (Auto) 1.1 H, Eos # (Auto) 0.2, Baso # (Auto) 0.1, PT 11.1, INR 0.99, APTT 27.1, Sodium 138, Potassium 4.0, Chloride 103, Carbon Dioxide 26, Anion Gap 13.0, BUN 12, Creatinine 1.00, Estimated Creat Clear 87, Estimated GFR 73, Est GFR ( Amer) 89, Glucose 109 H, Calcium 9.4, Magnesium 1.8, Total Bilirubin 0.9, AST 24, ALT 21, Alkaline Phosphatase 84, Troponin I < 0.01, NT-Pro-B Natriuret Pep 1580 H, Total Protein 7.5, Albumin 4.1, Globulin 3.4 H, Albumin/Globulin Ratio 1.2 I & O for Last 24 hours: Intake & Output 01/09/25 01/10/25 01/11/25 01/12/25 23:59 23:59 23:59 23:59 Weight 94.166 kg Constitutional Constitutional: no acute distress and morbidly obese *Routine HEENT Exam Head: Present normocephalic and atraumatic Eye: Present EOMI, PERRL and normal accommodation ENT: Present mucous membranes moist *Routine Neck Exam Neck: Present supple, full ROM and trachea midline *Routine Respiratory Exam Respiratory: Present decreased breath sounds and crackles *Routine Cardiovascular Exam Cardiovascular: Present Normal S2 and murmur Comments: Ventricular paced *Routine Abdominal Exam Abdominal: Present soft, normoactive bowel sounds and distended *Routine Rectal Exam Rectal:: deferred *Routine Genitalia Exam Genitalia:: deferred *Routine Extremities Exam Extremities: Present full ROM, pulses intact and normal capillary refill Routine Back/Spine/Pelvis Exam Back/Spine: Present full ROM *Routine Skin Exam Skin: Present intact, dry and warm *Routine Neurological Exam Neurological: Present alert, oriented X3, CN II-XII intact, moving all extremities and normal speech Routine Psychiatric Exam Psychiatric: Present normal affect and good insight H&P: Result Impressions 74-year-old male who has known coronary artery disease with more than 13 stents placed presents with a chief complaint of unrelieved chest pain with and without activity that has not responded to nitro. Patient is endorsing having difficulty laying flat. BNP obtained is elevated however on physical exam patient appears to be euvolemic; however, with patient's voicing difficulty laying flat and chest x-ray per my read has some vascular congestion will continue to diurese patient Assessment and Plan *Assessment and plan (1) Chest pain: Status: Acute Qualifiers: Chest pain type: unspecified Qualified Code(s): R07.9 - Chest pain, unspecified Category: Medical Code(s): R07.9 - Chest pain, unspecified (2) Systolic CHF: Status: Acute Qualifiers: Heart failure chronicity: acute on chronic Qualified Code(s): I50.23 - Acute on chronic systolic (congestive) heart failure Category: Medical Code(s): I50.20 - Unspecified systolic (congestive) heart failure (3) Leukocytosis: Status: Acute Qualifiers: Leukocytosis type: unspecified Qualified Code(s): D72.829 - Elevated white blood cell count, unspecified Category: Medical Code(s): D72.829 - Elevated white blood cell count, unspecified (4) Angina at rest: Status: Acute Category: Medical Code(s): I20.89 - Other forms of angina pectoris (5) Acute hypoxic respiratory failure: Status: Acute Category: Medical Code(s): J96.01 - Acute respiratory failure with hypoxia Plan Assessment: Chest pain: -Currently ruling out for acute coronary syndrome -Will continue to trend troponins -Will obtain CTA of the chest to rule out pulmonary embolism since patient's chest pain is ongoing -Will consult bag liner in the a.m. to evaluate patient's chest pain and AICD Systolic dysfunction congestive heart failure/orthopnea: HFrEF -Last 2D echo obtained in June 2024 revealed a severely reduced ejection fraction of 20-25% -Although patient on the surface appears to be euvolemic, his BNP is elevated and patient is having orthopnea -Patient was given 40 mg of Lasix IV in the emergency room -Will continue 40 mg of Lasix IV daily may have to escalate to twice daily -Obtain new 2D echo in the a.m. -Saline lock Leukocytosis -No evidence of infection -Will obtain CTA of the chest -If patient has fever we will consider blood cultures and procalcitonin Angina -Obtain 2D echo Acute hypoxic respiratory failure -Will provide supplemental oxygen to maintain oxygen saturation greater 92% Plan: Admit patient to the MedSurg unit on telemetry Daily weight Saline lock Vital signs every 4 hours Consult cardiology in a.m. 1800 ADA/cardiac diet CBC/BMP daily Continue to trend troponin Patient did receive aspirin in emergency room 40 mg of Lovenox subcu daily for DVT prophylax 5 mg [place] p.o. every 4 hours pain moderate pain Slight scale insulin ACH S with mild scale coverage 2 mg morphine IV push to 2 hours. Severe pain 4 mg Zofran IV push every 8 hours pain nausea and vomiting Full code I will discuss this case with attending physician Dr. trevino
[2025-01-12] MEDS: HYDROCODONE/APAP 5/325 MG TABLET 1 TAB PO (23:07)
[2025-01-12] MEDS: SODIUM CHLORIDE 0.9% 10ML SYR (RAD ONLY) 10 ML IV (23:39)
[2025-01-12] MEDS: IOPAMIDOL-370 (76%);100ML BOTTLE 70 ML IV (23:39)
[2025-01-12] MEDS: 0.9 % SODIUM CHLORIDE 50 ML VIAL IV (23:39)
--- OUTSIDE RECORDS SUMMARY | 2025-01-12 23:40 | XMS_ITS | Data Portability ---
Author Organization RACHEL DAMION Fermin [place] CLOSED Address [address] [place] [address] Care Team Providers Care Fur Polisher Name Role Phone HEATHER LUNA Referring Provider Assessment No assessment recorded. Plan of Treatment Reminders Order Date Submit Date Provider Last Modified By Organization Details Last Modified Time Details Appointments None recorded. Lab urinalysis panel, auto 2022 023 [facility], [address], [place], [address], 3 10:04:27 PSA, serum or plasma 2022 023 [facility], [address], [address], [place], [address], 3 17:54:14 urinalysis panel, auto 2022 023 [facility], [address], [address], [place], [address], 3 15:10:26 Referral None recorded. Procedures None recorded. Surgeries None recorded. Imaging None recorded. Medication Orders tamsulosin 0.4 mg capsule 2022 023 [facility], [address] [place], [address], 15:14:44 Patient TargetsNo targets recorded. Patient InstructionsNo instructions recorded. Reason for Referral None Reported. Results Created Date Observation Date Name Description Value Unit Range Abnormal Flag Note LastModifiedBy Organization Detail LastModifiedTime 04/23/20 23 04/23/2023 PSA, serum or plasm a PSA 0.43 NG/mL 0.0 - 4.0 Not Available [facility] [address], [place], [address], 04/23/2023 17:38:57 04/23/2004/23/2023 urina lysis panel , auto Unknown Analyte Clean Catch Not Available [facility] [address], [place], [address], 04/23/2023 14:59:04 04/23/20 23 04/23/2023 urina lysis panel , auto Unknown Analyte Yellow Not Available [facility] [address], [place], [address], 04/23/2023 14:59:04 04/23/20 23 04/23/2023 urina lysis panel , auto Unknown Analyte Clear Not Available [facility] [address], [address], 04/23/2023 14:59:04 04/23/20 23 04/23/2023 urina lysis panel , auto Unknown Analyte 1.020 Not Available [facility] [address], [address], 04/23/2023 14:59:04 04/23/20 23 04/23/2023 urina lysis panel , auto Unknown Analyte 5.0 Not Available [facility] [address], [place], [address], 04/23/2023 14:59:04 04/23/20 23 04/23/2023 urina lysis panel , auto Unknown Analyte Negati ve Not Available [facility] [address], [place], [address], 04/23/2023 14:59:04 04/23/20 23 04/23/2023 urina lysis panel , auto Unknown Analyte Negati ve Not Available [facility] [address], [place], [address], 04/23/2023 14:59:04 04/23/20 23 04/23/2023 urina lysis panel , auto Unknown Analyte Trace Not Available [facility] [address], [place], [address], 04/23/2023 14:59:04 04/23/20 23 04/23/2023 urina lysis panel , auto Unknown Analyte Normal Not Available [facility] [address], [place], [address], 04/23/2023 14:59:04 04/23/20 23 04/23/2023 urina lysis panel , auto Unknown Analyte Negati ve Not Available [facility] [address], [place], [address], 04/23/2023 14:59:04 04/23/20 23 04/23/2023 urina lysis panel , auto Unknown Analyte Normal Not Available [facility] [address], [place], [address], 04/23/2023 14:59:04 04/23/20 23 04/23/2023 urina lysis panel , auto Unknown Analyte Negati ve Not Available [facility] [address], [place], [address], 04/23/2023 14:59:04 04/23/20 23 04/23/2023 urina lysis panel , auto Unknown Analyte Negati ve Not Available [facility] [address], [place], [address], 04/23/2023 14:59:04 05/20/20 23 05/20/2023 urina lysis panel , auto Unknown Analyte Clean Catch Not Available [facility] [address], [place], [address], 05/20/2023 10:00:08 05/20/20 23 05/20/2023 urina lysis panel , auto Unknown Analyte Yellow Not Available [facility] [address], [place], [address], 05/20/2023 10:00:08 05/20/20 23 05/20/2023 urina lysis panel , auto Unknown Analyte Clear Not Available [facility] [address], [place], [address], 05/20/2023 10:00:08 05/20/20 23 05/20/2023 urina lysis panel , auto Unknown Analyte 1.020 Not Available [facility] [address], [place], [address], 05/20/2023 10:00:08 05/20/20 23 05/20/2023 urina lysis panel , auto Unknown Analyte 5.0 Not Available [facility] [address], [place], [address], 05/20/2023 10:00:08 05/20/20 23 05/20/2023 urina lysis panel , auto Unknown Analyte Negati ve Not Available [facility] [address], [place], [address], 05/20/2023 10:00:08 05/20/20 23 05/20/2023 urina lysis panel , auto Unknown Analyte Negati ve Not Available [facility] [address], [place], [address], 05/20/2023 10:00:08 05/20/20 23 05/20/2023 urina lysis panel , auto Unknown Analyte 30 mg/dl (+) Not Available [facility] [address], [place], [address], 05/20/2023 10:00:08 05/20/20 23 05/20/2023 urina lysis panel , auto Unknown Analyte Normal Not Available [facility] [address], [place], [address], 05/20/2023 10:00:08 05/20/20 23 05/20/2023 urina lysis panel , auto Unknown Analyte Negati ve Not Available [facility] [address], [place], [address], 05/20/2023 10:00:08 05/20/20 23 05/20/2023 urina lysis panel , auto Unknown Analyte Normal Not Available [facility] [address], [place], [address], 05/20/2023 10:00:08 05/20/20 23 05/20/2023 urina lysis panel , auto Unknown Analyte Negati ve Not Available [facility] [address], [place], [address], 05/20/2023 10:00:08 05/20/20 23 05/20/2023 urina lysis panel , auto Unknown Analyte Negati ve Not Available [facility] [address], [address], 05/20/2023 10:00:08 Result Notes None recorded. Problems No Known Problems Procedures Surgical History Date Name Laterality Status Provider Name and Address Organization Details Recorded Time 3 Post Void Residual; Ultrasound completed Xochitl Scott [facility] 05/20/2023 10:00:03 3 Post Void Residual; Ultrasound completed Xochitl Scott [facility] 04/23/2023 14:59:00 Stent completed Xochitl Scott [facility] 04/23/2023 14:47:23 Pacemaker completed Xochitl Scott [facility] 04/23/2023 14:56:52 Imaging Results None recorded. Procedure Notes None recorded. Medical Equipment None Reported. Allergies No known drug allergies Medications Name Sig Start Date Stop Date Status Note LastModified by Organization Details LastModified Time tamsulosin 0.4 mg capsule Take 1 Capsule by mouth once daily. 2022 active Not Available Not Available Not Avai lable nitroglycerin as needed active Not Available Not Available No t Available carvedilol twice a day active Not Available Not Available No t Available allopurinol once a day active Not Available Not Available No t Available prasugrel HCl once a day active Not Available Not Available No t Available Myrbetriq twice a day active Not Available Not Available No t Available Entresto twice a day active Not Available Not Available No t Available colchicine (cardiac) twice a day active Not Available Not Available No t Available Vitals Date Recorded Body height Body mass index (BMI) Body weight Provider Name and Address Organization Details Last Updated DateTime 04/23/2023 172.72 cm 33.5 kg/m2 05282.32 g Xochitl Chavez [facility] 04/23/2023 14:20:58 Date Recorded Body height Body mass index (BMI) Body weight Provider Name and Address Organization Details Last Updated DateTime 05/20/2023 172.72 cm 33.5 kg/m2 64801.32 tj Chavez [facility] 05/20/2023 09:59:55 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 Question Answer Notes LastModified by Organizat ion Details LastModified Time Tobacco Smoking Status Former Smoker Xochitl Scott [facility] 04/23/2023 14:46:01 Are You Currently Employed? 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 16+yearssince lastcigarette Information not available 04/23/2023 What Is Your Relationship Status? [email or web address] Information not available 04/23/2023 Sex: Unknown Functional Status None recorded. Mental Status None recorded. Family History Relationship Description Onset Age of this Age Resolved Age Notes LastModified by Organization Details LastModified Time Mother Family history of malignant neoplasm [email or web address] Not available 2022 14:44:51 Sister Family history of malignant neoplasm 2 [email or web address] Not available 2022 14:44:51 Brother Heart disease 2 Not available 2022 14:45:32 Medical History Condition Response False Teeth Y Chronic Obstructive Pulmonary Disease Y Heart Conditions Y Heart Arrhythmia Y Emphysema Y Depression Y Pacemaker Y Heart Attack ([place]) Y Anxiety Disorder Y Arthritis Y Heart Disease Y Hypertension Y Past Encounters Encounter ID Performer Location Encounter Start Date Encounter Closed Date Diagnosis/Indication Diagnosis SNOMED-CT Code Diagnosis ICD10 Code Diagnosis Note [id number] MERT DOMINIQUE [facility] [address] [place] [address] 04/23/2023 13:36:11 04/23/2023 14:57:22 Benign prostatic hyperplasia with outflow obstruction 346516100 N40.1 Obstructio n of urinary bladder outlet 068305329 N32.0 [id number] MD [facility] [address] [place] [address] 05/20/2023 09:43:34 05/20/2023 10:03:47 Benign prostatic hyperplasia with outflow obstruction 104936612 N40.1 Health Concerns Section Related Observation LastModified by Organization Detai ls LastModified Time None Recorded Concern Status LastModified by Organization Details LastModified Time None Recorded Advance Directives Directive None Recorded Payers Encounter Date Sequence Insurance Name Policy Number Policy Martinez Covered Member ID Martinez Member ID Guarantor Name 04/23/2023 1 [employer] (MEDICARE REPLACEMENT/ ADVANTAGE - PPO) Jigar A [place] [id number] Jigar A Collins 05/20/2023 1 [employer] (MEDICARE REPLACEMENT/ ADVANTAGE - PPO) Jigar A [place] [id number] Jigar A Collins Notes Date Note Type Note Provider Name and Address Organization Details Recorded Time 04/23/2023 text/html 72-year-old gentleman is having marked voiding difficulties. He has been having problems for the last 6 months. He has a lot of urgency and has experienced urge incontinence. He has nocturia 4-5 times at night. The stream is weak and he does not feel like he empties his bladder completely. There is no hematuria or dysuria there is no back or abdominal pain. Postvoid residuals 100 mL MERT DOMINIQUE MD [address] [place], [address], [place] [facility] 04/23/2023 17:54:39 05/20/2023 text/html He is voiding mu ch better on the tamsulosin. He has a stronger stream. Nocturia is down to 1 time at night. He is very pleased with the improvement. Postvoid residual is 90 mL but he will stay on the medication MERT DOMINIQUE MD [address], [place], [address], [facility] 05/20/2023 10:04:49
[2025-01-13] VITALS (18 sets, daily range): BP systolic 91–131; BP diastolic 55–87; PULSE 67–110; RESP 16–20; TEMP 36.7–37; O2SAT 91–100; BMI 31.3
[2025-01-13] MEDS: MORPHINE 2MG/ML SYRINGE 2 MG IV (00:05)
[2025-01-13 01:14] LABS: Troponin I < 0.01 ng/ml (0.00-0.034)
--- NOTE | 2025-01-13 02:49 | PC.NURSE ---
Pt came in last night reporting chest pain. Upon arriving to unit, pt was given norco. Pain was unrelieved, so morphine was administered. The patient states that it helped the pain. He has been NPO since midnight per provider orders. He has been sleeping intermittently. He is on telemetry, 2L nasal cannula. Bed is low, locked, and call light is in reach.
[2025-01-13 03:18] LABS: Troponin I < 0.01 ng/ml (0.00-0.034)
[2025-01-13] MEDS: HYDROCODONE/APAP 5/325 MG TABLET 1 TAB PO (04:19)
[2025-01-13 05:42] LABS: POC Glucose,Bedside 133 (70-110)
[2025-01-13 06:20] LABS: Basophils # 0.1 K/mm3 (0-0.2); Basophils % 0.5 % (0.1-2.0); Eosinophils # 0.2 K/mm3 (0.0-0.4); Eosinophils % 1.3 % (0.1-12.0); Hematocrit 50.6 % (42.0-52.0); Hemoglobin 16.3 g/dL (14.1-18.0); Lymphocytes # 2.1 K/mm3 (0.7-4.5); Lymphocytes % 17.3 % (10-50); Mean Corpuscular HGB Conc 32.2 g/dL (31.8-35.4); Mean Corpuscular Hemoglobin 27.4 pg (27.0-31.2); Mean Platelet Volume 10.6 fl (7.4-10.4); Monocytes # 1.4 K/mm3 (0.1-1.0); Neutrophils # 8.2 K/mm3 (1.8-7.8); Neutrophils % 68.6 % (37.0-80.0); Nucleated Red Blood Cells # 0 10^3/uL; Nucleated Red Blood Cells % 0 %; Platelet Count 208 K/mm3 (142-424); Red Blood Count 5.95 M/mm3 (4.60-6.20); Red Cell Distribution Width 14.9 % (11.5-17.5); Red Cell Distribution Width-SD 45.9 fL
[2025-01-13 06:50] LABS: Chloride 103 mmol/L (98-107); Potassium 4.1 mmoL/L (3.5-5.1); Sodium 140 mmol/L (136-145)
[2025-01-13 06:53] LABS: Anion Gap 14.1 mEq/L (5-15); Blood Urea Nitrogen 17 mg/dl (9-20); Carbon Dioxide 27 mmol/L (22.0-30.0); Creatinine Clearance Estimated 62 mL/min (50-200); Estimated Glomerular Filt Rate 50 ml/min (>60); GFR (African American) 60 ML/MIN (>60)
[2025-01-13 06:54] LABS: Calcium 9.5 mg/dl (8.4-10.2); Glucose 137 mg/dl (74-100)
--- NOTE | 2025-01-13 08:00 | CA_ITS ---
APPROVED REPORT EXAM: Comprehensive 2D, Doppler, and color-flow Echocardiogram Pollution Control Chemist: Lissette Lyles RDCS Ht: 5 ft 8 in Wt: 207lbs BSA: 2.07 BP: 147/101 mmHg Indications: HFrEF,CP,PP,COPD,HLP,HTN M-Mode Dimensions RVDd 1.36 cm (0.9-2.6) LA Diam 2.77 cm (1.9-4.0) LVDd 7.01 cm (3.5-5.7) LVDs 6.33 cm (3.5-5.7) IVSd 0.59 cm (0.6-1.1) PWd 0.64 cm (0.6-1.1) EF (Teich) 20.60% FS 9.70% EDV (Teich) 256.20 mL ESV (Teich) 203.40 mL LV Diastology E Decel Time 120 (160-240 msec) E/A Ratio 0.7 Mitral Valve MV E Max Jaden. 55.0 (40-130 cm/s) MV A Velocity 83.0 (40-130 cm/s) E/A Ratio 0.66 MV PHT 35.0 ms Left Ventricle The left ventricle is severely dilated. The left ventricular systolic function is severely reduced. There is increased level thickness. There is severe global hypokinesis present. Grade 3 diastolic dysfunction is present. LVEF is 20%. Right Ventricle Right ventricle is mildly dilated. Right ventricle is mildly hypokinetic. Atria The left atrium is mildly dilated. The right atrium is mildly dilated. There is no Doppler evidence of interatrial shunt. Aortic Valve The aortic valve is mildly thickened. Trace aortic regurgitation. There is no aortic valvular stenosis. Mitral Valve The mitral valve is normal in structure. Trace mitral regurgitation. Tricuspid Valve Tricuspid valve is grossly normal in structure and function. Trace tricuspid regurgitation. There is insufficient TR jet to estimate RVSP. Pulmonic Valve The pulmonary valve is normal in structure. Trace pulmonic regurgitation. Great Vessels The aortic root is normal in size. IVC is normal in size and collapses >50% with inspiration. Pericardium There is no pericardial effusion. Other Information Study Quality: Fair Conclusion Severely dilated LV with severe reduction in LV systolic function (LVEF 20%). Mild RV dilation with mild reduction in RV function. Mild biatrial dilation. No significant valvular stenosis or regurgitation. Electronically signed by : Kavita Oviedo MD 01/13/2025 09:53:31
[2025-01-13] MEDS: FUROSEMIDE 40MG/4ML VIAL 40 MG IV (08:38)
[2025-01-13 08:53] LABS: Chol/HDL Ratio 3.4 (1-3.5); Cholesterol 141 mg/dl (140-200); HDL Cholesterol 42 mg/dl (40-60); Triglycerides 152 mg/dl (30-150); VLDL Cholesterol 30 mg/dL (0-40)
[2025-01-13 09:05] LABS: Direct LDL Cholesterol 66.53 mg/dL (100-129)
--- NOTE | 2025-01-13 09:15 | IR_ITS ---
APPROVED REPORT Patient Location: Inpatient PROCEDURES Left heart catheterization Left ventriculogram Selective coronary angiogram Drug-eluting stent deployment to the mid LAD INDICATION Unstable angina, Coronary artery disease Informed consent was obtained prior to the procedure. COMPLICATIONS NONE Estimated Blood Loss: LESS THAN 10 ML TECHNIQUE One percent lidocaine used to anesthetize the right anterior aspect of the wrist. The right radial artery was accessed via the Seldinger technique. A 6 Mauritanian sheath was placed in the right radial artery. 2.5 mg of Verapamil, 800 mcg of nitroglycerin, 1mg Lidocaine and 5000 U Heparin were given through the arterial sheath. The 6 Mauritanian JL 3 guide catheter was also used to perform left heart catheterization, left ventriculogram and selective coronary angiogram. At the end the diagnostic angiogram therapeutic Was administered giving a therapeutic ACT and the guide catheters placed in left main artery followed by Choice PT extra-support wire placed distally in the LAD. A 2.75 x 22 mm Belle frontier stent was deployed in the mid LAD at 20 grant reducing the stenosis to 0%. CHITRA-3 flow was present before and after the procedure. At the end of the seizure the apparatus was removed the sheath was removed and hemostasis was achieved using TR banding patient was transferred to the postop holding in stable condition ANGIOGRAPHIC RESULTS The left main artery Has a distal eccentric 10 to 20% stenosis The left anterior descending artery Has stents in the proximal segment which are widely patent with minimal in-stent restenosis and extend into the midportion of the LAD. Distal to a large second diagonal artery the LAD has a concentric 70 to 80% stenosis followed by an additional concentric 30% stenosis The circumflex artery Is nondominant and has stents in the ostial proximal and midportion which are widely patent until the terminal circumflex artery which is distal to the third obtuse marginal artery. The vessel then has a 90 followed by an 80% stenosis and gives 3 small distal branches. The high ramus intermedius has a proximal 80% stenosis however the vessel is 1.5 mm in diameter. The first obtuse marginal artery has an ostial 80 to 90% stenosis and is 1.75 mm in diameter. The second obtuse marginal artery has an ostial 50 to 60% stenosis and is also 1.5 mm diameter The right coronary artery Is a dominant vessel and has stents in the proximal mid and distal segment which are all the widely patent with mild to moderate distal concentric in-stent restenosis. Distal to the stent is a 40 to 50% stenosis which extends into the posterior descending and posterior lateral branch. The posterior descending has an additional 40 and mid vessel 60% stenosis The REYES ventriculogram reveals Dilated ventricle ejection fraction 20% The left ventricular end-diastolic pressure Severely elevated at 35 to 40 mmHg IMPRESSION Coronary artery disease as described above Accessible stenting of the mid LAD severe disease reduced to 0% with 1 drug-eluting stent Severely dilated and reduced ejection fraction with severely elevated LVEDP PLAN 1. Dual antiplatelet therapy 2. Recommend additional diuresis in order to decrease EDP which is likely contributing to patient's symptoms 3. LDL less than 55 to achieve that high intensity statin 4. Maximize heart failure medications 5. Cardiac rehabilitation Electronically signed by : Juan Carlos Her MD 01/13/2025 12:46:20
--- NOTE | 2025-01-13 09:21 | P.CONCA_ITS ---
History of Present Illness History of Present Illness Consult date: 01/13/25 Requesting physician: Giorgio Monte Consult reason: chest pain Chief complaint: chest pain History of present illness: Mr. 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 Patient reports increased frequency and episodes of chest pain over the last few months both with activity and at rest. States he awoke with chest pain yesterday which was intermittent throughout the day prompting him to go to the ER. Initial EKG obtained revealed a ventricular paced rhythm without any evidence of ischemic changes noted. Initial labs as follow: WBC 13.4, hemoglobin 16, platelets 224, sodium 138, potassium 4, creatinine 1, serial troponins negative, proBNP 1580 and LDL 66. Chest CTA was negative for PE aneurysm or dissection but did identify air trapping and a stable left lower lobe pulmonary nodule. Patient was admitted for ongoing episodes of chest pain and for cardiology evaluation. This morning patient is resting comfortably in bed but does report he has some intermittent episodes of chest pain throughout the evening. He denies shortness of breath, orthopnea or lower extremity edema. [facility] Disclaimer: The information contained in this section may have been updated after the patient was seen, as this information can be updated by other users. Medical History Paresthesias Neoplasm of skin of face see procedure note. Wound care instructions given. Situational depression Pacemaker Benign essential tremor Tremor of right hand Anxiety with depression HFrEF (heart failure with reduced ejection fraction) Laceration of finger of left hand with damage to nail GERD (gastroesophageal reflux disease) Urinary incontinence Hyperuricemia Otitis media Influenza A Rx Tamiflu 75mg bid for 5 days. Also Rx 75mg daily for 7 days for his Gregoria. Orthopnea Sinusitis Patient left without being seen Nail dystrophy Pain due to onychomycosis of toenails of both feet Hallux rigidus of right foot UTI (urinary tract infection) SIRS (systemic inflammatory response syndrome) Thyroid nodule Clavicle fracture Ear ache Ventricular tachycardia Pulmonary hypertension Angina, class III Hypokalemia Prostatitis Acute febrile illness CHF NYHA class III LV dysfunction Obstructive sleep apnea syndrome Chronic obstructive lung disease Fatigue Hyperlipidemia Hypertensive heart disease Coronary arteriosclerosis Surgical History Stented coronary artery 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 (Updated 01/12/25 @ 22:59 by Lilli Zazueta RN) Smoking Status: Never smoker second hand exposure: No alcohol intake: never counseling provided: none substance use type: denies use current occupational status: retired Travel in the last 8 weeks: Inside the [place] household members: spouse housing: house current occupational exposures/hazards: Yes caffeine: Yes Have you lived/traveled outside [place] in past 30 days?: No Contact w/someone who lives/traveled outside [place] past 30 days?: No Exposure to someone with infectious disease in past 14 days?: No Do you have a fever (greater than 100.4 F or 38 C)?: No Have you tested positive for COVID-19: No Exposed to someone with COVID-19 in past 14 days?: No Do you have a sore throat?: No Do you have a cough?: No Do you have any weakness?: No Are you experiencing any nausea/vomitting?: No Do you have any diarrhea?: No Are you experiencing any unusual bleeding?: No Do you have any muscle aches/pain?: No Do you have any abdominal pain?: No Are you experiencing loss of taste or smell?: No Review of Systems Review of Systems Review of systems:: pertinent systems reviewed and negative unless documented below Constitutional Constitutional: Reports system reviewed and no additional complaints, except as documented *Cardiovascular Cardiovascular: Reports system reviewed and no additional complaints, except as documented *Respiratory Respiratory: Reports system reviewed and no additional complaints, except as documented *Gastrointestinal Gastrointestinal: Reports system reviewed and no additional complaints, except as documented *Neurologic Neurologic: Reports system reviewed and no additional complaints, except as documented and Denies confusion Psychiatric Psychiatric: Reports system reviewed and no additional complaints, except as documented and Denies confusion Exam Data for Last 24 hours Vital signs and Labs for Last 24 Hours: Temp Pulse Resp BP Pulse Ox O2 Del Method O2 Flow Rate 98.0 F 78 18 114/70 97 Nasal Cannula 2 01/13/25 08:00 01/13/25 08:00 01/13/25 08:00 01/13/25 08:00 01/13/25 08:00 01/13/25 08:00 01/13/25 08:00 Laboratory Results - last 24 hr 01/12/25 20:06: VBG pH 7.36, VBG pCO2 45.1, VBG pO2 27.5 L, VBG HCO3 25.1, VBG Total CO2 26.5, VBG O2 Saturation 51.4, VBG Base Excess -0.3, VBG Lactic Acid 1.7 01/12/25 20:43: WBC 13.4 H, RBC 5.86, Hgb 16.0, Hct 49.6, MCV 84.6, MCH 27.3, MCHC 32.3, RDW 14.6, Plt Count 224, MPV 10.7 H, Neut % (Auto) 76.5, Lymph % (Auto) 13.2, [place] % (Auto) 8.2, Eos % (Auto) 1.4, Baso % (Auto) 0.4, Neut # (Auto) 10.2 H, Lymph # (Auto) 1.8, [place] # (Auto) 1.1 H, Eos # (Auto) 0.2, Baso # (Auto) 0.1, PT 11.1, INR 0.99, APTT 27.1, Sodium 138, Potassium 4.0, Chloride 103, Carbon Dioxide 26, Anion Gap 13.0, BUN 12, Creatinine 1.00, Estimated Creat Clear 87, Estimated GFR 73, Est GFR ( Amer) 89, Glucose 109 H, Calcium 9.4, Magnesium 1.8, Total Bilirubin 0.9, AST 24, ALT 21, Alkaline Phosphatase 84, Troponin I < 0.01, NT-Pro-B Natriuret Pep 1580 H, Total Protein 7.5, Albumin 4.1, Globulin 3.4 H, Albumin/Globulin Ratio 1.2 01/13/25 00:20: Troponin I < 0.01 01/13/25 02:40: Troponin I < 0.01 01/13/25 05:25: POC Glucose 133 H 01/13/25 06:05: Triglycerides 152 H, Cholesterol 141, LDL Cholesterol Direct 66.53 L, VLDL Cholesterol 30, HDL Cholesterol 42, Cholesterol/HDL Ratio 3.4 01/13/25 06:06: WBC 12.0 H, RBC 5.95, Hgb 16.3, Hct 50.6, MCV 85.0, MCH 27.4, MCHC 32.2, RDW 14.9, Plt Count 208, MPV 10.6 H, Neut % (Auto) 68.6, Lymph % (Auto) 17.3, [place] % (Auto) 12.0 H, Eos % (Auto) 1.3, Baso % (Auto) 0.5, Neut # (Auto) 8.2 H, Lymph # (Auto) 2.1, [place] # (Auto) 1.4 H, Eos # (Auto) 0.2, Baso # (Auto) 0.1, Sodium 140, Potassium 4.1, Chloride 103, Carbon Dioxide 27, Anion Gap 14.1, BUN 17 D, Creatinine 1.40 H D, Estimated Creat Clear 62, Estimated GFR 50 L, Est GFR ( Amer) 60 D, Glucose 137 H D, Calcium 9.5 I & O for Last 24 hours: Intake & Output 01/10/25 01/11/25 01/12/25 01/13/25 23:59 23:59 23:59 23:59 Output Total 200 / 200 750 / 750 Balance -200 / -200 -750 / -750 Weight 207 lb 9.6 oz 206 lb 11.2 oz Constitutional Constitutional: no acute distress *Routine Respiratory Exam Respiratory: Present CTA bilaterally and symmetric chest movement *Routine Cardiovascular Exam Cardiovascular: Present RRR, Normal S1 and Normal S2 *Routine Abdominal Exam Abdominal: Present soft and normoactive bowel sounds; Absent tenderness *Routine Extremities Exam Extremities: Present full ROM and normal capillary refill; Absent edema *Routine Skin Exam Skin: Present intact, dry and warm Detailed Neck Exam: Thyroids Thyroid: Absent bruit Meds Home Medications and Allergies Home Medications ?Medication ?Instructions ?Recorded ?Confirmed ?Type allopurinol 300 mg tablet 300 mg PO DAILY 09/23/24 01/12/25 History metoprolol succinate 100 mg 100 mg PO DAILY 09/23/24 01/12/25 History tablet,extended release 24 hr valsartan 160 mg tablet 160 mg PO DAILY #30 tabs 11/01/24 01/12/25 Rx oxycodone-acetaminophen 5 mg-325 1 tab PO TID PRN chronic pain #90 12/26/24 01/12/25 Rx mg tablet tabs spironolactone 25 mg tablet 25 mg PO DAILYP PRN Edema 01/12/25 01/13/25 History (Aldactone) New Prescriptions to Start Prescriptions: Allergies Allergy/AdvReac Type Severity Reaction Status Date / Time No Known Allergies Allergy Verified 01/12/25 23:05 Assessment and Plan *Assessment and plan (1) Unstable angina: Status: Acute Category: Medical Code(s): I20.0 - Unstable angina (2) Coronary artery disease: Status: Chronic Qualifiers: Associated angina: with other forms of angina Coronary Disease-Assoc iated Artery/Lesion type: [place] artery [place] vs. transplanted heart: [place] heart Qualified Code(s): I25.118 - Atherosclerotic heart disease of [place] coronary artery with other forms of angina pectoris Category: Medical Code(s): I25.10 - Atherosclerotic heart disease of [place] coronary artery without angina pectoris (3) HFrEF (heart failure with reduced ejection fraction): Status: Acute Category: Medical Code(s): I50.20 - Unspecified systolic (congestive) heart failure (4) Coronary arteriosclerosis: Status: Chronic Category: Medical Code(s): I25.10 - Atherosclerotic heart disease of [place] coronary artery without angina pectoris Plan History of coronary artery disease Unstable angina Reported history of 13 stents Medical management heart cath in December 2021 with last testing being in 2021 EKG without acute ischemic changes noted Serial troponins negative Patient does report chest pain with activity and at rest becoming more fr equent in nature Will proceed with left heart catheterization today to evaluate for coronary artery disease. Discussed risk versus benefits with patient he is agreeable to proceed Echo shows an EF of 20% with mild RV dilation and mild reduction in RV function. Previously echo showed an EF of 25% History of heart failure with reduced ejection fraction known 25% Status post [employer]PORATE COMPLIANCE DIRECTOR-D Previously known ejection fraction of 25%. Echo today shows EF at 20% No overt signs of volume overload at this time. Patient denies lower extremity edema, shortness of breath or orthopnea. CTA chest negative for pleural effusions or pericardial effusion [employer]ATE [employer]PL[employer]ANCE DIRECTOR-D implant summary reviewed from December 2024 and stable but does need some minor adjustments. Patient is scheduled for pacer clinic on 02/20-can keep this appointment Continue beta-peace, statin and valsartan. Cannot afford Entresto Jardiance or Farxiga. History of paroxysmal atrial fibrillation chadsvascv > 2 Continue metoprolol succinate 100 mg p.o. daily Patient reports he cannot afford Xarelto or Eliquis. Was in Coumadin clinic but he stopped going due to bruising in his arms and legs. He does agree to take a daily aspirin. Have discussed risk of stroke with patient multiple times. CV summary 01/13/2025: Will proceed with left heart catheterization to further evaluate for coronary artery disease. Echocardiogram shows a reduced ejection fraction of 20%.
[2025-01-13 09:24] LABS: Thyroid Stimulating Hormone 1.81 uIU/mL (0.465-4.68)
[2025-01-13] MEDS: diazePAM 5MG TABLET 5 MG PO (10:52)
[2025-01-13 11:23] LABS: POC Glucose,Bedside 125 (70-110)
[2025-01-13] MEDS: diphenhydrAMINE 50MG/ML VIAL 50 MG IV (11:58)
[2025-01-13] MEDS: HEPARIN 1,000 UNITS/500ML NS (CATH LAB) 3000 UNIT IV (11:58)
[2025-01-13] MEDS: NITROGLYCERIN 800MCG/8ML SYR (CATH LAB) 800 MCG IA (11:58)
[2025-01-13] MEDS: 0.9 % SODIUM CHLORIDE 500 ML 25 ML IV (11:59)
[2025-01-13] MEDS: LIDOCAINE 1% 10ML MDV 10 ML IJ (11:59)
[2025-01-13] MEDS: HEPARIN 1,000 UNITS/ML 10ML VIAL (CATH LAB) 5000 UNIT IV (11:59)
[2025-01-13] MEDS: VERAPAMIL 2.5MG/ML 2ML VIAL 2.5 MG IV (11:59)
[2025-01-13] MEDS: MIDAZOLAM HCL 1MG/ML 5ML VIAL 1 MG IV (12:33)
[2025-01-13] MEDS: FENTANYL 100MCG/2ML VIAL 25 MCG IV (12:33)
[2025-01-13] MEDS: CLOPIDOGREL 300MG TABLET 600 MG PO (12:38)
[2025-01-13] MEDS: HYDROCODONE/APAP 5/325 MG TABLET 2 TAB PO (13:37)
--- NOTE | 2025-01-13 13:39 | ECG_ITS ---
APPROVED REPORT Exam: Resting ECG HR:79 bpm ECG Measurements Heart Rate 79 AXES MS 178 P 61 QRSd 132 QRS 61 QT 371 T -58 QTc 405 Conclusion ELECTRONIC VENTRICULAR PACEMAKER ABNORMAL RHYTHM ECG UNCONFIRMED REPORT Electronically signed by : Elpidio Silvestre MD 01/14/2025 20:20:00
[2025-01-13] MEDS: BELLADONNA ALKALOIDS 60 ML ML PO (14:05)
[2025-01-13] MEDS: IOPAMIDOL-370 (76%);100ML BOTTLE 110 ML IV (14:36)
[2025-01-13 14:44] LABS: CATHL Activated Clotting Time > 400 SEC (74-125)
[2025-01-13 15:28] LABS: Chloride 102 mmol/L (98-107); Potassium 4.3 mmoL/L (3.5-5.1); Sodium 138 mmol/L (136-145)
[2025-01-13 15:31] LABS: Anion Gap 13.3 mEq/L (5-15); Blood Urea Nitrogen 17 mg/dl (9-20); Calcium 8.9 mg/dl (8.4-10.2); Carbon Dioxide 27 mmol/L (22.0-30.0); Creatinine Clearance Estimated 62 mL/min (50-200); Estimated Glomerular Filt Rate 50 ml/min (>60); GFR (African American) 60 ML/MIN (>60); Glucose 137 mg/dl (74-100)
[2025-01-13 16:56] LABS: POC Glucose,Bedside 123 (70-110)
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
--- NOTE | 2025-01-13 17:37 | PC.NURSE ---
PT IS SITTING UP IN THE CHAIR EATING DINNER. WHEN PT ARRIVED BACK TO THE FLOOR FROM IN [employer] HE WAS COMPLAINING OF CHEST PAIN. EKG ORDERED AND REVIEWED BY HOSPITALIST. MEDICATED PER MAR WITH NORCO AND GI COCKTAIL. PT SLEPT FOR A COUPLE OF HOURS. ALL CATH VSS. PT STATED HE WAS READY TO BE DISCHARGED HOME AT 1630.
--- NOTE | 2025-01-13 17:42 | PC.NURSE ---
SOME CARE PROVIDED BY TOUR BUS DRIVER/GUIDE OVI ARIZA WITH [employer]HRD[employer] SUPERVISION.
--- NOTE | 2025-01-16 13:51 | SW/DCPLANNER ---
Patient was discharged on 01/13/25 and readmitted on 01/15/25. Will do a follow up phone call once patient is discharged from the hospital [facility]
== END 2025-01-13 18:27 | disposition home or self-care (01) | DRG 321 ==
LOC: ER 20:02 → 2ND 22:08
PROVIDERS: Internal Medicine; Nurse Practitioner Family; Admitting Provider Student in an Organized Health Care Education/Training Program; Emergency Provider Emergency Medicine; PCP Nurse Practitioner; Visit Provider Student in an Organized Health Care Education/Training Program
PROC: 027034Z Dilation of Coronary Artery, One Artery with Drug-eluting Intraluminal Device, Percutaneous Approach (ICD-10-PCS; principal; 2025-01-13 11:45)
DX: I25.110 Atherosclerotic heart disease of native coronary artery with unstable angina pectoris (principal); I50.23 Acute on chronic systolic (congestive) heart failure; T82.855A Stenosis of coronary artery stent, initial encounter; I11.0 Hypertensive heart disease with heart failure; R07.9 Chest pain, unspecified; Y83.1 Surgical operation with implant of artificial internal device as the cause of abnormal reaction of the patient, or of later complication, without mention of misadventure at the time of the procedure; J44.9 Chronic obstructive pulmonary disease, unspecified; E78.5 Hyperlipidemia, unspecified; T45.516A Underdosing of anticoagulants, initial encounter; Z91.128 Patient's intentional underdosing of medication regimen for other reason; I77.1 Stricture of artery; K21.9 Gastro-esophageal reflux disease without esophagitis; I48.0 Paroxysmal atrial fibrillation; Z59.86 Financial insecurity; M1A.9XX1 Chronic gout, unspecified, with tophus (tophi); G25.0 Essential tremor; D72.829 Elevated white blood cell count, unspecified; Z87.891 Personal history of nicotine dependence; Z95.5 Presence of coronary angioplasty implant and graft; F41.8 Other specified anxiety disorders; Z95.810 Presence of automatic (implantable) cardiac defibrillator; Z79.899 Other long term (current) drug therapy
CPT/HCPCS: 36415; 71045; 71275; 80048; 80053; 80061; 82803; 82962; 83735; 83880; 84443; 84484; 85025; 85347; 85610; 85730; 92928; 93005; 93306; 93458; 99152; 99153; 99291; C1725; C1769; C1874; C9600; G0378; J1200; J1644; J1938; J2250; J2270; J2405; J3010; Q9967

== ENCOUNTER 2025-01-15 16:45 | Observation (INO) | payer MEDICARE, SELFPAY ==
[2025-01-15] VITALS (8 sets, daily range): BP systolic 112–130; BP diastolic 59–88; PULSE 80–109; RESP 12–22; TEMP 36.9; O2SAT 91–96; BMI 31.3
--- NOTE | 2025-01-15 16:47 | XR_ITS ---
PROCEDURE INFORMATION: Exam: XR Chest Exam date and time: 01/15/2025 5:06 PM Age: 74 years old Clinical indication: Other: Defib discharging TECHNIQUE: Imaging protocol: Radiologic exam of the chest. Views: 1 view. COMPARISON: CT ANGIO CHEST PE PROTOCOL 01/12/2025 11:25 PM FINDINGS: Tubes, catheters and devices: Cardiac pacemaker in place. Lungs: Unremarkable. No consolidation. Pleural spaces: Unremarkable. No pleural effusion. No pneumothorax. Heart/Mediastinum: Unremarkable. No cardiomegaly. Bones/joints: Mild degenerative changes of the spine and shoulders. No acute fracture. IMPRESSION: No acute disease
--- NOTE | 2025-01-15 16:48 | ED_ITS ---
Discharge Plan Disposition Patient Disposition: Admitted Chief Complaint: Chest Pain Clinical Impressions Clinical Impression: AICD discharge, Ventricular tachycardia Discharge ED Provider: Grant Kimball HPI General Chief Complaint: Chest Pain Stated Complaint: DEFIB SHOCK Time Seen by Provider: 01/15/25 16:45 History of Present Illness HPI narrative: Please note that above description of symptoms, in this electronic medical record under categorization of recalled from ER triage doctor by RN are reflective of an initial nursing assessment, however, is not reflective of my full history and physical exam that was personally taken and clarified. Consequentially, this preceding description of symptoms, which may include the patient's categorized chief complaint in the EMR, do not reflect my personal clinical impression, and the ultimate description of history of present illness and patient stated complaints should be deferred to this section of the note. Unless stated otherwise or congruent with this section of the note, additional signs, symptoms, or incongruence should be interpreted as inaccurate with my clinical impression. Related Data Home Medications ?Medication ?Instructions ?Recorded ?Confirmed allopurinol 300 mg tablet 300 mg PO DAILY 09/23/24 01/15/25 spironolactone 25 mg tablet 25 mg PO DAILY 01/12/25 01/15/25 (Aldactone) duloxetine 30 mg capsule,delayed 30 mg PO DAILY 01/15/25 01/15/25 release warfarin 4 mg tablet 4 mg PO DIRECTED 01/15/25 01/15/25 Previous Rx's ?Medication ?Instructions ?Recorded valsartan 160 mg tablet 160 mg PO DAILY #30 tabs 11/01/24 oxycodone-acetaminophen 5 mg-325 1 tab PO TID PRN chronic pain #90 12/26/24 mg tablet tabs aspirin 81 mg tablet,delayed 81 mg PO DAILY 30 days #30 tabs 01/13/25 release Allergies Allergy/AdvReac Type Severity Reaction Status Date / Time No Known Allergies Allergy Verified 01/12/25 23:05 [facility] Disclaimer: The information contained in this section may have been updated after the patient was seen, as this information can be updated by other users. Medical History Paresthesias Neoplasm of skin of face see procedure note. Wound care instructions given. Situational depression Pacemaker Benign essential tremor Tremor of right hand Anxiety with depression HFrEF (heart failure with reduced ejection fraction) Laceration of finger of left hand with damage to nail GERD (gastroesophageal reflux disease) Urinary incontinence Hyperuricemia Otitis media Influenza A Rx Tamiflu 75mg bid for 5 days. Also Rx 75mg daily for 7 days for his Gregoria. Orthopnea Sinusitis Patient left without being seen Nail dystrophy Pain due to onychomycosis of toenails of both feet Hallux rigidus of right foot UTI (urinary tract infection) SIRS (systemic inflammatory response syndrome) Thyroid nodule Clavicle fracture Ear ache Ventricular tachycardia Pulmonary hypertension Angina, class III Hypokalemia Prostatitis Acute febrile illness CHF NYHA class III LV dysfunction Obstructive sleep apnea syndrome Chronic obstructive lung disease Fatigue Hyperlipidemia Hypertensive heart disease Coronary arteriosclerosis Surgical History Stented coronary artery 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 Smoking Status: Former smoker tobacco type: cigarettes packs per day: 3 second hand exposure: No alcohol intake: never counseling provided: none substance use type: denies use current occupational status: retired Travel in the last 8 weeks: Inside the [place] household members: spouse housing: house current occupational exposures/hazards: Yes caffeine: Yes Have you lived/traveled outside US in past 30 days?: No Contact w/someone who lives/traveled outside US past 30 days?: No Exposure to someone with infectious disease in past 14 days?: No Do you have a fever (greater than 100.4 F or 38 C)?: No Have you tested positive for COVID-19: No Exposed to someone with COVID-19 in past 14 days?: No Do you have a sore throat?: No Do you have a cough?: No Do you have any weakness?: No Do you have any diarrhea?: No Are you experiencing any unusual bleeding?: No Do you have any muscle aches/pain?: No Do you have any abdominal pain?: No Are you experiencing loss of taste or smell?: No Other Medical History Have you received the Flu Vaccine for this season: No Have you received the Pneumonia Vaccine: No ROS Obtained: Yes All systems reviewed & no additional complaints except as documented Physical Exam General General appearance: alert and in no apparent distress Neck Neck exam: Present trachea midline Chest Chest inspection: Present normal inspection and symmetric chest wall rise Respiratory Respiratory exam: Present normal lung sounds bilaterally; Absent respiratory distress, wheezes, stridor, accessory muscle use or prolonged expiratory phase Cardiovascular Cardiovascular exam: Present normal rhythm, tachycardia, Pacemaker/defibrillator and other (Pulses equal and symmetric in upper and lower extremities) Abdominal Exam Abdominal exam: Present soft; Absent distention, tenderness or guarding Extremities Exam Extremities exam: Absent edema Neurological Exam Neurological exam: Present alert, oriented X3 and CN II-XII intact Skin Skin exam: Present warm and dry; Absent cyanosis, diaphoresis or pallor HEART Score HEART Score HEART Score assessment performed?: Yes History (anamnesis): Highly suspicious ECG: Non-specific disturbance Age: >65 years Risk factors: 3 or more risk factors Troponin: > 3x normal limit HEART Score: 9 Critical Care Critical Care Time Critical Care Time: Yes (cardiac) Attestation: On 01/15/25, the high probability of a clinically significant, sudden or life threatening deterioration of the following system(s) required my full and direct attention, intervention and personal management. The time I documented below is in addition to time spent performing reported procedures but includes the following listed in this critical care notation. Total Time Total Critical Care Time: 45 Medical Decision Making Medical Records Medical records reviewed: Yes I reviewed the patient's medical records. Manjit Inquiry Pt receiving controlled substance: No Manjit was queried for this patient: No Vital Signs Vital Signs: 01/15/25 16:45 01/15/25 16:45 01/15/25 17:00 Temperature 98.4 F Temperature Source Oral Pulse Rate 106 H 99 H Pulse Rate [Right] 109 H Respiratory Rate 14 12 Blood Pressure 113/70 112/70 Blood Pressure [Right Arm] 113/70 Blood Pressure Mean [Right Arm] 84 Blood Pressure Source [Right Arm] Automatic Cuff 02 Sat by Pulse Oximetry 91 L 92 L 94 L Oxygen Delivery Method Room Air Nasal Cannula Nasal Cannula Oxygen Flow Rate (LPM) 2 2 01/15/25 17:30 01/15/25 18:00 Temperature Temperature Source Pulse Rate 108 H 97 H Pulse Rate [Right] Respiratory Rate 21 22 Blood Pressure 130/64 128/88 Blood Pressure [Right Arm] Blood Pressure Mean [Right Arm] Blood Pressure Source [Right Arm] 02 Sat by Pulse Oximetry 95 96 Oxygen Delivery Method Room Air Room Air Oxygen Flow Rate (LPM) Lab Data Labs: Lab Results 01/15/25 16:45: WBC 12.2 H, RBC 5.82, Hgb 15.9, Hct 49.9, MCV 85.7, MCH 27.3, MCHC 31.9, RDW 14.6, Plt Count 251, MPV 10.1, Neut % (Auto) 74.1, Lymph % (Auto) 14.7, [place] % (Auto) 8.1, Eos % (Auto) 2.0, Baso % (Auto) 0.7, Neut # (Auto) 9.0 H, Lymph # (Auto) 1.8, [place] # (Auto) 1.0, Eos # (Auto) 0.2, Baso # (Auto) 0.1, PT 11.5, INR 1.03, APTT 27.6, Sodium 140, Potassium 4.2, Chloride 106, Carbon Dioxide 27, Anion Gap 11.2, BUN 23 H D, Creatinine 1.10 D, Estimated GFR 66, E st GFR ( Amer) 79 D, Glucose 124 H, Calcium 9.6, Phosphorus 2.2 L, M agnesium 2.0 D, Total Bilirubin 0.7, AST 29, ALT 18, Alkaline Phosphatase 74, T roponin I 0.59 H, Total Protein 7.3, Albumin 3.9, Globulin 3.4 H, Albumin/Globulin Ratio 1.1, Lipase 63 01/15/25 16:45 01/15/25 16:45 Response Orders (Tests/Meds): ED MEDICATIONS Generic Name Dose Route Start Last Admin Trade Name Freq PRN Reason Stop Dose Admin Amiodarone HCl 900 mg/ 518 mls @ 34.533 mls/hr 01/15/25 18:15 01/15/25 18:15 Dextrose IV 01/16/25 09:15 1 mg/min .Q15H1M FLORENCIO 34.53 mls/hr Administration Protocol 1 MG/MIN Discontinued Medications Generic Name Dose Route Start Last Admin Trade Name Freq PRN Reason Stop Dose Admin Aspirin 324 mg 01/15/25 17:44 01/15/25 17:47 Aspirin 81mg Chewable Tablet PO 01/15/25 17:45 324 mg ONCE ONE Administration Amiodarone HCl 150 mg/ 103 mls @ 618 mls/hr 01/15/25 17:55 01/15/25 18:07 Dextrose IV 01/15/25 18:04 618 mls/hr ONCE ONE Administration Protocol ORDERS Category Date Time Status CXR --portable [XR chest portable] Stat Exams 01/15/25 16:47 Completed Complete Blood Count Auto Diff Stat Lab 01/15/25 16:45 Completed Comprehensive Metabolic Panel Stat Lab 01/15/25 16:45 Completed Lipase Stat Lab 01/15/25 16:45 Completed Magnesium Stat Lab 01/15/25 16:45 Completed PHOS [Phosphorous] Stat Lab 01/15/25 16:45 Completed PT INR [Prothrombin Time INR] Stat Lab 01/15/25 16:45 Completed PTT [Activated Partial Thrombo Time] Stat Lab 01/15/25 16:45 Completed Troponin I Q3H Lab 01/15/25 19:45 Ordered Troponin I Q3H Lab 01/15/25 22:45 Ordered Troponin I Stat Lab 01/15/25 16:45 Completed MDM Narrative Medical Decision Narrative: 74-year-old male history of hypertension, hyperlipidemia, paroxysmal A-fib not on anticoagulation by choice, CAD status post stenting x 14 (most recent January 2025), cardiomyopathy with pacemaker AICD in place presenting with pacemaker shock. He states that he fell asleep in the early afternoon today, while he was falling asleep, he felt hot in his left upper extremity, left side of jaw and left side of neck. Eased off, was able to sleep. He woke up with a sensation of heat in the left side of his neck, face, jaw, upper extremity a couple hours later and his AICD shocked him. Only received 1 shock. No syncope, he was having pretty severe chest pain at the time, currently asymptomatic. Came in with EMS. No other acute symptoms other than fatigue since being stented. History was obtained via conversation with patient and EMS. On arrival, patient hemodynamically stable, alert, oriented x4, appropriate, GCS 15, moving all extremities spontaneously, pupils equal and reactive to light. Full physical exam performed and significant for chronically ill-appearing male no acute distress. Appears to be in ventricular paced rhythm on the monitor. Lungs are clear, cardiac exam without murmurs gallops or rubs, no lower extremity edema. Pulses equal and symmetric in upper and lower extremities. Speaking in full sentences and neurologically intact with no complaints currently. Differential includes malignant arrhythmia, electrolyte disturbance, myocardial ischemia, among others. Patient was given p.o. aspirin for symptomatic management and correction of underlying abnormalities. Patient placed on continuous cardiac monitoring and continuous pulse ox with initial blood pressure 113/70, heart rate 106, saturation 91% on room air, mid 90s on 2 L nasal cannula. Independent interpretation of EKG shows V paced rhythm 105 bpm with IL 186, QRS 141, QTc 417. Normal axis. No obvious acute ischemic changes. Workup independently interpreted and significant for nonactionable CBC or chemistry. Patient's kidney function normal. Initial troponin 0.6. On independent interpretation of imaging, no acute cardiopulmonary space disease on chest x-ray, pacemaker appears normal. See radiology read for full review of final results. Heart score 9. Cardiology was consulted and case was discussed at length, recommended amiodarone bolus and drip and admission. I spoke to the pacemaker interrogated specialist on the phone twice, states that at 3:38 PM, patient received defibrillation for maximum heart rate 292 and what appeared to be V. tach. I spoke to the hospitalist who graciously accepted patient for admission and further workup. Because patient high risk for clinical decompensation, deemed appropriate for inpatient admission. Results were relayed to patient who voiced understanding and patient was agreeable to inpatient admission and management. Patient was admitted to the hospital for further definitive management. Residential Pest Control Technician disclaimer Much of this encounter note is an electronic director and professor spoken language to printed text. Electronic director and professor of the spoken language may permit errors. Although I have reviewed the note, some errors may still exist.
--- NOTE | 2025-01-15 16:48 | PC.NURSE ---
Dr Kimball at bedside
[2025-01-15 16:52] LABS: Basophils # 0.1 K/mm3 (0-0.2); Basophils % 0.7 % (0.1-2.0); Eosinophils # 0.2 K/mm3 (0.0-0.4); Hematocrit 49.9 % (42.0-52.0); Hemoglobin 15.9 g/dL (14.1-18.0); Lymphocytes # 1.8 K/mm3 (0.7-4.5); Lymphocytes % 14.7 % (10-50); Mean Corpuscular HGB Conc 31.9 g/dL (31.8-35.4); Mean Corpuscular Hemoglobin 27.3 pg (27.0-31.2); Mean Corpuscular Volume 85.7 fl (80-94); Mean Platelet Volume 10.1 fl (7.4-10.4); Monocytes % 8.1 % (1.7-9.3); Neutrophils % 74.1 % (37.0-80.0); Nucleated Red Blood Cells # 0 10^3/uL; Nucleated Red Blood Cells % 0 %; Platelet Count 251 K/mm3 (142-424); Red Blood Count 5.82 M/mm3 (4.60-6.20); Red Cell Distribution Width 14.6 % (11.5-17.5); Red Cell Distribution Width-SD 45.9 fL; White Blood Count 12.2 K/mm3 (4.8-10.8)
--- OUTSIDE RECORDS SUMMARY | 2025-01-15 16:53 | XMS_ITS | Data Portability ---
Author Organization [facility]in [facility] Address [address] [place] [address] Care Team Providers Care Special Forces Specialist Name Role Phone HEATHER LUNA Referring Provider [phone] Assessment No assessment recorded. Plan of Treatment Reminders Order Date Submit Date Provider Last Modified By Organization Details Last Modified Time Details Appointments None recorded. Lab urinalysis panel, auto 2022 023 [facility], [address], [place], [address], 3 10:04:27 PSA, serum or plasma 2022 023 [facility], [address], [address], [place], [address], 3 17:54:14 urinalysis panel, auto 2022 023 [facility], [address], [address], [place], [address], 3 15:10:26 Referral None recorded. Procedures None recorded. Surgeries None recorded. Imaging None recorded. Medication Orders tamsulosin 0.4 mg capsule 2022 023 [facility], [address] [place], [address], 15:14:44 Patient TargetsNo targets recorded. Patient InstructionsNo instructions recorded. Reason for Referral None Reported. Results Created Date Observation Date Name Description Value Unit Range Abnormal Flag Note LastModifiedBy Organization Detail LastModifiedTime 04/23/20 23 04/23/2023 PSA, serum or plasm a PSA 0.43 NG/mL 0.0 - 4.0 Not Available [facility] [address], [place], [address], 04/23/2023 17:38:57 04/23/2004/23/2023 urina lysis panel , auto Unknown Analyte Clean Catch Not Available [facility] [address], [place], [address], 04/23/2023 14:59:04 04/23/20 23 04/23/2023 urina lysis panel , auto Unknown Analyte Yellow Not Available [facility] [address], [place], [address], 04/23/2023 14:59:04 04/23/20 23 04/23/2023 urina lysis panel , auto Unknown Analyte Clear Not Available [facility] [address], [place], [address], 04/23/2023 14:59:04 04/23/20 23 04/23/2023 urina lysis panel , auto Unknown Analyte 1.020 Not Available [facility] [address], [place], [address], 04/23/2023 14:59:04 04/23/20 23 04/23/2023 urina lysis panel , auto Unknown Analyte 5.0 Not Available [facility] [address], [place], [address], 04/23/2023 14:59:04 04/23/20 23 04/23/2023 urina lysis panel , auto Unknown Analyte Negati ve Not Available [facility] [address], [place], [address], 04/23/2023 14:59:04 04/23/20 23 04/23/2023 urina lysis panel , auto Unknown Analyte Negati ve Not Available [facility] [address], [place], [address], 04/23/2023 14:59:04 04/23/20 23 04/23/2023 urina lysis panel , auto Unknown Analyte Trace Not Available [facility] [address], [place], [address], 04/23/2023 14:59:04 04/23/20 23 04/23/2023 urina lysis panel , auto Unknown Analyte Normal Not Available [facility] [address], [place], [address], 04/23/2023 14:59:04 04/23/20 23 04/23/2023 urina lysis panel , auto Unknown Analyte Negati ve Not Available [facility] [address], [place], [address], 04/23/2023 14:59:04 04/23/20 23 04/23/2023 urina lysis panel , auto Unknown Analyte Normal Not Available [facility] [address], [place], [address], 04/23/2023 14:59:04 04/23/20 23 04/23/2023 urina lysis panel , auto Unknown Analyte Negati ve Not Available [facility] [address], [place], [address], 04/23/2023 14:59:04 04/23/20 23 04/23/2023 urina lysis panel , auto Unknown Analyte Negati ve Not Available [facility] [address], [place], [address], 04/23/2023 14:59:04 05/20/20 23 05/20/2023 urina lysis panel , auto Unknown Analyte Clean Catch Not Available [facility] [address], [place], [address], 05/20/2023 10:00:08 05/20/20 23 05/20/2023 urina lysis panel , auto Unknown Analyte Yellow Not Available [facility] [address], [place], [address], 05/20/2023 10:00:08 05/20/20 23 05/20/2023 urina lysis panel , auto Unknown Analyte Clear Not Available [facility] [address], [place], [address], 05/20/2023 10:00:08 05/20/20 23 05/20/2023 urina lysis panel , auto Unknown Analyte 1.020 Not Available [facility] [address], [place], [address], 05/20/2023 10:00:08 05/20/20 23 05/20/2023 urina lysis panel , auto Unknown Analyte 5.0 Not Available [facility] [address], [place], [address], 05/20/2023 10:00:08 05/20/20 23 05/20/2023 urina lysis panel , auto Unknown Analyte Negati ve Not Available [facility] [address], [place], [address], 05/20/2023 10:00:08 05/20/20 23 05/20/2023 urina lysis panel , auto Unknown Analyte Negati ve Not Available [facility] [address], [place], [address], 05/20/2023 10:00:08 05/20/20 23 05/20/2023 urina lysis panel , auto Unknown Analyte 30 mg/dl (+) Not Available [facility] [address], [place], [address], 05/20/2023 10:00:08 05/20/20 23 05/20/2023 urina lysis panel , auto Unknown Analyte Normal Not Available [facility] [address], [place], [address], 05/20/2023 10:00:08 05/20/20 23 05/20/2023 urina lysis panel , auto Unknown Analyte Negati ve Not Available [facility] [address], [place], [address], 05/20/2023 10:00:08 05/20/20 23 05/20/2023 urina lysis panel , auto Unknown Analyte Normal Not Available [facility] [address], [place], [address], 05/20/2023 10:00:08 05/20/20 23 05/20/2023 urina lysis panel , auto Unknown Analyte Negati ve Not Available [facility] [address], [place], [address], 05/20/2023 10:00:08 05/20/20 23 05/20/2023 urina lysis panel , auto Unknown Analyte Negati ve Not Available [facility] [address], [place], [address], 05/20/2023 10:00:08 Result Notes None recorded. Problems No Known Problems Procedures Surgical History Date Name Laterality Status Provider Name and Address Organization Details Recorded Time 3 Post Void Residual; Ultrasound completed Xochitl Scott [facility] 05/20/2023 10:00:03 3 Post Void Residual; Ultrasound completed Xochitl Scott [facility] 04/23/2023 14:59:00 Stent completed Xochitl Scott [facility] 04/23/2023 14:47:23 Pacemaker completed Xochitl Scott [employer] [facility] 04/23/2023 14:56:52 Imaging Results None recorded. Procedure [...] Updated DateTime 04/23/2023 172.72 cm 33.5 kg/m2 06202.32 g Xochitl Chavez [facility] 04/23/2023 14:20:58 Date Recorded Body height Body mass index (BMI) Body weight Provider Name and Address Organization Details Last Updated DateTime 05/20/2023 172.72 cm 33.5 kg/m2 08475.32 tj Chavez [facility] 05/20/2023 09:59:55 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 Question Answer Notes LastModified by Organizat ion Details LastModified Time Tobacco Smoking Status Former Smoker Xochitl Chavez [facility] 04/23/2023 14:46:01 Are You Currently Employed? 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 16+yearssince lastcigarette [email or web address] Information not available 04/23/2023 What Is Your Relationship Status? [email or web address] Information not available 04/23/2023 Sex: Unknown Functional Status None recorded. Mental Status None recorded. Family History Relationship Description Onset Age of this Age Resolved Age Notes LastModified by Organization Details LastModified Time Mother Family history of malignant neoplasm [email or web address] Not available 2022 14:44:51 Sister Family history of malignant neoplasm 2 [email or web address] Not available 2022 14:44:51 Brother Heart disease 2 Not available 2022 14:45:32 Medical History Condition Response Anxiety Disorder Y False Teeth Y Arthritis Y Heart Conditions Y Chronic Obstructive Pulmonary Disease Y Heart Arrhythmia Y Emphysema Y Depression Y Pacemaker Y Heart Attack ([place]) Y Heart Disease Y Hypertension Y Past Encounters Encounter ID Performer Location Encounter Start Date Encounter Closed Date Diagnosis/Indication Diagnosis SNOMED-CT Code Diagnosis ICD10 Code Diagnosis Note [id number] MERT DOMINIQUE [facility] [address] [place] [address] 04/23/2023 13:36:11 04/23/2023 14:57:22 Benign prostatic hyperplasia with outflow obstruction 847896474 N40.1 Obstructio n of urinary bladder outlet 584218972 N32.0 [id number] MD [facility] [address] [place] [address] 05/20/2023 09:43:34 05/20/2023 10:03:47 Benign prostatic hyperplasia with outflow obstruction 694630369 N40.1 Health Concerns Section Related Observation LastModified by Organization Detai ls LastModified Time None Recorded Concern Status LastModified by Organization Details LastModified Time None Recorded Advance Directives Directive None Recorded Payers Encounter Date Sequence Insurance Name Policy Number Policy Martinez Covered Member ID Martinez Member ID Guarantor Name 04/23/2023 1 [employer] (MEDICARE REPLACEMENT/ ADVANTAGE - PPO) Jigar A [place] [id number] Jigar A Collins 05/20/2023 1 [employer] (MEDICARE REPLACEMENT/ ADVANTAGE - PPO) Jigar A [place] [id number] Jigar A Collins Notes Date Note Type [...] residuals 100 mL MERT DOMINIQUE MD [address], [place], [address], [place] [facility] 04/23/2023 17:54:39 05/20/2023 text/html He is voiding mu ch better on the tamsulosin. He has a stronger stream. Nocturia is down to 1 time at night. He is very pleased with the improvement. Postvoid residual is 90 mL but he will stay on the medication MERT DOMINIQUE MD [address], [place], [address], [facility] 05/20/2023 10:04:49
[2025-01-15 16:57] LABS: Albumin Level 3.9 g/dl (3.5-5.0); Chloride 106 mmol/L (98-107); Potassium 4.2 mmoL/L (3.5-5.1); Sodium 140 mmol/L (136-145)
[2025-01-15 17:00] LABS: Alanine Aminotransferase 18 U/L (12-78); Albumin/Globulin Ratio 1.1 (1.1-1.8); Alkaline Phosphatase 74 U/L (38-126); Anion Gap 11.2 mEq/L (5-15); Aspartate Amino Transferase 29 U/L (17-59); Bilirubin,Total 0.7 mg/dl (0.2-1.3); Blood Urea Nitrogen 23 mg/dl (9-20); Calcium 9.6 mg/dl (8.4-10.2); Carbon Dioxide 27 mmol/L (22.0-30.0); Estimated Glomerular Filt Rate 66 ml/min (>60); GFR (African American) 79 ML/MIN (>60); Globulin 3.4 g/dL (1.3-3.2); Glucose 124 mg/dl (74-100); Total Protein,Serum 7.3 g/dl (6.3-8.2)
--- NOTE | 2025-01-15 17:00 | ECG_ITS ---
APPROVED REPORT Exam: Resting ECG HR:105 bpm ECG Measurements Heart Rate 105 AXES ME 186 P 64 QRSd 141 QRS 59 QT 356 T 263 QTc 417 Conclusion V-paced rhythm Sgarbossa negative No obvious acute ischemic change Electronically signed by : BRITTNEY FERMIN, 01/15/2025 22:29:14
[2025-01-15 17:14] LABS: Troponin I 0.59 ng/ml (0.00-0.034)
[2025-01-15 17:16] LABS: Lipase 63 U/L (23-300)
[2025-01-15 17:17] LABS: INR 1.03 (0.9-1.1); Prothrombin Time 11.5 seconds (10.1-12.5)
[2025-01-15 17:25] LABS: Phosphorous 2.2 mg/dl (2.5-4.5)
[2025-01-15 17:30] LABS: Activated Partial Thrombo Time 27.6 seconds (22.8-30.6)
[2025-01-15] MEDS: ASPIRIN 81MG CHEWABLE TABLET 324 MG PO (17:47)
--- NOTE | 2025-01-15 17:59 | PC.NURSE ---
SENIOR POLICY ASSOCIATE NOTIFIED OF ADMISSION
[2025-01-15] MEDS: AMIODARONE HCL 150 MG in DEXTROSE 5 % IN WATER 100 ML 618 MG IV (18:07)
[2025-01-15] MEDS: AMIODARONE HCL 900 MG in DEXTROSE 5 % IN WATER 500 ML 34.53 MG IV (18:15)
--- NOTE | 2025-01-15 18:28 | PC.NURSE ---
Called report to Devyn Krueger RN
--- NOTE | 2025-01-15 18:47 | PC.NURSE ---
arrived by stretcher from ED
--- NOTE | 2025-01-15 20:34 | P.HP_ITS ---
<Statement entered by Giorgio Monte MD - 01/16/25 11:42> Personally evaluated patient and agree with the plan of care outlined by the ADULT BASIC EDUCATION TEACHER. History of Present Illness *Admission Date: 01/15/25 *Reason for visit:: Chest pain, AICD discharge *History of present illness: A 74-year-old male with a history of hypertension, hyperlipidemia, type 2 diabetes mellitus, paroxysmal atrial fibrillation (not on anticoagulation by choice), coronary artery disease status post stenting x 14 (most recent January 2025), and cardiomyopathy with last known EF of 20%, with a pacemaker and automatic implantable cardioverter-defibrillator (AICD) presents to the emergency department after experiencing an AICD shock. The patient reports that while falling asleep in the early afternoon today, he felt a sensation of heat in his left upper extremity, left jaw, and left neck, which eased, allowing him to sleep. A couple of hours later, he awoke with the same heat sensation in his left neck, face, jaw, and upper extremity, followed by a single AICD shock. He experienced severe chest pain at the time of the shock but is currently asymptomatic. He denies syncope or other acute symptoms except for fatigue since his recent stenting. He was brought in by EMS. On examination, the patient is hemodynamically stable, alert, oriented x4, with a Angus Coma Scale of 15, and moving all extremities spontaneously with pupils equal and reactive to light. Vital signs include blood pressure 113/70 mmHg, heart rate 106 bpm, and oxygen saturation 91% on room air, improving to mid-90s on 2 L nasal cannula. Physical exam reveals a chronically ill-appearing male in no acute distress. cardiac monitor technician shows a ventricular-paced rhythm. Lungs are clear, cardiac exam reveals no murmurs, gallops, or rubs, and there is no lower extremity edema. Pulses are equal and symmetric in all extremities. The patient is speaking in full sentences and neurologically intact with no current complaints. Diagnostic workup includes an EKG, independently interpreted, showing a ventricular-paced rhythm at 105 bpm with WI 186 ms, QRS 141 ms, QTc 417 ms, normal axis, and no obvious acute ischemic changes. Labs are notable for mild leukocytosis (WBC 12.2 x10?/?L, neutrophils 9.0 x10?/?L), elevated troponin (0.59 ng/mL), slightly elevated BUN (23 mg/dL), normal creatinine (1.10 mg/dL, GFR 66 mL/min/1.73m?), and low phosphorus (2.2 mg/dL). Electrolytes are within normal limits (potassium 4.2 mmol/L, magnesium 2.0 mg/dL). Chest X-ray, independently interpreted, shows no acute cardiopulmonary disease, with normal pacemaker appearance. Pacemaker interrogation by a specialist revealed defibrillation at 3:38 PM for a maximum heart rate of 292 bpm, consistent with ventricular tachycardia (VT). Treatments implemented in the emergency department include oral aspirin for symptomatic management. The patient was placed on continuous cardiac monitoring and pulse oximetry. Cardiology was consulted, recommending an amiodarone bolus and drip, which was initiated. After discussion with the emergency room physician, the patient was accepted for admission due to high risk of decompensation and need for cardiology consultation. [facility] Disclaimer: The information contained in this section may have been updated after the patient was seen, as this information can be updated by other users. Medical History Paresthesias Neoplasm of skin of face Situational depression Pacemaker Benign essential tremor Tremor of right hand Anxiety with depression HFrEF (heart failure with reduced ejection fraction) Laceration of finger of left hand with damage to nail GERD (gastroesophageal reflux disease) Urinary incontinence Hyperuricemia Otitis media Influenza A Orthopnea Sinusitis Patient left without being seen Nail dystrophy Pain due to onychomycosis of toenails of both feet Hallux rigidus of right foot UTI (urinary tract infection) SIRS (systemic inflammatory response syndrome) Thyroid nodule Clavicle fracture Ear ache Ventricular tachycardia Pulmonary hypertension Angina, class III Hypokalemia Prostatitis Acute febrile illness CHF NYHA class III LV dysfunction Obstructive sleep apnea syndrome Chronic obstructive lung disease Fatigue Hyperlipidemia Hypertensive heart disease Coronary arteriosclerosis Surgical History Stented coronary artery 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 Smoking Status: Former smoker tobacco type: cigarettes packs per day: 3 second hand exposure: No alcohol intake: never counseling provided: none substance use type: denies use current occupational status: retired Travel in the last 8 weeks: Inside the [place] household members: spouse housing: house current occupational exposures/hazards: Yes caffeine: Yes Have you lived/traveled outside [place] in past 30 days?: No Contact w/someone who lives/traveled outside [place] past 30 days?: No Exposure to someone with infectious disease in past 14 days?: No Do you have a fever (greater than 100.4 F or 38 C)?: No Have you tested positive for COVID-19: No Exposed to someone with COVID-19 in past 14 days?: No Do you have a sore throat?: No Do you have a cough?: No Do you have any weakness?: No Do you have any diarrhea?: No Are you experiencing any unusual bleeding?: No Do you have any muscle aches/pain?: No Do you have any abdominal pain?: No Are you experiencing loss of taste or smell?: No Other Medical History Have you received the Flu Vaccine for this season: No Have you received the Pneumonia Vaccine: No Review of Systems Review of Systems Review of systems (narrative): 13 point review of systems negative except as listed in HPI Meds Home Medications and Allergies Home Medications ?Medication ?Instructions ?Recorded ?Confirmed ?Type allopurinol 300 mg tablet 300 mg PO DAILY 09/23/24 01/15/25 History valsartan 160 mg tablet 160 mg PO DAILY #30 tabs 11/01/24 01/15/25 Rx oxycodone-acetaminophen 5 mg-325 1 tab PO TID PRN chronic pain #90 12/26/24 01/15/25 Rx mg tablet tabs spironolactone 25 mg tablet 25 mg PO DAILY 01/12/25 01/15/25 History (Aldactone) aspirin 81 mg tablet,delayed 81 mg PO DAILY 30 days #30 tabs 01/13/25 01/15/25 Rx release atorvastatin 20 mg tablet 20 mg PO HS 01/15/25 01/15/25 History clopidogrel 75 mg tablet 75 mg PO DAILY 01/15/25 01/15/25 History duloxetine 30 mg capsule,delayed 30 mg PO DAILY 01/15/25 01/15/25 History release warfarin 4 mg tablet 4 mg PO DIRECTED 01/15/25 01/15/25 History New Prescriptions to Start Prescriptions: Allergies Allergy/AdvReac Type Severity Reaction Status Date / Time No Known Allergies Allergy Verified 01/12/25 23:05 Exam Data for Last 24 hours Vital signs and Labs for Last 24 Hours: Temp Pulse Resp BP Pulse Ox O2 Del Method O2 Flow Rate 98.4 F 92 H 22 128/80 96 Nasal Cannula 2 01/15/25 18:41 01/15/25 18:41 01/15/25 18:41 01/15/25 18:41 01/15/25 18:00 01/15/25 18:41 01/15/25 18:41 Laboratory Results - last 24 hr 01/15/25 16:45: WBC 12.2 H, RBC 5.82, Hgb 15.9, Hct 49.9, MCV 85.7, MCH 27.3, MCHC 31.9, RDW 14.6, Plt Count 251, MPV 10.1, Neut % (Auto) 74.1, Lymph % (Auto) 14.7, Walker % (Auto) 8.1, Eos % (Auto) 2.0, Baso % (Auto) 0.7, Neut # (Auto) 9.0 H, Lymph # (Auto) 1.8, Walker # (Auto) 1.0, Eos # (Auto) 0.2, Baso # (Auto) 0.1, PT 11.5, INR 1.03, APTT 27.6, Sodium 140, Potassium 4.2, Chloride 106, Carbon Dioxide 27, Anion Gap 11.2, BUN 23 H D, Creatinine 1.10 D, Estimated GFR 66, Est GFR ( Amer) 79 D, Glucose 124 H, Calcium 9.6, Phosphorus 2.2 L, Magnesium 2.0 D, Total Bilirubin 0.7, AST 29, ALT 18, Alkaline Phosphatase 74, Troponin I 0.59 H, Total Protein 7.3, Albumin 3.9, Globulin 3.4 H, Albumin/Globulin Ratio 1.1, Lipase 63 I & O for Last 24 hours: Intake & Output 01/12/25 01/13/25 01/14/25 01/15/25 23:59 23:59 23:59 23:59 Weight 93.4 kg Constitutional Constitutional: no acute distress and chronically ill appearing *Routine HEENT Exam Head: Present normocephalic Eye: Present EOMI and PERRL ENT: Present mucous membranes moist *Routine Neck Exam Neck: Present supple; Absent lymphadenopathy *Routine Respiratory Exam Respiratory: Present CTA bilaterally *Routine Cardiovascular Exam Cardiovascular: Present RRR *Routine Abdominal Exam Abdominal: Present soft and normoactive bowel sounds; Absent tenderness *Routine Rectal Exam Rectal:: deferred *Routine Genitalia Exam Genitalia:: deferred *Routine Extremities Exam Extremities: Absent cyanosis, clubbing or edema *Routine Skin Exam Skin: Present warm; Absent rash *Routine Neurological Exam Neurological: Present alert and oriented X3 Assessment and Plan *Assessment and plan (1) Ventricular tachycardia: Status: Acute Category: Medical Code(s): I47.20 - Ventricular tachycardia, unspecified (2) AICD discharge: Status: Acute Category: Medical Code(s): Z45.02 - Encounter for adjustment and management of automatic implantable cardiac defibrillator (3) Angina at rest: Status: Acute Category: Medical Code(s): I20.89 - Other forms of angina pectoris (4) Leukocytosis: Status: Acute Qualifiers: Leukocytosis type: unspecified Qualified Code(s): D72.829 - Elevated white blood cell count, unspecified Category: Medical Code(s): D72.829 - Elevated white blood cell count, unspecified (5) Systolic CHF: Status: Acute Qualifiers: Heart failure chronicity: acute on chronic Qualified Code(s): I50.23 - Acute on chronic systolic (congestive) heart failure Category: Medical Code(s): I50.20 - Unspecified systolic (congestive) heart failure (6) Unstable angina: Status: Acute Category: Medical Code(s): I20.0 - Unstable angina Plan * Ventricular Tachycardia with AICD Shock: Single AICD shock for ventricular tachycardia (heart rate 292 bpm per interrogation), preceded by heat sensation in left neck/jaw/upper extremity and associated with severe chest pain, now resolved, in a patient with cardiomyopathy and CAD. * Continue amiodarone with bolus followed by drip * Maintain continuous telemetry to monitor for recurrent arrhythmias. * Pacemaker has been interrogated * Monitor for recurrence of VT; prepare for potential repeat defibrillation or ablation discussion with cardiology. * Keep on 2 L nasal cannula to maintain saturation >92%; wean as tolerated. * Admit to ICU for close monitoring. * Elevated Troponin (0.59 ng/mL): Mild troponin elevation, possibly due to demand ischemia from VT or recent stenting (January 2025), with no ongoing chest pain or EKG changes. * Trend troponin every 6 hours to assess for peak or resolution. * Continue aspirin 81 mg oral daily for antiplatelet therapy, given CAD history. * Verify home anti-ischemic medications (e.g., beta-peace, statin; confirm with patient or records) and continue unless contraindicated. * Monitor for chest pain or EKG changes; repeat EKG if symptoms recur. * Consult cardiology for further evaluation of ischemia vs. non-ischemic troponin elevation. * Coronary Artery Disease with Recent Stenting: Status post 14 stents, most recent January 2025, with fatigue since procedure but no acute ischemic symptoms currently. * Continue aspirin as above; consider clopidogrel 75 mg oral daily if part of recent stent regimen (verify dual antiplatelet therapy status). * Monitor for signs of stent thrombosis (chest pain, ST changes); low threshold for catheterization if symptoms develop. * Optimize cardiovascular risk factors; continue home statin (verify dose) for hyperlipidemia. * Consult cardiology as above for long-term CAD management. * Paroxysmal Atrial Fibrillation (Not Anticoagulated): No evidence of atrial fib rillation on current EKG (ventricular-paced rhythm), patient declines anticoagulation per history. * Monitor for atrial fibrillation recurrence on telemetry, given paroxysmal history. * Discuss anticoagulation risks/benefits again with patient, considering [id number] score (likely high with CAD, hypertension, age). * Defer rate control adjustments (e.g., beta-peace) until VT is stabilized, per cardiology guidance. * Consult cardiology for rhythm management strategy. * Cardiomyopathy with Pacemaker/AICD: Known cardiomyopathy, with AICD appropriately firing for VT, no device malfunction noted on initial interrogation. * Continue electrophysiology consultation for detailed device analysis and potential reprogramming. * Verify home heart failure medications and continue unless contraindicated by VT or amiodarone. * Monitor for signs of heart failure exacerbation * Order echocardiogram to reassess ejection fraction, given recent VT episode. * Mild Leukocytosis (WBC 12.2 x10?/?L): Likely reactive from VT or stress response, no clear infectious source (afebrile, clear lungs, normal CXR). * Monitor for fever or signs of infection (e.g., cough, dysuria) every 8 hours. * Recheck CBC in 24 hours to trend WBC; no antibiotics indicated at this time. * Low threshold for infection workup if leukocytosis persists or new symptoms develop. * Hypophosphatemia (Phosphorus 2.2 mg/dL): Mildly low phosphorus, asymptomatic, possibly due to poor intake or stress response. * Start oral phosphate supplementation with meals. * Recheck phosphorus in 12 hours until >2.5 mg/dL. * Monitor for weakness or respiratory compromise related to hypophosphatemia. * Hypertension and Hyperlipidemia: Stable chronic conditions, no acute hypertensive crisis (BP 113/70 mmHg) or lipid-related issues. * Continue home antihypertensive medications unless hypotension develops. * Continue statin as above for hyperlipidemia and CAD risk reduction. * Monitor blood pressure per ICU standard targeting <140/90 mmHg. * Type 2 Diabetes with Mild Hyperglycemia (Glucose 124 mg/dL): Known diabetes with mildly elevated glucose, likely exacerbated by stress response to VT and AICD shock, no signs of diabetic ketoacidosis or hyperosmolar state. * Monitor fingerstick glucose every 6 hours; administer sliding-scale insulin * Diabetic diet * Educate patient on maintaining consistent carbohydrate intake during admission. * Recheck glucose with morning labs to trend. Additional Orders: * Admit to ICU for VT management and arrhythmia monitoring. * Maintain continuous telemetry and pulse oximetry. * Offer acetaminophen 650 mg oral every 6 hours as needed for discomfort, avoiding NSAIDs due to CAD. * Consult dietitian for heart-healthy, low-sodium diet to support CAD and cardiomyopathy. * Educate patient and family on VT, AICD function, and importance of cardiology follow-up. * Arrange outpatient follow-up with electrophysiology, cardiology, and primary care post-discharge.
[2025-01-15] MEDS: ATORVASTATIN 20MG TABLET 20 MG PO (21:00)
[2025-01-15 21:05] LABS: POC Glucose,Bedside 147 (70-110)
[2025-01-15 21:23] LABS: Troponin I 0.53 ng/ml (0.00-0.034)
[2025-01-16] VITALS (16 sets, daily range): BP systolic 97–134; BP diastolic 48–83; PULSE 65–93; RESP 16–25; TEMP 36.4–37.1; O2SAT 91–97; BMI 30.3
[2025-01-16 05:40] LABS: POC Glucose,Bedside 115 (70-110)
[2025-01-16 06:38] LABS: Basophils # 0.1 K/mm3 (0-0.2); Basophils % 0.5 % (0.1-2.0); Eosinophils # 0.4 K/mm3 (0.0-0.4); Eosinophils % 3.3 % (0.1-12.0); Hematocrit 47.7 % (42.0-52.0); Hemoglobin 15.3 g/dL (14.1-18.0); Lymphocytes # 2.5 K/mm3 (0.7-4.5); Lymphocytes % 21.8 % (10-50); Mean Corpuscular HGB Conc 32.1 g/dL (31.8-35.4); Mean Corpuscular Hemoglobin 27.4 pg (27.0-31.2); Mean Corpuscular Volume 85.5 fl (80-94); Mean Platelet Volume 10.8 fl (7.4-10.4); Monocytes % 8.4 % (1.7-9.3); Neutrophils # 7.5 K/mm3 (1.8-7.8); Neutrophils % 65.6 % (37.0-80.0); Nucleated Red Blood Cells # 0 10^3/uL; Nucleated Red Blood Cells % 0 %; Platelet Count 244 K/mm3 (142-424); Red Blood Count 5.58 M/mm3 (4.60-6.20); Red Cell Distribution Width 14.6 % (11.5-17.5); Red Cell Distribution Width-SD 45.6 fL; White Blood Count 11.4 K/mm3 (4.8-10.8)
[2025-01-16 07:07] LABS: Albumin Level 3.8 g/dl (3.5-5.0); Chloride 107 mmol/L (98-107); Sodium 139 mmol/L (136-145)
[2025-01-16 07:08] LABS: Potassium 4.1 mmoL/L (3.5-5.1)
[2025-01-16 07:10] LABS: Alanine Aminotransferase 17 U/L (12-78); Albumin/Globulin Ratio 1.2 (1.1-1.8); Alkaline Phosphatase 81 U/L (38-126); Anion Gap 16.1 mEq/L (5-15); Aspartate Amino Transferase 30 U/L (17-59); Bilirubin,Total 0.8 mg/dl (0.2-1.3); Blood Urea Nitrogen 19 mg/dl (9-20); Carbon Dioxide 20 mmol/L (22.0-30.0); Creatinine Clearance Estimated 84 mL/min (50-200); Estimated Glomerular Filt Rate 73 ml/min (>60); GFR (African American) 89 ML/MIN (>60); Globulin 3.2 g/dL (1.3-3.2)
[2025-01-16 07:11] LABS: Calcium 9.1 mg/dl (8.4-10.2); Glucose 122 mg/dl (74-100); Magnesium 1.8 mg/dl (1.6-2.3)
--- NOTE | 2025-01-16 07:51 | HMH.PHAINT1 ---
Pharmacy Intervention Comments: MEDICATION RECONCILIATION COMPLETED ON PATIENT USING EXTERNAL FILL HISTORY FROM PHARMACY AND DISCHARGE SUMMARY FROM PREVIOUS ADMISSION. -NADEGE HAN, MIGDALIAD
[2025-01-16] MEDS: METOPROLOL SUCCINATE XL 100MG TABLET 100 MG PO (09:04)
[2025-01-16] MEDS: ASPIRIN EC 81MG TABLET 81 MG PO (09:04)
[2025-01-16] MEDS: IRBESARTAN 150MG TAB 150 MG PO (09:04)
[2025-01-16] MEDS: CLOPIDOGREL 75MG TAB 75 MG PO (09:04)
[2025-01-16] MEDS: SPIRONOLACTONE 25MG TABLET 25 MG PO (09:04)
[2025-01-16] MEDS: ENOXAPARIN 100MG/ML SYRINGE 90 MG SUBCUT ×2 (09:04→20:28)
[2025-01-16 11:11] LABS: POC Glucose,Bedside 133 (70-110)
[2025-01-16] MEDS: AMIODARONE 200MG TABLET 400 MG PO ×2 (12:57→20:29)
--- NOTE | 2025-01-16 13:08 | EXP.CARD.CON ---
History of Present Illness History of Present Illness Consult date: 01/16/25 Consult reason: known to you Chief complaint: ICD shock History of present illness: 74-year-old white male well-established patient of our office with history of multivessel CAD status post 14 prior stents, last was January 13 with stent to 90% LAD. He also has longstanding HFrEF with severely dilated LV and ejection fraction of 25% status post [employer] and paroxysmal atrial fibrillation. Patient seen in the office in December and had stopped most of his medicines including aspirin, Coumadin, metoprolol, Aldactone stating they all made him feel rundown and had bruising on his arms. We discussed he is high risk for complication including heart failure or sudden CA and stroke. He returned here to this facility last week complaining of ongoing chest discomfort and went to the heart cath where he received stenting of the LAD. He returned home and reports yesterday he had 2 episodes of awaking from a nap with discomfort in his left arm neck and jaw, the second episode was associated with discharge from his ICD. Device download here indicates he was appropriately shocked for sustained VT. His device also shows frequent nonsustained VT over the past several weeks. EKG here is V-paced, electrolytes are unremarkable, troponin was initially 0.59 then trending down x 3, O2 is 92% on room air, chest x-ray is clear. Patient was started on IV amiodarone and admitted overnight. This morning he is V-paced and asymptomatic, asking to go home [facility] Disclaimer: The information contained in this section may have been updated after the patient was seen, as this information can be updated by other users. Medical History Paresthesias Neoplasm of skin of face Situational depression Pacemaker Benign essential tremor Tremor of right hand Anxiety with depression HFrEF (heart failure with reduced ejection fraction) Laceration of finger of left hand with damage to nail GERD (gastroesophageal reflux disease) Urinary incontinence Hyperuricemia Otitis media Influenza A Orthopnea Sinusitis Patient left without being seen Nail dystrophy Pain due to onychomycosis of toenails of both feet Hallux rigidus of right foot UTI (urinary tract infection) SIRS (systemic inflammatory response syndrome) Thyroid nodule Clavicle fracture Ear ache Ventricular tachycardia Pulmonary hypertension Angina, class III Hypokalemia Prostatitis Acute febrile illness CHF NYHA class III LV dysfunction Obstructive sleep apnea syndrome Chronic obstructive lung disease Fatigue Hyperlipidemia Hypertensive heart disease Coronary arteriosclerosis Surgical History Stented coronary artery 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 Smoking Status: Former smoker tobacco type: cigarettes packs per day: 3 second hand exposure: No alcohol intake: never counseling provided: none substance use type: denies use current occupational status: retired Travel in the last 8 weeks: Inside the [place] household members: spouse housing: house current occupational exposures/hazards: Yes caffeine: Yes Have you lived/traveled outside [place] in past 30 days?: No Contact w/someone who lives/traveled outside [place] past 30 days?: No Exposure to someone with infectious disease in past 14 days?: No Do you have a fever (greater than 100.4 F or 38 C)?: No Have you tested positive for COVID-19: No Exposed to someone with COVID-19 in past 14 days?: No Do you have a sore throat?: No Do you have a cough?: No Do you have any weakness?: No Do you have any diarrhea?: No Are you experiencing any unusual bleeding?: No Do you have any muscle aches/pain?: No Do you have any abdominal pain?: No Are you experiencing loss of taste or smell?: No Exam Data for Last 24 hours Vital signs and Labs for Last 24 Hours: Temp Pulse Resp BP Pulse Ox O2 Del Method O2 Flow Rate 98.7 F 72 19 115/61 96 Room Air 1 01/16/25 12:00 01/16/25 12:00 01/16/25 12:00 01/16/25 12:00 01/16/25 12:00 01/16/25 13:00 01/15/25 21:00 Laboratory Results - last 24 hr 01/15/25 16:45: WBC 12.2 H, RBC 5.82, Hgb 15.9, Hct 49.9, MCV 85.7, MCH 27.3, MCHC 31.9, RDW 14.6, Plt Count 251, MPV 10.1, Neut % (Auto) 74.1, Lymph % (Auto) 14.7, [place] % (Auto) 8.1, Eos % (Auto) 2.0, Baso % (Auto) 0.7, Neut # (Auto) 9.0 H, Lymph # (Auto) 1.8, [place] # (Auto) 1.0, Eos # (Auto) 0.2, Baso # (Auto) 0.1, PT 11.5, INR 1.03, APTT 27.6, Sodium 140, Potassium 4.2, Chloride 106, Carbon Dioxide 27, Anion Gap 11.2, BUN 23 H D, Creatinine 1.10 D, Estimated GFR 66, Est GFR ( Amer) 79 D, Glucose 124 H, Calcium 9.6, Phosphorus 2.2 L, Magnesium 2.0 D, Total Bilirubin 0.7, AST 29, ALT 18, Alkaline Phosphatase 74, Troponin I 0.59 H, Total Protein 7.3, Albumin 3.9, Globulin 3.4 H, Albumin/Globulin Ratio 1.1, Lipase 63 01/15/25 19:45: Troponin I 0.53 H 01/15/25 20:56: POC Glucose 147 H 01/15/25 22:54: Troponin I 0.50 H 01/16/25 05:24: WBC 11.4 H, RBC 5.58, Hgb 15.3, Hct 47.7, MCV 85.5, MCH 27.4, MCHC 32.1, RDW 14.6, Plt Count 244, MPV 10.8 H, Neut % (Auto) 65.6, Lymph % (Auto) 21.8, [place] % (Auto) 8.4, Eos % (Auto) 3.3, Baso % (Auto) 0.5, Neut # (Auto) 7.5, Lymph # (Auto) 2.5, [place] # (Auto) 1.0, Eos # (Auto) 0.4, Baso # (Auto) 0.1, Sodium 139, Potassium 4.1, Chloride 107, Carbon Dioxide 20 L, Anion Gap 16.1 H, BUN 19, Creatinine 1.00, Estimated Creat Clear 84, Estimated GFR 73, Est GFR ( Amer) 89, Glucose 122 H, Calcium 9.1, Magnesium 1.8, Total Bilirubin 0.8, AST 30, ALT 17, Alkaline Phosphatase 81, Total Protein 7.0, Albumin 3.8, Globulin 3.2, Albumin/Globulin Ratio 1.2 01/16/25 05:32: POC Glucose 115 H 01/16/25 11:03: POC Glucose 133 H I & O for Last 24 hours: Intake & Output 01/13/25 01/14/25 01/15/25 01/16/25 23:59 23:59 23:59 23:59 Intake Total 956.563 / 956.563 Output Total 0 / 0 475 / 475 Balance 0 / 240 481.563 / 481.563 Weight 205 lb 14.588 oz 200 lb 2.876 oz Constitutional Constitutional: no acute distress and cooperative *Routine HEENT Exam Eye: Present PERRL *Routine Respiratory Exam Respiratory: Present CTA bilaterally; Absent accessory muscle use, wheezes or crackles *Routine Cardiovascular Exam Cardiovascular: Present RRR, Normal S1 and Normal S2; Absent murmur, gallop or rubs *Routine Abdominal Exam Abdominal: Present soft; Absent tenderness *Routine Extremities Exam Extremities: Present pulses intact; Absent cyanosis or edema *Routine Skin Exam Skin: Present intact; Absent erythema or wounds *Routine Neurological Exam Neurological: Present alert and oriented X3 Routine Psychiatric Exam Psychiatric: Present cooperative Meds Home Medications and Allergies Home Medications ?Medication ?Instructions ?Recorded ?Confirmed ?Type valsartan 160 mg tablet 160 mg PO DAILY #30 tabs 11/01/24 01/15/25 Rx oxycodone-acetaminophen 5 mg-325 1 tab PO TID PRN chronic pain #90 12/26/24 01/15/25 Rx mg tablet tabs spironolactone 25 mg tablet 25 mg PO DAILY 01/12/25 01/15/25 History (Aldactone) aspirin 81 mg tablet,delayed 81 mg PO DAILY 30 days #30 tabs 01/13/25 01/15/25 Rx release atorvastatin 20 mg tablet 20 mg PO HS 01/15/25 01/15/25 History clopidogrel 75 mg tablet 75 mg PO DAILY 01/15/25 01/15/25 History duloxetine 30 mg capsule,delayed 30 mg PO DAILY 01/15/25 01/15/25 History release New Prescriptions to Start Prescriptions: Allergies Allergy/AdvReac Type Severity Reaction Status Date / Time No Known Allergies Allergy Verified 01/12/25 23:05 Assessment and Plan *Assessment and plan (1) Ventricular tachycardia: Status: Acute Category: Medical Code(s): I47.20 - Ventricular tachycardia, unspecified (2) AICD discharge: Status: Acute Category: Medical Code(s): Z45.02 - Encounter for adjustment and management of automatic implantable cardiac defibrillator (3) Paroxysmal atrial fibrillation: Status: Acute Category: Medical Code(s): I48.0 - Paroxysmal atrial fibrillation (4) HFrEF (heart failure with reduced ejection fraction): Status: Acute Category: Medical Code(s): I50.20 - Unspecified systolic (congestive) heart failure (5) Coronary artery disease: Status: Chronic Qualifiers: Coronary Disease-Associated Artery/Lesion type: [place] artery [place] vs. transplanted heart: [place] heart Associated angina: with other forms of angina Qualified Code(s): I25.118 - Atherosclerotic heart disease of [place] coronary artery with other forms of angina pectoris Category: Medical Code(s): I25.10 - Atherosclerotic heart disease of [place] coronary artery without angina pectoris Plan Ventricular Tachycardia s/p ICD Shock - increased rate of NSVT at home recently in setting of BB noncompliance and severely dilated LV - LAD stented 01/13, so reperfusion arrhythmia is possible but unlikely per Dr. Her who performed the cath - pt stable on Metoprolol and Amio, will change Amio from IV to PO - observe 48h then home with PO Amio HFrEF - known chronic severe LV dilationa and dysfunction with EF 25% - pt historically declines GDMT due to feeling run down - currently tolerating Irbesartan, Aldactone, Toprol - euvolemic on exam MV-CAD - s/p 14 stents lifetime - last LHC was 01/13/26 - 90% LAD stented - Trop 0.5 following ICD discharge but then trended down - films reviewed by Dr. Her, no indication for repeat cath following VT PAF - v-paced here - CHADS-VASC = 4, pt repeatedly declines OAC despite stroke risk - continue Metoprolol and Amiodarone Chronic Hypoxic Resp Failure - O2 lower 90s for many years - appears euvolemic on exam Nonadherence to treatment plan - pt repeatedly stops his meds at home despite risks 01/16 CV Summary: Continue Amio and observe [id number]. No procedures anticipated. Pt has poor 1 year prognosis.
--- NOTE | 2025-01-16 14:46 | PC.NURSE ---
report given to LASHONDA Nascimento- Pt to be transferred to room 212 Med surg.
[2025-01-16 15:41] LABS: POC Glucose,Bedside 121 (70-110)
[2025-01-16 20:05] LABS: POC Glucose,Bedside 131 (70-110)
[2025-01-16] MEDS: ATORVASTATIN 20MG TABLET 20 MG PO (20:28)
[2025-01-16] MEDS: OXYCODONE 5MG W/APAP 325MG TABLET 1 EACH PO (20:30)
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
[2025-01-17] VITALS: BP 128/80; PULSE 70; PULSE 71; RESP 17; TEMP 36.4; O2SAT 94
[2025-01-17 04:00] VITALS: BP 116/65; PULSE 70; PULSE 72; RESP 16; TEMP 36.6; O2SAT 96; BMI 31.6
[2025-01-17] MEDS: OXYCODONE 5MG W/APAP 325MG TABLET 1 EACH PO (04:40)
--- NOTE | 2025-01-17 05:00 | PC.NURSE ---
Pt remains on telemetry with a paced rhythm. Pt has complained of moderate to severe back pain this shift and was treated per DEC. Pt did get up to his chair for a portion of this shift stating that lying in bed was uncomfortable. Pt has not had any acute changes to note this shift.
[2025-01-17 05:34] LABS: POC Glucose,Bedside 107 (70-110)
[2025-01-17 06:15] LABS: Basophils # 0.1 K/mm3 (0-0.2); Basophils % 0.6 % (0.1-2.0); Eosinophils # 0.3 K/mm3 (0.0-0.4); Hematocrit 50.9 % (42.0-52.0); Hemoglobin 16.3 g/dL (14.1-18.0); Lymphocytes # 2.5 K/mm3 (0.7-4.5); Lymphocytes % 16.6 % (10-50); Mean Corpuscular Hemoglobin 27.3 pg (27.0-31.2); Mean Corpuscular Volume 85.3 fl (80-94); Mean Platelet Volume 10.9 fl (7.4-10.4); Monocytes # 1.2 K/mm3 (0.1-1.0); Monocytes % 7.9 % (1.7-9.3); Neutrophils # 10.8 K/mm3 (1.8-7.8); Neutrophils % 72.4 % (37.0-80.0); Nucleated Red Blood Cells # 0 10^3/uL; Nucleated Red Blood Cells % 0 %; Platelet Count 262 K/mm3 (142-424); Red Blood Count 5.97 M/mm3 (4.60-6.20); Red Cell Distribution Width 14.7 % (11.5-17.5); Red Cell Distribution Width-SD 45.4 fL; White Blood Count 14.9 K/mm3 (4.8-10.8)
[2025-01-17 06:22] LABS: Albumin Level 4.1 g/dl (3.5-5.0); Chloride 106 mmol/L (98-107); Sodium 139 mmol/L (136-145)
[2025-01-17 06:23] LABS: Potassium 4.5 mmoL/L (3.5-5.1)
[2025-01-17 06:25] LABS: Alanine Aminotransferase 18 U/L (12-78); Albumin/Globulin Ratio 1.2 (1.1-1.8); Alkaline Phosphatase 82 U/L (38-126); Anion Gap 15.5 mEq/L (5-15); Aspartate Amino Transferase 26 U/L (17-59); Bilirubin,Total 1.2 mg/dl (0.2-1.3); Blood Urea Nitrogen 19 mg/dl (9-20); Calcium 9.5 mg/dl (8.4-10.2); Carbon Dioxide 22 mmol/L (22.0-30.0); Creatinine Clearance Estimated 73 mL/min (50-200); Estimated Glomerular Filt Rate 59 ml/min (>60); GFR (African American) 72 ML/MIN (>60); Globulin 3.5 g/dL (1.3-3.2); Glucose 114 mg/dl (74-100); Magnesium 1.7 mg/dl (1.6-2.3); Total Protein,Serum 7.6 g/dl (6.3-8.2)
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
[2025-01-17 07:47] VITALS: BP 109/56; PULSE 76; RESP 20; TEMP 36.4; O2SAT 95
[2025-01-17 08:00] VITALS: PULSE 70
[2025-01-17] MEDS: METOPROLOL SUCCINATE XL 100MG TABLET 100 MG PO (08:48)
[2025-01-17] MEDS: ASPIRIN EC 81MG TABLET 81 MG PO (08:48)
[2025-01-17] MEDS: SPIRONOLACTONE 25MG TABLET 25 MG PO (08:48)
[2025-01-17] MEDS: AMIODARONE 200MG TABLET 400 MG PO ×2 (08:48→12:33)
[2025-01-17] MEDS: ENOXAPARIN 100MG/ML SYRINGE 95 MG SUBCUT (08:49)
[2025-01-17] MEDS: CLOPIDOGREL 75MG TAB 75 MG PO (08:49)
[2025-01-17] MEDS: MAGNESIUM SULFATE IN WATER 2 GM/50 ML PIGGYBACK IV ×2 (08:50→09:53)
[2025-01-17] MEDS: IRBESARTAN 150MG TAB 150 MG PO (09:57)
[2025-01-17 10:08] LABS: POC Glucose,Bedside 142 (70-110)
[2025-01-17 11:50] VITALS: BP 108/71; PULSE 76; RESP 18; TEMP 36.9; O2SAT 95
[2025-01-17 12:00] VITALS: PULSE 70
--- NOTE | 2025-01-17 12:26 | EXP.CARD.PN ---
Subjective Subjective Date: 01/17/25 Time: 09:30 Interval history: No events overnight, no further ectopy. Tolerating the medicines well Exam Data for Last 24 hours Vital signs and Labs for Last 24 Hours: Temp Pulse Resp BP Pulse Ox O2 Del Method O2 Flow Rate 98.4 F 76 18 108/71 L 95 Room Air 1 01/17/25 11:50 01/17/25 11:50 01/17/25 11:50 01/17/25 11:50 01/17/25 11:50 01/17/25 11:50 01/15/25 21:00 Laboratory Results - last 24 hr 01/16/25 15:35: POC Glucose 121 H 01/16/25 19:58: POC Glucose 131 H 01/17/25 05:23: POC Glucose 107 01/17/25 05:24: WBC 14.9 H D, RBC 5.97, Hgb 16.3, Hct 50.9, MCV 85.3, MCH 27.3, MCHC 32.0, RDW 14.7, Plt Count 262, MPV 10.9 H, Neut % (Auto) 72.4, Lymph % (Auto) 16.6, [place] % (Auto) 7.9, Eos % (Auto) 2.0, Baso % (Auto) 0.6, Neut # (Auto) 10.8 H, Lymph # (Auto) 2.5, [place] # (Auto) 1.2 H, Eos # (Auto) 0.3, Baso # (Auto) 0.1, Sodium 139, Potassium 4.5, Chloride 106, Carbon Dioxide 22, Anion Gap 15.5 H, BUN 19, Creatinine 1.20, Estimated Creat Clear 73, Estimated GFR 59, Est GFR ( Amer) 72, Glucose 114 H, Calcium 9.5, Magnesium 1.7, Total Bilirubin 1.2, AST 26, ALT 18, Alkaline Phosphatase 82, Total Protein 7.6, Albumin 4.1, Globulin 3.5 H, Albumin/Globulin Ratio 1.2 01/17/25 09:55: POC Glucose 142 H Temp Pulse Resp BP Pulse Ox O2 Del Method O2 Flow Rate 98.7 F 72 19 115/61 96 Room Air 1 01/16/25 12:00 01/16/25 12:00 01/16/25 12:00 01/16/25 12:00 01/16/25 12:00 01/16/25 13:00 01/15/25 21:00 Laboratory Results - last 24 hr 01/15/25 16:45: WBC 12.2 H, RBC 5.82, Hgb 15.9, Hct 49.9, MCV 85.7, MCH 27.3, MCHC 31.9, RDW 14.6, Plt Count 251, MPV 10.1, Neut % (Auto) 74.1, Lymph % (Auto) 14.7, [place] % (Auto) 8.1, Eos % (Auto) 2.0, Baso % (Auto) 0.7, Neut # (Auto) 9.0 H, Lymph # (Auto) 1.8, [place] # (Auto) 1.0, Eos # (Auto) 0.2, Baso # (Auto) 0.1, PT 11.5, INR 1.03, APTT 27.6, Sodium 140, Potassium 4.2, Chloride 106, Carbon Dioxide 27, Anion Gap 11.2, BUN 23 H D, Creatinine 1.10 D, Estimated GFR 66, Est GFR ( Amer) 79 D, Glucose 124 H, Calcium 9.6, Phosphorus 2.2 L, Magnesium 2.0 D, Total Bilirubin 0.7, AST 29, ALT 18, Alkaline Phosphatase 74, Troponin I 0.59 H, Total Protein 7.3, Albumin 3.9, Globulin 3.4 H, Albumin/Globulin Ratio 1.1, Lipase 63 01/15/25 19:45: Troponin I 0.53 H 01/15/25 20:56: POC Glucose 147 H 01/15/25 22:54: Troponin I 0.50 H 01/16/25 05:24: WBC 11.4 H, RBC 5.58, Hgb 15.3, Hct 47.7, MCV 85.5, MCH 27.4, MCHC 32.1, RDW 14.6, Plt Count 244, MPV 10.8 H, Neut % (Auto) 65.6, Lymph % (Auto) 21.8, [place] % (Auto) 8.4, Eos % (Auto) 3.3, Baso % (Auto) 0.5, Neut # (Auto) 7.5, Lymph # (Auto) 2.5, [place] # (Auto) 1.0, Eos # (Auto) 0.4, Baso # (Auto) 0.1, Sodium 139, Potassium 4.1, Chloride 107, Carbon Dioxide 20 L, Anion Gap 16.1 H, BUN 19, Creatinine 1.00, Estimated Creat Clear 84, Estimated GFR 73, Est GFR ( Amer) 89, Glucose 122 H, Calcium 9.1, Magnesium 1.8, Total Bilirubin 0.8, AST 30, ALT 17, Alkaline Phosphatase 81, Total Protein 7.0, Albumin 3.8, Globulin 3.2, Albumin/Globulin Ratio 1.2 01/16/25 05:32: POC Glucose 115 H 01/16/25 11:03: POC Glucose 133 H I & O for Last 24 hours: Intake & Output 01/14/25 01/15/25 01/16/25 01/17/25 23:59 23:59 23:59 23:59 Intake Total 1406.563 / 1646.563 700 / 700 Output Total 0 / 0 475 / 475 Balance 0 / 240 931.563 / 1171.563 700 / 700 Weight 205 lb 14.588 oz 200 lb 2.876 oz 208 lb 12.8 oz Intake & Output 01/13/25 01/14/25 01/15/25 01/16/25 23:59 23:59 23:59 23:59 Intake Total 956.563 / 956.563 Output Total 0 / 0 475 / 475 Balance 0 / 240 481.563 / 481.563 Weight 205 lb 14.588 oz 200 lb 2.876 oz Constitutional Constitutional: no acute distress and cooperative *Routine HEENT Exam Eye: Present PERRL *Routine Respiratory Exam Respiratory: Present CTA bilaterally; Absent accessory muscle use, wheezes or crackles *Routine Cardiovascular Exam Cardiovascular: Present RRR, Normal S1 and Normal S2; Absent murmur, gallop or rubs *Routine Abdominal Exam Abdominal: Present soft; Absent tenderness *Routine Extremities Exam Extremities: Present pulses intact; Absent cyanosis or edema *Routine Skin Exam Skin: Present intact; Absent erythema or wounds *Routine Neurological Exam Neurological: Present alert and oriented X3 Routine Psychiatric Exam Psychiatric: Present cooperative Progress Note: A&P Assessment and plan (1) Ventricular tachycardia: Status: Acute (2) AICD discharge: Status: Acute (3) Angina at rest: Status: Inactive (4) Leukocytosis: Status: Inactive (5) Systolic CHF: Status: Acute (6) Unstable angina: Status: Inactive Assessment and Plan Assessment and Plan for All Diagnoses:: Ventricular Tachycardia s/p ICD Shock - increased rate of NSVT at home recently in setting of BB noncompliance and severely dilated LV - LAD stented 01/13, so reperfusion arrhythmia is possible but unlikely per Dr. Her who performed the cath - pt stable on Metoprolol and Amio, will change Amio from IV to PO - observe 48h then home with PO Amio 01/17: No NSVT since starting Amio. Ok to DC home with Toprol and Amio. Cont to monitor with ICD remote downloads. HFrEF s/p [employer]ATION CONSULTANT-D - known chronic severe LV dilationa and dysfunction with EF 25% - pt historically declines GDMT due to feeling run down - currently tolerating Irbesartan, Aldactone, Toprol - euvolemic on exam MV-CAD - s/p 14 stents lifetime - last LHC was 01/13/26 - 90% LAD stented - Trop 0.5 following ICD discharge but then trended down - films reviewed by Dr. Her, no indication for repeat cath following VT PAF - v-paced here - CHADS-VASC = 4, pt repeatedly declines OAC despite stroke risk - continue Metoprolol and Amiodarone Chronic Hypoxic Resp Failure - O2 lower 90s for many years - appears euvolemic on exam Nonadherence to treatment plan - pt repeatedly stops his meds at home despite risks CV Summary 01/17: Patient CV stable with the addition of amiodarone. He is not a candidate for any further procedural interventions at this point. We again discussed compliance with home meds and amiodarone. He needs to be seen in our pacemaker clinic and office follow-up in 1 week.
--- NOTE | 2025-01-18 10:11 | SW/DCPLANNER ---
Spoke with patient on the phone. Patient stated that everything is going good. Patient stated that he is aware of his upcoming appointments. Patient stated that he was able to get his new medicine. Patient stated that he has no concerns or questions. Levy Long
== END 2025-01-17 13:00 | disposition home or self-care (01) ==
LOC: ER 17:28 → 2ND 18:07
PROVIDERS: Admitting Provider Student in an Organized Health Care Education/Training Program; Emergency Provider Emergency Medicine; PCP Family Medicine; Visit Provider Student in an Organized Health Care Education/Training Program
DX: I47.20 Ventricular tachycardia, unspecified (principal); I25.110 Atherosclerotic heart disease of native coronary artery with unstable angina pectoris; I50.23 Acute on chronic systolic (congestive) heart failure; I48.0 Paroxysmal atrial fibrillation; I11.0 Hypertensive heart disease with heart failure; I42.9 Cardiomyopathy, unspecified; E78.5 Hyperlipidemia, unspecified; E11.65 Type 2 diabetes mellitus with hyperglycemia; E66.9 Obesity, unspecified; D49.2 Neoplasm of unspecified behavior of bone, soft tissue, and skin; K21.9 Gastro-esophageal reflux disease without esophagitis; F43.21 Adjustment disorder with depressed mood; D72.829 Elevated white blood cell count, unspecified; N41.9 Inflammatory disease of prostate, unspecified; F41.9 Anxiety disorder, unspecified; R32 Unspecified urinary incontinence; G25.2 Other specified forms of tremor; G47.33 Obstructive sleep apnea (adult) (pediatric); E04.1 Nontoxic single thyroid nodule; R06.01 Orthopnea; E79.0 Hyperuricemia without signs of inflammatory arthritis and tophaceous disease; E83.39 Other disorders of phosphorus metabolism; Z68.31 Body mass index [BMI] 31.0-31.9, adult; Z95.5 Presence of coronary angioplasty implant and graft; Z95.810 Presence of automatic (implantable) cardiac defibrillator; Z45.02 Encounter for adjustment and management of automatic implantable cardiac defibrillator; Z91.148 Patient's other noncompliance with medication regimen for other reason; Z87.891 Personal history of nicotine dependence; Z79.82 Long term (current) use of aspirin; Z79.02 Long term (current) use of antithrombotics/antiplatelets; Z79.01 Long term (current) use of anticoagulants; Z79.899 Other long term (current) drug therapy
CPT/HCPCS: 36415; 71045; 80053; 82962; 83690; 83735; 84100; 84484; 85025; 85610; 85730; 87081; 93005; 99291; G0378; J0282; J1650; J3475; J7060

== ENCOUNTER 2025-01-26 13:40 | Outpatient (CLI) | payer MEDICARE, SELFPAY ==
--- NOTE | 2025-01-26 14:00 | CA_ITS ---
FINAL REPORT CLINICAL HISTORY: NUMBNESS RT HAND,PT HAD HEART CATH WITH RIGHT RADIAL ACCESS ON 01/13/25 FINDINGS: Spectral and Doppler waveform evaluations of the right wrist was performed. Spectral analysis was performed. At the area of interest, the radial artery is patent. There is no pseudoaneurysm, thrombus, or fluid collection. IMPRESSION: No evidence of pseudoaneurysm, thrombus, or fluid collection. Reviewed, Interpreted and Dictated by Ruthy Tolliver MD Transcribed by Cristiane Fernandez Authenticated and [facility]
[2025-01-26 14:22] LABS: Basophils # 0.1 K/mm3 (0-0.2); Basophils % 0.5 % (0.1-2.0); Eosinophils # 0.3 Kmm3 (0.0-0.4); Eosinophils % 2.3 % (0.1-12.0); Hematocrit 49.9 % (42.0-52.0); Hemoglobin 15.8 g/dL (14.1-18.0); Lymphocytes # 1.9 K/mm3 (0.7-4.5); Lymphocytes % 17.8 % (10-50); Mean Corpuscular HGB Conc 31.7 g/dL (31.8-35.4); Mean Corpuscular Hemoglobin 27.8 pg (27.0-31.2); Mean Corpuscular Volume 87.9 fl (80-94); Mean Platelet Volume 10.1 fl (7.4-10.4); Monocytes # 0.7 K/mm3 (0.1-1.0); Monocytes % 6.3 % (1.7-9.3); Neutrophils # 7.9 K/mm3 (1.8-7.8); Neutrophils % 72.6 % (37.0-80.0); Nucleated Red Blood Cells # 0 10^3/uL; Nucleated Red Blood Cells % 0 %; Platelet Count 306 K/mm3 (142-424); Red Blood Count 5.68 M/mm3 (4.60-6.20); Red Cell Distribution Width 14.5 % (11.5-17.5); Red Cell Distribution Width-SD 46.6 fL; White Blood Count 10.9 K/mm3 (4.8-10.8)
[2025-01-26 14:49] LABS: Free T4 (Free Thyroxine) 1.61 ng/dl (0.78-2.19)
[2025-01-26 14:51] LABS: Albumin Level 3.9 g/dl (3.5-5.0); Chloride 108 mmol/L (98-107); Potassium 4.7 mmoL/L (3.5-5.1); Sodium 141 mmol/L (136-145)
[2025-01-26 14:54] LABS: Alanine Aminotransferase 23 U/L (12-78); Alkaline Phosphatase 72 U/L (38-126); Anion Gap 10.7 mEq/L (5-15); Aspartate Amino Transferase 24 U/L (17-59); Bilirubin,Indirect 0.6 mg/dL (0.0-0.9); Bilirubin,Total 0.6 mg/dl (0.2-1.3); Bilirubin,Unconjugated 0.5 mg/dL (0.0-1.1); Blood Urea Nitrogen 15 mg/dl (9-20); Calcium 9.3 mg/dl (8.4-10.2); Carbon Dioxide 27 mmol/L (22.0-30.0); Chol/HDL Ratio 2.3 (1-3.5); Cholesterol 93 mg/dl (140-200); Estimated Glomerular Filt Rate 54 ml/min (>60); GFR (African American) 65 ML/MIN (>60); Glucose 107 mg/dl (74-100); HDL Cholesterol 40 mg/dl (40-60); Total Protein,Serum 6.7 g/dl (6.3-8.2); Triglycerides 234 mg/dl (30-150); VLDL Cholesterol 47 mg/dL (0-40)
[2025-01-26 15:09] LABS: Direct LDL Cholesterol < 30.00 mg/dL (100-129)
[2025-01-26 15:27] LABS: Thyroid Stimulating Hormone 3.77 uIU/mL (0.465-4.68)
== END 2025-01-26 23:59 | disposition home or self-care (01) ==
LOC: RT 13:41
PROVIDERS: PCP Family Medicine; Visit Provider Internal Medicine
DX: I11.0 Hypertensive heart disease with heart failure (principal); I50.20 Unspecified systolic (congestive) heart failure; I48.0 Paroxysmal atrial fibrillation; E78.5 Hyperlipidemia, unspecified; I42.9 Cardiomyopathy, unspecified; R20.0 Anesthesia of skin; Z98.890 Other specified postprocedural states
CPT/HCPCS: 36415; 80048; 80061; 80076; 84439; 84443; 85025; 93931

== ENCOUNTER 2025-02-09 12:36 | Outpatient (CLI) | payer MEDICARE, SELFPAY ==
--- NOTE | 2025-02-09 | CA_ITS ---
APPROVED REPORT EXAM: Comprehensive 2D, Doppler, and color-flow Echocardiogram Any Commodity Buyer: Rosa Yip, RCS, RVS Ht: 5 ft 8 in Wt: 212lbs BSA: 2.10 BP: 125/65 mmHg Indications: CM, CAD, AICD, HFrEF, SOA, Ex-smoker Echo Enhancing Agent Comments: No IV acess 2D Dimensions IVSd 0.91 cm M: 0.6-1.2 LVEF (Visual) 32.90 % PWd 1.02 cm M: 0.6 - 1.2 LA Volume 77.70 mL LVDd 5.69 cm M: 4.2 - 5.9 LA Volume Index [id number] mL/m2 (M/F) 16-34 LVDs 5.27 cm M: 2.5 - 4.0 Left Atrium 3.36 cm M: 3.0 - 4.0 M-Mode Dimensions LA Diam 3.46 cm (1.9-4.0) LVDd 6.73 cm (3.5-5.7) LVDs 5.58 cm (3.5-5.7) IVSd 1.25 cm (0.6-1.1) PWd 1.21 cm (0.6-1.1) EF (Teich) 34.80% EPSs 2.43 cm FS 17.10% EDV (Teich) 233.70 mL TAPSE 1.75 (<1.7) ESV (Teich) 152.40 mL LV Diastology E Decel Time 193 (160-240 msec) E/A Ratio 0.78 MED A' 11.30 cm/s LAT A' 9.70 cm/s Aortic Valve EZEQUIEL Index 0.84 cm2/m2 AoV Peak Jaden. 117.0 (50-130 cm/s) AO Peak GR. 5.50 mmHg AO Mean GR. 2.90 (<5 mmHg) AO VTI 24.8 (18-25 cm) EZEQUIEL (VTI) 1.80 (2.5-4.5 cm2) Mitral Valve MV A Velocity 95.0 (40-130 cm/s) E/A Ratio 0.78 MV Mean Gr. 1.60 (<2mmHg) Tricuspid Valve TR P. Velocity 279.00 cm/s RAP Estimate 10.00 mmHg RVSP 41.20 mmHg Left Ventricle The left ventricle is mildly dilated. Left ventricular systolic function is severely decreased. There is increased LV wall thickness. There is severe global hypokinesis present. The septum is asynchronous. Grade 1 diastolic dysfunction is present. LVEF is 20%. Right Ventricle Right ventricle is mildly dilated. Right ventricle is mildly hypokinetic. Atria Left atrium is moderately dilated. Right atrium is moderately dilated. There is indeterminate evidence of interatrial shunt. Aortic Valve The aortic valve is mildly thickened. There is no aortic valvular stenosis. Mild aortic regurgitation. Mitral Valve The mitral valve is normal in structure. No evidence of mitral valve stenosis. Mild mitral regurgitation. Tricuspid Valve The tricuspid valve leaflets are thin and pliable. Mild tricuspid regurgitation. RVSP is 30-35 mmHg. Pulmonic Valve The pulmonary valve is normal in structure. Trace pulmonic regurgitation. Great Vessels The aortic root is normal in size. IVC is normal in size and collapses >50% with inspiration. Pericardium There is no pericardial effusion. Other Information Study Quality: Technically Difficult Conclusion Technically difficult study due to poor acoustic windows. Mildly dilated LV with severe reduction in LV systolic function (LVEF 20%). Mild RV dilation with mild reduction in RV function. Biatrial dilation. Mild AI, mild MR, mild TR. RVSP 30-35 mmHg. Electronically signed by : Kavita Oviedo MD 02/18/2025 21:25:29
--- OUTSIDE RECORDS SUMMARY | 2025-02-09 12:39 | XMS_ITS | Data Portability ---
Author Organization RACHEL DAMION Fermin [facility]OS[facility] Address [address] [place] [address] Care Team Providers Care Corporate Technical Recruiter Name Role Phone HEATHER LUNA Referring Provider [phone] Assessment No assessment recorded. Plan of Treatment Reminders Order Date Submit Date Provider Last Modified By Organization Details Last Modified Time Details Appointments None recorded. Lab urinalysis panel, auto 2022 023 [facility], [address], [place], [address], 3 10:04:27 PSA, serum or plasma 2022 023 [facility], [address], [place], [address], 3 17:54:14 urinalysis panel, auto 2022 023 [facility], [address], [place], [address], 3 15:10:26 Referral None recorded. Procedures None recorded. Surgeries None recorded. Imaging None recorded. Medication Orders tamsulosin 0.4 mg capsule 2022 023 [facility], [address] [place], [address], 15:14:44 Patient TargetsNo targets recorded. Patient InstructionsNo instructions recorded. Reason for Referral None Reported. Results Created Date Observation Date Name Description Value Unit Range Abnormal Flag Note LastModifiedBy Organization Detail LastModifiedTime 04/23/20 23 04/23/2023 PSA, serum or plasm a PSA 0.43 NG/mL 0.0 - 4.0 Not Available [facility] [address], [place], [address], 04/23/2023 17:38:57 04/23/2004/23/2023 urina lysis panel , auto Unknown Analyte Clean Catch Not Available [facility] [address], [place], [address], 04/23/2023 14:59:04 04/23/20 23 04/23/2023 urina lysis panel , auto Unknown Analyte Yellow Not Available [facility] [address], [place], [address], 04/23/2023 14:59:04 04/23/20 23 04/23/2023 urina lysis panel , auto Unknown Analyte Clear Not Available [facility] [address], [place], [address], 04/23/2023 14:59:04 04/23/20 23 04/23/2023 urina lysis panel , auto Unknown Analyte 1.020 Not Available [facility] [address], [place], [address], 04/23/2023 14:59:04 04/23/20 23 04/23/2023 urina lysis panel , auto Unknown Analyte 5.0 Not Available [facility] [address], [place], [address], 04/23/2023 14:59:04 04/23/20 23 04/23/2023 urina lysis panel , auto Unknown Analyte Negati ve Not Available [facility] [address], [place], [address], 04/23/2023 14:59:04 04/23/20 23 04/23/2023 urina lysis panel , auto Unknown Analyte Negati ve Not Available [facility] [address], [place], [address], 04/23/2023 14:59:04 04/23/20 23 04/23/2023 urina lysis panel , auto Unknown Analyte Trace Not Available [facility] [address], [place], [address], 04/23/2023 14:59:04 04/23/20 23 04/23/2023 urina lysis panel , auto Unknown Analyte Normal Not Available [facility] [address], [place], [address], 04/23/2023 14:59:04 04/23/20 23 04/23/2023 urina lysis panel , auto Unknown Analyte Negati ve Not Available [facility] [address], [place], [address], 04/23/2023 14:59:04 04/23/20 23 04/23/2023 urina lysis panel , auto Unknown Analyte Normal Not Available [facility] [address], [place], [address], 04/23/2023 14:59:04 04/23/20 23 04/23/2023 urina lysis panel , auto Unknown Analyte Negati ve Not Available [facility] [address], [place], [address], 04/23/2023 14:59:04 04/23/20 23 04/23/2023 urina lysis panel , auto Unknown Analyte Negati ve Not Available [facility] [address], [place], [address], 04/23/2023 14:59:04 05/20/20 23 05/20/2023 urina lysis panel , auto Unknown Analyte Clean Catch Not Available [facility] [address], [place], [address], 05/20/2023 10:00:08 05/20/20 23 05/20/2023 urina lysis panel , auto Unknown Analyte Yellow Not Available [facility] [address], [place], [address], 05/20/2023 10:00:08 05/20/20 23 05/20/2023 urina lysis panel , auto Unknown Analyte Clear Not Available [facility] [address], [place], [address], 05/20/2023 10:00:08 05/20/20 23 05/20/2023 urina lysis panel , auto Unknown Analyte 1.020 Not Available [facility] [address], [place], [address], 05/20/2023 10:00:08 05/20/20 23 05/20/2023 urina lysis panel , auto Unknown Analyte 5.0 Not Available [facility] [address], [place], [address], 05/20/2023 10:00:08 05/20/20 23 05/20/2023 urina lysis panel , auto Unknown Analyte Negati ve Not Available [facility] [address], [place], [address], 05/20/2023 10:00:08 05/20/20 23 05/20/2023 urina lysis panel , auto Unknown Analyte Negati ve Not Available [facility] [address], [place], [address], 05/20/2023 10:00:08 05/20/20 23 05/20/2023 urina lysis panel , auto Unknown Analyte 30 mg/dl (+) Not Available [facility] [address], [place], [address], 05/20/2023 10:00:08 05/20/20 23 05/20/2023 urina lysis panel , auto Unknown Analyte Normal Not Available [facility] [address], [place], [address], 05/20/2023 10:00:08 05/20/20 23 05/20/2023 urina lysis panel , auto Unknown Analyte Negati ve Not Available [facility] [address], [place], [address], 05/20/2023 10:00:08 05/20/20 23 05/20/2023 urina lysis panel , auto Unknown Analyte Normal Not Available [facility] [address], [place], [address], 05/20/2023 10:00:08 05/20/20 23 05/20/2023 urina lysis panel , auto Unknown Analyte Negati ve Not Available [facility] [address], [place], [address], 05/20/2023 10:00:08 05/20/20 23 05/20/2023 urina lysis panel , auto Unknown Analyte Negati ve Not Available [facility] [address], [place], [address], 05/20/2023 10:00:08 Result Notes None recorded. Problems No Known Problems Procedures Surgical History Date Name Laterality Status Provider Name and Address Organization Details Recorded Time 3 Post Void Residual; Ultrasound completed Xochitl Scott [facility] 05/20/2023 10:00:03 3 Post Void Residual; Ultrasound completed Xochitl Scott [facility] 04/23/2023 14:59:00 Stent completed Xochitl Scott [facility] 04/23/2023 14:47:23 Pacemaker completed Xochitl Scott [facility] 04/23/2023 14:56:52 Imaging Results None recorded. Procedure [...] Updated DateTime 04/23/2023 172.72 cm 33.5 kg/m2 69771.32 g Xochitl Chavez [facility] 04/23/2023 14:20:58 Date Recorded Body height Body mass index (BMI) Body weight Provider Name and Address Organization Details Last Updated DateTime 05/20/2023 172.72 cm 33.5 kg/m2 43287.32 tj Chavez [facility] 05/20/2023 09:59:55 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 Question Answer Notes LastModified by Organizat ion Details LastModified Time Tobacco Smoking Status Former Smoker Xochitl Chavez [facility] 04/23/2023 14:46:01 Are You Currently Employed? 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 16+yearssince lastcigarette [email or web address] Information not available 04/23/2023 What Is Your Relationship Status? [email or web address] Information not available 04/23/2023 Sex: Unknown Functional Status None recorded. Mental Status None recorded. Family History Relationship Description Onset Age of this Age Resolved Age Notes LastModified by Organization Details LastModified Time Mother Family history of malignant neoplasm Not available 2022 14:44:51 Sister Family history of malignant neoplasm 2 [email or web address] Not available 2022 14:44:51 Brother Heart disease 2 [email or web address] Not available 2022 14:45:32 Medical History Condition Response Anxiety Disorder Y False Teeth Y Arthritis Y Heart Conditions Y Chronic Obstructive Pulmonary Disease Y Heart Arrhythmia Y Emphysema Y Depression Y Pacemaker Y Heart Attack (RI) Y Heart Disease Y Hypertension Y Past Encounters Encounter ID Performer Location Encounter Start Date Encounter Closed Date Diagnosis/Indication Diagnosis SNOMED-CT Code Diagnosis ICD10 Code Diagnosis Note [id number] MERT DOMINIQUE MD [facility] [address] [place] [address] 04/23/2023 13:36:11 04/23/2023 14:57:22 Benign prostatic hyperplasia with outflow obstruction 015406439 N40.1 Obstructio n of urinary bladder outlet 790016508 N32.0 [id number] MD [facility] [address] [place] [address] 05/20/2023 09:43:34 05/20/2023 10:03:47 Benign prostatic hyperplasia with outflow obstruction 010169961 N40.1 Health Concerns Section Related Observation LastModified by Organization Detai ls LastModified Time None Recorded Concern Status LastModified by Organization Details LastModified Time None Recorded Advance Directives Directive None Recorded Payers Insurance Date Sequence Insurance Name Policy Number Policy Martinez Covered Member ID Martinez Member ID Guarantor Name 04/18/2024 1 [employer] (MEDICARE REPLACEMENT/ ADVANTAGE - PPO) Jigar Guadalupe [id number] Jigar Guadalupe Notes Date Note Type Note Provider Name [...] Postvoid residuals 100 mL MERT DOMINIQUE MD [facility] [place], [address], [facility] 04/23/2023 17:54:39 05/20/2023 text/html He is voiding mu ch better on the tamsulosin. He has a stronger stream. Nocturia is down to 1 time at night. He is very pleased with the improvement. Postvoid residual is 90 mL but he will stay on the medication MD Pham RODRIGUEZ, [place], [address], [facility] 05/20/2023 10:04:49
== END 2025-02-09 23:59 | disposition home or self-care (01) ==
LOC: RT 12:37
PROVIDERS: PCP Family Medicine; Visit Provider Internal Medicine
DX: I08.3 Combined rheumatic disorders of mitral, aortic and tricuspid valves (principal); I11.0 Hypertensive heart disease with heart failure; I50.20 Unspecified systolic (congestive) heart failure; I48.0 Paroxysmal atrial fibrillation; E78.5 Hyperlipidemia, unspecified; I42.9 Cardiomyopathy, unspecified; I25.10 Atherosclerotic heart disease of native coronary artery without angina pectoris; Z95.810 Presence of automatic (implantable) cardiac defibrillator; Z87.891 Personal history of nicotine dependence
CPT/HCPCS: 93306

== ENCOUNTER 2025-05-31 14:01 | Outpatient (CLI) | payer MEDICARE, SELFPAY ==
--- OUTSIDE RECORDS SUMMARY | 2025-05-31 14:04 | XMS_ITS | Clinical Summary ---
Author Organization [facility] Address [address] [place] [id number] Phone Care Team Providers Care Powerbuilder Name Role Phone Oneida OCONNELL, Neal Voss [phone] Conditions or Problems Problem Name Problem Code Onset Date Status Entry Date Provider Comment Standard Description Annotate BACK PAIN, LUMBAR 474851881 (SNOMED CT) 04/10 Active 04/10 Hannah Novak MA Low back pain LUMBAR RADICULOPATHY 521696522 (SNOMED CT) 04/10 Active 04/10 Hannah Novak MA Lumbar radiculopathy Medications Medication Instructions Start Date Stop Date Generic Name [facility] Provider COLCHICINE 0.6 MG TABS Non-Turkey COLCHICINE [id number] Hannah Novak MA BYSTOLIC TABS Non-Patel NEBIVOLOL HCL TABS [id number] Hannah Novak MA [facility] IBUPROFEN 200 MG TABS Non-Patel IBUPROFEN [id number] Hannah Novak MA CHARI ASPIRIN 325 MG TABS Non-Turkey ASPIRIN [id number] Hannahbrionna Novak MA LIDODERM 5 % PTCH Non-Turkey LIDOCAINE [id number] Hannahbrionna Novak MA HYDROCODONE-LEANA TAMINOPHEN 5-500 MG ORAL TABLET Non-Patel HYDROCODONE-AC ETAMINOPHEN [id number] Hannahbrionna Novak MA LYRICA 75 MG CAPS Non-Patel PREGABALIN [id number] Hannahbrionna Novak MA Medications Administered No information available. Allergies, Adverse Reactions, Alerts Observed no known allergies at Results No information available. Plan of Care Type Date Detail Pending order MRI Lumbar Pending order MRI Lumbar Procedures No information available. Vital Signs Date Name Value Unit Description BP Diastolic 90 mm[Hg] blood pressu re, diastolic BP Systolic 142 mm[Hg] blood pressur e, systolic Heart Rate 88 /min pulse rate Height 66 [in_us] height E&M Weight Measured 246 [lb_av] weight E& M Weight Measured 246 [lb_av] weight E& M Immunizations No information available. Advance Directives No information available.
--- OUTSIDE RECORDS SUMMARY | 2025-05-31 14:04 | XMS_ITS | Clinical Summary ---
Author Organization [facility] Address [address] [place] [address] Care Team Providers Care Can Labeler Name Role Phone Giorgio Sweeney MD Primary Care Provider [phone] Family History Medical History Relation Name Comments Cardiac disorder Brother Cardiac disorder Father Other cancer Mother Cardiac disorder Other 1 Other cancer Other 2 Cardiac disorder Sister Relation Name Status Comments Brother Father Mother Other 1 Other 2 Sister 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 Tobacco Use Types Packs/Day Years Used Date Smoking Tobacco: Former Alcohol Use Standard Drinks/Week Comments No 0 (1 standard drink = 0.6 oz pure alcohol) Alcoholic Drinks/day: No history of alcohol use Sex and Gender Information Value Date Recorded Sex Assigned at Not on file Legal Sex Male 6:21 PM EDT Gender Identity Not on file Sexual Orientation Not on file Last Filed Vital Signs Vital Sign Reading Time Taken Comments Blood Pressure 127/76 04/09/2020 12:18 PM EDT Pulse 65 04/09/2020 12:18 PM EDT Temperature 36.5 C (97.7 F) 04/09/2020 12:18 PM EDT Respiratory Rate 24 05/24/2019 9:49 AM EDT Oxygen Saturation - - Inhaled Oxygen Concentration - - Weight 111 kg (244 lb 7.8 oz) 04/09/2020 12:18 P M EDT Height 172.7 cm (5' 8 ) 05/24/2019 9:49 AM EDT Body Mass Index 37.17 05/24/2019 9:49 AM EDT Plan of Treatment Health Maintenance Due Date Last Done Comments [facility]-Depression Screening 1950 [facility]-Hepatitis C Screening 1950 [facility]-Medicare Annual Wellness (AWV) 1950 [facility]-Infant/Child/Adol SDOH Screenings 1950 [facility]- SDOH Screenings 1969 [facility]-Adult SDOH Screenings 1969 CT Colonography 1996 Colonoscopy 1996 FIT-DNA 1996 FIT 1996 FOBT 1996 Sigmoidoscopy 1996 [facility]-Colorectal Cancer Screening 1996 [facility]-Zoster Vaccines (1 of 2) 2001 [facility]-RSV Vaccine: 60+ Years o r (1 - Risk 60-74 years 1-dose series) 2011 [facility]-Pneumococcal Vaccine: 50 + Years (2 of 2 - PPSV23) 12/07/2020 10/12/2020 [id number]-21 Vaccine ( - 20 24-25 season) 2024 [facility]-Influenza Vaccine (#1) 2025 [facility]-DTaP,Tdap,and Td Vaccine s (2 - Td or Tdap) 06/18/2028 06/18/2018 HPV Vaccines Aged Out No longer eligi ble based on patient's age to complete this topic [facility]-HIB Vaccines Aged Out No longer e ligible based on patient's age to complete this topic [facility]-Hepatitis A Vaccines Aged Out No longer eligible based on patient's age to complete this topic [facility]-IPV Vaccines Aged Out No longer e ligible based on patient's age to complete this topic [facility]-Rotavirus Vaccines Aged Out No lo nger eligible based on patient's age to complete this topic Insurance [facility] MEDICARE Care Teams Can Labeler Relationship Specialty Start Date End Date Giorgio Sweeney MD [address] [place] [address] PCP - General 02/15/21
--- OUTSIDE RECORDS SUMMARY | 2025-05-31 14:04 | XMS_ITS | Encounter Summary ---
Author Organization Healthcare Address [address] [place] [address] Care Team Providers Care Tabular Typist Name Role Phone Giorgio Sweeney MD Primary Care Provider [phone] Encounter Details Date Type Department Care Team (Late st Contact Info) Description 01/01/2022 [facility] [address] [place] [address] Sumeet Alaniz MD [address] [place] [address] 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 Tobacco Use Types Packs/Day Years Used Date Smoking Tobacco: Former Alcohol Use Standard Drinks/Week Comments No 0 (1 standard drink = 0.6 oz pure alcohol) Alcoholic Drinks/day: No history of alcohol use Sex and Gender Information Value Date Recorded Sex Assigned at Not on file Legal Sex Male 6:21 PM EDT Gender Identity Not on file Sexual Orientation Not on file documented as of this encounter Plan of Treatment Not on file documented as of this encounter Visit Diagnoses Not on filedocumented in this encounter Care Teams Tabular Typist Relationship Specialty Start Date End Date Giorgio Sweeney MD [address] [place] [address] PCP - General 02/15/21 documented as of this encounter
--- OUTSIDE RECORDS SUMMARY | 2025-05-31 14:04 | XMS_ITS | Clinical Summary ---
Author Organization [facility] Address [address] [address] Phone Care Team Providers Care Mortgage Manager Name Role Phone Giorgio Sweeney MD Primary Care Provider [phone] Allergies No known active allergies Medications prasugrel (EFFIENT) 10 mg Oral Tablet Take 10 mg by mouth daily. Active sacubitriL-valsa rtan (ENTRESTO) 97-103 mg Oral Tablet Take 1 Tab by mouth 2 times daily. Active allopurinol (ZYLOPRIM) 300 mg Oral Tablet Take 300 mg by mouth daily. Active carvedilol (COREG) 3.125 mg Oral Tablet Take 3.125 mg by mouth 2 times daily. Active fUROsemide (LASIX) 40 mg Oral Tablet Take 40 mg by mouth daily. Active aspirin 81 mg Oral Tablet, Chewable Take by mouth daily. Active ibuprofen (ADVIL;MOTRIN) 800 mg Oral Tablet Take 800 mg by mouth every 6 hours as needed. Active lidocaine (LIDODERM) 5 % Top Adhesive Patch, Medicated 0 Active fluticasone propionate (FLONASE) 50 mcg/actuation Nasl [place], SuspensionIndica tions:Acute non-recurrent sinusitis, unspecified location USE 2 SPRAYS IN EACH NOSTRIL ONCE DAILY 48 g 1 Active Additional Information Patient not taking.Reason: Therapy Completed, Reported on 12/10/2023 colchicine 0.6 mg Oral Tablet Take 0.6 mg by mouth 2 times daily. 3 Active lidocaine (LIDODERM) 5 % Top Adhesive Patch, MedicatedIndicat ions:Acute pain of left shoulder Place 1 Patch onto the skin every 12 hours. 30 Patch 4 Active Additional Information Patient not taking.Reason: Therapy Completed, Reported on 12/23/2023 HYDROcodone-acet aminophen (NORCO) 5-325 mg Oral TabletIndication s:Acute pain of left shoulder Take 1 Tablet by mouth every 8 hours and prn. 9 Tablet 4 Active Additional Information Patient not taking.Reason: Pt electing to not take the medication, Reported on 12/23/2023 metoprolol succinate (TOPROL-XL) 50 mg Oral Tablet Sustained Release 24 hr Take 50 mg by mouth daily. 4 Active mirabegron (MYRBETRIQ ORAL) twice a day A ctive carvediloL (COREG) 25 mg Oral Tablet Take 50 mg by mouth 2 times daily. 4 Active acetaminophen (TYLENOL) 500 mg Oral Tablet Take by mouth every 4 hours as needed for Pain. Active methylPREDNISolo ne (MEDROL DOSPACK) 4 mg Oral Tablets, Dose Pack .COMPLEX 4 Active traMADoL (ULTRAM) 50 mg Oral TabletIndication s:Rotator cuff arthropathy of left shoulder,Osteoar thritis of left AC (acromioclavicul ar) joint,Glenohumer al arthritis, left Take 1 Tablet by mouth nightly as needed for Pain. 20 Tablet 4 Active pregabalin (LYRICA) 25 mg Oral CapsuleIndicatio ns:Chronic left shoulder pain Take 1 Capsule by mouth 3 times daily. 90 Capsule 4 Active Active Problems Patient Care Coordination No te Formatting of this note migh t be different from the original. 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 Lizzie Montgomery CATARACT EXTRACTION EXTRACAP SULAR W/ INTRAOCULAR LENS IMPLANTATION 10/16/[address] Lizzie Montgomery Medical History Medical History Date Comments CAD (coronary artery disease) Hypertension COPD (chronic obstructive pulmonary disease) (HC C) Diabetes mellitus (HCC) Sleep apnea Cancer (HCC) non hodkins lymp guille Gout Family History Medical History Relation Name Comments Allergies Neg Hx Bleeding Prob Neg Hx Cancer Neg Hx Hearing Loss Neg Hx Heart Disease Neg Hx Migraines Neg Hx Thyroid Disease Neg Hx 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 Tobacco Use Types Packs/Day Years Used Date Smoking Tobacco: Former Cigarettes Q uit: 10/05/1999 Smokeless Tobacco: Never Tobacco Cessation:Counseling Given: Not Answered Alcohol Use Standard Drinks/Week Comments Not Currently 0 (1 standard drink = 0.6 oz pur e alcohol) Sex and Gender Information Value Date Recorded Sex Assigned at Not on file Legal Sex Male 4:53 AM EDT Gender Identity Not on file Sexual Orientation Not on file Obstetrics History Last Filed Vital Signs Vital Sign Reading Time Taken Comments Blood Pressure 140/76 01/20/2023 3:36 PM EDT Pulse 82 01/20/2023 3:36 PM EDT Temperature 36.7 C (98 F) 01/20/2023 3:36 PM EDT Respiratory Rate 22 01/20/2023 3:36 PM EDT Oxygen Saturation 96% 01/20/2023 3:36 PM EDT Inhaled Oxygen Concentration - - Weight 103.9 kg (229 lb) 03/15/2024 10:58 AM EDT Height 172.7 cm (5' 8 ) 03/15/2024 10:58 AM EDT Body Mass Index 34.82 03/15/2024 10:58 AM EDT Plan of Treatment Health Maintenance Due Date Last Done Comments Wellness Exam Medicare 1953 Hepatitis C Screening 1969 Colonoscopy 1996 FIT 1996 Sigmoidoscopy 1996 Virtual Colonography 1996 Zoster (1 of 2) 2001 AAA Screening 2016 Pneumococcal Vaccine 50+ (2 of 2 - PCV20 or PCV21) 10/12/2021 10/12/2020 Cologuard 09/08/2023 09/08/2020 Colon Cancer Screening 09/08/2023 COVID-19 Vaccine (1 - 2023-2 5 season) 2024 Influenza Vaccine (#1) 2025 DTaP/TDaP/Td (2 - Td or Tdap) 06/18/2028 06/18/2018 Hepatitis B Vaccine Aged Out No longe r eligible based on patient's age to complete this topic Meningococcal B Vaccine Aged Out No l onger eligible based on patient's age to complete this topic Medical Devices Implanted Type Area Back Panel Padder Device Identifier Shelf Expiration Date Model / Serial / Lot Quadra Assura [employer] JOYCE MED:CARDIAC RHYM MGMT [id number] / / Ra Lead-08/23/2018 Implanted:08/23 (Quantity not on file) [employer] JOYCE MED:CARDIAC RHYM MGMT [id number] / / Rv Lead-08/23/2018 Implanted:08/23 (Quantity not on file) [employer] JOYCE MED:CARDIAC RHYM MGMT [id number] / / Quartet Lv Lead-08/23/2018 Implanted:08/23 (Quantity not on file) [employer] JOYCE MED:CARDIAC RHYM MGMT [id number] / / [place] Defib-11/24/2023 Implanted:11/24 (Quantity not on file) CARRILLO [id number] / / [place] [address] [place] [address] MEDICARE PPO [place] [id number] HUMANA MEDICARE PPO MR HUMANA MEDICARE PPO MR HUMANA MEDICARE PPO MR Care Teams Mortgage Manager Relationship Specialty Start Date End Date Giorgio Sweeney MD [facility] [place] [address] PCP - General Family Medicine 03/29/20
--- OUTSIDE RECORDS SUMMARY | 2025-05-31 14:04 | XMS_ITS | Clinical Summary ---
Author Organization [facility] Address [address] [place] [address] Care Team Providers Care Database Management System Specialist Name Role Phone Tomi Sweeney MD Primary Care Provider [phone] Allergies Active Allergy Reactions Criticality Noted Date Comments Statins Myalgia 12/01/2016 Trandolapril-Verapamil Hcl Er Other (See Comments) 12/01/2016 headache Medications losartan (COZAAR) 25 MG tablet Take 1 tablet by mouth Daily. 30 tablet 1 10/21/2016 Active Active Problems Problem Noted Date Diagnosed Date Paroxysmal atrial fibrillation 12/01/2016 Essential hypertension 12/01/2016 Coronary artery disease invo lving [place] coronary artery of [place] heart 12/01/2016 Overview (12/01/2016): Previous RHETT to proximal RCA Cardiac catheterization for inferior STEMI (February 2011): BMS to distal RCA (3.5 x 26 mm). LVEF 55%. Cardiac catheterization for unstable angina (10/15/2012): RHETT to distal RCA. RHETT to mid LAD. Normal LVEF. Cardiac catheterization (06/2013): 70% stenosis of small mid RPDA. LVEF 55%. Type 2 diabetes mellitus 12/01/2016 Obesity 12/01/2016 Obstructive sleep apnea 12/01/2016 Gout 12/01/2016 COPD (chronic obstructive pulmonary disease) Lymphoma 12/01/2016 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 Tobacco Use Types Packs/Day Years Used Date Smoking Tobacco: Never Assessed Abuse Screen Answer Date Recorded Unsafe at Home or Work/School Not on file Feels Threatened by Someone? Not on file 06/2023 Does Anyone Keep You from Co ntacting Others or Doint Things Outside the Home? Not on file 07/13/2023 Physical Sign of Abuse Present Not on file 1 Housing Stability Answer Date Recorded Current Living Arrangements Not on file 06/2023 Potentially Unsafe Housing Conditions Not on mere e 07/13/2023 Family and Community Support Answer Ector e Recorded Help with Day-to-Day Activities Not on file 07/13/2023 Lonely or Isolated Not on file 07/13/2023 Employment Answer Date Recorded Do you want help finding or keeping work or a jr b? Not on file 07/13/2023 Disabilities Answer Date Recorded Concentrating, Remembering, or Making Decisions Difficulty Not on file 07/13/2023 Doing Errands Independently Difficulty Not on fi le 07/13/2023 Education Answer Date Recorded Help with school or training? Not on file Preferred Language Not on file 07/13/2023 Sex and Gender Information Value Date Recorded Sex Assigned at Not on file Legal Sex Male 11:45 AM EDT Gender Identity Not on file Sexual Orientation Not on file Plan of Treatment Health Maintenance Due Date Last Done Comments ANNUAL PHYSICAL 1950 HEPATITIS C SCREENING 1950 TDAP/TD VACCINES (1 - Tdap) 1970 COLOGUARD 1996 COLON CANCER SCREENING 5 YEAR SIGMOIDOSCOPY 1996 COLONOSCOPY [address] CANCER SCREENING 1996 CT COLONOGRAPHY 1996 FECAL OCCULT BLOOD TEST 1996 FIT Testing (1 year) 1996 Pneumococcal Vaccine 50+ (1 of 1 - PCV) 2001 ZOSTER VACCINE (1 of 2) 2001 AAA SCREEN ONCE 2016 COVID-19 Vaccine ( - season) 2024 INFLUENZA VACCINE 07/05/2025 HEMOGLOBIN A1C Discontinued 11/08/2015 Procedures Procedure Name Priority Date/Time Associated Diagnosis Comments HEMOGLOBIN A1C Routine 11/08/2015 9:18 PM EST from Last 3 Months or Most Recently Relevant to Health Maintenance Results * (ABNORMAL) Hemoglobin A1c (11/08/2015 9:18 PM EST) Hemoglobin A1C 8.1(H) 4.00 - 6.00 % [facility] Comment: The [place] Diabetes [employer] recommends maintenance of Hemoglobin A1C at 7.0% or lower. Goals for Hemoglobin A1C reduction may need to be modified if hypoglycemia is a problem. Mean Bld Glu Estim. 183 mg/dL [facility] Blood specimen (specimen) 11/08/2015 9:18 PM EST 11/08/2015 9:29 PM EST Narrative [facility] - 11/08/2015 10:08 PM EST Specimen Type : Blood us Alber Raygoza MD LAB BLOOD ORDERABLES Final Re sult [facility]
[address] [place] [address], from Last 3 Months or Most Recently Relevant to Health Maintenance Insurance EMPLOYEE Care Teams Database Management System Specialist Relationship Specialty Start Date End Date Tomi Sweeney MD PCP - General 12/13/15
[2025-05-31 15:40] LABS: Hematocrit 49.2 % (42.0-52.0); Hemoglobin 15.9 g/dL (14.1-18.0); Immature Granulocytes % 0.4 %; Mean Corpuscular HGB Conc 32.3 g/dL (31.8-35.4); Mean Corpuscular Hemoglobin 28.4 pg (27.0-31.2); Mean Corpuscular Volume 88.0 fl (80-94); Nucleated Red Blood Cells % 0 %; Platelet Count 196 K/mm3 (142-424); Red Blood Count 5.59 M/mm3 (4.60-6.20); Red Cell Distribution Width-SD 46.9 fL; White Blood Count 10.5 K/mm3 (4.8-10.8)
[2025-05-31 18:25] LABS: Albumin Level 4.2 g/dl (3.5-5.0); Chloride 109 mmol/L (98-107); Sodium 143 mmol/L (136-145)
[2025-05-31 18:26] LABS: Potassium 4.3 mmoL/L (3.5-5.1)
[2025-05-31 18:28] LABS: Alanine Aminotransferase 21 U/L (12-78); Alkaline Phosphatase 72 U/L (38-126); Anion Gap 15.3 mEq/L (5-15); Aspartate Amino Transferase 32 U/L (17-59); Bilirubin,Direct 0.2 mg/dl (0.0-0.4); Bilirubin,Indirect 0.3 mg/dL (0.0-0.9); Bilirubin,Total 0.5 mg/dl (0.2-1.3); Bilirubin,Unconjugated 0.3 mg/dL (0.0-1.1); Blood Urea Nitrogen 13 mg/dl (9-20); Calcium 9.7 mg/dl (8.4-10.2); Carbon Dioxide 23 mmol/L (22.0-30.0); Cholesterol 162 mg/dl (140-200); Creatinine,Serum 0.90 mg/dl (0.66-1.25); Estimated Glomerular Filt Rate 83 ml/min (>60); GFR (African American) 100 ML/MIN (>60); Glucose 90 mg/dl (74-100); Total Protein,Serum 6.9 g/dl (6.3-8.2); Triglycerides 325 mg/dl (30-150)
[2025-05-31 18:29] LABS: HDL Cholesterol 41 mg/dl (40-60); Magnesium 1.7 mg/dl (1.6-2.3)
[2025-05-31 18:47] LABS: Free T4 (Free Thyroxine) 1.55 ng/dl (0.78-2.19)
[2025-05-31 19:00] LABS: Thyroid Stimulating Hormone 1.46 uIU/mL (0.465-4.68)
== END 2025-05-31 23:59 | disposition home or self-care (01) ==
LOC: LAB 14:02
PROVIDERS: PCP Family Medicine; Visit Provider Internal Medicine
DX: I48.0 Paroxysmal atrial fibrillation (principal); I25.10 Atherosclerotic heart disease of native coronary artery without angina pectoris; I11.9 Hypertensive heart disease without heart failure; E78.5 Hyperlipidemia, unspecified
CPT/HCPCS: 36415; 80048; 80061; 80076; 83735; 84439; 84443; 85025

== ENCOUNTER 2025-07-11 15:00 | Outpatient (CLI) | payer MEDICARE, SELFPAY ==
[2025-07-11 20:11] LABS: Anion Gap 15.4 mEq/L (5-15); Blood Urea Nitrogen 12 mg/dl (9-20); Calcium 9.2 mg/dl (8.4-10.2); Carbon Dioxide 23 mmol/L (22.0-30.0); Chloride 106 mmol/L (98-107); Creatinine,Serum 1.00 mg/dl (0.66-1.25); Estimated Glomerular Filt Rate 73 ml/min (>60); GFR (African American) 89 ML/MIN (>60); Glucose 87 mg/dl (74-100); Potassium 4.4 mmoL/L (3.5-5.1); Sodium 140 mmol/L (136-145)
--- OUTSIDE RECORDS SUMMARY | 2025-07-11 22:38 | XMS_ITS | Clinical Summary ---
Author Organization [facility] Address [address] [place] [address] Care Team Providers Care Reproducer Name Role Phone Tomi Sweeney MD Primary Care Provider Allergies Active Allergy Reactions Criticality Noted Date Comments Statins Myalgia 12/01/2016 Trandolapril-Verapamil Hcl Er Other (See Comments) 12/01/2016 headache Medications losartan (COZAAR) 25 MG tablet Take 1 tablet by mouth Daily. 30 tablet 1 10/21/2016 Active Active Problems Problem Noted Date Diagnosed Date Paroxysmal atrial fibrillation 12/01/2016 Essential hypertension 12/01/2016 Coronary artery disease invo lving [place] coronary artery of [place] heart 12/01/2016 Overview (12/01/2016): Previous RHETT to [...] of 2) 2001 AAA SCREEN ONCE 2016 INFLUENZA VACCINE 05/05/2025 COVID-19 Vaccine ( season) 2025 HEMOGLOBIN A1C Discontinued 11/08/2015 Procedures Procedure Name Priority Date/Time Associated Diagnosis Comments HEMOGLOBIN A1C Routine 11/08/2015 9:18 PM EST from Last 3 Months or Most Recently Relevant to Health Maintenance Results * (ABNORMAL) Hemoglobin A1c (11/08/2015 9:18 PM EST) Hemoglobin A1C 8.1(H) 4.00 - 6.00 % [facility] Comment: The [place] Diabetes Association recommends maintenance of Hemoglobin A1C at 7.0% or lower. Goals for Hemoglobin A1C reduction may need to be modified if hypoglycemia is a problem. Mean Bld Glu Estim. 183 mg/dL [facility] Blood specimen (specimen) 11/08/2015 9:18 PM EST 11/08/2015 9:29 PM EST Narrative [facility] - 11/08/2015 10:08 PM EST Specimen Type : Blood us Alber Raygoza MD LAB BLOOD ORDERABLES Final Re sult [facility]
[address] [place] [address], from Last 3 Months or Most Recently Relevant to Health Maintenance Insurance EMPLOYEE Care Teams Reproducer Relationship Specialty Start Date End Date Tomi Sweeney MD PCP - General 12/13/15
--- OUTSIDE RECORDS SUMMARY | 2025-07-11 22:38 | XMS_ITS | Clinical Summary ---
Author Organization [facility] Address [address] [place] [address] Care Team Providers Care Bank Appraiser Name Role Phone Giorgio Sweeney MD Primary Care Provider [phone] Family History Medical History Relation Name Comments [...] 50 + Years (2 of 2 - PPSV23, PCV20, or PCV21) 12/07/2020 10/12/2020 EIG-HSBVU-10 Vaccine ( - 20 24-25 season) 2025 UKY-Influenza Vaccine (#1) 2025 UKY-DTaP,Tdap,and Td Vaccine [...] patient's age to complete this topic Insurance [facility] MEDICARE Care Teams Bank Appraiser Relationship Specialty Start Date End Date Giorgio Sweeney MD [address] [address] PCP - General 02/15/21
--- OUTSIDE RECORDS SUMMARY | 2025-07-11 22:38 | XMS_ITS | Encounter Summary ---
Author Organization [facility] Address [address] [place] [address] Care Team Providers Care Ethylbenzene Converter Operator Name Role Phone Giorgio Sweeney MD Primary Care Provider [phone] Encounter Details Date Type Department Care Team (Late st Contact Info) Description 01/01/2022 Community [facility] [address] [place] [address] Sumeet Alaniz MD [address] [place] [address] 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 Tobacco Use Types [...] on filedocumented in this encounter Care Teams Ethylbenzene Converter Operator Relationship Specialty Start Date End Date Giorgio Sweeney MD [address] [place] [address] PCP - General 02/15/21 documented as of this encounter
--- OUTSIDE RECORDS SUMMARY | 2025-07-11 22:38 | XMS_ITS | Clinical Summary ---
Author Organization [facility] Address [address] [address] Phone Care Team Providers Care Nuclear Worker Technician Name Role Phone Giorgio Sweeney MD Primary Care Provider [phone] Allergies No known active allergies Medications prasugrel [...] Active fluticasone propionate (FLONASE) 50 mcg/actuation Nasl [place], SuspensionIndica tions:Acute non-recurrent sinusitis, unspecified location USE [...] migh t be different from the original. [facility] [place] - Mauricio Roy MD Interventional Pain Protocol: Manjit report completed (EVERY 3 MONTHS) ( 04/11/24 ) Pharmacy: [facility] [address] [place] [address] [address] [facility] [phone] [[id number]] Spine Center additional info (Transportation, WC, Compound, [...] COVID-19 Vaccine (1 - 2023-2 5 season) 2025 Influenza Vaccine (#1) 2025 DTaP/TDaP/Td (2 - Td or Tdap) 06/18/2028 06/18/2018 Hepatitis B Vaccine Aged Out No longe r eligible based on patient's age to complete this topic Meningococcal B Vaccine Aged Out No l onger eligible based on patient's age to complete this topic Medical Devices Implanted Type Area Personal Insurance Advisor Device Identifier Shelf Expiration Date Model / Serial / Lot Quadra Assura [facility] JO[facility] MED:CARDIAC RHYM MGMT [id number] / / Ra Lead-08/23/2018 Implanted:08/23 (Quantity not on file) [facility] JOYCE MED:CARDIAC RHYM MGMT [id number] / / Rv Lead-08/23/2018 Implanted:08/23 (Quantity not on file) [employer] JOYCE MED:CARDIAC RHYM MGMT [id number] / / Quartet Lv Lead-08/23/2018 Implanted:08/23 (Quantity not on file) [employer] JOYCE MED:CARDIAC RHYM MGMT [id number] / / [place] Defib-11/24/2023 Implanted:11/24 (Quantity not on file) CARRILLO [id number] / / Insurance HUMANA MEDICARE PPO MR HUMANA MEDICARE PPO MR HUMANA MEDICARE PPO MR HUMANA MEDICARE PPO MR Care Teams Nuclear Worker Technician Relationship Specialty Start Date End Date Giorgio Sweeney MD [address] [facility] [address] [place] [address] PCP - General Family Medicine 03/29/20
== END 2025-07-11 23:59 | disposition home or self-care (01) ==
LOC: LAB.DROPOF 22:36
PROVIDERS: PCP Family Medicine; Visit Provider Family Medicine
DX: E11.40 Type 2 diabetes mellitus with diabetic neuropathy, unspecified (principal); I50.20 Unspecified systolic (congestive) heart failure
CPT/HCPCS: 80048; 82043; 82570